=== PATIENT | female | born 1960 | race Caucasian/White ===

== ENCOUNTER 2016-10-06 14:22 | Inpatient (IN) ==
[2016-10-06 15:27] LABS: INR 1.41; PROTIME 14.3 Seconds (9.2-11.7); PTT 28.5 Seconds (22.0-36.0)
[2016-10-06 15:29] LABS: BASO% 0.2 % (0.0-0.8); HEMATOCRIT 34.5 % (37.0-47.0); HEMOGLOBIN 11.1 g/dL (12.0-16.0); IMM GRAN# 0.19 X1000 (0.0-0.04); IMM GRAN% 0.8 % (0.0-0.5); LYMPH% 4.1 % (20.5-51.1); MANUAL DIFF NEEDED? YES; MCH 29.6 PG (27-31); MCHC 32.2 g/dL (33-37); MONO# 1.51 X1000 (0.11-0.59); MONO% 6.1 % (1.7-9.3); MPV 10.6 FL (7.4-10.4); NEUT% 88.8 % (42.2-75.2); PLT 443 X1000 (130-400); RBC 3.75 XMIL (4.2-5.4)
[2016-10-06 15:30] LABS: AGAP 19; ALKALINE PHOSPHATASE 115 U/L (32-104); BUN 20 mg/dL (8-22); CALCIUM 8.6 mg/dL (8.8-10.2); CHLORIDE 90 mmol/L (98-107); CK PROFILE 123 U/L (24-173); COSMO 279; GOT 18 U/L (10-30); GPT 17 U/L (10-36); POTASSIUM 3.5 mmol/L (3.5-5.1); SODIUM 132 mmol/L (136-145); TCO2 23 mmol/L (25-35); TOTAL BILIRUBIN 0.43 mg/dL (0.20-1.00); TOTAL PROTEIN 8.5 g/dL (6.3-8.3)
--- NOTE | 2016-10-06 15:39 | Diag Imaging Result Document ---
PROCEDURE NAME: CHEST-2 VIEWS - 10/06/2016 FRONTAL AND LATERAL CHEST, TWO VIEWS: FINDINGS: Sternal wires are present. The lungs are well expanded. The heart is not enlarged. The vessels are not distended. No infiltrates. No pleural effusions. IMPRESSION: No pneumonia.
[2016-10-06] MEDS ORDERED: VANCOMYCIN 1 GM/NS 250 ML IV ONE (15:58)
[2016-10-06] MEDS ORDERED: ZOSYN 3.375 GM/NS 50 ML IV ONE (15:58)
--- NOTE | 2016-10-06 16:03 | PROVIDER DOCUMENTATION ---
HPI-Musculoskeletal Pain/Inj - GENERAL Source: patient, family - HX OF PRESENT ILLNESS-MUSKULOSKELTAL Quality of Pain: reports: aching Severity in ED: moderate Onset/Duration: other (4 weeks) Timing: still present Any recent injury?: No Locality of Occurance: Home Similar Symptoms Previously?: Yes Recently seen or treated by another doctor?: No <Rocío Vera - Last Filed: 10/06/16 16:05> <Alejo Cerna - Last Filed: 10/06/16 16:16> - GENERAL Chief Complaint: Possible Sepsis-D Stated Complaint: POSS INFECTION IN FOOT Time Seen by Provider: 10/06/16 15:32 - HX OF PRESENT ILLNESS-MUSKULOSKELTAL Nature of Presenting Problem: Pt is a 56 yof that is a diabetic that presents to er with cc of right foot infection x 4 weeks reports continuing to get worse and hasn't followed up with pcp about it. Pt reports she was treated for cellulitis in April when it flared up. Reports hasn't been compliant with diabetes medication. Denies n,v,f, sob,urinary symptoms. Nonsmoker. reports noticed a foul odor from foot two days ago. Pt is febrile on arrival. (Rocío Vera) Review of Systems - Adult - REVIEW OF SYSTEMS - ADULT Constitutional: denies: chills, fever, fatique Eyes: reports: no symptoms reported Ears, Nose, Mouth & Throat: denies: ear pain, sinus problem, throat pain Cardiovascular: reports: no symptoms reported Respiratory: denies: cough, shortness of breath, wheezing Gastrointestinal: reports: no symptoms reported Genitourinary: reports: no symptoms reported Musculoskeletal: reports: see HPI. denies: joint pain, joint swelling, neck pain Integumentary: reports: no symptoms reported Neurological: reports: no symptoms reported Psychiatric: reports: no symptoms reported Endocrine: reports: see HPI. denies: change in skin pigment, excessive sweating , increased thirst, polyuria Hematologic/Lymphatic: denies: blood clots, low blood count, lymphedema, prolonged bleeding Allergic/Immunologic: reports: no symptoms reported All Other Systems: Reviewed and Negative <Rocío Vera - Last Filed: 10/06/16 16:05> Past History - Adult - PAST MEDICAL HISTORY-ADULT Review of Records: reports: Nursing Assessment Review, Medications Reviewed Cardiovascular: reports: cardiac disease, CAD, HTN. denies: CHF Respiratory: reports: denies history Gastrointestinal: reports: denies history Genitourinary: reports: denies history Neurological: reports: denies history Psychiatric: reports: denies history Endocrine/Immune: reports: Diabetes - PRIOR SURGERIES/PROCEDURES Surgical/Procedure History: reports: CABG, hysterectomy, tonsillectomy - IMMUNIZATION STATUS Childhood Immunizations: See Nurse Assessment Flu Vaccine: See Nurse Assessment - FAMILY HISTORY Family History: reviewed, not pertinent - SOCIAL HISTORY Smoking: denies Substance Use: none/never <VeraRocío - Last Filed: 10/06/16 16:05> Physical Exam-Injury Related - Physical Exam-Injury Related Initial Vital Signs Reviewed: Yes General Appearance: alert, mild distress, obese. negative: appears well Eyes: PERRL/EOMI Head, Ears, Nose, Mouth & Throat: TMs normal, pharynx normal Neck: non-tender, full range of motion, supple, normal inspection Respiratory: chest non-tender, lungs clear, normal breath sounds, no pleuratic chest pain, no respiratory distress, no accessory muscle use Cardiovascular: tachycardia Extremity: erythema (right lower leg distal 2-3 mild to moderate swelling), swelling (diabetic ulcer to right foot over 1st metatarsal and great toe with purulent discharge and discoloration to distaal great toe foul odor) Integumentary: normal color, warm/dry Psych/Mental Status: normal mood/affect, normal thought content, normal thought process, oriented x 3 - Glascow Coma Score Best Eye Response (Nazanin): (4) open spontaneously Best Verbal Response (Nazanin): (5) oriented Best Motor Response (Sagle): (6) obeys commands Sagle Total: 15 <VeraRocío - Last Filed: 10/06/16 16:05> Progress - CONSULTS/PCP/HOSPITALIST Notification #1 *Consult/PCP/Hospitalist*: Time Discussed: 16:04 Consult Disposition: Admit <Rocío Vera - Last Filed: 10/06/16 16:05> <Alejo Cerna - Last Filed: 10/06/16 16:16> - PLAN OF CARE/RESULTS Progress/Plan/Lab Results: Orders Category Date Time Status Cardiac Monitoring DIRECTED Care 10/06/16 14:35 Active IV Insertion ORDERED Care 10/06/16 14:35 Active Notify MD of + Sepsis Screen NOW Care 10/06/16 14:35 Active CHEST-2 VIEWS [RAD] Stat Exams 10/06/16 14:35 Draft BLOOD CULTURE [BLDCUL] Stat Lab 10/06/16 14:48 Ordered CBC WITH DIFF [HEME] Stat Lab 10/06/16 14:48 Results CK PROFILE [SP CHEM] Stat Lab 10/06/16 14:48 Completed COMPREHENSIVE METABOLIC PANEL [CHEM] Stat Lab 10/06/16 14:48 Completed LACTATE, PLASMA [CHEM] Stat Lab 10/06/16 14:48 Completed PROTIME WITH INR [COAG] Stat Lab 10/06/16 14:48 Completed PTT [COAG] Stat Lab 10/06/16 14:48 Completed ROUTINE CULTURE [RM] Stat Lab 10/06/16 14:35 Uncollected SED RATE [HEME] Stat Lab 10/06/16 15:58 Uncollected TROPONIN T Stat Lab 10/06/16 14:48 Completed URINALYSIS W/POSS RFLX CULT [URINALYSIS] Stat Lab 10/06/16 14:35 Uncollected Piperacil/Tazobact 3.375 gm/Ns [Zosyn 3.375 gm/Ns] 50 Med 10/06/16 15:58 Active ml IV NOW Vancomycin 1 gm/Ns 250 ml Med 10/06/16 15:58 Active IV NOW Oxygen Device Stat Oth 10/06/16 14:35 Active Vital Signs - 24 hr 10/06/16 14:31 Temperature 102.5 F H Pulse Rate 143 H Respiratory 18 Rate Blood Pressure 123/75 O2 Sat by Pulse 97 Oximetry Laboratory Tests 10/06/16 10/06/16 10/06/16 14:48 14:48 14:48 WBC 24.56 H RBC 3.75 L Hgb 11.1 L Hct 34.5 L MCV 92.0 MCH 29.6 MCHC 32.2 L RDW Std Deviation 14.3 Plt Count 443 H MPV 10.6 H Immature Gran % (Auto) 0.8 H Neut % (Auto) 88.8 H Lymph % (Auto) 4.1 L [place] % (Auto) 6.1 Eos % (Auto) 0.0 Baso % (Auto) 0.2 Immature Gran # (Auto) 0.19 H Neut # (Auto) 21.82 H Lymph # (Auto) 1.00 L [place] # (Auto) 1.51 H Eos # (Auto) 0.00 Baso # (Auto) 0.04 PT INR PTT (Actin FS) Sodium 132 L Potassium 3.5 Chloride 90 L Carbon Dioxide 23 L Anion Gap 19 BUN 20 Creatinine 0.9 Estimated GFR/1.73 m2 > 60 BUN/Creatinine Ratio 22 Glucose 316 H Calculated Osmolality 279 Calcium 8.6 L Total Bilirubin 0.43 AST 18 ALT 17 Alkaline Phosphatase 115 H Creatine Kinase 123 Troponin T Total Protein 8.5 H Albumin 3.0 L Globulin 5.5 Albumin/Globulin Ratio 0.5 Plasma Lactate 2.1 10/06/16 10/06/16 14:48 14:48 WBC RBC Hgb Hct MCV MCH MCHC RDW Std Deviation Plt Count MPV Immature Gran % (Auto) Neut % (Auto) Lymph % (Auto) [place] % (Auto) Eos % (Auto) Baso % (Auto) Immature Gran # (Auto) Neut # (Auto) Lymph # (Auto) [place] # (Auto) Eos # (Auto) Baso # (Auto) PT 14.3 H INR 1.41 PTT (Actin FS) 28.5 Sodium Potassium Chloride Carbon Dioxide Anion Gap BUN Creatinine Estimated GFR/1.73 m2 BUN/Creatinine Ratio Glucose Calculated Osmolality Calcium Total Bilirubin AST ALT Alkaline Phosphatase Creatine Kinase Troponin T < 0.010 Total Protein Albumin Globulin Albumin/Globulin Ratio Plasma Lactate (Rocío Vera) Departure - Departure Time of Disposition Order: 16:06 Certified Medical Emergency: Emergent <Rocío Vera - Last Filed: 10/06/16 16:05> - Departure Time of Disposition Order: 16:16 Certified Medical Emergency: Emergent <Alejo Cerna - Last Filed: 10/06/16 16:16> - Departure DIAGNOSIS: Diabetic foot ulcer Qualifiers: Diabetes mellitus type: other specified (including CANDICE) Laterality: right Qualified Code(s): E13.621 - Other specified diabetes mellitus with foot ulcer Fever Qualifiers: Fever type: unspecified Qualified Code(s): R50.9 - Fever, unspecified Disposition: ADMITTED INPATIENT 09 Condition: Stable Referrals: Belen Dominique [Primary Care Provider] - Attestation - Scribe Verification/Attestation Scribe:: Rocío Vera Acting as Scribe for:: Alejo Cerna Scribe documention review:: This chart was documented by a scribe and accurately reflects the service the provider performed and the decisions made by the provider. <Rocío Vera - Last Filed: 10/06/16 16:05> Physician Attestation - Physician Attestation I, the provider, attest to the following statement:: Alejo Cerna Physician documentation Attestation:: This documentation recorded by the scribe accurately reflects the service I personally performed and the decisions made by me. <Alejo Cerna - Last Filed: 10/06/16 16:16>
[2016-10-06] MEDS ORDERED: ZOFRAN IV ONE (16:15)
[2016-10-06] MEDS ORDERED: MORPHINE IV ONE (16:15)
[2016-10-06 17:13] LABS: URINE SOURCE CATH
[2016-10-06 17:18] LABS: BILIRUBIN URINE SMALL (NEGATIVE); BLOOD URINE MODERATE (NEGATIVE); COLOR YELLOW; GLUCOSE URINE 200 mg/dL (NEGATIVE); LEUKOCYTES URINE SMALL (NEGATIVE); NITRITE URINE POSITIVE (NEGATIVE); PROTEIN URINE 300 mg/dL (NEGATIVE); SP GRAVITY URINE 1.029; TURBIDITY URINE HAZY (CLEAR); UROBILINOGEN URINE 3 mg/dL (NORMAL)
[2016-10-06 17:22] LABS: UR EPITHELIAL CELLS >10 /HPF (<10); URINE BACTERIA 1+ /HPF; URINE CULTURE NEEDED? YES; URINE MICRO REVIEW NEEDED? YES; URINE RBC <10 /HPF (<10); URINE WBC TNTC /HPF (<10)
[2016-10-06 17:30] LABS: URINE CASTS NONE SEEN; URINE CRYSTALS NONE SEEN; URINE SMALL ROUND CELLS NONE SEEN
[2016-10-06 17:35] LABS: BANDS 6 % (0-1); LYMPHS 6 % (21-51); MONO 4 % (1-9)
[2016-10-06 17:39] LABS: HYPOCHROM OCCASIONAL
[2016-10-06 17:40] LABS: LARGE PLATELETS OCCASIONAL
--- NOTE | 2016-10-06 18:35 | HISTORY AND PHYSICAL ---
PRIMARY CARE PHYSICIAN: Dr. Belen Dominique. CHIEF COMPLAINT: Right foot pain. HISTORY OF PRESENT ILLNESS: Mrs. Olivier is an unfortunate 56-year-old female. She carries a history of CAD status post CABG, chronic cellulitis of right lower extremity, diabetes mellitus, hypertension, and poor medical compliance. She presents with 3 weeks of right foot pain and left foot ulcer. Symptoms began with a small apparent laceration to her right foot and this progressed to severe right diabetic foot ulcer. Currently, she has the majority of her right great toe eroded and exposed with bone protruding. She has multiple stages of wound degradation noted. The wound is obviously purulent and gangrenous. She states she has been treating herself with hydrogen peroxide and bandages. She has not seen anybody about this. She has not been on antibiotics. She denies any fevers or chills. No chest pain. No nausea, vomiting or diarrhea. She has a history of diabetes mellitus, and states that she rarely checks her blood sugar for reasons that are not exactly understood. At any rate, she came to the ER today for evaluation. In the ER, she was noted to have significant leukocytosis and vital signs consistent with sepsis. She is tachycardic with a fever of 102.5, heart rate right now is in the 130s; however, her blood pressure is maintaining adequately. She is now going to be admitted for severe sepsis and diabetic foot ulcer. PAST MEDICAL HISTORY: 1. CAD. 2. Poorly controlled diabetes. 3. Hypertension. 4. Hyperlipidemia. 5. Gout. 6. History of stroke with residual left-sided weakness. 7. Chronic right lower extremity cellulitis. 8. Poor medical compliance. 9. RLS. 10. Diabetic neuropathy. SURGICAL HISTORY: Tonsillectomy, , hysterectomy and CABG. SOCIAL HISTORY: Patient quit smoking multiple years ago. She denies tobacco, alcohol or drug use. FAMILY HISTORY: Significant for lung cancer, uterine cancer, CAD and diabetes. REVIEW OF SYSTEMS: Fourteen-point review of systems were obtained and found to be negative with the exception of the HPI. ALLERGIES: Tizanidine. HOME MEDICATIONS: Are currently being compiled. PHYSICAL EXAMINATION: VITAL SIGNS: Blood pressure is 152/59, heart rate 126, respiratory rate 18, O2 saturation 97% on room air. Temperature is 100.4 degrees. GENERAL: This is a morbidly obese, female, lying in the hospital bed. No acute distress. NEUROLOGIC: She is awake, alert, and oriented. She follows commands. She has no focal deficits. HEENT: Head atraumatic and normocephalic. Her pupils are equal, round, reactive to light. Oral mucosa is dry. Trachea is midline. No JVD. CHEST: Clear to auscultation bilaterally. CV: Tachy but regular. S1, S2 is noted. No murmurs, gallops, clicks, or rubs. GI: Soft, nondistended, nontender. Bowel sounds are positive. EXTREMITIES: Right lower extremity with significant edema, redness, area about the right great toe has significant eschar and multiple stages of degradation of some the areas with bone exposure. Pulse is diminished but palpable. DIAGNOSTIC DATA: Chest x-ray shows no acute process. WBC 24.56, hemoglobin 11.1, hematocrit 34.5, platelet count 443,000. ESR 128. INR 1.41. Sodium 132, potassium 3.5, chloride 90, CO2 23, anion gap 19. BUN 20, creatinine 0.9. Glucose is 316. Calcium 8.6, alkaline phosphatase 115, albumin 3, lactate 2.1. Urinalysis shows significant urinary tract infection and moderate blood, positive nitrites, small bilirubin. ASSESSMENT/PLAN: 1. Severe sepsis: Source is most definitely her right foot. We are going to draw blood cultures, wound cultures. Obtain radiograph of the foot. Start broad-spectrum antibiotics. Continue fluid resuscitation. Consult ID and Surgery. Her blood pressure is stable for now. We will monitor this closely. 2. Severe right diabetic foot ulcer: Amputation is likely for this patient. General Surgery has been consulted as has ID. Cultures have been obtained and antibiotics have been initiated. We are also ordering plain film radiographs and inflammatory studies. 3. Poorly controlled diabetes mellitus: We had a long discussion with the patient about compliance and diabetic management. We are going to check a hemoglobin A1c and see where we are with that. Then we will also add a basal insulin and continue daily diabetic education. 4. Hypertension: Add p.r.n. medications for now. We will need to update her home medications and then we will continue them as necessary. 5. Hyponatremia: Mild, likely hypovolemic given her overall volume status and clinical picture. We have added IV fluid hydration. We will continue to monitor. 6. Coronary artery disease: Patient denies any chest pain or shortness of breath. Chest x-ray does not show anything acute. We will also order EKG for completion. 7. Urinary tract infection: Cultures are pending. We will continue antibiotics. 8. Anemia: Likely chronic disease, we will check iron studies and treat accordingly. 9. Poor medical compliance. We have advised the patient that continued medical noncompliance with her diabetes will ultimately lead to severe morbidity and mortality. We will continue daily education and possibly discuss with social work. 10. Gastrointestinal and deep vein thrombosis prophylaxis provided with proton pump inhibitor and Lovenox. Further recommendations to follow. Dictated by RADHA Arenas for Manuel Gerard MD
[2016-10-06] MEDS ORDERED: VANCOMYCIN IV PER PHARMACY MISC SCH (19:35)
[2016-10-06 20:22] LABS: HEMOGLOBIN A1C 10.1 % (4.8-6.0)
[2016-10-06 20:25] LABS: HDL 17 mg/dL (45-65); LDL 109 mg/dL; MAGNESIUM 1.9 mg/dL (1.5-2.7); TRIGLYCERIDES 159 mg/dL (35-135); VLDL 32 mg/dL
[2016-10-06] MEDS ORDERED: VANCOMYCIN 1,300 MG in NS 250 ML IV ONE (20:30)
[2016-10-06 20:32] LABS: FREE T4 1.05 ng/dL (0.93-1.70)
[2016-10-06] MEDS: SODIUM CHLORIDE 0.9% INJ SCH (21:03)
[2016-10-06] MEDS: PROTONIX IV SCH (21:03)
[2016-10-06] MEDS: HUMALOG SUBQ SCH (21:03)
[2016-10-06] MEDS: NS 1,000 ML IV SCH (21:03)
[2016-10-06] MEDS: MORPHINE IV PRN (21:13)
[2016-10-07] MEDS: ZOSYN 3.375 GM/NS 50 ML IV SCH ×4 (02:01→14:11)
[2016-10-07] MEDS: MORPHINE IV PRN ×4 (02:05→20:13)
[2016-10-07] MEDS: HUMALOG SUBQ SCH ×4 (06:29→21:02)
[2016-10-07 06:56] LABS: HEMATOCRIT 29.7 % (37.0-47.0); HEMOGLOBIN 9.2 g/dL (12.0-16.0); MCH 29.4 PG (27-31); MCV 94.9 FL (81-99); RBC 3.13 XMIL (4.2-5.4)
[2016-10-07 07:03] LABS: CALCIUM 8.7 mg/dL (8.8-10.2); POTASSIUM 3.9 mmol/L (3.5-5.1)
[2016-10-07] MEDS ORDERED: REGLAN IV ONE (08:56)
[2016-10-07] MEDS ORDERED: PEPCID IV ONE (08:56)
[2016-10-07] MEDS ORDERED: SODIUM CHLORIDE 0.9% INJ ONE (08:56)
--- NOTE | 2016-10-07 09:21 | Diag Imaging Result Document ---
PROCEDURE NAME: FOOT COMPLETE RIGHT - 10/06/2016 PORTABLE RIGHT FOOT, 3 VIEWS: FINDINGS: There is extensive soft tissue swelling. There is a large amount of subcutaneous gas at the medial forefoot/great toe. This may relate to infection by gas- producing organism or gangrene. There is apparent fracture deformity of the distal phalanx of the great toe, but it is not clear if this represents pathological fracture associated with osteomyelitis. There is no other bony destruction identified. There is no other fracture or dislocation identified. There is calcaneal spurring which is most prominent at the plantar fascia insertion. There are some degenerative changes at the talonavicular articulation. IMPRESSION: 1. Large amount subcutaneous gas at medial forefoot and great toe, compatible with infection by gas-producing organism or gangrene. 2. Apparent fracture deformity of distal phalanx of great toe. It is not clear if this represents pathological fracture associated with osteomyelitis. Correlation with clinical evaluation is recommended. [facility]
[2016-10-07] MEDS ORDERED: VANCOMYCIN 1,700 MG in NS 250 ML IV SCH ×2 (15:00→16:00)
--- NOTE | 2016-10-07 15:05 | PROGRESS NOTE ---
DATE: 10/07/2016 Today Ms. Olivier refers to be fine. She has already been seen by General Surgery. She continues to have pain in the right lower extremity from the infections. OBJECTIVE: Vital signs: Blood pressure is 125/60, pulse of 115, respirations 20, temperature 99.9 degrees. General: Ms. Olivier is a 56-year-old female. She is in bed. She did not seem to be in any distress. HEENT: Mucosa is pink and moist. Anicteric. Acyanotic. Neck: Supple. Chest: Clear. Cardiovascular: Regular rate and rhythm. Abdomen: Soft, distended, but nontender. Bowel sounds are present. Extremities: The left lower extremity is okay. The right lower extremity has gross erythematous changes from the big toe to the metatarsal area. The leg itself also has some erythematous changes consistent with stasis dermatitis with possible superimposed cellulitis. There is some ulceration under the right big toe and it looks really nasty and ugly. LABORATORY DATA: 1. WBC is 19.12, hemoglobin is 9.2, platelet count of 317,000. Chemistry is reviewed, relatively fine. Creatinine is 1.1. Glucose is 257. A1c is 10.1. 2. All inflammatory markers are remarkably elevated. 3. X-ray of the foot. She does a large amount of subcutaneous gas at the medial forefoot and great toe compatible with infection by a gas producing organism or gangrene. 4. Apparent fracture deformity of the distal phalanx of the great toe. It is not clear if this represents pathological fracture associated with osteomyelitis. CURRENT MEDICATIONS: 1. Humalog sliding scale. 2. Vancomycin. 3. Protonix. 4. Zosyn. ASSESSMENT: 1. Sepsis secondary to skin and soft tissue infection and possibly bone infection as well. 2. Severe right diabetic foot ulcer with aggressive cellulitis [gangrene foot]. 3. Suspected osteomyelitis of big toe. 4. Poorly controlled diabetes mellitus with A1c above 10. 5. History of coronary artery disease. 6. Morbid obesity with BMI of about 70. PLAN: 1. We will continue with the current antibiotics and medication for pain control. The patient has been evaluated already by surgery and there is a plan for surgical intervention today. However, patient ate so will be pending further recommendation from the Surgical team. 2. There is also a pending consult for ID. 3. I think after the amputation, patient eventually will need long-term antibiotics. We would therefore go ahead and consult the PICC line team for PICC line placement in anticipation of long-term antibiotic therapy for the severe foot infection with osteomyelitis. 4. In terms of the diabetes control, we are going to continue with the sliding scale for now until after the surgery, then we will be able to put the patient on long-acting and short- acting insulin to get a better glucose control.
[2016-10-07] MEDS ORDERED: MORPHINE ONE ×2 (15:15→15:23)
[2016-10-07] MEDS ORDERED: DIPRIVAN 1% ONE (15:18)
[2016-10-07] MEDS ORDERED: FENTANYL ONE (15:19)
[2016-10-07] MEDS: MORPHINE ONE ×2 (15:34→15:41)
--- NOTE | 2016-10-07 16:13 | CONSULTATION ---
DATE OF CONSULTATION: 10/07/2016 HISTORY OF PRESENT ILLNESS: This is a 56-year-old female with poorly controlled diabetes, coronary artery disease who presents at the encouragement of her family with an approximately 1- month history of necrotic wound to the right foot. She has had fevers at home and generally feeling poor. She was admitted through the ER to the floor and started on antibiotics. PAST SURGICAL HISTORY: Coronary artery disease with a quadruple bypass graft with bilateral saphenous vein harvest 5 years ago, I believe. No other peripheral vascular surgeries. No other amputation procedure. PAST MEDICAL HISTORY: She has diabetes and coronary disease. REVIEW OF SYSTEMS: Ten-point negative unless mentioned in the HPI. SOCIAL HISTORY: History of smoking, none currently. No alcohol. She has a lot of family support. FAMILY HISTORY: Negative for cancer. LABORATORIES: Reviewed. White count was 24 when she got here. It is now 19 and hematocrit is 29. Sedimentation rate is 128. Creatinine is 1.1. Glucose was elevated at 300 when she got here. It is now down to the low 200s. Hemoglobin A1c is 10. Alkaline phosphatase mildly elevated, but the rest of her LFTs are okay. Troponins are normal. Urinalysis is positive for nitrites and leukocytes. IMAGING: X-ray of her right foot shows gas-containing collection in the medial forefoot and also what appears to be a fracture or osteomyelitis-type changes of the distal metatarsal and phalanx joints of her 1st digit. PHYSICAL EXAMINATION: Vital Signs: She was febrile at 102.5 when she got here. Heart rate is in the 110s. Blood pressure is 128/59. Oxygen saturation is 93% on room air. General: She is alert, in no acute distress. HEENT: There is no scleral icterus. Cardiovascular: Normal rate, regular rhythm. Pulmonary: No increased work of breathing. Abdomen: Soft, nontender, nondistended. Extremities: Her left leg it is slightly edematous. There is a saphenous vein harvest scar, but it is otherwise perfused, with no wounds. On her right foot, the 1st digit extending into the metatarsal region is frankly necrotic with a large, wet, necrotic wound here, foul smelling. There is cellulitis to the level of the midcalf. There are also early necrotic changes to the 2nd toe, and significant swelling and erythema of the 3rd toe. Otherwise, the foot seems perfused, with the exception of the 1st digit, which is necrotic. ASSESSMENT/PLAN: This is a 56-four old female with a severe diabetic associated infection of her right foot with cellulitis extending to the midcalf. She has had over the last several months several admissions, both here and at outside hospitals, for cellulitis. She is not compliant with her diabetes. A1c is 10. She has multiple systemic inflammatory response syndrome criteria, with a significant leukocytosis and urgent debridement including transmetatarsal, likely at least the 1st and 2nd if not 1 through 3 toes indicated. I did talk to patient about losing all of her toes and her forefoot, and the possibility of progressing to a below-knee amputation in the future if this does not improve. She consents to this, understands the gravity of the situation, and will proceed urgently to the operating room. Unfortunately, she did eat breakfast, so will have to wait 6 hours, but she in the meantime is on broad-spectrum antibiotics and we will continue this. She also has a urinary tract infection and blood cultures are pending. We will defer other medical management to the hospitalist, but we will plan for debridement today and evaluation over the next several days for need for further debridement and ultimate plan for wound closure/coverage.
[2016-10-07] MEDS: NORCO-7.5 PO PRN (17:31)
[2016-10-07] MEDS: VANCOMYCIN 1,700 MG in NS 250 ML IV SCH (17:32)
[2016-10-07] MEDS: NS 1,000 ML IV SCH (17:33)
--- NOTE | 2016-10-07 18:26 | OPERATIVE NOTE ---
PROCEDURE DATE: 10/07/2016 PREOPERATIVE DIAGNOSIS: Infected necrosis of diabetic foot right. POSTOP: Infected necrosis of diabetic foot right. PROCEDURE PERFORMED: Right 1st and 2nd transmetatarsal amputation. COMPLICATIONS: None. ESTIMATED BLOOD LOSS: 130 mL. SPECIMENS: 1. Right 1st and 2nd transmetatarsal amputation. 2. Bone for culture of the metatarsal the 1st, 2nd metatarsal bones. ANESTHESIA: General. INDICATIONS: A 56-year-old female with approximately 1 month history of infected wound of the right foot who ultimately presented to emergency department with complaints of above. Debridement and amputation for source control is indicated. OPERATIVE FINDINGS: There was gross pus with necrotic 1st toe and a wound extending to the midfoot. The pus extended into involving the joints and bones of the 2nd digit. The 3rd digit was perfused without any gross purulence or necrotic tissue here. OPERATIVE NOTE: Risks, benefits, alternatives discussed with the patient, she consented to the procedure. She was seen in preoperative area and surgery be performed confirmed. Surgical site was marked. She was receiving scheduled antibiotics and these were confirmed. She has taken to operating room, placed supine position. General anesthesia induced without complication. Her right foot was prepped Betadine solution and draped in usual fashion. Time-out performed between nurse, surgical, anesthesia staff and encompassing incision was made around all the frankly necrotic and purulent materials. This encompassed the 1st and 2nd toes to the level of the midfoot. Sharp dissection was carried down. There was bleeding tissue noted and gross purulence was expressed. Carried this down level of mid metatarsal bones of the 1st and 2nd digit. We amputated these with bone cutters and removed the specimen its entirety. We then obtained hemostasis with electrocautery. We debrided back metatarsal heads back to firm bone. The distal phalanx did have pus and appeared to be somewhat moth-eaten and we debrided these back to healthy bleeding bone. There is no residual necrotic tissue and all tissue was seen well perfused. After confirming hemostasis we packed the wound with Vashe soaked gauze, Kerlix and a loose Brayan wrap were applied. She tolerated procedure well. All sponge, needle , instrument counts correct x2. I spoke with the family. She was woken, transferred to PACU in good condition. [facility]
[2016-10-07] MEDS: SODIUM CHLORIDE 0.9% INJ SCH (21:02)
[2016-10-07] MEDS: PROTONIX IV SCH (21:02)
[2016-10-07] MEDS: ZOSYN 3.375 GM in NS 100 ML IV SCH (21:02)
[2016-10-07] MEDS: PERIDEX MT SCH (21:02)
[2016-10-08] MEDS: MORPHINE IV PRN ×5 (01:04→21:44)
[2016-10-08] MEDS: NORCO-7.5 PO PRN ×3 (03:38→11:58)
[2016-10-08] MEDS: ZOSYN 3.375 GM in NS 100 ML IV SCH ×2 (03:38→07:59)
[2016-10-08] MEDS: HUMALOG SUBQ SCH ×4 (06:37→20:06)
[2016-10-08 06:41] LABS: HEMOGLOBIN 8.7 g/dL (12.0-16.0); MCH 29.6 PG (27-31); MCHC 31.1 g/dL (33-37); MCV 95.2 FL (81-99); MPV 10.8 FL (7.4-10.4); RBC 2.94 XMIL (4.2-5.4)
[2016-10-08 06:57] LABS: CALCIUM 7.7 mg/dL (8.8-10.2); POTASSIUM 3.4 mmol/L (3.5-5.1)
[2016-10-08] MEDS: PERIDEX MT SCH ×2 (07:59→20:05)
--- NOTE | 2016-10-08 11:04 | PROGRESS NOTE ---
DATE: 10/08/2016 SUBJECTIVE: She had some pain in her foot. No other complaints. OBJECTIVE: Vital Signs: Afebrile. Heart rate is in the 110s. Blood pressure is 109/57. Oxygen saturation 98% on 2 L nasal cannula. General: She is alert, in no acute distress. Extremities: Her dressing on the right foot is clean. The remaining 3 toes are viable and well perfused. Cellulitis persists at the level of the midcalf. Laboratory Data: I have reviewed her labs. White count is downtrending to 15. Her urine, wound, and blood cultures are all positive for Staphylococcus aureus. ASSESSMENT AND PLAN: This is a 56-year-old lady status post transmetatarsal amputation of the first and second toes for infected necrosis in the setting of poorly controlled diabetes. She had good perfusion at the time of surgery. She is bacteremic with Staphylococcus aureus growing out of her blood, urine, and wound. She is on appropriate antibiotics. We will plan to take her dressing off tomorrow and evaluate need for further debridement. Otherwise, it is going to be local wound care and antibiotics. I suspect she will need a prolonged course for her bacteremia and osteomyelitis.
[2016-10-08] MEDS: VANCOMYCIN 1,700 MG in NS 250 ML IV SCH (11:52)
[2016-10-08] MEDS: NS 1,000 ML IV SCH (11:52)
--- NOTE | 2016-10-08 16:59 | PROGRESS NOTE ---
DATE: 10/08/2016 SUBJECTIVE: Today, Ms. Olivier referred to be doing fine. She complains of some pain in the legs. OBJECTIVE: Vital Signs: Stable, blood pressure is 111/58, pulse of 77, respirations 18, temperature is 98.1 degrees. General: Ms. Olivier is a 56-year-old female. She is in bed, not seemingly distressed. HEENT: Mucosa is pink and moist. Anicteric and acyanotic. Chest: Clear. Cardiovascular: Regular rate and rhythm. Abdomen: Soft, distended, but nontender. Extremities: The left lower extremity is okay. The right lower extremity has a sterile dressing over it from the recent surgery. Three of the lateral toes are there, but I understand the 1st two have been amputated. LABORATORY DATA: WBC is 15.54, hemoglobin is 8.7, platelet count of 303,000. Chemistry reviewed. Sodium is 135, potassium is 3.4, chloride 98, bicarb is 21, creatinine is up to 1.3. Microbiology data: Blood culture is positive for gram-positive cocci which I think is the same MRSA. Right foot culture of the wound has grown MRSA. The urine culture has also grown MRSA. The foot culture from the surgical specimen has also grown gram-positive cocci which I think is going to be the same MRSA. ASSESSMENT: 1. Sepsis secondary to skin and soft tissue infection. 2. Severe right diabetic foot ulcer with aggressive cellulitis and osteomyelitis of the 1st and 2nd toes on the right. 3. Poorly controlled diabetes mellitus. A1c is above 10. 4. History of coronary artery disease. 5. Morbid obesity. 6. Methicillin-resistant Staphylococcus aureus urinary tract infection. 7. Methicillin-resistant Staphylococcus aureus wound infection. 8. Methicillin-resistant Staphylococcus aureus bacteremia. PLAN: 1. I have discontinued the Zosyn since we know the germ is methicillin-resistant Staphylococcus aureus causing all her problems. I am going to re-culture the blood to make sure we have a blood negative specimen before we put in a PICC line. I think patient would eventually need long-term antibiotics for about 6 weeks. I have discussed the case with Dr. Heath, and he is also with the opinion now that the patient creatinine is creeping up. It is advisable to stop the vancomycin as well and use daptomycin. 2. We will be using insulin to control the patient glucose. 3. I will order echocardiogram to make sure there is not any underlying endocarditis.
[2016-10-08] MEDS: CUBICIN IV SCH (17:27)
[2016-10-08] MEDS: NS IV SCH (17:27)
[2016-10-08] MEDS: NORCO-10 PO PRN (17:27)
[2016-10-08] MEDS: SODIUM CHLORIDE 0.9% INJ SCH (20:06)
[2016-10-08] MEDS: PROTONIX IV SCH (20:06)
--- NOTE | 2016-10-08 21:47 | CONSULTATION ---
DATE OF CONSULTATION: 10/08/2016 CONCLUSION: Patient has a methicillin-resistant Staph aureus osteomyelitis of the right foot which necessitated amputation of toes 1 and 2 on the right foot by Dr. Almaraz. She also has a methicillin-resistant Staphylococcus aureus bacteremia and urinary tract infection. Patient's creatinine in the past few days has been rising. RECOMMENDATIONS: Because the patient's creatinine is already rising, I have switched the patient from vancomycin to daptomycin in order to hopefully prevent further kidney damage. I agree with Dr. Gerard ordering an echocardiogram to look for the possibility of endocarditis. Our plan is to repeat the patient's blood cultures and after they are sterile, we will go ahead and put in a long lasting IV such as a PICC. I think the patient should be treated for at least 6 weeks even though she has had amputation of the toes because she has metal in her arm and the metal may have become infected while the patient was bacteremic. DISCUSSION: The patient tells me that approximately 3-4 weeks ago she started having progressive erythema and swelling in the right foot. She eventually was admitted to the hospital. Dr. Almaraz has amputated the 1st two toes of the right foot. PERTINENT DATA: Show a CBC with a white count of 15,540, hemoglobin 8.7, and platelet count 303,000. As mentioned above, the patient's creatinine is rising. Today it was 1.3 with a GFR of 43. The patient's CBC shows a white count of 15,540, hemoglobin 8.7, and platelet count is 303,000. Chest x-ray shows no pneumonia. X-ray of the right foot showed gas in the tissue and possible osteomyelitis. The patient has a positive wound culture in the right foot, and in the urine for methicillin-resistant Staph aureus the blood cultures are growing gram positive cocci, which I think will most likely be due to the same methicillin-resistant Staph aureus organism as is with the other infections. PAST MEDICAL HISTORY/REVIEW OF SYSTEMS: Eyes and ears: Patient said her hearing is good. She does wear glasses. Neck: No stiffness. Cardiac: No chest pain or palpitations. Respiratory: No cough or shortness of breath. GI: No nausea, vomiting, or diarrhea. : The patient was not complaining of dysuria even though her urine culture did grow methicillin- resistant Staph aureus. She is not having flank pain. Neurologic: The patient does not have seizures. She does not have neuropathy. Her kidney function had been normal, but has started to decline after she was placed on vancomycin. Integument: No rash noted. There is erythema involving the right leg due to cellulitis. The remainder of the patient's review of systems was completed and was negative. [employer] SAL[employer] history: Patient is a 1 para 1 AB 0. She delivered her child by C- section and she has had a hysterectomy. She has also had coronary artery bypass grafting. She had a metal nunu inserted into her left arm after it was fractured. Endocrine : The patient does have neuropathy and her kidney function has deteriorated a little bit since she has been put on vancomycin. FAMILY HISTORY: Positive for lung cancer, uterine cancer, coronary artery disease, diabetes, hypertension, stroke and myocardial infarction. MEDICAL DISEASES: Poorly controlled diabetes mellitus, coronary artery disease , hypertension, hyperlipidemia, gout, stroke and diabetic neuropathy. SOCIAL HISTORY: [place] She stopped smoking cigarettes years ago. She does not drink alcoholic beverages or abuse drugs. She is single. She lives with her son. ALLERGY: Zanaflex. MEDICATIONS AT HOME: Metoprolol, Robaxin, Bupap, aspirin, hydroxyzine, Amaryl, Neurontin, Zyloprim, hydrocodone, and clindamycin. PHYSICAL EXAMINATION: Vital Signs: Temperature is 98.1 degrees, pulse 77, respirations 18, blood pressure 111/58. Weight: 249 pounds. Generally: This is an obese, middle -aged female. She is in no acute distress. Head, eyes, ears, nose, and throat: She can hear my spoken words and see near objects. No mucosal lesions were noted in the mouth. Neck: No meningismus. Thorax: No increased AP diameter of the chest. Lungs: Clear to auscultation. Cardiovascular: Heart rate was regular. Peripheral pulses are palpable. Abdomen: Soft and nontender. Neurologic: Patient is alert. She can move her extremities. There is no tremor. She does have some weakness in the left leg. Her sensation was intact to touch. Her memory, as regarding her medical history was intact. Integument: No rash is noted. Extremities: The left foot has a large dressing on it and the left leg from the mid part of the leg between the foot and knee was erythematous and it spread distally to the dressing. Thank you for the consult. [facility]
[2016-10-09] MEDS: NORCO-10 PO PRN ×6 (00:11→22:29)
[2016-10-09] MEDS: NS 1,000 ML IV SCH ×4 (02:13→15:38)
[2016-10-09] MEDS: MORPHINE IV PRN ×4 (02:13→20:05)
[2016-10-09] MEDS: HUMALOG SUBQ SCH ×4 (06:17→20:06)
[2016-10-09] MEDS ORDERED: XYLOCAINE-MPF 2% ONE (07:26)
[2016-10-09] MEDS ORDERED: QUELICIN (DOSE) ONE (07:26)
[2016-10-09] MEDS ORDERED: LR 1,000 ML ONE (07:26)
[2016-10-09] MEDS ORDERED: ANESTHESIA PB SET 88 IN 5742 ONE (07:26)
[2016-10-09] MEDS ORDERED: EXTENSION SET 32 IN 4522 ONE (07:26)
[2016-10-09 07:27] LABS: HEMATOCRIT 26.3 % (37.0-47.0); HEMOGLOBIN 8.1 g/dL (12.0-16.0); MCH 29.6 PG (27-31); MCHC 30.8 g/dL (33-37); MPV 10.6 FL (7.4-10.4); RBC 2.74 XMIL (4.2-5.4)
[2016-10-09 07:57] LABS: CALCIUM 7.7 mg/dL (8.8-10.2); POTASSIUM 3.3 mmol/L (3.5-5.1)
[2016-10-09] MEDS ORDERED: KLOR-CON PO ONE (08:40)
[2016-10-09] MEDS: PERIDEX MT SCH ×2 (09:13→20:06)
--- NOTE | 2016-10-09 11:47 | PROGRESS NOTE ---
DATE: 10/09/2016 SUBJECTIVE: Feels well. Still some pain in her foot but no other issues. OBJECTIVE: Vital signs: Temperature is 98.3, pulse 107, blood pressure 135/70. General: She is alert, in no acute distress. Extremities: Her right foot wound is clean. There is no necrotic tissue. There is no pus. The edema and cellulitis of the leg are improving. It still is to distal leg. This is improved from preop. LABS: I reviewed her labs. White count is 11, hematocrit is 26. Reviewing her blood culture, she has Staph aureus growing out of her foot wound, urine, and blood. ASSESSMENT: This is a 56-year-old female with infected necrosis of a diabetic foot wound. Was floridly bacteremic with impending sepsis from this. She is now status post debridement. The wound is clean with good perfusion. Remaining toes are viable. At this point I do not plan further surgical debridement. I have asked Lorie, our wound nurse, to apply wound VAC which she will need going forward. I think Dr. Heath has plans for IV antibiotics. I think she will need this regarding her foot, not to mention her bacteremia. Would continue inpatient for now monitoring, ensuring her cellulitis improves, but no plans for further surgical debridement at this time.
[2016-10-09] MEDS: NS IV SCH (16:16)
[2016-10-09] MEDS: CUBICIN IV SCH (16:16)
--- NOTE | 2016-10-09 17:15 | PROGRESS NOTE ---
DATE: 10/09/2016 PRESENT ILLNESS: The patient has methicillin-resistant Staph aureus bacteremia, urinary tract infection and right foot osteomyelitis. MEDICATIONS: Because the patient's creatinine was rising yesterday the patient was switched from vancomycin to daptomycin. This is day 1 of treatment with the antibiotic. PHYSICAL EXAMINATION: Vital Signs: Temperature 98.3 degrees, pulse 93, respirations 18, blood pressure 127/51. General: This is an obese, middle-aged female, who is in no acute distress. Lungs: Clear to auscultation. Cardiovascular: Regular heart rate. Abdomen: Soft and nontender. Extremities: I removed the dressing from the right foot. There is a large wound where the toes have been amputated. There is some dark tissue there. There is no odor, there is no pus, and most of the tissue is a dark red color. LAB AND X-RAY: There is no new x-ray today. The lab shows a creatinine of 1.1 with a GFR of 52, a CBC with a white count of 11,390, hemoglobin 8.1 and platelet count 254,000. The patient's cultures from her foot, blood and urine are all growing methicillin-resistant Staph aureus. ASSESSMENT AND PLAN: The patient has severe methicillin-resistant Staph aureus infection to include bacteremia, urinary tract infection and foot osteomyelitis. My plan is to treat with 8 weeks of daptomycin. COMORBIDITIES: Include diabetes mellitus which unfortunately has not been controlled well.
--- NOTE | 2016-10-09 19:26 | PROGRESS NOTE ---
DATE: 10/09/2016 SUBJECTIVE: Today Ms. Olivier refers to be doing okay. She does not actually have any major complaint, except for pains in her legs. OBJECTIVE: Vital Signs: Stable. Blood pressure 127/54, pulse of 93, respirations 18, temperature is 98.3 degrees. General Appearance: Ms. Olivier is a 56-year-old female. She was in bed. She did not seem to be in any distress. HEENT: Mucosa is pink and moist. Anicteric. Acyanotic. Neck: Supple. Chest: Good air entry bilaterally with a few bibasilar crepitations. Cardiovascular: Regular rate and rhythm. Abdomen: Soft, distended, but nontender. Bowel sounds are present. Extremities: No pedal edema. The left lower extremity is okay. The right lower extremity has a sterile dressing over it, but you can see that lateral toes. The right also has some stasis dermatitis with possible superimposed infection on the distal leg. LABORATORY DATA: WBC is down to 11.39, hemoglobin is 8.1, platelet count 254, 000. Chemistry reviewed. Creatinine is 1.1 today. ASSESSMENT: 1. Sepsis secondary to skin and soft tissue infection. 2. Severe right diabetic foot ulcer with aggressive cellulitis and osteomyelitis of the 1st and 2nd toes on the right. 3. Poorly-controlled diabetes mellitus with A1c of 10.1 on presentation. Glucose is fairly controlled. We will continue with the sliding scale. I will start the patient on 10 units of long-acting insulin and continue to control the diabetes. 4. History of coronary artery disease noted. 5. Morbid obesity. 6. Methicillin resistant staph aureus urinary tract infection. 7. Methicillin resistant staph aureus bacteremia, which we think is coming from the foot infection. 8. Mild renal insufficiency. 9. Mild hypokalemia. We will replace this. In general, Ms. Olivier seems to be doing a little better. She is currently on daptomycin, sliding scale insulin, morphine, and [place] for pain control. Patient is going to be seen by wound care and understand she will apply wound VAC on the right leg. Per the surgery note , he does not plan to do any more debridement at least for now. We will continue with the current antibiotics. We will be waiting for the subsequent blood culture done yesterday to be negative before we order a PICC line for long-term antibiotic therapy. [facility]
[2016-10-09] MEDS: PROTONIX IV SCH (20:05)
[2016-10-09] MEDS: SODIUM CHLORIDE 0.9% INJ SCH (20:05)
--- NOTE | 2016-10-09 20:38 | ECHO REPORT ---
ORDER DATE: 10/08/2016 MEASUREMENTS: Left ventricular end-diastolic diameter in diastole 4.2, left ventricular end- systolic diameter 2.9, posterior wall thickness 1.1, septal thickness 1.0, left atrium 3.8, aortic root 2.8. SUMMARY: 1. Adequate quality acoustic windows. 2. Trileaflet aortic valve was sclerotic but opens adequately on 2-D images. Mitral and tricuspid valves are without evidence of obstruction. Trace mitral regurgitation and mild tricuspid regurgitation. Estimated systolic PA pressure by Doppler is 45 mmHg suggesting mild pulmonary hypertension. Pulmonic valve without evidence of obstruction. Aortic root normal size. 3. Normal left ventricular dimensions suggested. Estimated left ejection fraction approximately 65%. No regional wall motion abnormalities are evident. Doppler of mitral inflow demonstrates normal left ventricular diastolic function. Left atrium, right atrium and right ventricle of normal size with grossly preserved right ventricular systolic force. 4. No pericardial effusion. 5. suggests normal central venous pressure. CONCLUSIONS: 1. Aortic valve sclerosis without stenosis. 2. Mild tricuspid regurgitation with mild pulmonary hypertension by Doppler. 3. Normal left ventricular function without wall motion abnormality evident.
[2016-10-09] MEDS: LANTUS SUBQ SCH (22:30)
[2016-10-10] MEDS: NORCO-10 PO PRN ×4 (03:34→17:44)
[2016-10-10] MEDS: NS 1,000 ML IV SCH ×2 (05:40→17:44)
[2016-10-10] MEDS: HUMALOG SUBQ SCH ×4 (05:42→20:34)
[2016-10-10] MEDS: MORPHINE IV PRN ×3 (05:42→17:45)
[2016-10-10 06:35] LABS: MANUAL DIFF NEEDED? NO
[2016-10-10 06:50] LABS: BASO% 0.2 % (0.0-0.8); EOS# 0.19 X1000 (0.0-0.7); EOS% 1.8 % (0.0-10.0); HEMATOCRIT 27.4 % (37.0-47.0); HEMOGLOBIN 8.4 g/dL (12.0-16.0); IMM GRAN# 0.07 X1000 (0.0-0.04); IMM GRAN% 0.7 % (0.0-0.5); LYMPH# 1.91 X1000 (1.2-3.4); MCH 29.2 PG (27-31); MCHC 30.7 g/dL (33-37); MCV 95.1 FL (81-99); MONO# 0.79 X1000 (0.11-0.59); MONO% 7.4 % (1.7-9.3); MPV 10.9 FL (7.4-10.4); NEUT% 71.9 % (42.2-75.2); PLT 279 X1000 (130-400); RBC 2.88 XMIL (4.2-5.4)
[2016-10-10 07:45] LABS: POTASSIUM 3.9 mmol/L (3.5-5.1)
[2016-10-10] MEDS: PERIDEX MT SCH ×2 (08:18→20:32)
--- NOTE | 2016-10-10 08:29 | PROGRESS NOTE ---
DATE: 10/10/2016 PRESENT ILLNESS: The patient has a methicillin-resistant Staph aureus, right foot osteomyelitis, bacteremia and urinary tract infection. MEDICATIONS: Patient is on daptomycin because her creatinine increased while she was taking vancomycin. This is day 2 of treatment with daptomycin. PHYSICAL EXAMINATION: Vital Signs: Temperature is 98.1 degrees, pulse 114, respirations 16, blood pressure 153/73. General: This is an obese, middle-aged female, who is in no acute distress, but she does seem to be ill-appearing. Lungs: Clear to auscultation. Cardiovascular: Regular heart rate. Abdomen: Soft and nontender. Extremities: The right foot has the VAC in place. There is surrounding erythema. LAB AND X-RAY: CBC today shows a white count of 10,620, hemoglobin 8.4, and platelet count 279,000. Repeat blood cultures are sterile at 48 hours. The patient's creatinine yesterday was 1.1 with a GFR of 52. ASSESSMENT AND PLAN: I plan to treat the patient with daptomycin for a total of eight weeks. She is going to be going to rehabilitation, and I am going to put a consult in for [facility] to supply the patient with antibiotics once she leaves the rehabilitation facility. Patient's comorbidities include the following: She is a diabetic, and in the past had not controlled her diabetes well. My assessment and plan will be to treat with daptomycin intravenous for 8 weeks because the patient has methicillin-resistant Staphylococcus aureus osteomyelitis, as well as bacteremia and urinary tract infection.
[2016-10-10 09:24] LABS: INR 1.14; PROTIME 11.6 Seconds (9.2-11.7)
[2016-10-10] MEDS ORDERED: NS 500 ML ONE (10:08)
--- NOTE | 2016-10-10 10:41 | PROGRESS NOTE ---
DATE: 10/10/2016 SUBJECTIVE: Today, Ms. Olivier refers to be fine. Continues to have some discomfort in the leg in the amputated toes. OBJECTIVE: Vital signs: Blood pressure is 119/46, pulse of 95, respirations 18 , temperature is 98.4 degrees. General: Ms. Olivier is a 56-year-old female. She is in bed. She is morbidly obese. Not in any distress. HEENT: Mucosa is pink and moist. Anicteric. Acyanotic. Neck: Supple. Chest: Good air entry bilaterally. No crepitations. No rhonchi. Cardiovascular: Regular rate and rhythm. Abdomen: Soft, nontender. Bowel sounds are present. Extremities: No pedal edema. The right lower extremity has a sterile dressing. I did not look at the wound. There is some stasis dermatitis with possible superimposed infection on the right distal leg. LABORATORY DATA: WBC is down to 10.62. Hemoglobin is slightly up to 8.4. Platelet count is 279,000. Chemistry is reviewed. Creatinine is down to 1.0. Glucose is 174. ASSESSMENT: 1. Sepsis secondary to skin, soft tissue, and bone infection. 2. Severe right diabetic foot ulcer with aggressive cellulitis and osteomyelitis of 1st and 2nd toes on the right, status post amputation. Today is day 3 postoperative. The patient has a wound VAC and is being followed by Wound Care nurse, Surgery and Infectious Disease. 3. Poorly controlled diabetes mellitus with A1c of 10.1 on presentation. Glucose is pretty much controlled here. We will continue with the insulin regimen. 4. History of coronary artery disease noted. 5. Morbid obesity. 6. Methicillin-resistant Staphylococcus aureus bacteremia, likely from the bone infection. 7. Methicillin-resistant Staphylococcus aureus urinary tract infection. 8. Mild renal insufficiency, improved. 9. Hypokalemia resolved. PLAN: Patient has an order for PICC line. She is going to get a PICC line today. Will continue with daptomycin. From Dr. Heath' note, he plans to treat the patient for a total of 8 weeks. We will consult high school social studies tutor for arrangements to a rehabilitation. [facility]
--- NOTE | 2016-10-10 10:55 | PROGRESS NOTE ---
DATE: 10/10/2016 SUBJECTIVE: She continues to have pain in her foot. This is improving. OBJECTIVE: Vital Signs: She is afebrile now. Persistent low-grade tachycardia, although the severity of this is improving as well, 95 this morning. Blood pressure 119/46. General: She is alert. Extremities: A wound VAC is in place on her right foot. There is some persistent cellulitis at the level of the midcalf, although this appears to be receding. Laboratory Data: I reviewed her labs. White count is now normal. ASSESSMENT/PLAN: A 56-year-old female status post first and second transmetatarsal amputation for severely infected diabetic foot. Dr. Heath is following. She was bacteremic with Staphylococcus aureus from this. She is on daptomycin. Dr. Heath plans to place a peripherally inserted central catheter line with intravenous antibiotics. Wound VAC is in place. We are making arrangements for home health VAC changes as an outpatient. I would like to see the cellulitis continue to improve. Her wound was cleaned yesterday and no plans for further debridement. Her remaining toes are viable. We will continue to follow along.
[2016-10-10] MEDS ORDERED: INSULIN PEN NEEDLES ONE (15:51)
[2016-10-10] MEDS: NS IV SCH (17:44)
[2016-10-10] MEDS: CUBICIN IV SCH (17:44)
[2016-10-10] MEDS: PROTONIX IV SCH (20:32)
[2016-10-10] MEDS: SODIUM CHLORIDE 0.9% INJ SCH (20:32)
[2016-10-10] MEDS: LANTUS SUBQ SCH (20:32)
[2016-10-11] MEDS: MORPHINE IV PRN ×3 (01:17→15:39)
[2016-10-11] MEDS: NORCO-10 PO PRN ×4 (01:17→14:57)
[2016-10-11] MEDS: NS 1,000 ML IV SCH ×2 (05:49→07:42)
[2016-10-11] MEDS: HUMALOG SUBQ SCH ×3 (06:26→11:45)
[2016-10-11] MEDS: PERIDEX MT SCH (09:14)
--- NOTE | 2016-10-11 10:08 | PROGRESS NOTE ---
DATE: 10/11/2016 SUBJECTIVE: Feels better. Pain is improving in her foot. No fevers. OBJECTIVE: Extremities: Cellulitis to the level of the midcalf is improving. The remaining 3 toes are viable. Wound VAC is in place with good suction. LABS: I reviewed her labs. Nothing new today, either than her glucose 198. Blood cultures have been negative on repeat. Had a PICC line placed. ASSESSMENT/PLAN: A 56-year-old female with severe infected diabetic right foot with necrosis to the level of the metatarsal head and significant associated cellulitis. She is improving. Her wound is clean. She is scheduled for wound VAC change today. We will make arrangements for her to go to rehab with long-term IV antibiotics and wound VAC management. I can follow her as an outpatient. Her cellulitis is not resolved, but it is much improved, as is her systemic inflammatory response. I think it would be fine for her to go when cleared by Dr. Heath and the medicine staff from her other issues, but surgically do not plan any other interventions. I can see her back in 2 weeks in my office.
[2016-10-11] MEDS ORDERED: PRINIVIL PO SCH (10:15)
--- NOTE | 2016-10-11 10:48 | PROGRESS NOTE ---
DATE: 10/11/2016 SUBJECTIVE: This morning Ms. Olivier referred to be doing fine. Denies any complaints. OBJECTIVE: Vital signs: Blood pressure is 129/66, pulse of 92, respirations 16, temperature is 97.7 degrees. General exam: Ms. Olivier is a 56-year-old female, who was in bed. Morbidly obese. She is not in any distress. HEENT: Mucosa is pink and moist. Anicteric. Acyanotic. Neck: Supple. Chest: Clear. Cardiovascular: Regular rate and rhythm. Abdomen: Soft, distended, but nontender. Bowel sounds are present. Extremities: No pedal edema. The right lower extremity has a wound VAC attached to the surgical site, and there is some distal cellulitis. LABORATORY: There is not any lab work for today. MEDICATIONS: The patient is currently on: 1. Brielle. 2. Daptomycin. 3. Insulin. ASSESSMENT: 1. Sepsis secondary to skin, soft tissue and bone infection. 2. Severe right diabetic foot ulcer with osteomyelitis of first and second toe status post first and second toe amputation. Today is day 4 postoperatively. Patient is currently with a wound VAC. 3. Poorly controlled diabetes mellitus with A1c of 10.1. Patient will be needing insulin at least for the short term. She was on glimepiride before. 4. History of coronary artery disease noted. 5. Morbid obesity. 6. Methicillin-resistant Staphylococcus aureus bacteremia and urinary tract infection. 7. Mild renal insufficiency, improved. 8. Proteinuria likely secondary to diabetic nephropathy. PLAN: We will start the patient on low-dose lisinopril at 5 mg daily for the nephropathy. Patient will be discharged today on daptomycin for eight weeks as per Dr. Heath' recommendations. She will also follow up with surgery and wound care and her PCP. Patient will be discharged to [facility] in a very stable condition. The patient has been advised to repeat BMP in about a week to follow up on her renal function because we just started MARKIE inhibitor.
[2016-10-11 11:36] VITALS: BP 134/67
--- NOTE | 2016-10-11 12:07 | DISCHARGE SUMMARY ---
ADMISSION DATE: 10/06/2016 DISCHARGE DATE: 10/11/2016 CONSULTATIONS: Dr. Paul Almaraz with general surgery and Dr. Viraj Heath with infectious disease. PERTINENT PROCEDURES: 1. Right 1st and 2nd transmetatarsal amputation performed by Dr. Paul Almaraz. 2. Echocardiogram showed aortic valve sclerosis without stenosis. Mild tricuspid regurgitation and mild pulmonary hypertension. Normal LV function. Normal wall motion. DISCHARGE DIAGNOSES: 1. Sepsis secondary to skin and bone infection, resolving. Patient to go rehabilitation with daptomycin and a wound VAC. 2. Severe right diabetic foot ulcer with osteomyelitis, amputation of the 1st and 2nd toes, status post first amputation. Continue with wound VAC. 3. Poorly controlled diabetes mellitus with a hemoglobin A1c of 10.1. Patient on oral as well as subcutaneous insulin. 4. Coronary artery disease history, stable. 5. Morbid obesity. Patient educated about diet and exercise. 6. Methicillin-resistant Staphylococcus aureus of the right foot, methicillin-resistant Staphylococcus aureus bacteremia and urinary tract infection. Continue with daptomycin as per infectious disease, Dr. Viraj Heath. 7. Mild renal insufficiency, improved. 8. Proteinuria secondary to diabetic neuropathy. HOSPITAL COURSE: Briefly, Ms. Olivier is an unfortunate, 56-year-old, female who carries a history of coronary artery disease, status post CABG, chronic cellulitis of the right lower extremity, diabetes mellitus, uncontrolled hypertension, poor medical compliance. Patient presented to the ED with 3 weeks of right foot pain and left foot ulcer. Symptoms began when a small laceration to her right foot progressed to severe right diabetic foot ulcer. On admission, the majority of her right great toe was eroded and exposed with bone protruding. She had multiple stages of wound degradation noted. Wound was obviously purulent and gangrenous. She had been treating herself with hydrogen peroxide and Band-Aids. She had not been followed by anyone for this. She was not on any antibiotics. The patient did state that she rarely checks her blood sugars for unknown reasons that were not exactly understood. In the ED, the patient was found to have significant leukocytosis. Vital signs were consistent with sepsis. She was tachycardic, fever of 102.5, heart rate in the 130s. The patient was admitted for severe sepsis as well as severe right diabetic foot ulcer. She was started on the sepsis protocol along with broad- spectrum antibiotics, fluid resuscitation with a consult for ID and general surgery. Cultures were obtained from her right foot. The patient also had a urinary tract infection. Dr. Paul Almaraz did an amputation of the 1st and 2nd transmetatarsal. Dr. Viraj Heath with ID also saw the patient in reference to MRSA osteomyelitis of the right foot as well as bacteremia and a UTI. Because of her rising creatinine, the patient was switched from vancomycin to daptomycin. The patient did have an echocardiogram to rule out the possibility of endocarditis. It was negative. The patient's blood cultures and urine did grow out Staphylococcus aureus. She was again continued on IV antibiotics. Repeat of her cultures were not showing any growth. The patient did receive a PICC line and she will go with daptomycin for a total of 8 weeks as well as a wound VAC. Vital signs on day of her discharge, temperature is 97.7 degrees, heart rate 92, respirations 16, blood pressure is 129/66, O2 is 99% on room air. DISCHARGE DIET: Diabetic with LiquaCel protein packet. DISCHARGE MEDICATIONS: 1. Aspirin 325 mg p.o. q.a.m. 2. Neurontin 800 mg p.o. b.i.d. 3. Lopressor 50 mg p.o. q.a.m. 4. Robaxin 750 mg p.o. b.i.d. 5. Zyloprim 300 mg p.o. q.a.m. 6. [place] 10/325 one each p.o. 4 times a day. 7. Lantus 15 units subcutaneously at bedtime. 8. Prinivil 5 mg p.o. daily. FOLLOWUP: The patient is being discharged to [facility]. She will need to follow up with Dr. Viraj Heath in 4 weeks as well as Dr. Belen Dominique after rehab. The patient is being discharged with a wound VAC and daptomycin for a total of 8 weeks continued and we will supply the daptomycin once she leaves the rehabilitation facility. Patient will also follow up with Dr. Belen Dominique after rehabilitation. The patient is to follow a diabetic diet and check her sugars regularly. Discharge time is greater than 30 minutes. Dictated by RADHA Dockery for Manuel Gerard MD
--- NOTE | 2016-10-11 14:30 | PROGRESS NOTE ---
DATE: 10/11/2016 PRESENT ILLNESS: The patient has a methicillin-resistant Staph aureus, right foot osteomyelitis, bacteremia and urinary tract infection. MEDICATIONS: This is day 3 of treatment with daptomycin. Earlier the patient was on vancomycin but on that her creatinine increased and therefore the patient was changed to daptomycin. PHYSICAL EXAMINATION: Vital Signs: Temperature is 98.1 degrees, pulse 97, respirations 16, blood pressure 134/67. Generally: This is an obese, middle-aged female. She is in no acute distress. Lungs: Clear to auscultation. Cardiovascular: Regular heart rate. Abdomen: Soft and nontender. Extremities: The patient's left arm has a PICC in it. The PICC site is not erythematous or swollen. The patient's right foot is the one that was operated on. There is a large dressing around the foot. The dressing is intact. LAB AND X-RAY: There is no new radiographic study. One of 2 blood cultures drawn 3 days ago is growing a gram-positive coccus. That was drawn before the patient was started on daptomycin. The patient's echocardiogram showed no vegetations on the valves. ASSESSMENT AND PLAN: My plan is to treat the patient for a total of 8 weeks with daptomycin. She will be going to a rehab facility. I have ordered the following: Daptomycin 700 mg IV daily, a CBC, creatinine and CPK should be drawn every Sunday with the results to be sent to me as well as to the penitentiary physician. I plan to see the patient back in the office in 4 weeks. As of today she will have 53 more days of treatment necessary. Patient's comorbidity is diabetes and the patient has told me that she plans to control her diabetes much better than she has in the past. The patient's assessment is that she has the methicillin-resistant Staph aureus, right foot osteomyelitis, bacteremia and urinary tract infection, and our treatment is going to be with daptomycin as mentioned above. I have had 2 blood cultures drawn today also. I have asked the microbiology laboratory to send me the final results of the blood cultures drawn today and the one drawn earlier that is growing gram-positive cocci. I have requested appointment for the patient with me in 4 weeks.
== END 2016-10-11 17:26 | DRG 854 ==
LOC: ED 14:22 → 4N 17:19
PROVIDERS: ATTEND Internal Medicine
PROC: 0Y6M0ZB Detachment at Right Foot, Partial 2nd Ray, Open Approach (ICD-10-PCS; 2016-10-07)
PROC: 0Y6M0Z9 Detachment at Right Foot, Partial 1st Ray, Open Approach (ICD-10-PCS; principal; 2016-10-07 14:11)
DX: A41.9 Sepsis, unspecified organism (principal); E11.52 Type 2 diabetes mellitus with diabetic peripheral angiopathy with gangrene; E11.21 Type 2 diabetes mellitus with diabetic nephropathy; L03.115 Cellulitis of right lower limb; E87.1 Hypo-osmolality and hyponatremia; I69.954 Hemiplegia and hemiparesis following unspecified cerebrovascular disease affecting left non-dominant side; N39.0 Urinary tract infection, site not specified; M86.8X7 Other osteomyelitis, ankle and foot; Z68.45 Body mass index [BMI] 70 or greater, adult; E11.65 Type 2 diabetes mellitus with hyperglycemia; I10 Essential (primary) hypertension; E11.9 Type 2 diabetes mellitus without complications; D63.8 Anemia in other chronic diseases classified elsewhere; E11.40 Type 2 diabetes mellitus with diabetic neuropathy, unspecified; E11.621 Type 2 diabetes mellitus with foot ulcer; I25.10 Atherosclerotic heart disease of native coronary artery without angina pectoris; L97.519 Non-pressure chronic ulcer of other part of right foot with unspecified severity; E78.5 Hyperlipidemia, unspecified; Z95.1 Presence of aortocoronary bypass graft; Z91.19 Patient's noncompliance with other medical treatment and regimen; G25.81 Restless legs syndrome; Z87.891 Personal history of nicotine dependence; Z80.1 Family history of malignant neoplasm of trachea, bronchus and lung; Z80.49 Family history of malignant neoplasm of other genital organs; Z82.49 Family history of ischemic heart disease and other diseases of the circulatory system; Z83.3 Family history of diabetes mellitus; E66.01 Morbid (severe) obesity due to excess calories; E11.69 Type 2 diabetes mellitus with other specified complication; B95.62 Methicillin resistant Staphylococcus aureus infection as the cause of diseases classified elsewhere; E87.6 Hypokalemia
CPT/HCPCS: 36415; 36569; 71020; 80048; 80053; 80061; 81001; 82550; 82607; 82728; 82746; 82948; 83036; 83605; 83735; 84439; 84443; 84484; 85025; 85027; 85610; 85651; 85730; 86140; 87040; 87070; 87075; 87077; 87088; 87186; 87205; 88307; 93306; 94761; 94799; 96365; 96366; 96367; 96375; C9113; J0330; J0878; J1815; J2270; J2405; J2543; J2765; J3010; J3370; J7030; J7040; J7050; J7120; P9612; S0028; S0164

== ENCOUNTER 2017-01-25 11:48 | Inpatient (IN) ==
[2017-01-25 13:09] LABS: URINE CULTURE NEEDED? NO; URINE MICRO REVIEW NEEDED? NO; URINE SOURCE CLEAN CATCH
[2017-01-25 13:12] LABS: BILIRUBIN URINE NEGATIVE (NEGATIVE); BLOOD URINE NEGATIVE (NEGATIVE); COLOR YELLOW; GLUCOSE URINE NEGATIVE (NEGATIVE); LEUKOCYTES URINE NEGATIVE (NEGATIVE); NITRITE URINE NEGATIVE (NEGATIVE); PH URINE 5.5; PROTEIN URINE TRACE mg/dL (NEGATIVE); SP GRAVITY URINE 1.021; TURBIDITY URINE CLEAR (CLEAR); UROBILINOGEN URINE NORMAL (NORMAL)
[2017-01-25 13:13] LABS: UR EPITHELIAL CELLS <10 /HPF (<10); URINE BACTERIA NEGATIVE /HPF; URINE RBC <10 /HPF (<10); URINE WBC <10 /HPF (<10)
[2017-01-25 13:51] LABS: MANUAL DIFF NEEDED? NO
[2017-01-25 13:56] LABS: BASO% 0.2 % (0.0-0.8); EOS# 0.22 X1000 (0.0-0.7); EOS% 1.7 % (0.0-10.0); IMM GRAN# 0.04 X1000 (0.0-0.04); IMM GRAN% 0.3 % (0.0-0.5); LYMPH# 2.79 X1000 (1.2-3.4); MCH 28.2 PG (27-31); MCHC 32.4 g/dL (33-37); MCV 86.9 FL (81-99); MONO# 0.97 X1000 (0.11-0.59); MONO% 7.6 % (1.7-9.3); MPV 10.7 FL (7.4-10.4); NEUT% 68.2 % (42.2-75.2); PLT 230 X1000 (130-400); RBC 4.26 XMIL (4.2-5.4)
[2017-01-25 14:12] LABS: AGAP 10; ALKALINE PHOSPHATASE 117 U/L (32-104); BUN 13 mg/dL (8-22); CALCIUM 9.4 mg/dL (8.8-10.2); CHLORIDE 98 mmol/L (98-107); COSMO 273; GOT 11 U/L (10-30); GPT 10 U/L (10-36); SODIUM 136 mmol/L (136-145); TCO2 28 mmol/L (25-35)
--- NOTE | 2017-01-25 15:05 | PROVIDER DOCUMENTATION ---
This chart was entered by Rosie Temple Scribe, acting as scribe for Torres Sales MD. HPI-General Adult - General Chief Complaint: Extremity Pain Stated Complaint: LEFT LEG PAIN Time Seen by Provider: 01/25/17 12:17 Source: patient Allergies/Adverse Reactions: Patient Allergies Allergy/AdvReac Type Severity Reaction Status Date / Time tizanidine HCl * Allergy ANAPHYLAXIS Verified 10/06/16 17:01 [From Zanaflex] Home Medications: Home Medication List Medication Instructions Recorded Confirmed Last Taken Type Allopurinol [Zyloprim] 300 mg PO QAM 09/19/15 10/06/16 10/04/16 08:00 History Aspirin 325 mg PO QAM 09/19/15 10/06/16 10/04/16 08:00 History Gabapentin [Neurontin] 800 mg PO BID 09/19/15 10/06/16 10/04/16 08:00 History Methocarbamol [Robaxin-750] 750 mg PO BID 09/19/15 10/06/16 10/04/16 08:00 History Metoprolol [Lopressor] 50 mg PO QAM 09/19/15 10/06/16 10/04/16 08:00 History Hydrocodone/APAP 10 mg/325 mg 1 each PO 4XDAY PRN PRN #0 tablet 12/26/1510/06/16 08:30 Rx [[place]-10] Insulin Glargine [Lantus] 15 unit SUBQ QHS #0 insuln.pen 10/11/16 Unknown Rx LISINOpril [Prinivil] 5 mg PO DAILY #0 tablet 10/11/16 Unknown Rx - History of Present Illness -Gen Adult Nature of Presenting Problems: pt is a 56 year old female who came to the ED with a cc of cellulitis on her left lower leg and is currently healing from a right foot amputation. Location of Pain/Injury: reports: lower extremity (left lower leg) Pain Radiation: reports: no radiation Quality of Pain: reports: sharp Severity: reports: mild Onset/Duration: reports: unsure Timing: reports: still present Context/Activities at Onset: reports: none Modifying Factors: improves with: nothing Associated Symptoms: reports: denies symptoms Similar Symptoms Previously?: Yes Recently seen or treated by another doctor?: Yes Review of Systems - Adult - REVIEW OF SYSTEMS - ADULT Constitutional: denies: chills, fever Eyes: reports: no symptoms reported Ears, Nose, Mouth & Throat: denies: ear pain, nose pain Cardiovascular: reports: no symptoms reported Respiratory: denies: cough, shortness of breath Gastrointestinal: reports: no symptoms reported Genitourinary: reports: no symptoms reported Musculoskeletal: reports: no symptoms reported Integumentary: reports: other (cellulitis). denies: mole changes, nail changes Neurological: reports: no symptoms reported Psychiatric: reports: no symptoms reported Endocrine: reports: no symptoms reported Hematologic/Lymphatic: reports: no symptoms reported Allergic/Immunologic: reports: no symptoms reported All Other Systems: Reviewed and Negative Past History - Adult - PAST MEDICAL HISTORY-ADULT Review of Records: reports: Nursing Assessment Review Major Childhood Illnesses: reports: denies history Cardiovascular: reports: cardiac disease, CAD, HTN. denies: CHF Respiratory: reports: denies history Gastrointestinal: reports: denies history Obstetrical/Gynecological: reports: denies history Genitourinary: reports: denies history Musculoskeletal: reports: denies history Neurological: reports: CVA Psychiatric: reports: denies history Endocrine/Immune: reports: Diabetes Other Conditions: reports: denies history - PRIOR SURGERIES/PROCEDURES Surgical/Procedure History: reports: CABG, hysterectomy, tonsillectomy - IMMUNIZATION STATUS Childhood Immunizations: See Nurse Assessment Flu Vaccine: See Nurse Assessment - FAMILY HISTORY Family History: reviewed, not pertinent Physical Exam-General - PHYSICAL EXAM-ADULT Initial Vital Signs Reviewed: Yes - CONSTITUTIONAL General Appearance: appears well, alert, mild distress - EYES Eyes: PERRL/EOMI, pink conjunctivae - HEAD, EARS, NOSE, MOUTH & THROAT HENMT: normocephalic/atraumatic, moist mucous membranes - NECK Neck: non-tender, full range of motion - RESPIRATORY Respiratory: chest non-tender, lungs clear - CARDIOVASCULAR Cardiovascular: normal peripheral pulses, regular rate, rhythm - GASTROINTESTINAL (ABDOMEN) Abdominal Exam: normal bowel sounds, non tender, soft - MUSCULOSKELETAL Back Exam: normal inspection, no CVA tenderness Extremity: other (right foot amputation; left lower leg cellulitis) - SKIN Integumentary: normal color, normal turgor - NEUROLOGIC Neurologic: grossly normal - PSYCHIATRIC Psych/Mental Status: normal mood/affect, normal thought content, normal thought process, oriented x 3 Progress - PLAN OF CARE/RESULTS Progress/Plan/Lab Results: Vital Signs - 8 hr 01/25/17 11:57 Temperature 98.7 F Pulse Rate 96 H Respiratory Rate 18 Blood Pressure 170/75 O2 Sat by Pulse Oximetry 98 Orders Category Date Time Status BLOOD CULTURE [BLDCUL] Stat Lab 01/25/17 12:23 Ordered CBC WITH ELECTRONIC DIFF [HEME] Stat Lab 01/25/17 12:23 Uncollected CMP [COMPREHENSIVE METABOLIC PANEL] [CHEM] Stat Lab 01/25/17 12:23 Uncollected UA NIMS W/REFLEX CULT [URINALYSIS] Stat Lab 01/25/17 12:23 Uncollected WOUND CULTURE INC GRAM STAIN [RM] Stat Lab 01/25/17 12:24 Uncollected Result Diagrams: 01/25/17 13:36 01/25/17 13:36 - REASSESSMENT Reassessment #1 Status: unchanged (informed of admission) - CONSULTS/PCP/HOSPITALIST Notification #1 *Consult/PCP/Hospitalist*: Dr hernandez Time Discussed: 15:06 Reason/Comments: expanding cellulitis Departure - Departure Date of Disposition Decision: 01/25/17 Time of Disposition Decision: 15:06 DIAGNOSIS: Cellulitis and abscess of leg Diabetes mellitus with hyperglycemia Qualifiers: Diabetes mellitus type: type 2 Diabetes mellitus termite treater helper insulin use: unspecified termite treater helper insulin use status Qualified Code(s): E11.65 - Type 2 diabetes mellitus with hyperglycemia Disposition: ADMITTED INPATIENT 09 Certified Medical Emergency: Emergent Condition: Stable Referrals and Follow-Ups: Belen Dominique [Primary Care Provider] - - Critical Care Note This patient required my direct & personal management of CC.: No This chart was documented by the indicated scribe, (Rosie Temple Scribe) and accurately reflects the services I performed and decisions made by me, Torres Sales MD, as attested by the provider's signature.
[2017-01-25] MEDS ORDERED: VANCOMYCIN IV PER PHARMACY MISC SCH (15:15)
--- NOTE | 2017-01-25 15:38 | Diag Imaging Result Doc PS360 ---
EXAM: FOOT COMPLETE LEFT HISTORY: diabetic foot ulcer TECHNIQUE: Three views COMMENT: There is plantar spurring of the calcaneus. There is soft tissue swelling over the forefoot. There are surgical clips on the medial aspect of the distal tibia. No evidence of focal lysis or periosteal reaction is present. IMPRESSION: No evidence of osteomyelitis. Soft tissue swelling. Plantar fasciitis. Electronically signed by Rohit Yu 01/25/2017 3:35 PM
[2017-01-25] MEDS: ZOSYN 3.375 GM/NS 3.375 GM/50 ML IVPB IV SCH ×2 (16:13→21:01)
[2017-01-25] MEDS: HUMALOG SUBQ SCH ×2 (17:48→21:01)
[2017-01-25] MEDS: NS 1,000 ML IV SCH (17:49)
[2017-01-25] MEDS ORDERED: MORPHINE IV PRN (17:54)
--- NOTE | 2017-01-25 18:33 | HISTORY AND PHYSICAL ---
PRIMARY CARE PROVIDER: Dr. Belen Dominique. CHIEF COMPLAINT: Left foot pain. HISTORY OF PRESENT ILLNESS: Ms. Olivier is a 56-year-old female with a past medical history of type 2 diabetes mellitus, gout, hypertension, dyslipidemia, and restless leg syndrome, who presents to the emergency room today with complaints of left foot pain that has progressively worsened over the past 7-10 days. In September of 2016 the patient reports having right great toe and second toe amputated from a gangrenous infection. The patient states that there is oozing coming from her left great toe at the current moment. The patient also reports that the emergency room physician performed an incision and drainage at the bedside today prior to admission. The patient complains of left foot pain radiating into her left groin that is a 10/10 on the numeric pain scale. She also reports to be a noncompliant diabetic. PAST MEDICAL HISTORY: 1. Type 2 diabetes mellitus. 2. Gout. 3. Hypertension. 4. Dyslipidemia. 5. Restless leg syndrome. 6. Neuropathy. PAST SURGICAL HISTORY: 1. CABG x4. 2. Hysterectomy. 3. Tonsillectomy and adenoidectomy. 4. Right foot amputation of first and second digits. FAMILY HISTORY: Mother , OR, coronary artery disease, and lung cancer. Father , OR and coronary artery disease. SOCIAL HISTORY: Denies the use of alcohol, tobacco or illicit drugs. ALLERGIES: Tizanidine. HOME MEDICATIONS: Home medications currently being compiled at this time. REVIEW OF SYSTEMS: See HPI. LABORATORY AND DIAGNOSTICS: White blood cell count 12.69, red blood cells 4.26 , hemoglobin 12.0, hematocrit 37.0, MCV 86.9, MCH 28.2. Sodium 136, potassium 4.0, chloride 98, bicarb 28, anion gap 10, BUN 13, creatinine 0.7, GFR greater than 60, glucose 110, alkaline phosphatase 117, AST 11, ALT 10, albumin 4.0. C reactive protein 65.20. Urine: Trace protein, otherwise unremarkable. X- ray of the left foot reveals impression: No evidence of osteomyelitis, soft tissue swelling, plantar fasciitis. PHYSICAL EXAMINATION: VITAL SIGNS: Temperature 98.7, pulse rate 96, respirations 18, blood pressure 170/75, MAP 97, SpO2 98 on room air. GENERAL: Ms. Olivier is an obese 56-year-old female who appears to be very well nourished and well developed. HEENT: Atraumatic, normocephalic. PERRL. Mucous membranes moist. NECK: Supple. No lymphadenopathy. Trachea midline. No JVD. No thyromegaly. No bruits. CARDIOVASCULAR: Regular rate and rhythm. No murmurs. No gallops. No rubs. S1, S2 heard. RESPIRATORY: Clear and equal bilateral breath sounds. Equal chest excursion. Nonlabored. No accessory muscle use. ABDOMEN: Soft, nontender, nondistended. Bowel sounds x4 quadrants, normoactive. Negative abdominal bruits. GENITOURINARY: Deferred. NEUROLOGIC: No focal deficits noted. MUSCULOSKELETAL: Equal strength bilaterally in hands. Unsteady gait due to amputation on right foot and diabetic ulcer on left great toe. EXTREMITIES: No clubbing. No cyanosis. There is edema present with erythema on the left leg. Also scarring from vein harvest on left leg noted. Distal pulses intact and present. SKIN: Warm, dry. There is a healing wound from amputation on right foot where the first and second digits used to be. There is swelling, erythema, and purulent drainage present on the left great toe. ASSESSMENT AND PLAN: 1. Diabetic foot ulcer. We will do blood cultures, wound cultures, a plasma lactate, and x-ray of the left foot to rule out osteomyelitis. Surgery will be consulted regarding possible amputation. 2. Type 2 diabetes mellitus. This will be monitored closely. The patient will be placed on a low dose sliding scale as needed. 3. Gout. We will order a uric acid level and treat accordingly. Continue on home medications. 4. Hypertension. This will be monitored and the patient will be continued on home medications. 5. Dyslipidemia. We will do lipid panel and continue the patient on home medications. 6. Neuropathy. The patient will continue home medication of gabapentin 800 mg b.i.d. 7. Noncompliance. Social workers will be consulted regarding affordable medications in order for patient to be compliant with her diabetes. The patient will also be educated on proper diet for type 2 diabetes mellitus. 8. DVT PPx: Lovenox Dictated by RADHA Arenas for Dennis Donato MD cc: RADHA Arenas MD Faye Wilson, MD [facility]
[2017-01-25] MEDS: VANCOMYCIN 1.5 GM in NS 250 ML IV SCH (18:53)
[2017-01-25] MEDS ORDERED: NORCO-10 PO PRN (21:48)
[2017-01-25] MEDS ORDERED: BUPAP PO PRN (21:48)
[2017-01-25] MEDS ORDERED: KLOR-CON PO PRN (21:48)
[2017-01-25] MEDS ORDERED: NEURONTIN PO ONE (23:00)
[2017-01-25] MEDS ORDERED: ROBAXIN PO ONE (23:00)
[2017-01-25] MEDS: REQUIP PO PRN (23:19)
[2017-01-26] MEDS: ZOSYN 3.375 GM/NS 3.375 GM/50 ML IVPB IV SCH ×4 (03:07→22:52)
[2017-01-26] MEDS: MORPHINE IV PRN ×3 (03:08→17:29)
--- NOTE | 2017-01-26 05:43 | CONSULTATION ---
DATE OF CONSULTATION: 01/25/2017 REQUESTING PHYSICIAN: Dennis Donato MD with the Hospitalist Department. CONSULT CONCERNING: Left diabetic foot ulcer. HISTORY OF PRESENT ILLNESS: A 56-year-old female, known to my group with a past medical history of poorly controlled type 2 diabetes, gout, hypertension, dyslipidemia, restless leg syndrome, who presented to the emergency department the day of admission for left foot pain that progressed over the past 7-10 days. In September,, my partner, Dr. Almaraz, did an amputation of her right great toe and second toe from gangrenous infection. She can emergency department with this pain, fearing that potentially might occur in this way. She reports the pain as being a 10 at 10 to the hospitalist, somewhat better control now. Again, she is a poorly controlled diabetic. PAST MEDICAL HISTORY: 1. Diabetes mellitus type 2. 2. Hypertension. 3. Dyslipidemia. 4. Restless leg syndrome. 5. Neuropathy. PAST SURGICAL HISTORY: 1. Includes coronary artery bypass graft x4. 2. Hysterectomy. 3. Tonsillectomy. 4. Adenoidectomy. 5. Right foot amputation. FAMILY HISTORY: Positive for coronary artery disease and lung cancer. SOCIAL HISTORY: Denies alcohol, tobacco, or illicit drugs. ALLERGIES: Tizanidine. HOME MEDICATIONS: MAR reviewed. Of note, the patient is on vancomycin and Zosyn. REVIEW OF SYSTEMS: A full 10 point review of systems obtained and negative except as specified in HPI. PHYSICAL EXAMINATION: Vital Signs: Patient is currently afebrile. Her vital signs stable. General: No acute distress. A 56-year-old female who looks stated age. HEENT: Normocephalic, atraumatic. Pupils equal, round, react to light. Mucous membranes moist. Oropharynx benign. Neck: Supple. Trachea midline. Cardiovascular: Regular rate and rhythm. Lungs: Grossly clear. Abdomen: Soft, nontender, nondistended. Extremities: Previous amputation of the right foot with dressing in place. There is swelling and erythema noted to the left foot and the great toe. Some mild purulence is expressed from the wound. The erythema extends to the dorsal and plantar aspect of the foot. I feel no crepitus. There are no signs of ischemia. The foot is perfused. Vascular: All extremities perfused. Neurologic: Grossly intact. Skin: Please see noted above. LABORATORY: White blood cell count is 12, hematocrit is 37, platelet count 230,000. B-type natriuretic peptide reviewed. X-ray of the foot reviewed. ASSESSMENT AND PLAN: A 56-year-old, poorly compliant diabetic with foot ulcer of the left foot. 1. Multiple medical comorbidities at this time, being managed by the hospitalist service. 2. Diabetic foot ulcer on the left foot. At this time, the patient is being treated with antibiotics. I will discuss her case with Dr. Almaraz. I suspect she will likely need an amputation, but given the fact there is no osteomyelitis, I suspect we can try nonoperative management and antibiotics for right now and see how she does over the next couple of days. I appreciate the consult. cc: Jan Valentin MD
[2017-01-26] MEDS: HUMALOG SUBQ SCH ×4 (06:17→22:57)
--- NOTE | 2017-01-26 06:24 | PROGRESS NOTE ---
DATE: 01/26/2017 SUBJECTIVE: No major issues. The patient is doing okay. OBJECTIVE: Vital Signs: Patient is currently afebrile. Her vital signs are stable. General Examination: No acute distress. HEENT: Normocephalic, atraumatic. Pupils equal, round, react to light. Mucous membranes moist. Oropharynx benign. Neck: Supple. Trachea midline. Cardiovascular: Mildly tachycardic. Lungs: Grossly clear. Abdomen: Soft, nontender, nondistended. Extremities: Cellulitis of the left lower extremity, first toe. Seems to be improved. Overall, the wound appears slightly improved since yesterday, but still has some faint amount of drainage noted. LABORATORY: Currently pending. ASSESSMENT AND PLAN: A 56-year-old female with left foot diabetic foot ulcer. 1. Left foot diabetic foot ulcer. At this time, we will continue IV antibiotics. We will have Dr. Almaraz evaluate the patient on Sunday. We will have Dr. Mejía evaluate over the weekend. She has made some improvement. She does not have any signs of osteomyelitis on x-ray, so we may be able to get her through this without an amputation, with just IV antibiotics alone, but we will need to reassess over the next several days to see how she continues to respond. 2. Multiple medical comorbidities, currently being managed by the hospitalist service. cc: Jan Valentin MD
[2017-01-26 07:23] LABS: HEMATOCRIT 33.3 % (37.0-47.0); HEMOGLOBIN 10.6 g/dL (12.0-16.0); MCH 28.4 PG (27-31); MCHC 31.8 g/dL (33-37); MCV 89.3 FL (81-99); MPV 10.7 FL (7.4-10.4); RBC 3.73 XMIL (4.2-5.4)
[2017-01-26 07:50] LABS: AGAP 12; BUN 13 mg/dL (8-22); CALCIUM 8.3 mg/dL (8.8-10.2); CHLORIDE 103 mmol/L (98-107); COSMO 282; POTASSIUM 3.7 mmol/L (3.5-5.1); SODIUM 140 mmol/L (136-145); TCO2 25 mmol/L (25-35)
[2017-01-26] MEDS: ROBAXIN PO SCH ×3 (09:37→17:11)
[2017-01-26] MEDS: NEURONTIN PO SCH ×3 (09:37→17:11)
[2017-01-26] MEDS: LOPRESSOR PO SCH (09:38)
[2017-01-26] MEDS: LOVENOX SUBQ SCH (09:38)
[2017-01-26] MEDS: NS 1,000 ML IV SCH (09:38)
[2017-01-26] MEDS: ZYLOPRIM PO SCH (09:38)
--- NOTE | 2017-01-26 12:30 | Diag Imaging Result Doc PS360 ---
EXAM: FOOT COMPLETE RIGHT HISTORY: osteomyelitis TECHNIQUE: Right foot three views portable COMMENT: There is considerable soft tissue swelling in the forefoot. There is thick periosteal reaction over the distal third metatarsal which has increased since the previous study of 11/24/2016. This is nonspecific but may indicate ongoing osteomyelitis. There is actually somewhat less periosteal reaction at the bases of the first and second metatarsals where there has been amputation. There is a minimal degree of erosion of the lateral aspect of the head of the third metatarsal. IMPRESSION: Probable chronic osteomyelitis in the distal third metatarsal. Electronically signed by Rohit Yu 01/26/2017 12:27 PM
--- NOTE | 2017-01-26 13:45 | CONSULTATION ---
DATE OF CONSULTATION: 01/26/2017 CONCLUSION: The patient is admitted to the hospital with a severe infection in her left great toe and distal part of the foot. She previously had an infection of the right foot and amputation of the right great toe. However, her right foot looks very infected also. Both feet definitely have cellulitis and there may be osteomyelitis present as well. RECOMMENDATIONS: I agree with the decision to treat the patient with vancomycin and Zosyn pending culture results. Culture has been taken from the left great toe. I went ahead today and cultured the patient's right foot. Also, I have ordered a triple phase bone scan of both feet to look for osteomyelitis and a plain x-ray of the right foot. I consulted the wound care nurse for dressings. DISCUSSION: The patient tells me that approximately 7-10 days ago her left great toe formed a blister, then started draining and became erythematous and swollen. It also had an odor to it. She states that her foot has done well. However, when I examine the right foot it too is very red and swollen. The wound where the patient had her right great toe amputated is widely open and has purulent drainage. The patient has been having fever also. Her lab work thus far shows a CBC with a white count of 10,480, hemoglobin 10.6, and platelet count 219,000. Creatinine was 0.7. GFR is greater than 60. Urinalysis showed no bacteria or white cells. Blood cultures are pending. A culture was taken from the left great toe. On Gram stain, no bacteria were seen. X- ray of the left foot also showed no presence of osteomyelitis. I have just taken a culture from the patient's right foot. The patient tells me that she has been caring for her right foot and has not been seen at the wound clinic or by a physician. PAST MEDICAL HISTORY: [employer] history: She is a 1, para 1, AB 0. She delivered her child by . PREVIOUS HOSPITALIZATIONS AND OPERATION: She has had a , coronary artery bypass grafting, hysterectomy, tonsillectomy and adenoidectomy, and amputation of the right great toe and toe #2. REVIEW OF SYSTEMS: Eyes and ears: She denies difficulty hearing or seeing. Neck: No stiffness. Cardiac: No chest pain or palpitations. Respiratory: No cough or shortness of breath. GI: No nausea, vomiting, or diarrhea. Genitourinary: No dysuria or flank pain. Bones, joints, muscles: The patient has infection in both feet, which certainly is cellulitis. There also is an infection of the wound where the right great toe was amputated. MEDICAL DISEASES: Positive for diabetes, gout, hypertension, hyperlipidemia, restless leg syndrome and neuropathy. FAMILY HISTORY: Positive for myocardial infarction, lung cancer and coronary artery disease. SOCIAL HISTORY: [place] She stopped smoking cigarettes years ago. She does not drink alcoholic beverages or abuse drugs. She is single. She lives with her son. She does not have any pets at home. She is disabled. ALLERGIES: Tizanidine. HOME MEDICATIONS: 1. Gemfibrozil. 2. Ropinirole. 3. Potassium. 4. Lasix. 5. Butalbital/acetaminophen. 6. Amaryl. 7. Zyloprim. 8. Aspirin. 9. Neurontin. 10. Hydrocodone. 11. Robaxin. 12. Lopressor. 13. Butalbital. PHYSICAL EXAMINATION: Vital Signs: The patient's temperature is 97.8 degrees, pulse is 107, respirations 14, blood pressure 123/47. General: This is an obese, middle- aged female who is in no acute distress. Head, eyes, ears, nose, and throat: She can hear my spoken words and see near objects. No drainage noted through the nose or ears. Examination of the mouth : Patient had poor oral hygiene. She has cavities. Neck: No meningismus. Lungs: Clear to auscultation. Cardiovascular: Peripheral pulses are palpable. Heart rate is regular. Abdomen: Soft and nontender. Neurologic: Patient is alert. She can move her extremities. There is decreased sensation to touch in both legs distally. There is no tremor. No seizures, no paralysis. The patient does have decreased sensation in both feet. Extremities: Both feet were erythematous and swollen and they each had an odor to them. The right foot previously had removal of the great toe and the second toe of the right foot. There was a large open wound, which had some beefy red tissue. Also, there was some purulent drainage as well. The left foot was red and swollen, and the left great toe was especially swollen. It had a purulent drainage coming from it and it had an odor as well. Neurologic: Patient is awake. She can move her extremities. There is no tremor. On sensory exam, there was decreased sensation in both feet. She can move her extremities. There was no tremor. Her memory as regarding her medical history was slightly diminished. Integument: No rash noted. Thank you for the consult. cc: Viraj Heath MD MTDD
--- NOTE | 2017-01-26 14:39 | PROGRESS NOTE ---
DATE: 01/26/2017 SUBJECTIVE: This patient states that she is feeling better, but she is still complaining of left foot pain. She states that she takes [place] at home scheduled. I will put this patient back on her medications. OBJECTIVE: Vital Signs: Temperature 98.2 degrees, pulse 106 respiratory rate 18, blood pressure 132/57, oxygen saturation 96 on room air. HEENT: Head normocephalic. No trauma. PERRLA. Neck: Supple. No JVD. No masses. Central trachea. Chest: Clear to auscultation. No wheezing. No rales. Abdomen: Soft, nontender, nondistended. Positive bowel sounds. Obese. Neurological examination: The patient is alert and oriented x3. No focal neurological deficits. Extremities: No clubbing, no cyanosis. There is edema present with erythema on the left leg. Also, scarring from the vein harvest on the left leg noted. Distal pulses are intact. There is a healing wound from amputation on the right foot where the first and second digits used to be. Also there is swelling and erythema and purulent drainage present on the left great toe mostly. LABORATORY: WBC 10, hemoglobin 10.6, hematocrit 33.3, platelet 219. Sodium 140, potassium 3.7, chloride 103, bicarbonate 25, BUN 13, creatinine 0.7, glucose 142, calcium 8.3. ASSESSMENT AND PLAN: 1. Diabetic foot ulcer, surgery on the left foot. Surgery Department evaluated this patient. For now, we are going to treat this patient with wound care and antibiotics. Infectious Disease Department is on board. Continue to monitor. 2. Type 2 diabetes. The blood glucose looks stable. I will ask for hemoglobin A1c. I will continue with pattern blood sugar and sliding scale insulin. 3. Gout. Will monitor. 4. Hypertension. Continue with home medication. 5. Dyslipidemia. I will continue also with her pain medication. 6. Neuropathy. She is on gabapentin 800 mg twice daily. 7. Noncompliance. I had a large conversation about treatment with this patient. She states that she has not been taking medications as prescribed. I will continue with daily education. 8. Deep vein thrombosis prophylaxis with Lovenox. 9. Constipation. I will put this patient on MiraLAX. cc: Dennis Donato MD
--- NOTE | 2017-01-26 15:16 | Diag Imaging Result Doc PS360 ---
EXAM: 3 PHASE BONE SCAN HISTORY: osteomyelitis TECHNIQUE: Three phase bone scan following injection of 25.4 mCi of technetium 99m MDP over the feet. COMMENT: There is slight increase in flow activity over the right foot compared to the left distally. There is more blood pool activity in the right forefoot and midfoot than on the left side. There is increased activity present in the right mid third metatarsal on the static bone images. Markedly increased activity is present over the tarsal region as well. IMPRESSION: Correlating the findings on the plain radiograph of 01/26/2017 with the appearance of the bone scan, there is a highly likelihood of osteomyelitis in the right third metatarsal. Findings elsewhere in the right foot are probably due to neuropathic joint disease, but are nonspecific. Electronically signed by Rohit Yu 01/26/2017 3:14 PM
[2017-01-26] MEDS: SANTYL OINT TOP SCH (15:44)
[2017-01-26] MEDS: NORCO-10 PO SCH ×2 (17:10→22:52)
[2017-01-26] MEDS: VANCOMYCIN 1.5 GM in NS 250 ML IV SCH (17:25)
[2017-01-26] MEDS: REQUIP PO PRN (23:02)
[2017-01-27] MEDS: MORPHINE IV PRN ×4 (01:24→23:20)
[2017-01-27] MEDS: NS 1,000 ML IV SCH ×2 (01:25→18:28)
[2017-01-27] MEDS: ZOSYN 3.375 GM/NS 3.375 GM/50 ML IVPB IV SCH ×4 (02:25→22:25)
[2017-01-27] MEDS: NORCO-10 PO SCH ×3 (06:18→22:25)
[2017-01-27] MEDS: HUMALOG SUBQ SCH ×4 (06:21→22:26)
[2017-01-27 06:27] LABS: HEMATOCRIT 33.5 % (37.0-47.0); HEMOGLOBIN 10.7 g/dL (12.0-16.0); MCH 28.4 PG (27-31); MCHC 31.9 g/dL (33-37); MCV 88.9 FL (81-99); MPV 10.8 FL (7.4-10.4); RBC 3.77 XMIL (4.2-5.4)
[2017-01-27 07:06] LABS: AGAP 10; BUN 12 mg/dL (8-22); CALCIUM 8.8 mg/dL (8.8-10.2); CHLORIDE 104 mmol/L (98-107); COSMO 286; SODIUM 141 mmol/L (136-145); TCO2 27 mmol/L (25-35)
[2017-01-27 07:08] LABS: HEMOGLOBIN A1C 7.6 % (4.8-6.0)
[2017-01-27] MEDS: ROBAXIN PO SCH ×3 (09:12→16:58)
[2017-01-27] MEDS: LOPRESSOR PO SCH (09:13)
[2017-01-27] MEDS: LOVENOX SUBQ SCH (09:13)
[2017-01-27] MEDS: NEURONTIN PO SCH ×3 (09:13→16:58)
[2017-01-27] MEDS: SANTYL OINT TOP SCH (09:14)
[2017-01-27] MEDS: MIRALAX PO SCH (09:14)
[2017-01-27] MEDS: ZYLOPRIM PO SCH (09:14)
--- NOTE | 2017-01-27 14:51 | PROGRESS NOTE ---
DATE: 01/27/2017 SUBJECTIVE: This patient is not complaining about pain today, she feels better. She is tolerating p.o., Surgery Department and Infectious Disease Department are following this patient. OBJECTIVE: Vital Signs: Temperature 97.8 degrees, pulse 87, respiratory rate 18, blood pressure 163/68, oxygen saturation 100% on room air. HEENT: Head normocephalic. No trauma. PERRLA. Neck: Supple. No JVD. No masses. Central trachea. Chest: Clear to auscultation. No wheezing. No rales. Abdomen: Soft, nontender, nondistended. Positive bowel sounds. Obese. Neurological: The patient is alert and oriented x3. No focal deficits. Extremities: No clubbing, no cyanosis. There is edema with erythema on the left leg. Her feet are covered with new dressing. Distal pulses are intact. LABORATORY: WBC 8.6, hemoglobin 10.7, hematocrit 33.5, platelets 220,000. Sodium 141, potassium 4, chloride 104, bicarbonate 27, BUN 12, creatinine 0.7, glucose 188, calcium 8.8, magnesium 2.1. ASSESSMENT AND PLAN: 1. Diabetic foot ulcer, Surgery Department evaluated this patient. For now we are going to treat this patient with wound care and antibiotics. Infectious Disease Department is on board. Continue to monitor. 2. Type 2 diabetes stable. Continue to monitor. Hemoglobin A1c 7.6. 3. Gout. Will monitor. 4. Hypertension. Continue with home medications. Stable. 5. Dyslipidemia. Continue with home medication. 6. Neuropathy. She is on gabapentin 800 mg twice a day. 7. Noncompliance. I had a large conversation about noncompliance with this patient and she seems to understand. I will continue with daily education. 8. Deep vein thrombosis prophylaxis with Lovenox. 9. Constipation. Continue with MiraLAX. 10. History of migraines. This patient states that she needs to be Bupap to prevent migraines. I will put her back on that medication. cc: Dennis Donato MD
[2017-01-27] MEDS: VANCOMYCIN 1.5 GM in NS 250 ML IV SCH (17:41)
[2017-01-27] MEDS: REQUIP PO PRN (20:57)
[2017-01-27] MEDS: NON-FORMULARY MED PO PRN (21:31)
[2017-01-28] MEDS: ZOSYN 3.375 GM/NS 3.375 GM/50 ML IVPB IV SCH ×4 (02:40→21:47)
[2017-01-28] MEDS: MORPHINE IV PRN ×3 (05:02→19:35)
[2017-01-28] MEDS: NORCO-10 PO SCH ×3 (06:22→21:46)
[2017-01-28] MEDS: HUMALOG SUBQ SCH ×4 (06:23→21:48)
[2017-01-28 06:32] LABS: HEMATOCRIT 32.9 % (37.0-47.0); HEMOGLOBIN 10.4 g/dL (12.0-16.0); MCH 28.7 PG (27-31); MCHC 31.6 g/dL (33-37); MCV 90.6 FL (81-99); MPV 10.9 FL (7.4-10.4); RBC 3.63 XMIL (4.2-5.4)
[2017-01-28 06:58] LABS: AGAP 8; BUN 13 mg/dL (8-22); CHLORIDE 105 mmol/L (98-107); COSMO 282; POTASSIUM 4.1 mmol/L (3.5-5.1); SODIUM 139 mmol/L (136-145); TCO2 26 mmol/L (25-35)
[2017-01-28] MEDS: LOPRESSOR PO SCH (08:31)
[2017-01-28] MEDS: ROBAXIN PO SCH ×3 (08:31→17:43)
[2017-01-28] MEDS: LOVENOX SUBQ SCH (08:31)
[2017-01-28] MEDS: NEURONTIN PO SCH ×3 (08:31→17:44)
[2017-01-28] MEDS: ZYLOPRIM PO SCH (08:32)
[2017-01-28] MEDS: MIRALAX PO SCH (08:32)
[2017-01-28] MEDS: SANTYL OINT TOP SCH (09:00)
[2017-01-28] MEDS ORDERED: LASIX IV ONE (11:52)
[2017-01-28] MEDS ORDERED: LASIX ONE (12:08)
[2017-01-28] MEDS: NON-FORMULARY MED PO PRN ×2 (13:46→22:57)
--- NOTE | 2017-01-28 14:26 | PROGRESS NOTE ---
DATE: 01/28/2017 SUBJECTIVE: This patient is complaining of mild left foot pain today but she feels better. She is tolerating p.o. Surgery Department and Infectious Disease Department are following this patient. We have a positive culture result for the Staphylococcus aureus, MRSA and also we have a positive result for gram-negative rods. MRSA from her left foot and the gram-negative nunu from her right foot. OBJECTIVE: Vital Signs: Temperature 98.1 degrees, pulse 97, respiratory rate 18, blood pressure 164/86, O2 saturation 100% on room air. HEENT: Head normocephalic. No trauma. PERRLA. Neck: Supple. No JVD. No masses. Central trachea. Chest: Clear to auscultation. No wheezing. No rales. Abdomen: Soft, nontender, nondistended. Positive bowel sounds. Obese. Neurological: The patient is alert and oriented x3. Extremities: No clubbing, no cyanosis. There is bilateral lower extremity edema 1 to 2+. Her feet are covered with new dressing. Distal pulses are intact. LABORATORY: WBC 7.6, hemoglobin 10.4, hematocrit 32.9, platelet 215,000. Sodium 139, potassium 4.1, chloride 105, bicarbonate 26, BUN 13, creatinine 0.8, glucose 175, calcium 9, magnesium 1.9. ASSESSMENT AND PLAN: 1. Diabetic foot ulcer, Surgery Department is following this patient as well as Infectious Disease Department. We will continue with antibiotics. She has a positive culture that showed methicillin-resistant Staphylococcus aureus on the left foot and gram negative rods on the right foot. 2. Type 2 diabetes stable. Continue to monitor. Hemoglobin A1c 7.6. 3. Gout. Will monitor. 4. Hypertension. Continue with home medications. Stable. 5. Dyslipidemia. Continue with home medication. 6. Neuropathy. She is on gabapentin twice a day. 7. Noncompliance. I will continue with daily education. 8. Deep vein thrombosis prophylaxis with Lovenox. 9. Constipation. Continue with MiraLAX. 10. Fluid overload. I will stop the normal saline today and I will provide 1 time dose of Lasix IV 40 mg. 11. History of migraines. Continue with home medication. cc: Dennis Donato MD
[2017-01-28] MEDS: VANCOMYCIN 1.5 GM in NS 250 ML IV SCH ×2 (18:34→21:47)
[2017-01-28] MEDS: REQUIP PO PRN (19:45)
[2017-01-29] MEDS: ZOSYN 3.375 GM/NS 3.375 GM/50 ML IVPB IV SCH ×2 (03:48→09:40)
[2017-01-29] MEDS: MORPHINE IV PRN ×4 (03:48→22:52)
[2017-01-29] MEDS: NORCO-10 PO SCH ×3 (06:22→21:44)
[2017-01-29] MEDS: HUMALOG SUBQ SCH ×4 (06:23→21:45)
[2017-01-29 06:52] LABS: MANUAL DIFF NEEDED? NO
[2017-01-29 06:57] LABS: BASO% 0.3 % (0.0-0.8); EOS# 0.52 X1000 (0.0-0.7); EOS% 6.8 % (0.0-10.0); HEMATOCRIT 33.7 % (37.0-47.0); HEMOGLOBIN 10.7 g/dL (12.0-16.0); IMM GRAN# 0.03 X1000 (0.0-0.04); IMM GRAN% 0.4 % (0.0-0.5); LYMPH# 2.44 X1000 (1.2-3.4); MCH 27.8 PG (27-31); MCHC 31.8 g/dL (33-37); MCV 87.5 FL (81-99); MONO# 0.69 X1000 (0.11-0.59); NEUT% 51.5 % (42.2-75.2); PLT 232 X1000 (130-400); RBC 3.85 XMIL (4.2-5.4)
[2017-01-29 07:19] LABS: AGAP 11; BUN 16 mg/dL (8-22); CHLORIDE 102 mmol/L (98-107); COSMO 288; POTASSIUM 4.1 mmol/L (3.5-5.1); SODIUM 142 mmol/L (136-145); TCO2 29 mmol/L (25-35)
[2017-01-29] MEDS: MIRALAX PO SCH (09:39)
[2017-01-29] MEDS: ZYLOPRIM PO SCH (09:40)
[2017-01-29] MEDS: NEURONTIN PO SCH ×3 (09:40→16:57)
[2017-01-29] MEDS: ROBAXIN PO SCH ×3 (09:41→16:57)
[2017-01-29] MEDS: LOPRESSOR PO SCH (09:47)
[2017-01-29] MEDS: LOVENOX SUBQ SCH (09:53)
[2017-01-29] MEDS: SANTYL OINT TOP SCH (09:53)
[2017-01-29] MEDS: VANCOMYCIN 1.5 GM in NS 250 ML IV SCH ×2 (10:09→21:43)
[2017-01-29] MEDS ORDERED: NS 250 ML ONE (10:29)
--- NOTE | 2017-01-29 11:14 | PROGRESS NOTE ---
DATE: 01/29/2017 PRESENT ILLNESS: The patient has cellulitis of both feet and on bone scan, she appears to have osteomyelitis involving the 3rd toe of the right foot. MEDICATIONS: The patient is on a combination of vancomycin and Zosyn. PHYSICAL EXAMINATION: Vital Signs: Temperature is 98.1 degrees, pulse is 88, respirations 17, blood pressure 149/73. Generally: This is an obese, middle-aged female who is in no acute distress. Lungs: Clear to auscultation. Cardiovascular: Regular heart rate. Abdomen: Soft and nontender. Extremities: The patient's left great toe is less swollen and it is not erythematous. I do not see any drainage coming from it. The patient's right foot remains swollen and erythematous. The open wound where the great toe was amputated does have some purulent drainage. The 3rd toe is swollen and erythematous. LAB AND X-RAY: The CBC for today shows a white count of 7630, hemoglobin 10.7, and platelet count 232,000. Creatinine 0.8. GFR is greater than 60. The patient had from the right foot growth of methicillin-resistant Staphylococcus aureus and Proteus. The left toe grew methicillin-resistant Staphylococcus aureus. Bone scan shows the presence of osteomyelitis in the 3rd toe of the right foot. CBC shows a white count of 7.63, hemoglobin 10.7, and platelet count 232, 000. Creatinine 0.8. GFR is greater than 60. ASSESSMENT AND PLAN: Patient has cellulitis and osteomyelitis. My plan is to continue with vancomycin and discontinue Zosyn, and place the patient on Rocephin 2 g IV daily. I ordered placement of a PICC in the patient. COMORBIDITIES: She is obese. She has diabetes. cc: Viraj Heath MD [facility]
[2017-01-29 11:21] LABS: INR 1.02; PROTIME 10.7 Seconds (9.2-11.7)
[2017-01-29] MEDS: NON-FORMULARY MED PO PRN ×2 (12:50→22:40)
[2017-01-29] MEDS: ROCEPHIN 2 GM/NS 2 GM/50 ML IVPB IV SCH (14:10)
--- NOTE | 2017-01-29 16:03 | PROGRESS NOTE ---
DATE: 01/29/2017 SUBJECTIVE: No changes compared to yesterday. No acute events overnight. This patient has MRSA on the left big toe, Proteus mirabilis and Staphylococcus aureus on her right foot. Zosyn has been stopped and ceftriaxone has been added. We will continue with vancomycin. OBJECTIVE: Vital Signs: Temperature 98.1 degrees, pulse 88, respiratory rate 17, blood pressure 149/73, oxygen saturation 100% on room. HEENT: Normocephalic. No trauma. PERRLA. Neck: Supple. No JVD. No masses. Central trachea. Chest: Clear to auscultation. No wheezing. No rales. Abdomen: Soft, nontender, nondistended. Obese. Positive bowel sounds. Neurological Examination: The patient is alert and oriented x3. Extremities: No clubbing, no cyanosis. There is bilateral lower extremity edema 1 to 2+. Her feet are covered with dressing. Distal pulses are intact. LABORATORY: WBC 7.6, hemoglobin 10.7, hematocrit 30.7, platelets 232,000, sodium 142, potassium 4.1, chloride 102, bicarbonate 29, BUN 16, creatinine 0.6, glucose 169, calcium 9. ASSESSMENT AND PLAN: 1. Diabetic foot ulcer. Surgery Department is following this patient as well as Infectious Disease Department. We will continue with vancomycin, Zosyn has been stopped and ceftriaxone has been added. We have a positive culture that shows MRSA and also Proteus mirabilis. 2. Methicillin-resistant Staphylococcus aureus on the left foot and Proteus on the right one. 3. Type 2 diabetes stable. Continue to monitor. Hemoglobin A1c 7.6. 4. Gout. We will monitor. 5. Hypertension. Continue with home medication. Stable. 6. Dyslipidemia. Continue with home medication. 7. Neuropathy. She is on gabapentin twice a day. 8. Noncompliance. I will continue with daily education. 9. Deep vein thrombosis prophylaxis with Lovenox. 10. Constipation. Continue with MiraLAX. 11. Fluid overload. This is much better. Continue with the same management. 12. History of migraines. Continue with home medication. 13. Surgery Department is on board and they are deciding when to take this patient to the OR for I and D or amputation. In the meantime we will continue with the antibiotics. cc: Dennis Donato MD
[2017-01-29] MEDS: REQUIP PO PRN (22:40)
[2017-01-30] MEDS: HUMALOG SUBQ SCH ×4 (06:51→21:37)
[2017-01-30] MEDS: NORCO-10 PO SCH ×3 (06:51→22:30)
[2017-01-30] MEDS: NON-FORMULARY MED PO PRN (06:52)
[2017-01-30 07:09] LABS: MANUAL DIFF NEEDED? NO
[2017-01-30 07:16] LABS: BASO% 0.6 % (0.0-0.8); EOS# 0.44 X1000 (0.0-0.7); EOS% 6.1 % (0.0-10.0); HEMATOCRIT 35.2 % (37.0-47.0); HEMOGLOBIN 11.2 g/dL (12.0-16.0); IMM GRAN# 0.04 X1000 (0.0-0.04); IMM GRAN% 0.6 % (0.0-0.5); LYMPH# 2.52 X1000 (1.2-3.4); LYMPH% 35.1 % (20.5-51.1); MCHC 31.8 g/dL (33-37); MONO# 0.69 X1000 (0.11-0.59); MONO% 9.6 % (1.7-9.3); MPV 11.3 FL (7.4-10.4); PLT 212 X1000 (130-400)
[2017-01-30 07:42] LABS: AGAP 13; BUN 16 mg/dL (8-22); CALCIUM 8.8 mg/dL (8.8-10.2); CHLORIDE 101 mmol/L (98-107); COSMO 282; POTASSIUM 4.5 mmol/L (3.5-5.1); SODIUM 139 mmol/L (136-145); TCO2 25 mmol/L (25-35)
[2017-01-30] MEDS: VANCOMYCIN 1.5 GM in NS 250 ML IV SCH ×2 (07:56→20:03)
[2017-01-30] MEDS: MIRALAX PO SCH ×2 (07:59→08:00)
[2017-01-30] MEDS: LOVENOX SUBQ SCH (08:00)
[2017-01-30] MEDS: LOPRESSOR PO SCH (08:00)
[2017-01-30] MEDS: NEURONTIN PO SCH ×3 (08:00→16:19)
[2017-01-30] MEDS: ROBAXIN PO SCH ×3 (08:00→16:19)
[2017-01-30] MEDS: ZYLOPRIM PO SCH (08:01)
[2017-01-30] MEDS: SANTYL OINT TOP SCH (08:01)
[2017-01-30] MEDS: MORPHINE IV PRN ×2 (09:05→16:20)
[2017-01-30] MEDS: ROCEPHIN 2 GM/NS 2 GM/50 ML IVPB IV SCH (11:10)
--- NOTE | 2017-01-30 13:37 | PROGRESS NOTE ---
DATE: 01/30/2017 SUBJECTIVE: Ms. Olivier was admitted on 01/25/2017. 56-year-old with left foot pain, past medical history diabetes mellitus type 2, gout, hypertension, hyperlipidemia, restless legs syndrome. Presented to the emergency room with complaint of left foot pain that progressively worsened over the last 7-10 days. In September 2016, patient reports having right great toe and 2nd toe amputated for gangrenous infection. The patient stated there was oozing coming from her left great toe up to the present time. Patient reports the emergency room physician performed incision and drainage at the bedside the day prior to admission. The complains left foot pain radiating to the left groin that is a 10/10 in severity. PAST MEDICAL HISTORY: 1. Diabetes mellitus type 2. 2. Gout. 3. Hypertension. 4. Dyslipidemia. 5. Restless legs syndrome. 6. Neuropathy. SURGICAL HISTORY: CABG x4, hysterectomy, tonsillectomy and adenoidectomy, right foot amputation, 1st and 2nd digits. ASSESSMENT AND PLAN: 1. So admitted with diabetic foot ulcer. Blood cultures pending. Plasma lactate and x-ray of the foot were obtained and looking for possible osteomyelitis. Continue present antibiotics. 2. Diabetes mellitus type 2. Follow sugars, sliding scale. 3. Gout. 4. Hypertension. 5. Dyslipidemia. 6. Neuropathy. 7. History of noncompliance. Need some help with her control of diabetes. Orders reviewed. I do not see any change. On vancomycin and ceftriaxone. Takes Requip 1 mg b.i.d. She is on Robaxin 750 mg t.i.d., Lopressor 50 mg q.a.m., MiraLAX. As far as the diabetic foot ulcer, Dr. Almaraz to evaluate to see whether further amputation debridement is necessary. She did present with some fluid overload and this is much better. History of migraines, aware. cc: Julio C Camilo MD
[2017-01-30] MEDS: REQUIP PO PRN ×2 (13:49→22:30)
--- NOTE | 2017-01-30 15:59 | PROGRESS NOTE ---
DATE: 01/30/2017 PRESENT ILLNESS: The patient has cellulitis of both feet and as seen on bone scan osteomyelitis of the 3rd toe of the right foot. The patient's infection in both feet is caused by methicillin- resistant Staph aureus and Proteus. MEDICATIONS: The patient is on vancomycin and Rocephin. This is day 5 of treatment with antibiotics for the patient's cellulitis and osteomyelitis. PHYSICAL EXAMINATION: Vital Signs: Temperature is 98.6 degrees, pulse 81, respirations 18, blood pressure is 161/75. General: This is an obese, middle-aged female who is in no acute distress. Lungs: Clear to auscultation. Cardiovascular: Regular heart rate. The patient has a PICC in her arm. The PICC site is not erythematous or swollen. Both feet have dressings on them. The dressings are intact. LABORATORY AND X-RAY: CBC today shows a white count of 7170, hemoglobin 11.2, and platelet count 212,000. Creatinine is 0.7. GFR is greater than 60. ASSESSMENT AND PLAN: 1. The patient has cellulitis and osteomyelitis. The organisms involved are Proteus and methicillin-resistant Staph aureus. I plan to treat the patient for a total of 8 weeks with the current antibiotics. Dr. Almaraz is going to decide whether he needs to do further surgery on the patient's feet. 2. Comorbidities include obesity and diabetes mellitus. cc: Viraj Heath MD
[2017-01-31] MEDS: MORPHINE IV PRN ×3 (00:03→19:28)
[2017-01-31] MEDS: NORCO-10 PO SCH ×3 (06:03→22:38)
[2017-01-31] MEDS: HUMALOG SUBQ SCH ×4 (06:04→22:27)
[2017-01-31] MEDS: VANCOMYCIN 1.5 GM in NS 250 ML IV SCH (08:43)
[2017-01-31] MEDS: LOPRESSOR PO SCH (08:43)
[2017-01-31] MEDS: ZYLOPRIM PO SCH (08:43)
[2017-01-31] MEDS: LOVENOX SUBQ SCH (08:44)
[2017-01-31] MEDS: ROBAXIN PO SCH ×3 (08:44→18:04)
[2017-01-31] MEDS: NEURONTIN PO SCH ×3 (08:44→18:03)
[2017-01-31] MEDS: MIRALAX PO SCH (08:45)
[2017-01-31] MEDS: NON-FORMULARY MED PO PRN (09:00)
[2017-01-31] MEDS: REQUIP PO PRN ×2 (09:00→22:38)
--- NOTE | 2017-01-31 09:48 | PROGRESS NOTE ---
DATE: 01/31/2017 SUBJECTIVE: Ms. Olivier states she is feeling better. Both of her feet still hurt her. I think Dr. Almaraz is planning to evaluate today, see if we need further debridement. OBJECTIVE: Vital Signs: She is afebrile with temp 97.4 degrees, pulse 102, respirations 18, blood pressure 157/62. Lungs: Clear in all lung coppola. Cardiovascular exam: Regular rhythm and rate without murmur or S3. Abdomen: Soft. Skin: Warm and dry. Lower extremities: Decreased erythema and decreased swelling. Blood sugar 125, 162. ASSESSMENT AND PLAN: 1. Patient with cellulitis of both feet and has had a bone scan, osteomyelitis of the third toe of the right foot. Patient has infection in both feet caused by methicillin-resistant Staphylococcus aureus and Proteus. The patient is on vancomycin and Rocephin; this is the sixth day of treatment. Continue present regimen. Dr. Almaraz to evaluate whether it needs further debridement and amputation of third toe. Planned treatment total of 8 weeks with antibiotics, and I guess that could be adjusted depending on what surgery is going to come down the road. 2. Diabetes mellitus type 2. Sugars under good control. Continue present regimen. 3. Nutrition is good. 4. Morbid obesity. Review of orders: I do not see any change. cc: Julio C Camilo MD
[2017-01-31] MEDS ORDERED: DIPRIVAN 1% ONE (10:06)
[2017-01-31] MEDS ORDERED: XYLOCAINE-MPF 2% ONE (10:06)
[2017-01-31] MEDS: SANTYL OINT TOP SCH (11:56)
[2017-01-31] MEDS: ROCEPHIN 2 GM/NS 2 GM/50 ML IVPB IV SCH (11:56)
[2017-01-31] MEDS ORDERED: REGLAN ONE (12:49)
[2017-01-31] MEDS ORDERED: PEPCID ONE (12:49)
[2017-01-31] MEDS ORDERED: QUELICIN (DOSE) ONE (12:52)
--- NOTE | 2017-01-31 13:27 | PROGRESS NOTE ---
DATE: 01/31/2017 SUBJECTIVE: Still having pain in her left toe. Otherwise, no events. No fevers overnight. OBJECTIVE: Vital Signs: Pulse has been in the 80s to low 100s. Blood pressure 157/62. Oxygen saturation 95% on room air. General: She is alert, in no acute distress. Cardiovascular: Normal rate, regular rhythm. Extremities: Right foot dressing is clean, dry, and intact. Left 1st toe has chronic wound with some purulent drainage. It is swollen and painful, although the erythema has improved. LABORATORY: I reviewed her labs. Yesterday, the white count was 7, creatinine 0.7, and glucose has been, for most part, in the 100s, up to the 190s. ASSESSMENT AND PLAN: This 56-year-old female with history of right 1st and 2nd toe amputations has developed a diabetic-associated infection of her left 1st toe. Despite several days of IV antibiotics, the toe remains very swollen with purulent drainage from her wound and is very painful. In a long discussion with the patient and her family, I have recommended amputation of the left 1st toe. She consents to this. We did also talk about the possibility of this on Sunday, so she has had a couple of days to think about this, as well. We will plan to go to the operating room today for left 1st toe amputation and debridement of her foot. Discussed the prolonged wound healing that we anticipate. She does have adequate flow to her foot and has healed the wound on her right almost completely, but it has taken several months. She is on IV antibiotics scheduled and Dr. Heath plans for long-term antibiotics at home. cc: Marti Almaraz MD
[2017-01-31] MEDS ORDERED: ZOFRAN ONE (14:08)
[2017-01-31] MEDS: MORPHINE ONE ×2 (14:37→14:44)
--- NOTE | 2017-01-31 15:29 | OPERATIVE NOTE ---
PROCEDURE DATE: 01/31/2017 PREOPERATIVE DIAGNOSIS: Left 1st toe diabetic infection. POSTOPERATIVE DIAGNOSIS: Left 1st toe diabetic infection. PROCEDURE: Amputation of left 1st toe. COMPLICATION: None. ESTIMATED BLOOD LOSS: 10 mL. SPECIMENS: Left 1st toe. INDICATION: A 56-year-old female with history of diabetic foot infection requiring toe amputation on the right who presents with a several-week history of a draining wound, pain, and erythema over her left 1st toe. She has been treated with antibiotics for several days with persistent drainage of her wound and pain, and amputation is indicated. OPERATIVE FINDINGS: There was a purulent wound on the medial aspect of her left 1st toe that probed deeply in the toe. Otherwise, the distal metatarsal was healthy. There was adequate perfusion with pulsatile bleeding noted at the amputation site. OPERATIVE NOTE: Risks, benefits, and alternatives were discussed with the patient and she consented to the procedure. She was seen preoperatively and the surgical site was confirmed. She has taken to the operating room and placed in supine position. General anesthesia was induced. Her left foot was prepped with Betadine solution and draped in the usual fashion. Her scheduled antibiotics were confirmed. After time out, we planned an elliptical incision around the toe. We made this sharply and carried this down to the distal metatarsal joint. We amputated the toe through the joint and obtained hemostasis. There was good pulsatile bleeding noted from the digital artery. I then used the rongeur and forceps. We debrided the bone back of the metatarsal to healthy bleeding bone. There was no gross purulence here at the bed of the wound. We irrigated. Given that she had been on antibiotics for several days and most of the tissue infection seemed distal, we felt that loosely closing the wound was indicated to facilitate further healing. After confirming hemostasis, 2-0 nylon sutures were used in vertical mattress fashion to loosely approximate the skin edges to facilitate ongoing drainage, but hopefully to expedite her healing. She tolerated this well, with no identified complication. Counts were correct x2. Dressed the wound with Kerlix and gauze dressing. She was awoken and transferred to the PACU in good condition. I attempted to speak with the family. cc: Marti Almaraz MD
--- NOTE | 2017-01-31 17:24 | PROGRESS NOTE ---
DATE: 01/31/2017 PRESENT ILLNESS: The patient has just returned from having amputation of the left great toe. She is being treated for cellulitis of both feet and osteomyelitis involving the right foot 3rd toe. MEDICATIONS: The patient is on a combination of vancomycin and Rocephin. This is day 6 of treatment with both agents. PHYSICAL EXAMINATION: Vital Signs: Temperature is 97.4 degrees, pulse 93, respirations 18, blood pressure 182/84. General: This is an obese, middle-aged female. She is in no acute distress. She just returned from surgery. Cardiovascular: Heart rate is regular. Lungs: Clear to auscultation Abdomen: Soft and nontender. Extremities: Both feet have dressings on. The dressings are intact. The left foot has sanguinous drainage on it. The patient has a PICC in her left arm. The site is not erythematous or tender. LAB AND X-RAY: There is no new lab or x-ray today. ASSESSMENT AND PLAN: I plan to continue the patient's current antibiotics for the combination of cellulitis and osteomyelitis as mentioned above. I plan a total of 8 weeks of treatment. COMORBIDITIES: Obesity and diabetes mellitus. cc: Viraj Heath MD
[2017-01-31] MEDS: VANCOMYCIN 1.2 GM in NS 250 ML IV SCH (21:27)
[2017-02-01] MEDS: MORPHINE IV PRN ×3 (03:02→15:37)
[2017-02-01] MEDS: NON-FORMULARY MED PO PRN (06:08)
[2017-02-01] MEDS: NORCO-10 PO SCH ×3 (06:08→22:04)
[2017-02-01] MEDS: HUMALOG SUBQ SCH ×4 (06:32→21:12)
[2017-02-01] MEDS: LOPRESSOR PO SCH (09:12)
[2017-02-01] MEDS: NEURONTIN PO SCH ×3 (09:12→17:37)
[2017-02-01] MEDS: ROBAXIN PO SCH ×3 (09:13→17:37)
[2017-02-01] MEDS: LOVENOX SUBQ SCH (09:13)
[2017-02-01] MEDS: MIRALAX PO SCH (09:13)
[2017-02-01] MEDS: ZYLOPRIM PO SCH (09:15)
[2017-02-01] MEDS: SANTYL OINT TOP SCH (09:15)
[2017-02-01] MEDS: VANCOMYCIN 1.2 GM in NS 250 ML IV SCH (09:23)
--- NOTE | 2017-02-01 09:32 | PROGRESS NOTE ---
DATE: 02/01/2017 SUBJECTIVE: She got up last night to get out of bed and tripped on her foot, had some oozing after this. Nurses reinforced dressing and it seemed to stop. Having some pain in her foot but otherwise no event. OBJECTIVE: Vital signs: Temperature 98. Pulse 107. Blood pressure 180/90. Oxygen saturation 95% on room air. General: She is alert in no acute distress. Extremities Right foot dressing is clean, dry and intact. On the left there is some serosanguineous drainage on her dressing. I removed this. There is some clot in the incision. She pulled a stitch out but the wound is overall stable from yesterday. LABORATORY DATA: Creatinine 0.6. No other labs. ASSESSMENT AND PLAN: A 56-year-old female status post left first toe amputation. She is a noncompliant patient with poorly controlled diabetes. The toe is clean at the base and the proximal metatarsal is healthy. We were able to partially close her wound. There is some drainage. I suspect this is oozing from the bone more than anything else and she probably caused some trauma to it trying to walk on it yesterday. I have asked the nurse to order her an offloading boot. Will continue dressings. I have talked to Lorie Perkins about this, and will change these as needed. Otherwise, will continue to monitor. Physical therapy. I suspect she is going to need rehab given her difficult social situation, noncompliance, and just general inability to take care of herself. She is apprehensive about this. We will see. Continue antibiotics per Dr. Heath, although I feel like we got pretty good source control at this time. They are applying Santyl and gauze to her right foot. Will continue this. cc: Marti Almaraz MD
[2017-02-01] MEDS: ROCEPHIN 2 GM/NS 2 GM/50 ML IVPB IV SCH (12:12)
--- NOTE | 2017-02-01 16:51 | PROGRESS NOTE ---
DATE: 02/01/2017 PRESENT ILLNESS: The patient is status post surgery on her left foot. She had osteomyelitis. She has had amputation of the toe. Bone scan shows osteomyelitis in R foot toe 3. MEDICATIONS: The patient is receiving Rocephin and vancomycin. PHYSICAL EXAMINATION: Vital Signs: Temperature is 98 degrees, pulse 107, respirations 18 and blood pressure 180/90. General: This is a somewhat ill-appearing, middle-aged female. She is in no acute distress. Lungs: Clear to auscultation. Cardiovascular: Regular heart rate. There was large dressing on both feet that made it difficult for me to feel for peripheral pulses. Abdomen: Soft and nontender. Extremities: Patient has edema in both legs with some distal erythema. The dressings on both the feet are intact. LAB AND X-RAY: The only new lab today is creatinine of 0.6. There is no new radiographic study. ASSESSMENT AND PLAN: The patient has osteomyelitis of the left foot. She also has an infection on the right foot. The patient is receiving intravenous antibiotics. As mentioned above, I will check with Dr. Almaraz to see if we are only treating the cellulitis or there possibly could still be some osteomyelitis present. I am going to continue the patient's current antibiotics and check with Dr. Almaraz about whether the coverage should be for osteomyelitis with intravenous antibiotics or foot cellulitis which would merit antibiotics either through the vein or by mouth. COMORBIDITIES: The patient's comorbidities is that she has diabetes mellitus and is obese. ADDENDUM: Discussed with Dr. Almaraz. All L foot osteomyelitis removed at surgery. Bone scan showed osteomyelitis in R foot toe 3. Will treat with vancomycin for 8 weeks and Rocephin for 6 weeks. cc: Viraj Heath MD [facility]
--- NOTE | 2017-02-01 17:56 | PROGRESS NOTE ---
DATE: 02/01/2017 SUBJECTIVE: Ms. Olivier states she underwent surgery and she is hurting in her legs. Apparently the pain is throbbing and more intense. OBJECTIVE: Vital signs: She is afebrile, temp 98.0 degrees, pulse 80, respirations 18, blood pressure 163/78. Lungs: Clear in all lung coppola. Cardiovascular: Regular rhythm and rate without murmur or S3. Abdomen: Soft. Skin: Warm and dry. Intake and output: Urine output 500 mL. LAB: Reviewed from . Hematocrit 35. Blood sugars 134, 148, 148. ASSESSMENT AND PLAN: 1. Status post surgery on the left foot. She does have osteomyelitis. She had an amputation of the toe. Bone scan shows osteomyelitis of the right foot, toe #3. Continue Rocephin and vancomycin. 2. Will try and titrate up the pain medicine. 3. Watch her blood sugars, diabetes mellitus type 2. Continue present medication. 4. She is taking Requip for her restless legs. cc: Julio C Camilo MD
[2017-02-01] MEDS: REQUIP PO PRN (22:08)
[2017-02-02] MEDS: MORPHINE IV PRN ×3 (02:24→13:44)
[2017-02-02] MEDS: VANCOMYCIN 2 GM in NS 500 ML IV SCH (06:14)
[2017-02-02] MEDS: NORCO-10 PO SCH ×3 (06:14→22:44)
[2017-02-02] MEDS: HUMALOG SUBQ SCH ×4 (06:16→22:45)
[2017-02-02] MEDS: ZYLOPRIM PO SCH (08:27)
[2017-02-02] MEDS: ROBAXIN PO SCH ×3 (08:27→17:28)
[2017-02-02] MEDS: LOPRESSOR PO SCH (08:27)
[2017-02-02] MEDS: NEURONTIN PO SCH ×3 (08:27→17:27)
[2017-02-02] MEDS: LOVENOX SUBQ SCH (08:28)
[2017-02-02] MEDS: MIRALAX PO SCH (08:28)
[2017-02-02] MEDS: ROCEPHIN 2 GM/NS 2 GM/50 ML IVPB IV SCH (11:00)
[2017-02-02] MEDS: SANTYL OINT TOP SCH (13:43)
--- NOTE | 2017-02-02 14:17 | PROGRESS NOTE ---
DATE: 02/02/2017 SUBJECTIVE: Ms. Olivier is doing a little better. She still hurts in her lower extremities. A little less swelling, a little less erythema. She is eating well by report. Her bowels were loose and we started her on some Questran I believe. OBJECTIVE: Vital signs: Temperature is 97.7 degrees, remains afebrile, pulse 99, respirations 20, blood pressure 160/80. Lungs: Clear anterolateral. Cardiovascular: Regular rhythm, rate without murmur or S3. Abdomen: Soft. Skin: Is warm and dry. Lower extremities: Both feet wrapped, decreased erythema, trace angioedema which is symmetrical in both lower extremities. DATA: Blood sugars 148, 149, 153, do not see any new recent lab. ASSESSMENT AND PLAN: 1. Diabetic foot ulcer, she does osteomyelitis, she has had amputation of the 3rd toe, continue Rocephin and vancomycin. 2. Diabetes mellitus type 2. Sugars look to be under good control. Continue diabetic diet. 3. Nutrition looks good. 4. She is on Requip for restless legs. 5. She is asking for more for pain medicine but I want to be careful not to compromise respiratory status and will continue present regimen. She is on vancomycin 2 g q.24 hours, Requip 1 mg b.i.d., ceftriaxone 2 g daily, MiraLAX 17 g daily, Neurontin 800 mg t.i.d., allopurinol 300 mg p.o. q.a.m., she is getting hydrocodone 10 mg q.8 hours, morphine she has 2 mg IV q.4 p.r.n. Will leave the pain medication alone. cc: Julio C Camilo MD
[2017-02-02] MEDS ORDERED: MORPHINE IV PRN (14:32)
--- NOTE | 2017-02-02 15:14 | PROGRESS NOTE ---
DATE: 02/02/2017 PRESENT ILLNESS: The patient underwent surgery on her left foot. The patient had osteomyelitis of the foot which was amputated. A bone scan showed that she does have osteomyelitis of toe 3 of the right foot. MEDICATIONS: Patient is on a combination of vancomycin and Rocephin. PHYSICAL EXAMINATION: Vital Signs: Temperature is 97.7 degrees, pulse 99, respirations 20, blood pressure 160/80. Generally: This is an obese, somewhat ill-appearing, middle- aged female. She is in no acute distress. Lungs: Clear to auscultation. Cardiovascular: Regular heart rate. Abdomen: Soft and nontender. Extremities: Both feet have dressings on them. The dressings are intact. Patient has a PICC in her right arm, the site is not swollen or erythematous. LAB AND X-RAY: Creatinine 0.6. No radiology or other lab. COMORBIDITIES: This patient are diabetes mellitus and obesity. PLAN: The plan is to send the patient home with a total of 8 weeks of treatment with vancomycin and 6 weeks of treatment with Rocephin. cc: Viraj Heath MD MTDD
[2017-02-02] MEDS: NON-FORMULARY MED PO PRN (17:42)
[2017-02-02] MEDS: REQUIP PO PRN (22:44)
[2017-02-03] MEDS: MORPHINE IV PRN ×4 (03:58→18:35)
[2017-02-03] MEDS: VANCOMYCIN 2 GM in NS 500 ML IV SCH (05:13)
[2017-02-03] MEDS: NORCO-10 PO SCH ×3 (06:25→22:20)
[2017-02-03] MEDS: NON-FORMULARY MED PO PRN ×3 (06:25→22:21)
[2017-02-03] MEDS: HUMALOG SUBQ SCH ×4 (06:30→22:25)
[2017-02-03] MEDS: NEURONTIN PO SCH ×3 (08:40→17:37)
[2017-02-03] MEDS: MIRALAX PO SCH (08:43)
[2017-02-03] MEDS: ROBAXIN PO SCH ×3 (08:44→17:37)
[2017-02-03] MEDS: LOVENOX SUBQ SCH (08:45)
[2017-02-03] MEDS: LOPRESSOR PO SCH (08:46)
[2017-02-03] MEDS: ZYLOPRIM PO SCH (08:46)
[2017-02-03] MEDS: ROCEPHIN 2 GM/NS 2 GM/50 ML IVPB IV SCH (11:23)
[2017-02-03] MEDS: REQUIP PO PRN (11:37)
[2017-02-03] MEDS: SANTYL OINT TOP SCH (11:47)
--- NOTE | 2017-02-03 15:51 | PROGRESS NOTE ---
DATE: 02/03/2017 SUBJECTIVE: Ms. Olivier is feeling better. Her leg still hurts, but marked decrease in erythema. Blood sugar has been 155, 146, and 237. OBJECTIVE: Vital Signs: Today, temperature 97.7 degrees, pulse 87, respirations 17, blood pressure 161/80. Neck: CVP less than 6 cm. Lungs: Clear in all lung coppola. Cardiovascular: Regular rhythm and rate, without murmur or S3. URINE OUTPUT: Over 1000 mL. LABORATORY: Reviewed chemistries from 01/30/2017. I will recheck them again in the morning. ASSESSMENT AND PLAN: 1. The patient underwent surgery on the left foot. Had osteomyelitis of the foot, which was amputated. Bone scan showed that she had osteomyelitis of the 3rd toe, right foot. Receiving antibiotics. This is a 56-year-old, status post left 1st toe amputation. She is a noncompliant patient with poorly-controlled diabetes. The toe is clean at the base. Proximal metatarsal was healthy. Suspect the oozing was from the bone on presentation. Surgery done on 01/31/[address] Almaraz, left 1st toe diabetic infection with amputations of the left 1st toe. Antibiotics at present time. Followed by Dr. Heath. 2. Diabetes mellitus, type 2. Sugar is under good control. 3. Obesity. 4. We will need to pursue physical therapy. cc: Julio C Camilo MD
[2017-02-04] MEDS: REQUIP PO PRN (00:30)
[2017-02-04] MEDS: MORPHINE IV PRN ×4 (00:30→19:50)
[2017-02-04] MEDS: VANCOMYCIN 2 GM in NS 500 ML IV SCH (05:32)
[2017-02-04] MEDS: NORCO-10 PO SCH ×3 (06:54→22:22)
[2017-02-04] MEDS: NON-FORMULARY MED PO PRN ×3 (06:54→22:23)
[2017-02-04] MEDS: HUMALOG SUBQ SCH ×4 (07:49→22:28)
[2017-02-04] MEDS: LOPRESSOR PO SCH (09:51)
[2017-02-04] MEDS: LOVENOX SUBQ SCH (09:52)
[2017-02-04] MEDS: ROBAXIN PO SCH ×3 (09:52→22:22)
[2017-02-04] MEDS: ZYLOPRIM PO SCH (09:52)
[2017-02-04] MEDS: NEURONTIN PO SCH ×3 (09:52→22:22)
[2017-02-04] MEDS: SANTYL OINT TOP SCH (09:53)
[2017-02-04] MEDS: MIRALAX PO SCH (09:53)
[2017-02-04] MEDS: ROCEPHIN 2 GM/NS 2 GM/50 ML IVPB IV SCH (11:10)
--- NOTE | 2017-02-04 12:36 | PROGRESS NOTE ---
DATE: 02/04/2017 SUBJECTIVE: She is feeling better. Legs feel a little better, although they still hurt. No shortness of breath. OBJECTIVE: Vital signs: Remains afebrile. Temp 98.1 degrees, pulse 94, respirations 18, blood pressure 174/78. HEENT: Pupils are equal, round. Lungs: Clear in all lung coppola. Cardiovascular: Regular rhythm and rate without murmur or S3. Abdomen: Soft. Skin: Warm and dry. LABORATORY: Blood sugars 163, 175, 169. ASSESSMENT AND PLAN: 1. The patient underwent surgery on left foot. Had osteomyelitis of the foot and 3rd toe right foot, 1st toe amputation. Patient will get a total of 8 weeks of vancomycin and 6 weeks of treatment with Rocephin. 2. Diabetes mellitus type 2. Blood sugars remain well controlled. She grew out Proteus mirabilis and Staphylococcus aureus. cc: Julio C Camilo MD
[2017-02-05] MEDS: MORPHINE IV PRN ×4 (00:44→18:54)
[2017-02-05] MEDS: REQUIP PO PRN ×2 (00:44→22:56)
[2017-02-05 05:56] LABS: MANUAL DIFF NEEDED? NO
[2017-02-05 06:02] LABS: BASO% 0.5 % (0.0-0.8); EOS# 0.44 X1000 (0.0-0.7); EOS% 5.1 % (0.0-10.0); HEMATOCRIT 31.8 % (37.0-47.0); HEMOGLOBIN 10.1 g/dL (12.0-16.0); IMM GRAN# 0.06 X1000 (0.0-0.04); IMM GRAN% 0.7 % (0.0-0.5); LYMPH# 2.94 X1000 (1.2-3.4); LYMPH% 34.3 % (20.5-51.1); MCH 28.4 PG (27-31); MCHC 31.8 g/dL (33-37); MCV 89.3 FL (81-99); MONO# 0.88 X1000 (0.11-0.59); MONO% 10.3 % (1.7-9.3); NEUT% 49.1 % (42.2-75.2); PLT 206 X1000 (130-400); RBC 3.56 XMIL (4.2-5.4)
[2017-02-05] MEDS: NORCO-10 PO SCH ×3 (06:22→22:56)
[2017-02-05] MEDS: NON-FORMULARY MED PO PRN ×2 (06:22→14:19)
[2017-02-05] MEDS: HUMALOG SUBQ SCH ×4 (06:23→22:47)
[2017-02-05 06:25] LABS: AGAP 11; BUN 20 mg/dL (8-22); CALCIUM 9.1 mg/dL (8.8-10.2); CHLORIDE 104 mmol/L (98-107); COSMO 289; SODIUM 141 mmol/L (136-145); TCO2 26 mmol/L (25-35)
[2017-02-05] MEDS: VANCOMYCIN 2.5 GM in NS 500 ML IV SCH (11:01)
[2017-02-05] MEDS: LOVENOX SUBQ SCH (11:02)
[2017-02-05] MEDS: NEURONTIN PO SCH ×3 (11:03→18:54)
[2017-02-05] MEDS: LOPRESSOR PO SCH (11:03)
[2017-02-05] MEDS: MIRALAX PO SCH (11:03)
[2017-02-05] MEDS: SANTYL OINT TOP SCH (11:04)
[2017-02-05] MEDS: ROBAXIN PO SCH ×3 (11:04→18:54)
[2017-02-05] MEDS: ZYLOPRIM PO SCH (11:04)
[2017-02-05] MEDS: ROCEPHIN 2 GM/NS 2 GM/50 ML IVPB IV SCH (12:43)
--- NOTE | 2017-02-05 13:17 | PROGRESS NOTE ---
DATE: 02/05/2017 SUBJECTIVE: The patient states she is feeling better and ready to go to rehab. She does complain of bilateral feet pain. OBJECTIVE: Vital signs: Temperature is 98.2, heart rate 91, respirations 18, blood pressure 182/78, O2 saturation is 99% on room air. General: The patient is a pleasant 56-year-old female sitting up in bed, in no acute distress. HEENT: Normocephalic and atraumatic. PERRLA. Neck: Supple. Trachea is midline. Cardiovascular: No murmurs, gallops or rubs noted. Respiratory: Lungs sound clear. Equal chest excursion. No labored breathing. Abdomen: Soft, nontender and nondistended. Positive bowel sounds in 4 quadrants. Skin: Warm, dry and intact. Bilateral lower feet are wrapped in gauze. DIAGNOSTIC DATA: White count is 8, hemoglobin 10, hematocrit 31, platelet count is 206. Chemistry shows sodium 141, potassium 4.0, BUN is 20, creatinine 0.6, blood glucose is 199. ASSESSMENT AND PLAN: 1. Osteomyelitis of the left foot. She had her first left toe amputated by Dr. Paul Almaraz, followed by wound nurse and Dr. Viraj Heath of Infectious Disease. The patient will continue with 6 weeks of IV antibiotics with vancomycin and Rocephin. 2. Diabetes mellitus type 2, uncontrolled. Continue with fingerstick blood sugars as well as sliding scale insulin. Diabetic diet. DISPOSITION: Rehab when bed is available. Dictated by RADHA Dockery for Julio C Camilo MD cc: Julio C Camilo MD
--- NOTE | 2017-02-05 18:07 | PROGRESS NOTE ---
DATE: 02/05/2017 SUBJECTIVE: Pain is better and his mobility is improving. No other events. Dressing changes going well. OBJECTIVE: Vital signs: Temperature is 98.2 degrees, pulse 91, blood pressure 182/78, O2 saturation 99% on room air. Extremities: Left 1st toe amputation site is clean. It is healing well with healthy tissue in the bed. There is no cellulitis. There is some stable edema over bilateral lower extremities. The right foot dressing is clean, dry, intact. LABORATORY: White count of 8, hematocrit 31. Creatinine 0.6, glucose 207. ASSESSMENT/PLAN: This is a 56-year-old female status with history of toe amputation on the right, now status post left 1st toe amputation. Wound seems to be healing well with no residual signs of infection. Dressing changes are going well. I think we are making plans for her to go to rehab with IV antibiotics for treatment of osteomyelitis and I agree with this. I can follow her in the next 2 weeks at [facility] to remove her sutures and continue her wound care as an outpatient. I have discussed with the patient. She understands, but from a surgical standpoint, I think she is okay to discharge to rehab. She does need rocker bottom shoes to help offload the front of her feet. 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 cc: Marti Almaraz MD
--- NOTE | 2017-02-05 18:48 | PROGRESS NOTE ---
DATE: 02/05/2017 PRESENT ILLNESS: The patient has undergone surgery. She has had amputation of the great toe of the left foot. A bone scan shows that she does have osteomyelitis of the 3rd toe of the right foot. MEDICATIONS: Currently, the patient is on vancomycin and Rocephin. She has had a total of 10 days of IV antibiotics. PHYSICAL EXAMINATION: Vital Signs: Temperature is 98.2 degrees, pulse 91, respirations 18, blood pressure 182/78. General: This is a obese middle-aged female, who is in no acute distress. Lungs: Clear to auscultation. Cardiovascular: Regular heart rate. Abdomen: Soft and nontender. Extremities: Patient has a PICC in her arm. The site is not so erythematous or swollen. The dressing was removed from the patient's left foot. The site where the amputation took place is bleeding. There is no purulence or surrounding erythema. The patient's right foot has a large dressing around it and the dressing is intact. LAB AND X-RAY STUDIES: CBC today shows a white count of 8580, hemoglobin 10.1, and platelet count 206,000. Creatinine is 0.6. GFR is greater than 60. COMORBIDITIES: The patient has diabetes and is obese. PLAN: I plan to treat the patient with a total of 8 weeks of treatment with vancomycin and 6 weeks with Rocephin because of the patient's osteomyelitis in the 3rd toe. cc: Viraj Heath MD
[2017-02-06] MEDS: MORPHINE IV PRN ×3 (01:28→14:23)
[2017-02-06] MEDS: NON-FORMULARY MED PO PRN ×2 (01:29→14:43)
[2017-02-06] MEDS: NORCO-10 PO SCH ×2 (06:16→14:23)
[2017-02-06] MEDS: HUMALOG SUBQ SCH ×2 (06:21→11:44)
[2017-02-06] MEDS: NEURONTIN PO SCH ×2 (09:48→15:01)
[2017-02-06] MEDS: VANCOMYCIN 2.5 GM in NS 500 ML IV SCH (09:48)
[2017-02-06] MEDS: ZYLOPRIM PO SCH (09:49)
[2017-02-06] MEDS: LOVENOX SUBQ SCH (09:49)
[2017-02-06] MEDS: LOPRESSOR PO SCH (09:49)
[2017-02-06] MEDS: ROBAXIN PO SCH ×2 (09:49→15:01)
[2017-02-06] MEDS: MIRALAX PO SCH ×2 (09:49→09:55)
[2017-02-06] MEDS: SANTYL OINT TOP SCH (09:56)
[2017-02-06 14:17] VITALS: BP 157/73
[2017-02-06] MEDS: ROCEPHIN 2 GM/NS 2 GM/50 ML IVPB IV SCH (14:23)
--- NOTE | 2017-02-06 14:31 | DISCHARGE SUMMARY ---
ADMISSION DATE: 01/25/2017 DISCHARGE DATE: 02/06/2017 CONSULTATIONS: Dr. Paul Almaraz with general surgery. PERTINENT PROCEDURES: 1. Nuclear bone scan correlating with findings on the plain radiograph of 01/26/2017 with the appearance of the bone scan there is a high likelihood of osteomyelitis in the right 3rd metatarsal. Findings elsewhere in the right foot are probably due to neuropathic joint disease but nonspecific. 2. Amputation of left 1st toe secondary to diabetic foot infection, performed by Dr. Paul Almaraz. DISCHARGE DIAGNOSES: 1. Amputation of the left 1st toe secondary to osteomyelitis as well as osteomyelitis of the 3rd toe on the right foot. The patient is being discharged to rehab. Followed by Dr. Paul Almaraz as well as infectious disease, Dr. Viraj Heath. The patient will receive a total of 8 weeks with IV vancomycin and 6 weeks with Rocephin. Stable. 2. Uncontrolled diabetes mellitus. We will continue with home regimen as well as fingerstick blood sugars. Diabetes improved. 3. Gout. Continue allopurinol. 4. Hypertension. Stable. 5. Dyslipidemia. Continue on home medications. 6. Restless legs syndrome. 7. Neuropathy. Continue Neurontin. HOSPITAL COURSE: Ms. Olivier is a 56-year-old female who carries a past medical history of type 2 diabetes mellitus, gout, hypertension, dyslipidemia, restless legs syndrome, presented to the ED with left foot pain that progressively worsened. In September of 2016 she had right great toe and 2nd toe amputation from gangrenous infection she also reported oozing coming from her left great toe on admission. ED physician performed an I D at the bedside prior to her admission. She also reported to be a noncompliant diabetic. The patient was admitted and blood cultures, wound cultures were sent. Foot x-ray as well as a follow up bone scan was performed. That confirmed osteomyelitis, along with the plain radiographs. The patient underwent amputation of the left 1st toe secondary to her diabetic foot infection with Dr. Paul Almaraz. Dr. Viraj Heath was involved to continue the patient's IV antibiotics. Fitting Room Supervisor were consulted. The patient has worked with physical therapy. She is appropriate for discharge to rehab today per Dr. Almaraz, who will follow her in [address] [facility] to remove her sutures and continue her wound care as an outpatient. She will need rocker bottom shoes to help offload the front of her feet while she is working with physical therapy. The right foot dressing is clean, dry, and intact. VITAL SIGNS: At the time of her discharge, temperature is. 97.8, heart rate 102, respirations 18, blood pressure 157/70, O2 is 98% on room air. DISCHARGE DIET: Diabetic. DISCHARGE MEDICATIONS: 1. Allopurinol 300 mg p.o. q.a.m. 2. Aspirin 325 mg p.o. q.a.m. 3. 50 mg/300 mg 1 tablet p.o. q.8 hours p.r.n. 4. Santyl ointment 3 g topical daily as instructed. 5. Lasix 80 mg tablet p.o. daily p.r.n. for edema. 6. Neurontin 800 mg p.o. t.i.d. 7. Gemfibrozil 600 mg tablet p.o. daily. 8. Amaryl 4 mg tab p.o. b.i.d. 9. Ben Bolt 10/325 one each p.o. q.8 hours p.r.n. moderate to severe pain. 10. Robaxin 750 mg p.o. t.i.d. 11. Lopressor 50 mg p.o. q.a.m. 12. MiraLAX 17 g p.o. daily, hold for diarrhea. 13. Potassium chloride 20 mEq p.o. daily p.r.n. to be given with Lasix. 14. Requip 1 mg tablet p.o. b.i.d. p.r.n. FOLLOW-UP: Patient is being discharged to a rehab facility where she will continue on IV vancomycin for a total of 8 weeks as well as IV Rocephin for 6 weeks. She will follow up with Dr. Paul Almaraz at [facility] in 2 weeks, where he will remove her sutures and continue her wound care as an outpatient, as well as patient will need rocker bottom shoes to help offload the front of her feet while walking with physical therapy. Patient can return to the ED for any worsening of symptoms. She has also been educated on diabetic diet as well as compliance. DISCHARGE TIME: Greater than 30 minutes. Dictated by RADHA Dockery for Julio C Camilo MD cc: MD Belen Levy MD
== END 2017-02-06 15:29 ==
LOC: ED 11:48 → 3N 15:28 → SUATTDRO 15:28
PROVIDERS: ATTEND Emergency Medicine

== ENCOUNTER 2018-12-26 14:19 | Inpatient (IN) ==
[2018-12-26 15:13] LABS: BASO# 0.05 X1000 (0.0-0.2); BASO% 0.5 % (0.0-0.8); EOS# 0.31 X1000 (0.0-0.7); EOS% 2.9 % (0.0-10.0); HEMATOCRIT 37.9 % (37.0-47.0); HEMOGLOBIN 12.2 g/dL (12.0-16.0); IMM GRAN# 0.06 X1000 (0.0-0.04); IMM GRAN% 0.6 % (0.0-0.5); LYMPH# 2.31 X1000 (1.2-3.4); LYMPH% 21.3 % (20.5-51.1); MCH 30.8 PG (27-31); MCHC 32.2 g/dL (33-37); MCV 95.7 FL (81-99); MONO# 0.81 X1000 (0.11-0.59); MONO% 7.5 % (1.7-9.3); MPV 10.7 FL (7.4-10.4); NEUT# 7.28 X1000 (1.4-6.5); NEUT% 67.2 % (42.2-75.2); PLT 198 X1000 (130-400); RBC 3.96 XMIL (4.2-5.4); RDW 13.8 % (11.5-14.5); WBC 10.82 X1000 (4.8-10.8)
[2018-12-26 15:19] LABS: INR 0.97; PROTIME 13.7 Seconds (11.0-16.0)
[2018-12-26 15:20] LABS: PTT 33.4 Seconds (22.3-41.8)
[2018-12-26 15:31] LABS: AGAP 9; ALB/GLOB RATIO 1.2; ALBUMIN 3.9 g/dL (3.5-5.0); ALKALINE PHOSPHATASE 128 U/L (32-104); BUN 14 mg/dL (8-22); CALCIUM 9.4 mg/dL (8.8-10.2); CHLORIDE 100 mmol/L (98-107); CK PROFILE 124 U/L (24-173); COSMO 283; CREATININE 0.6 mg/dL (0.5-0.9); ESTIMATED GFR > 60; GLUCOSE 187 mg/dL (70-104); GOT 14 U/L (10-30); GPT 19 U/L (10-36); SODIUM 139 mmol/L (136-145); TCO2 30 mmol/L (25-35); TOTAL BILIRUBIN 0.41 mg/dL (0.20-1.00); TOTAL PROTEIN 7.1 g/dL (6.3-8.3)
--- NOTE | 2018-12-26 15:39 | PROVIDER DOCUMENTATION ---
HPI-Fever - General Chief Complaint: SEPSIS ALERT - D Stated Complaint: NAUSEA,CHILLS,POSS STAPH Time Seen by Provider: 12/26/18 15:14 Source: patient Allergies/Adverse Reactions: Patient Allergies Allergy/AdvReac Type Severity Reaction Status Date / Time tizanidine HCl * Allergy ANAPHYLAXIS Verified 10/06/16 17:01 [From [facility]o] Home Medications: Home Medication List Medication Instructions Recorded Confirmed Last Taken Type Allopurinol [Zyloprim] 300 mg PO QAM 09/19/15 01/25/17 01/24/17 09:00 History Aspirin 325 mg PO QAM 09/19/15 01/25/17 01/25/17 09:00 History Gabapentin [Neurontin] 800 mg PO TID 09/19/15 01/25/17 01/24/17 21:00 History Methocarbamol [Robaxin-750] 750 mg PO TID 09/19/15 01/25/17 01/24/17 21:00 History Metoprolol [Lopressor] 50 mg PO QAM 09/19/15 01/25/17 01/25/17 09:00 History Butalbital/Acetaminophen [Bupap 50 1 tab PO Q8H PRN PRN 01/25/17 01/25/17 01/24/17 21:00 History mg-300 mg Tablet] Furosemide [Lasix] 1 tab PO DAILY PRN 01/25/17 01/25/17 01/18/17 09:00 History Gemfibrozil 600 mg PO DAILY 01/25/17 01/25/17 12/28/16 09:00 History Glimepiride [Amaryl] 1 tab PO BID 01/25/17 01/25/17 01/25/17 09:00 History Hydrocodone/APAP 10 mg/325 mg 1 each PO Q8H PRN PRN 01/25/17 01/25/17 01/24/17 21:00 History [[place]-10] Potassium Chloride 20 meq PO DAILY PRN 01/25/17 01/25/17 Unknown History Ropinirole HCl 1 tab PO BID PRN 01/25/17 01/25/17 01/24/17 21:00 History Collagenase Clostridium Oint 30 gm TOP DAILY #0 oint 02/06/17 Unknown Rx [Santyl Oint] Polyethylene Glycol 3350 [Miralax] 17 gm PO DAILY powder, packet 02/06/17 Unknown Rx - History of Present Illness-Fever Nature of Presenting Problem: Patient is a 58yo F who presents w/ c/o fever/chills, nausea, vomiting, and diarrhea x2 days. Patient reports [facility] for diabetic wounds dressing change. Patient reports she was telling the staff her symptoms and they encouraged her to come to the ER. Patient reports hx of MRSA in the past as well as Osteomyelitis/Cellulitis. Reports concern for Staph infection. Patient has open diabetic ulcer to her R heel and a superficial wound with sloughing to her L lopez. Patient reports the wound center changed her dressings today. Patient's temperature upon examination is 98.6. 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 denies: chest pain, diaphoresis, dizziness, sinus congestion/drainage, shortness of breath, vomiting Similar Symptoms Previously?: Yes (hx MRSA) Recently seen or treated by another doctor?: Yes (seen at [facility]ound care center [facility]) - [place] Coma Score Best Eye Response ([place]): (4) open spontaneously Best Verbal Response ([place]): (5) oriented Best Motor Response ([place]): (6) obeys commands [place] Total: 15 Review of Systems - Adult - REVIEW OF SYSTEMS - ADULT Constitutional: reports: see HPI, chills, fever Eyes: reports: no symptoms reported Ears, Nose, Mouth & Throat: reports: no symptoms reported Cardiovascular: denies: chest pain, palpitations Respiratory: denies: cough, shortness of breath Gastrointestinal: reports: see HPI, diarrhea, nausea, poor appetite, vomiting. denies: abdominal pain Genitourinary: reports: no symptoms reported Musculoskeletal: reports: no symptoms reported Integumentary: reports: see HPI, skin sores/ulcer Neurological: reports: no symptoms reported Psychiatric: reports: no symptoms reported Endocrine: reports: no symptoms reported All Other Systems: Reviewed and Negative Past History - Adult - PAST MEDICAL HISTORY-ADULT Review of Records: reports: Old Records Reviewed, Nursing Assessment Review, Medications Reviewed Major Childhood Illnesses: reports: denies history Cardiovascular: reports: cardiac disease, CAD, HTN. denies: CHF Respiratory: reports: denies history Gastrointestinal: reports: denies history Obstetrical/Gynecological: reports: denies history Genitourinary: reports: denies history Musculoskeletal: reports: denies history Neurological: reports: CVA Psychiatric: reports: denies history Endocrine/Immune: reports: Diabetes Other Conditions: reports: denies history - PRIOR SURGERIES/PROCEDURES Surgical/Procedure History: reports: CABG, hysterectomy, tonsillectomy - IMMUNIZATION STATUS Childhood Immunizations: See Nurse Assessment Flu Vaccine: See Nurse Assessment - FAMILY HISTORY Family History: reviewed, not pertinent - SOCIAL HISTORY Smoking: other (former) Physical Exam-General - PHYSICAL EXAM-ADULT Initial Vital Signs Reviewed: Yes - CONSTITUTIONAL General Appearance: alert, mild distress, obese - EYES Eyes: PERRL/EOMI, pink conjunctivae - HEAD, EARS, NOSE, MOUTH & THROAT HENMT: normocephalic/atraumatic, moist mucous membranes - NECK Neck: full range of motion, supple, normal inspection - RESPIRATORY Respiratory: chest non-tender, lungs clear, normal breath sounds, no pleuratic chest pain, no respiratory distress, no accessory muscle use - CARDIOVASCULAR Cardiovascular: tachycardia (134) - GASTROINTESTINAL (ABDOMEN) Abdominal Exam: normal bowel sounds, non tender, soft, no organomegaly, no pulsatile mass - MUSCULOSKELETAL Back Exam: normal inspection Extremity: erythema (bilateral shins/foot), tenderness (bilateral calves/feet), other (multiple amputated toes bilateral feet). negative: deformity Peripheral Pulses: dorsalis-pedis (R): 1+, dorsalis-pedis (L): 1+ - SKIN Integumentary: normal color, warm/dry, erythema (bilateral shins), warm (bilateral shins), other (3cm open diabetic foot ulcer above R heel on plantar surface; superficial wound w/ sloughing tissue to L lopez) - NEUROLOGIC Neurologic: grossly normal - PSYCHIATRIC Psych/Mental Status: normal mood/affect, normal thought content, normal thought process, oriented x 3 Progress - PLAN OF CARE/RESULTS Progress/Plan/Lab Results: Vital Signs - 8 hr 12/26/18 14:20 12/26/18 15:58 12/26/18 16:22 Pulse Rate 134 H Respiratory Rate 22 Blood Pressure 177/97 150/63 O2 Sat by Pulse Oximetry 91 L 95 12/26/18 16:30 12/26/18 16:40 12/26/18 17:02 Pulse Rate Respiratory Rate Blood Pressure O2 Sat by Pulse Oximetry 96 94 L 95 12/26/18 17:10 12/26/18 17:20 12/26/18 17:43 Pulse Rate Respiratory Rate Blood Pressure O2 Sat by Pulse Oximetry 93 L 94 L 96 12/26/18 17:50 12/26/18 18:00 12/26/18 18:11 Pulse Rate Respiratory Rate Blood Pressure O2 Sat by Pulse Oximetry 87 L 90 L 93 L Laboratory Results - last 24 hr 12/26/18 12/26/18 12/26/18 14:45 14:45 14:45 WBC 10.82 H RBC 3.96 L Hgb 12.2 Hct 37.9 MCV 95.7 MCH 30.8 MCHC 32.2 L RDW Std Deviation 13.8 Plt Count 198 MPV 10.7 H Immature Gran % (Auto) 0.6 H Neut % (Auto) 67.2 Lymph % (Auto) 21.3 [place] % (Auto) 7.5 Eos % (Auto) 2.9 Baso % (Auto) 0.5 Immature Gran # (Auto) 0.06 H Neut # (Auto) 7.28 H Lymph # (Auto) 2.31 [place] # (Auto) 0.81 H Eos # (Auto) 0.31 Baso # (Auto) 0.05 ESR PT 13.7 INR 0.97 PTT (Actin FS) 33.4 Sodium 139 Potassium 4.0 Chloride 100 Carbon Dioxide 30 Anion Gap 9 BUN 14 Creatinine 0.6 Estimated GFR/1.73 m2 > 60 BUN/Creatinine Ratio 23 Glucose 187 H Calculated Osmolality 283 Calcium 9.4 Total Bilirubin 0.41 AST 14 ALT 19 Alkaline Phosphatase 128 H Creatine Kinase 124 Troponin T Total Protein 7.1 Albumin 3.9 Globulin 3.2 Albumin/Globulin Ratio 1.2 Plasma Lactate Urine Source Urine Color Urine Turbidity Urine pH Ur Specific [place] Urine Protein Ur Glucose (Stick) Ur Ketones (Stick) Urine Blood Urine Nitrite Urine Bilirubin Urobilinogen Dipstick Urine Leukocytes Urine WBC (Auto) Urine RBC (Auto) U Epithel Cells (Auto) Urine Bacteria (Auto) 12/26/18 12/26/18 12/26/18 14:45 14:45 14:45 WBC RBC Hgb Hct MCV MCH MCHC RDW Std Deviation Plt Count MPV Immature Gran % (Auto) Neut % (Auto) Lymph % (Auto) [place] % (Auto) Eos % (Auto) Baso % (Auto) Immature Gran # (Auto) Neut # (Auto) Lymph # (Auto) [place] # (Auto) Eos # (Auto) Baso # (Auto) ESR 75 H PT INR PTT (Actin FS) Sodium Potassium Chloride Carbon Dioxide Anion Gap BUN Creatinine Estimated GFR/1.73 m2 BUN/Creatinine Ratio Glucose Calculated Osmolality Calcium Total Bilirubin AST ALT Alkaline Phosphatase Creatine Kinase Troponin T < 0.010 Total Protein Albumin Globulin Albumin/Globulin Ratio Plasma Lactate 1.4 Urine Source Urine Color Urine Turbidity Urine pH Ur Specific [place] Urine Protein Ur Glucose (Stick) Ur Ketones (Stick) Urine Blood Urine Nitrite Urine Bilirubin Urobilinogen Dipstick Urine Leukocytes Urine WBC (Auto) Urine RBC (Auto) U Epithel Cells (Auto) Urine Bacteria (Auto) 12/26/18 17:02 WBC RBC Hgb Hct MCV MCH MCHC RDW Std Deviation Plt Count MPV Immature Gran % (Auto) Neut % (Auto) Lymph % (Auto) [place] % (Auto) Eos % (Auto) Baso % (Auto) Immature Gran # (Auto) Neut # (Auto) Lymph # (Auto) [place] # (Auto) Eos # (Auto) Baso # (Auto) ESR PT INR PTT (Actin FS) Sodium Potassium Chloride Carbon Dioxide Anion Gap BUN Creatinine Estimated GFR/1.73 m2 BUN/Creatinine Ratio Glucose Calculated Osmolality Calcium Total Bilirubin AST ALT Alkaline Phosphatase Creatine Kinase Troponin T Total Protein Albumin Globulin Albumin/Globulin Ratio Plasma Lactate Urine Source CLEAN CATCH Urine Color YELLOW Urine Turbidity CLEAR Urine pH 6.0 Ur Specific [place] 1.007 Urine Protein TRACE A Ur Glucose (Stick) NEGATIVE Ur Ketones (Stick) NEGATIVE Urine Blood TRACE A Urine Nitrite NEGATIVE Urine Bilirubin NEGATIVE Urobilinogen Dipstick NORMAL Urine Leukocytes NEGATIVE Urine WBC (Auto) <10 Urine RBC (Auto) <10 U Epithel Cells (Auto) <10 Urine Bacteria (Auto) NEGATIVE Orders Category Date Time Status Cardiac Monitoring DIRECTED Care 12/26/18 14:28 Active IV Insertion ORDERED Care 12/26/18 14:28 Completed Notify MD of + Sepsis Screen NOW Care 12/26/18 14:28 Active Notify Physician As Ordered Care 12/26/18 14:28 Active Nursing [[facility]. NRSG Communication Order] DIRECTED Care 12/26/18 19:25 Ordered Nursing- Obtain EKG once Care 12/26/18 14:59 Active Repeat Vital Signs .Oxygen Saturation Care 12/26/18 15:35 Active Take Temperature DIRECTED Care 12/26/18 15:35 Active CHEST-1 VIEW [RAD] Stat Exams 12/26/18 14:28 Completed FOOT COMPLETE RIGHT [RAD] Stat Exams 12/26/18 16:33 Completed LOWER LEG-LEFT [RAD] Stat Exams 12/26/18 16:34 Completed LOWER LEG-RIGHT [RAD] Stat Exams 12/26/18 16:34 Completed BLOOD CULTURE [BLDCUL] Stat Lab 12/26/18 14:45 Results CBC WITH DIFF [HEME] Stat Lab 12/26/18 14:45 Completed CK PROFILE [SP CHEM] Stat Lab 12/26/18 14:45 Completed COMPREHENSIVE METABOLIC PANEL [CHEM] Stat Lab 12/26/18 14:45 Completed LACTATE, PLASMA [CHEM] Q3H Lab 12/26/18 14:45 Completed PROTIME WITH INR [COAG] Stat Lab 12/26/18 14:45 Completed PTT [COAG] Stat Lab 12/26/18 14:45 Completed ROUTINE CULTURE [RM] Routine Lab 12/26/18 16:03 Received SED RATE [HEME] Stat Lab 12/26/18 14:45 Completed TROPONIN T Stat Lab 12/26/18 14:45 Completed URINALYSIS W/POSS RFLX CULT [URINALYSIS] Stat Lab 12/26/18 17:02 Completed Clindamycin 600 mg/D5w Med 12/26/18 17:00 Discontinued 600 mg in 50 ml IV NOW Ondansetron [Zofran] Med 12/26/18 15:43 Discontinued 4 mg IV NOW ONE Oxygen Device Stat Oth 12/26/18 14:28 Completed EKG [EKG] Stat Ther 12/26/18 14:59 Draft Plan of care discussed with patient who verbalizes understanding. Result Diagrams: 12/26/18 14:45 12/26/18 14:45 - EKG 1 Time of EKG reading by physician:: 16:28 EKG Read and Signed by:: Stanley Flower EKG Interpretation (*Must complete 3 of following elements*): Abnormal Rate: 117 Rhythm: ST w/ artifact present [place]: normal QRS: normal DE Interval: normal ST Wave: non-specific ST changes - XRAY 1 XRAY: Bilateral XRAY Study: Chest Impression: See EMR Report ([facility] [address], [address], [place] [address] Department of Imaging Patient: BIANCA GOODMANADM Date: 12/26/18MR#: [id number] : 1960DM Status: REG ERAcct#: [id number] Age/Sex: 58/FRoom/Bed: Loc: ED Ordering Physician: Stanley Flower MD Family Physician: Belen Dominique Reason for Procedure: POSSIBLE SEPSIS Signed EXAM: CHEST-1 VIEW 12/26/2018 HISTORY: POSSIBLE SEPSIS TECHNIQUE: AP portable upright at 1617 COMMENT: There is cardiomegaly and increased pulmonary vascularity. Compared to the previous examination of 11/24/2016, considering differences in inspiration and technique there has been no appreciable change. IMPRESSION: Cardiomegaly and pulmonary vascular engorgement. No definite evidence of acute pulmonary disease. Electronically signed by Rohit Yu 12/26/2018 4:24 PM 12/26/184 Interpreting Physician: Rohit Yu MD Dictated Date/Time: 12/26/18 1624 cc: Stanley Flower MD; Belen Dominique) 2 XRAY: Right XRAY Study: Foot Impression: See EMR Report ([facility] [address], [address], [place] [address] Department of Imaging Patient: DAKOTA GOODMAN Date: 12/26/18MR#: [id number] : 1960DM Status: REG ERAcct#: [id number] Age/Sex: 58/FRoom/Bed: Loc: ED Ordering Physician: Mary Cardozo Family Physician: Belen Dominique Reason for Procedure: Open wound R heel; diabetic Signed EXAM: FOOT COMPLETE RIGHT HISTORY: Open wound R heel; diabetic TECHNIQUE: Right foot, three views COMPARISON: 01/26/2017 FINDINGS: Prior removal of the first and second metatarsals and toes. Worsening arthritis at the third metatarsophalangeal joint. Mild worsening tarsal arthritis. Calcaneal bone spur. No periosteal reaction about the calcaneus. No definite bone erosion. IMPRESSION: No definite plain film evidence of osteomyelitis about the calcaneus. An MRI of the foot is recommended if clinical suspicion persists. Electronically signed by Spencer Kirk 12/26/2018 5:51 PM 12/26/18 175 Int erpreting Physician: Spencer Kirk MD Dictated Date/Time: 12/26/18 2853 cc: Mary Cardozo; Belen Dominique) 3 XRAY: Right XRAY Study: Tibia/Fibula Impression: See EMR Report ([facility] [address] [place] [address], [address], [place] [address] Department of Imaging Patient: DAKOTA GOODMAN Date: 0 12/26/18#: [id number] : 1960DM Status: REG ERAcct#: [id number] Age/Sex: 58/FRoom/Bed: Loc: ED Ordering Physician: Mary Cardozo Family Physician: Belen Dominique Reason for Procedure: open wound; diabetic Signed EXAM: LOWER LEG-RIGHT HISTORY: open wound; diabetic TECHNIQUE: Right tibia and fibula, two views COMPARISON: None. FINDINGS: No fracture. No dislocation. No bone erosions. No periosteal reaction. IMPRESSION: No plain film evidence of osteomyelitis. Electronically signed by Spencer Kirk 12/26/2018 5:45 PM 12/26/18 1745 Interpreting Physician: Spencer Kirk MD Dictated Date/Time: 12/26/181743 cc: Mary Cardozo; Belen Dominique) 4 XRAY: Left XRAY Study: Tibia/Fibula Impression: See EMR Report ([facility] [address] [facility], [address], [place] [address] Department of Imaging Patient: DAKOTA GOODMAN Date: 12/26/18MR#: [id number] : 1960DM Status: [facility]#: [id number] Age/Sex: 58/FRoom/Bed: Loc: ED Ordering Physician: Mary Cardozo Family Physician: Belen Dominique Reason for Procedure: open wound; diabetic Signed EXAM: LOWER LEG-LEFT HISTORY: open wound; diabetic TECHNIQUE: Left tibia and fibula, three views COMPARISON: None. FINDINGS: No fracture. No dislocation. No bone erosions. No periosteal reaction. IMPRE SSION: No plain film evidence of osteomyelitis. Electronically signed by Spencer Kirk 12/26/2018 5:43 PM 12/26/18 174 Interpreting Physician: Spencer Kirk MD Dictated Date/Time: 12/26/181741 cc: Mary Cardozo; Belen Dominique) - CONSULTS/PCP/HOSPITALIST Notification #1 *Consult/PCP/Hospitalist*: Irma Time Discussed: 19:18 Reason/Comments: Cellulitis; leukocytosis; diabetic foot wound; elevated ESR; tachycardia; Consult Disposition: Admit Departure - Departure Date of Disposition Decision: 12/26/18 Time of Disposition Decision: 19:18 DIAGNOSIS: Cellulitis of left lower extremity, Cellulitis of right lower extremity, Tachycardia, Elevated sedimentation rate Diabetic foot ulcer Qualifiers: Diabetic foot ulcer location: heel Diabetes mellitus type: type 2 Laterality: right Non-pressure ulcer stage: limited to breakdown of skin Qualified Code(s): E11.621 - Type 2 diabetes mellitus with foot ulcer Leukocytosis Qualifiers: Leukocytosis type: unspecified Qualified Code(s): D72.829 - Elevated white b lood cell count, unspecified Disposition: ADMITTED INPATIENT 09 Certified Medical Emergency: Emergent Condition: Stable Referrals and Follow-Ups: Belen Dominique [Primary Care Provider] - - Critical Care Note This patient required my direct & personal management of CC.: No Attestation - Physician/ ERIN Attestation Patient care was provided by Advanced Practice Provider:: Yes Advanced Practice Provider:: Mary Cardozo Advanced Practice Provider documentation review:: The Mid-level provider documentation, treatment plan and medical decision making was reviewed by the physician who agrees with all treatment and medical decision making by the [facility]. The physician spent face to face time with patient:: Yes Advanced Practice Provider documentation review:: Supervising physician onsite a nd consulted in the evaluation and care of this patient. The physician did have a face to face encounter with the patient.
[2018-12-26] MEDS ORDERED: ZOFRAN IV ONE (15:43)
--- NOTE | 2018-12-26 16:14 | EKG Report ---
Test Performed on : 12/26/2018 4:08:19 PM Test Reason : tachycardia Blood Pressure : / mmHG Vent. Rate : 117 BPM Atrial Rate : 117 BPM P-R Int : 122 ms QRS Dur : 068 ms QT Int : 318 ms P-R-T Axes : 070 081 068 degrees QTc Int : 443 ms Sinus tachycardia. with premature atrial complexes. Nonspecific ST abnormality Abnormal ECG No previous ECGs available Unconfirmed Result
--- NOTE | 2018-12-26 16:27 | Diag Imaging Result Doc PS360 ---
EXAM: CHEST-1 VIEW 12/26/2018 HISTORY: POSSIBLE SEPSIS TECHNIQUE: AP portable upright at 1617 COMMENT: There is cardiomegaly and increased pulmonary vascularity. Compared to the previous examination of 11/24/2016, considering differences in inspiration and technique there has been no appreciable change. IMPRESSION: Cardiomegaly and pulmonary vascular engorgement. No definite evidence of acute pulmonary disease. Electronically signed by Rohit Yu 12/26/2018 4:24 PM
[2018-12-26] MEDS ORDERED: CLINDAMYCIN 600 MG/NS 600 MG/50 ML IVPB IV ONE (16:35)
[2018-12-26] MEDS ORDERED: CLINDAMYCIN 600 MG/D5W 600 MG/50 ML IVPB IV ONE (17:00)
[2018-12-26 17:17] LABS: URINE SOURCE CLEAN CATCH
[2018-12-26 17:23] LABS: BILIRUBIN URINE NEGATIVE (NEGATIVE); BLOOD URINE TRACE (NEGATIVE); COLOR YELLOW; GLUCOSE URINE NEGATIVE (NEGATIVE); KETONE URINE NEGATIVE (NEGATIVE); LEUKOCYTES URINE NEGATIVE (NEGATIVE); NITRITE URINE NEGATIVE (NEGATIVE); PROTEIN URINE TRACE mg/dL (NEGATIVE); SP GRAVITY URINE 1.007; TURBIDITY URINE CLEAR (CLEAR); UR EPITHELIAL CELLS <10 /HPF (<10); URINE BACTERIA NEGATIVE /HPF; URINE RBC <10 /HPF (<10); URINE WBC <10 /HPF (<10); UROBILINOGEN URINE NORMAL (NORMAL)
--- NOTE | 2018-12-26 17:45 | Diag Imaging Result Doc PS360 ---
EXAM: LOWER LEG-LEFT HISTORY: open wound; diabetic TECHNIQUE: Left tibia and fibula, three views COMPARISON: None. FINDINGS: No fracture. No dislocation. No bone erosions. No periosteal reaction. IMPRESSION: No plain film evidence of osteomyelitis. Electronically signed by Spencer Kirk 12/26/2018 5:43 PM
--- NOTE | 2018-12-26 17:47 | Diag Imaging Result Doc PS360 ---
EXAM: LOWER LEG-RIGHT HISTORY: open wound; diabetic TECHNIQUE: Right tibia and fibula, two views COMPARISON: None. FINDINGS: No fracture. No dislocation. No bone erosions. No periosteal reaction. IMPRESSION: No plain film evidence of osteomyelitis. Electronically signed by Spencer Kirk 12/26/2018 5:45 PM
--- NOTE | 2018-12-26 17:54 | Diag Imaging Result Doc PS360 ---
EXAM: FOOT COMPLETE RIGHT HISTORY: Open wound R heel; diabetic TECHNIQUE: Right foot, three views COMPARISON: 01/26/2017 FINDINGS: Prior removal of the first and second metatarsals and toes. Worsening arthritis at the third metatarsophalangeal joint. Mild worsening tarsal arthritis. Calcaneal bone spur. No periosteal reaction about the calcaneus. No definite bone erosion. IMPRESSION: No definite plain film evidence of osteomyelitis about the calcaneus. An MRI of the foot is recommended if clinical suspicion persists. Electronically signed by Spencer Kirk 12/26/2018 5:51 PM
[2018-12-26] MEDS ORDERED: ZOFRAN IV PRN (22:06)
[2018-12-26] MEDS ORDERED: NORCO-10 PO ONE (22:06)
[2018-12-27] MEDS ORDERED: REQUIP PO PRN (02:42)
[2018-12-27] MEDS ORDERED: VANCOMYCIN IV PER PHARMACY MISC SCH (02:45)
[2018-12-27] MEDS ORDERED: VANCOMYCIN 2,000 MG in NS 500 ML IV SCH (04:00)
[2018-12-27] MEDS: MORPHINE IV PRN ×4 (04:49→22:21)
[2018-12-27] MEDS: ROCEPHIN 1 GM in NS 50 ML IV SCH (05:33)
[2018-12-27] MEDS: LOVENOX SUBQ SCH (06:07)
[2018-12-27] MEDS: HUMULIN R SUBQ SCH ×4 (06:08→22:21)
[2018-12-27 07:32] LABS: BASO# 0.03 X1000 (0.0-0.2); BASO% 0.3 % (0.0-0.8); EOS# 0.35 X1000 (0.0-0.7); EOS% 3.7 % (0.0-10.0); HEMATOCRIT 36.4 % (37.0-47.0); HEMOGLOBIN 11.7 g/dL (12.0-16.0); IMM GRAN# 0.05 X1000 (0.0-0.04); IMM GRAN% 0.5 % (0.0-0.5); LYMPH# 2.54 X1000 (1.2-3.4); MCHC 32.1 g/dL (33-37); MCV 96.3 FL (81-99); MONO# 0.69 X1000 (0.11-0.59); MONO% 7.3 % (1.7-9.3); MPV 11.2 FL (7.4-10.4); NEUT# 5.76 X1000 (1.4-6.5); NEUT% 61.2 % (42.2-75.2); PLT 198 X1000 (130-400); RBC 3.78 XMIL (4.2-5.4); RDW 14.1 % (11.5-14.5); WBC 9.42 X1000 (4.8-10.8)
[2018-12-27 07:43] LABS: HEMOGLOBIN A1C 9.9 % (4.8-6.0)
[2018-12-27 07:47] LABS: AGAP 12; CHLORIDE 102 mmol/L (98-107); GLUCOSE 241 mg/dL (70-104); POTASSIUM 4.1 mmol/L (3.5-5.1); SODIUM 141 mmol/L (136-145); TCO2 27 mmol/L (25-35)
[2018-12-27 07:48] LABS: BUN 12 mg/dL (8-22); CALCIUM 8.8 mg/dL (8.8-10.2); COSMO 289; CREATININE 0.7 mg/dL (0.5-0.9); ESTIMATED GFR > 60
[2018-12-27] MEDS: NEURONTIN PO SCH ×3 (08:56→22:20)
[2018-12-27] MEDS: ASPIRIN PO SCH (08:56)
[2018-12-27] MEDS: LOPRESSOR PO SCH (08:56)
[2018-12-27] MEDS: REQUIP PO SCH ×2 (13:08→22:20)
--- NOTE | 2018-12-27 16:49 | PROGRESS NOTE ---
DATE: 12/27/2018 SUBJECTIVE: This patient is lying comfortably in bed, she is complaining of bilateral lower extremity pain, admitted due to fever, chills, diarrhea, the diarrhea is getting better. We will continue with antibiotics. We have a positive culture that showed gram-positive cocci from her left leg. OBJECTIVE: Vital Signs: Temperature 98.9 degrees, pulse 89, respiratory rate 20, blood pressure 109/41, oxygen saturation 100% on room air. HEENT: Head normocephalic. No trauma. PERRLA. Neck: Supple. No JVD. No masses. Central trachea. Chest: Clear to auscultation. No wheezing, no rales. Abdomen: Soft, nontender, nondistended. No hepatosplenomegaly. 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 No signs of infection in that area, there is redness on her leg in anterior part and right heel. Neurologic: The patient is alert and oriented x3. No focal neurological deficits. LABORATORY: WBC 9.4, hemoglobin 11.7, hematocrit 36.4, platelets 198,000. Sodium 141, potassium 4.1, chloride 102, bicarbonate 27, BUN 12, creatinine 0.7, glucose 241, calcium 8.8. ASSESSMENT AND PLAN: 1. Bilateral lower extremity cellulitis with ulcers with a positive culture from the left leg that showed gram-positive cocci, this patient has been placed on antibiotics. We will continue with the same management. 2. Type 2 diabetes. Continue with the same management for now, we will adjust her medications, hemoglobin A1c 9.9. 3. History of gout aware. 4. Hypertension, stable. 5. Dyslipidemia aware. 6. Peripheral neuropathy aware. Continue with same management. cc: Dennis Donato MD
--- NOTE | 2018-12-27 23:09 | HISTORY AND PHYSICAL ---
PRIMARY CARE PROVIDER: Belen Dominique MD CHIEF COMPLAINT: Bilateral lower extremity swelling, redness and wounds. HISTORY OF PRESENT ILLNESS: Ms. Olivier is a 58-year-old female with a past medical history most notable for diabetes mellitus type 2; coronary artery disease, status post four- vessel coronary artery bypass graft; gout; hypertension; dyslipidemia; restless legs syndrome; peripheral neuropathy. She has in the past had problems with chronic bilateral lower extremity swelling, cellulitis and diabetic foot wound as well as osteomyelitis, which did require amputation of her 1st and 2nd right toes as well as her 1st left toe. She has also reportedly had MRSA in the past as well. She states that she has been followed recently by Dr. Almaraz and did see him , 12/26/2018 in his office, though from what I understand the patient may not be the most compliant with going to her wound care clinic appointments as well as doing her home wound care. She states that Dr. Almaraz has recommended her to have Unna boots, though the patient states that she was unable to get home health, for what reason this is uncertain, and she has not been able to place these on at home by herself. She reported that today at [facility] she was reporting some other associated symptoms of having fever and chills as well as some nausea, vomiting and diarrhea. She reports the nausea and vomiting have been occasional for 2 days, though she has had diarrhea from what I can gather for a few months now. She states that Dr. Almaraz has been treating the swelling in her legs as well as the wounds that she has on bilateral lower extremities from her knees down, and a diabetic foot wound on her right heel as well. The patient states over the past couple days that the swelling, erythema and pain in her legs have increased, as well as she has had worsening of the wound on her right heel and worsening of a wound on her left lower leg, just superior to her ankle area anteriorly. These both do have a serous drainage. Given her other symptoms she had been reporting, he did recommend her come to the ER for further evaluation. She also reports that recently her primary care physician had given her an antibiotic of Keflex as well. She denies any headache, dizziness, chest pain, shortness of breath or cough. Though she had reported some nausea and vomiting, she states this has subsided at this time. She denies any hematochezia or melena. She denies any abdominal pain, dysuria or urinary frequency. Upon evaluation in the ER, the patient did have bilateral lower extremity symptoms as described above. She also did have a slightly elevated white blood cell count of 10,820. They did perform x-rays of her right and left lower extremity as well as her right foot, which did not show any evidence of osteomyelitis. Blood cultures and wound cultures have been obtained. We have placed her with antibiotic coverage of vancomycin and Rocephin. She will be placed inpatient for admission. REVIEW OF SYSTEMS: A 14-point review of systems was conducted with the patient, and all were negative except for pertinent positives mentioned in the above HPI. PAST MEDICAL HISTORY: 1. Diabetes mellitus type 2. 2. Gout. 3. Hypertension. 4. Dyslipidemia. 5. Restless legs syndrome. 6. Peripheral neuropathy. 7. Peripheral vascular disease. 8. History of osteomyelitis which required amputation of 3 of her toes. 9. Coronary artery disease, status post coronary artery bypass graft. PAST SURGICAL HISTORY: 1. Coronary artery bypass graft x4 in 2005. 2. Hysterectomy. 3. section. 4. Tonsillectomy and adenoidectomy. 5. Amputation of 1st and 2nd digits of her right foot as well as amputation of her left 1st digit of her left foot. SOCIAL HISTORY: The patient is a former smoker but quit smoking reportedly 12 years ago. She denies any alcohol or illicit drug use. FAMILY HISTORY: Positive for her mother having a history of myocardial infarction and lung cancer. She is . Her father had a history of myocardial infarction. He is as well. ALLERGIES: The patient is allergic to tizanidine. HOME MEDICATIONS: 1. Allopurinol 300 mg p.o. q.a.m. 2. Aspirin 325 mg p.o. q.a.m. 3. Butalbital/acetaminophen 50/300 mg tablet 1 p.o. q.4 hours p.r.n. 4. Lomotil 1 p.o. 4 times a day p.r.n. for diarrhea. 5. Bydureon pen 10 mg subcutaneously weekly as directed. 6. Lasix 80 mg 1 tablet p.o. daily p.r.n. for swelling. 7. Neurontin 800 mg p.o. t.i.d. 8. Amaryl 4 mg p.o. b.i.d. 9. [place] 10 mg 1 p.o. q.8 hours p.r.n. for pain. 10. Robaxin 750 mg p.o. t.i.d. 11. Lopressor 50 mg p.o. q.a.m. 12. Potassium chloride 20 mEq p.o. daily p.r.n. as directed when she takes her Lasix. 13. Ropinirole 4 mg p.o. daily. LABORATORY DATA: White blood cell count 10,820, hemoglobin 12.2, hematocrit 37.9, platelet count is 198,000. PT 13.7, INR 0.97, PTT is 33.4. Sodium 139, potassium 4, chloride 100, serum bicarbonate is 30, BUN 14, creatinine 0.6, GFR greater than 60, glucose 187, calcium 9.4. Liver function tests are within normal limits, though alkaline phosphatase is slightly elevated at 128. CK 124. Troponin less than 0.01. Plasma lactate was 1.4. Urinalysis was obtained via clean catch. It was positive for trace protein and trace blood, but was otherwise negative for glucose, ketones, nitrites, leukocytes, white blood cells or bacteria. DIAGNOSTIC DATA: 1. EKG showed sinus tachycardia with premature atrial complexes at a rate of 117, with a QTc of 443. 2. X-ray of the right lower extremity, left lower extremity and right foot did not show any definite findings for osteomyelitis, though radiologist did note that there was further clinical suspicion that a MRI would be helpful. PHYSICAL EXAMINATION: VITAL SIGNS: Temperature 97.7 degrees, heart rate 99, respirations 20, blood pressure 134/63, oxygen saturation is 98% on room air. GENERAL: Ms. Olivier is a very pleasant, obese 58-year-old female who is resting in the ER stretcher. She is alert and oriented x4. She is able to answer questions appropriately. HEENT: Head is atraumatic, normocephalic. Pupils are equal, round and reactive to light, were 3 mm bilaterally and brisk. Oral mucosa is moist. Oropharynx is clear. NECK: Supple. Trachea midline. CARDIOVASCULAR: The patient has S1, S2 present. No murmurs, gallops or rubs appreciated. Regular rate and rhythm. PULMONARY: The patient has symmetrical chest expansion bilaterally. Lung sounds are clear to auscultation in bilateral full coppola. ABDOMEN: Soft, does not appear to be distended. The patient does have a protuberant abdomen noted. She is nontender upon palpation. Bowel sounds are present in all 4 quadrants. EXTREMITIES: No cyanosis noted, though the patient does have edema and erythema noted to bilateral lower extremities, from just inferior to her knee all the way down to her ankles. She does have several wounds noted on bilateral lower extremities. The one of most concern on her right lower extremity is the one noted on her right heel. This is approximately the size of a baseball and does have a central wound noted that does have a serous drainage noted. The one most concerning on her left lower extremity is one that is just superior to her left ankle anteriorly. It does have a centralized wound noted with serous drainage as well. She does have pulse, motor and sensory intact in all extremities. Radial pulses and pedal pulses are 2+ bilaterally. INTEGUMENTARY: The patient's skin is pink, warm and dry, except for the above abnormalities mentioned in the extremity exam. NEUROLOGICAL: The patient is alert and oriented x4. She is able to move all extremities. There do not appear to be focal neurological deficits noted. ASSESSMENT AND PLAN: 1. Cellulitis of bilateral lower extremities. 2. Right diabetic foot wound located on the right heel. For numbers 1 and 2 we have placed the patient on antibiotic coverage of vancomycin and Rocephin. Blood cultures as well as wound cultures of the wound on her left lower extremity and right heel have been obtained. The patient does have a history of having osteomyelitis in the past, though at this time there are no radiological findings suggestive of this. We will continue to monitor this closely. We have placed consults with the wound care nurse as well as Dr. Almaraz, who has been following her at [facility]. 3. Diabetes mellitus type 2. We have placed the patient on sliding scale insulin. We have ordered a hemoglobin A1c. We have held her oral diabetic medications just at the moment, number 1 for better control of her serum glucose, as well as the patient has been reporting diarrhea for approximately 3 months now. This may be related to one of her diabetic medications that does contain metformin, though we are obtaining stool studies and are awaiting those results at this time. 4. Hypertension. We will continue her regularly prescribed medication for this. 5. History of coronary artery disease, status post coronary artery bypass graft. We will continue her regularly prescribed medicines as well as her aspirin. 6. Diarrhea. As previously mentioned, the patient has been reporting diarrhea now for a few months. She has been taking Lomotil, though states when she stops this her diarrhea does continue. She does take a diabetic medication that contains metformin. This could be related to this. We have held this at this time, though she has reported recently being on 2 different doses of antibiotics. We are ordering a Clostridium difficile and other stool studies to rule out any infectious process. We will await those results and continue to follow. 7. Deep vein thrombosis prophylaxis is provided. We added Lovenox 40 mg subcutaneously q.24 hours. Further orders and recommendations pending hospital course, diagnostic studies and physician evaluation. Dictated by RADHA Aanya for Jamal Hernandes MD cc: Jamal Hernandes MD
[2018-12-27] MEDS: VANCOMYCIN 2,000 MG in NS 500 ML IV SCH (23:34)
[2018-12-28] MEDS: MORPHINE IV PRN ×5 (05:21→23:18)
[2018-12-28] MEDS: ROCEPHIN 1 GM in NS 50 ML IV SCH (05:22)
[2018-12-28] MEDS: LOVENOX SUBQ SCH (05:22)
[2018-12-28] MEDS: TYLENOL PO PRN ×2 (05:38→11:50)
[2018-12-28] MEDS: HUMULIN R SUBQ SCH ×4 (06:21→22:15)
[2018-12-28 07:38] LABS: BASO# 0.03 X1000 (0.0-0.2); BASO% 0.4 % (0.0-0.8); EOS% 4.8 % (0.0-10.0); HEMOGLOBIN 11.6 g/dL (12.0-16.0); IMM GRAN# 0.07 X1000 (0.0-0.04); IMM GRAN% 0.8 % (0.0-0.5); LYMPH# 2.09 X1000 (1.2-3.4); LYMPH% 24.9 % (20.5-51.1); MCH 30.4 PG (27-31); MCHC 31.4 g/dL (33-37); MCV 97.1 FL (81-99); MONO# 0.78 X1000 (0.11-0.59); MONO% 9.3 % (1.7-9.3); MPV 10.9 FL (7.4-10.4); NEUT# 5.01 X1000 (1.4-6.5); NEUT% 59.8 % (42.2-75.2); PLT 199 X1000 (130-400); RBC 3.81 XMIL (4.2-5.4); RDW 14.2 % (11.5-14.5); WBC 8.38 X1000 (4.8-10.8)
[2018-12-28 07:59] LABS: AGAP 13; BUN 13 mg/dL (8-22); CALCIUM 8.8 mg/dL (8.8-10.2); CHLORIDE 103 mmol/L (98-107); COSMO 289; CREATININE 0.6 mg/dL (0.5-0.9); ESTIMATED GFR > 60; GLUCOSE 239 mg/dL (70-104); SODIUM 141 mmol/L (136-145); TCO2 25 mmol/L (25-35)
[2018-12-28] MEDS: LOPRESSOR PO SCH (09:35)
[2018-12-28] MEDS: REQUIP PO SCH ×3 (09:36→16:14)
[2018-12-28] MEDS: ASPIRIN PO SCH (09:36)
[2018-12-28] MEDS: NEURONTIN PO SCH ×3 (09:36→22:15)
[2018-12-28] MEDS: LOMOTIL PO PRN (11:44)
[2018-12-28] MEDS ORDERED: LANTUS INSULIN SUBQ ONE (12:41)
[2018-12-28] MEDS: MYCOSTATIN POWDER TOP SCH ×2 (13:41→22:14)
[2018-12-28] MEDS: FIORICET PO PRN ×2 (13:50→22:15)
--- NOTE | 2018-12-28 16:20 | PROGRESS NOTE ---
DATE: 12/28/2018 SUBJECTIVE: Patient is lying comfortably in bed. She is still complaining of bilateral lower extremity pain. Admitted due to fever, chills, diarrhea. Diarrhea is getting better. We will continue with antibiotics. We have a positive culture that showed MRSA on her leg. OBJECTIVE: Vital Signs: Temperature 97.8, pulse 76, respiratory rate 18, blood pressure 115/63, oxygen saturation 93 on room air. HEENT: Head normocephalic. No trauma, PERRLA. Neck: Supple. No JVD. No masses. Central trachea. Chest: Clear to auscultation. No wheezing. No rales. Abdomen: Soft, nontender, nondistended. No hepatosplenomegaly. Extremities: Her extremities are covered with a dressing. She has some superficial ulcers at the level of the anterior aspect of the left and right leg, also she has an ulcer at the level of the right heel. Her first left toe has been amputated before, as well as her right first and second toe, no signs of infection in that area. There is a redness on her leg in the anterior part of the right heel. Neurological: This patient is alert and oriented x3. No focal deficits. LABORATORY: WBC 8.3, hemoglobin 11.6, hematocrit 37, platelets 199. Sodium 141, potassium 4, chloride 103, bicarbonate 25, BUN 13, creatinine 0.6, glucose 239, calcium 8.8. ASSESSMENT AND PLAN: 1. Bilateral lower extremity cellulitis with ulcers with a positive culture that showed MRSA from her left leg, continue with antibiotics. She is on vancomycin. Continue with same management and wound care. 2. Type 2 diabetes, hemoglobin A1c is 9.9. I have placed this patient on Lantus 10 to see how she does and I will adjust the dose as needed. We will continue to monitor. 3. History of gout, aware. 4. Hypertension, stable. 5. Dyslipidemia, continue with same management. 6. Peripheral neuropathy, aware. Continue with same treatment. cc: Dennis Donato MD
[2018-12-28] MEDS: VANCOMYCIN 2,000 MG in NS 500 ML IV SCH (18:41)
[2018-12-29] MEDS: MORPHINE IV PRN ×3 (03:56→16:17)
[2018-12-29] MEDS: ROCEPHIN 1 GM in NS 50 ML IV SCH (04:02)
[2018-12-29] MEDS: LOMOTIL PO PRN (04:05)
[2018-12-29] MEDS: HUMULIN R SUBQ SCH ×4 (06:29→20:27)
[2018-12-29] MEDS: LOVENOX SUBQ SCH (06:29)
[2018-12-29] MEDS: FIORICET PO PRN ×2 (06:37→14:48)
[2018-12-29 08:07] LABS: AGAP 11; BUN 12 mg/dL (8-22); CALCIUM 8.8 mg/dL (8.8-10.2); CHLORIDE 102 mmol/L (98-107); COSMO 288; CREATININE 0.6 mg/dL (0.5-0.9); ESTIMATED GFR > 60; GLUCOSE 221 mg/dL (70-104); POTASSIUM 3.9 mmol/L (3.5-5.1); SODIUM 141 mmol/L (136-145); TCO2 28 mmol/L (25-35)
[2018-12-29] MEDS: LANTUS INSULIN SUBQ SCH (09:00)
[2018-12-29] MEDS ORDERED: LANTUS INSULIN SUBQ SCH (09:00)
[2018-12-29] MEDS: REQUIP PO SCH ×3 (09:01→16:16)
[2018-12-29] MEDS: NEURONTIN PO SCH ×3 (09:01→20:25)
[2018-12-29] MEDS: ASPIRIN PO SCH (09:02)
[2018-12-29] MEDS: LOPRESSOR PO SCH (09:02)
[2018-12-29] MEDS: MYCOSTATIN POWDER TOP SCH ×2 (09:03→23:03)
[2018-12-29] MEDS ORDERED: LASIX IV ONE (09:31)
--- NOTE | 2018-12-29 10:23 | PROGRESS NOTE ---
DATE: 12/29/2018 SUBJECTIVE: This patient is lying comfortably in bed. She is complaining of bilateral lower extremity pain. She was initially admitted due to fever, chills and diarrhea. Diarrhea is getting better. She is tolerating p.o. We will continue with antibiotics. We have a positive culture that showed MRSA on her left leg. OBJECTIVE: Vital Signs: Temperature 97.6 degrees, pulse 80, respiratory rate 19, blood pressure 119/65, oxygen saturation 92 on room air. HEENT: Head normocephalic, no trauma. PERRLA. Neck: Supple. No JVD. No masses. Central trachea. Chest: Clear to auscultation. No wheezing. No rales. Abdomen: Soft, nontender, nondistended. No hepatosplenomegaly. Protuberant. Extremities: Her extremities are covered with a dressing, I removed dose and she does have bilateral lower extremity redness and pain to palpation. They are a little bit warm also. On her left leg, she has some superficial ulcers and some blisters mostly at the level of the anterior area. She has an amputation of the great toe as well but no signs of infection. On the right side she has multiple small blisters and small areas with ulcers which are superficial as well. She has a blister at the level of the plantar aspect of the metatarsal head in the middle of the foot and also she has an ulcer that does not look infected around 1 to 1.5 cm diameter with no drainage on her right heel. Also she has her first and second toe amputated with no signs of infection. She does have bilateral lower extremity edema as well. Neurological: The patient is alert and oriented x3. No focal deficits. LABORATORY DATA: Sodium 141, potassium 3.9, chloride 102, bicarbonate 28, BUN 12, creatinine 0.6, glucose 221, calcium 8.8. ASSESSMENT AND PLAN: 1. Bilateral lower extremity cellulitis with superficial ulcers with a positive culture that showed Methicillin resistant Staphylococcus aureus from her left leg, continue with antibiotics. She is on vancomycin. I will discontinue the ceftriaxone. Continue with same management, wound care. Surgery department has been consulted since they are following this patient as an outpatient. 2. Type 2 diabetes, hemoglobin A1c is 9.9. I have placed this patient on Lantus 10 yesterday. I will increase it today to 20 since the blood sugar is still above 200. We will continue to monitor. 3. History of gout, aware. 4. Hypertension, stable. 5. Lower extremity edema, as per #1, I will give her a dose of Lasix. 6. Dyslipidemia. Continue with same management. 7. Peripheral neuropathy, aware. Continue with the same treatment. cc: Dennis Donato MD
[2018-12-29] MEDS: VANCOMYCIN 2,000 MG in NS 500 ML IV SCH (13:12)
[2018-12-30] MEDS: TYLENOL PO PRN (01:38)
[2018-12-30] MEDS: HUMULIN R SUBQ SCH ×4 (06:02→22:16)
[2018-12-30] MEDS: LOVENOX SUBQ SCH (06:07)
[2018-12-30] MEDS: VANCOMYCIN 2,000 MG in NS 500 ML IV SCH ×2 (06:07→23:34)
[2018-12-30 07:05] LABS: BASO# 0.09 X1000 (0.0-0.2); EOS# 0.39 X1000 (0.0-0.7); EOS% 4.2 % (0.0-10.0); HEMATOCRIT 36.5 % (37.0-47.0); HEMOGLOBIN 11.6 g/dL (12.0-16.0); IMM GRAN# 0.07 X1000 (0.0-0.04); IMM GRAN% 0.8 % (0.0-0.5); LYMPH# 2.33 X1000 (1.2-3.4); LYMPH% 25.3 % (20.5-51.1); MCH 31.4 PG (27-31); MCHC 31.8 g/dL (33-37); MCV 98.9 FL (81-99); MONO# 1.09 X1000 (0.11-0.59); MONO% 11.8 % (1.7-9.3); NEUT# 5.23 X1000 (1.4-6.5); NEUT% 56.9 % (42.2-75.2); PLT 185 X1000 (130-400); RBC 3.69 XMIL (4.2-5.4); RDW 14.1 % (11.5-14.5)
[2018-12-30 07:29] LABS: AGAP 9; BUN 11 mg/dL (8-22); CALCIUM 8.8 mg/dL (8.8-10.2); CHLORIDE 107 mmol/L (98-107); COSMO 283; CREATININE 0.7 mg/dL (0.5-0.9); ESTIMATED GFR > 60; GLUCOSE 183 mg/dL (70-104); POTASSIUM 4.2 mmol/L (3.5-5.1); SODIUM 140 mmol/L (136-145); TCO2 24 mmol/L (25-35)
[2018-12-30] MEDS: NEURONTIN PO SCH ×3 (09:49→22:16)
[2018-12-30] MEDS: ASPIRIN PO SCH (09:50)
[2018-12-30] MEDS: REQUIP PO SCH ×3 (09:50→22:16)
[2018-12-30] MEDS: LOPRESSOR PO SCH (09:50)
[2018-12-30] MEDS: LANTUS INSULIN SUBQ SCH (09:51)
[2018-12-30] MEDS: LOMOTIL PO PRN (10:08)
[2018-12-30] MEDS: MORPHINE IV PRN ×3 (10:08→23:34)
[2018-12-30] MEDS: MYCOSTATIN POWDER TOP SCH ×2 (10:27→22:18)
[2018-12-30] MEDS ORDERED: NORCO-7.5 PO PRN (13:12)
[2018-12-30] MEDS ORDERED: LASIX IV ONE (13:20)
--- NOTE | 2018-12-30 13:44 | PROGRESS NOTE ---
DATE: 12/30/2018 SUBJECTIVE: The patient is complaining of lower extremity pain. She has requested to be back to her home medication, Acra. I talked today with the wound care nurse and she will evaluate this patient also. Surgery Department has been requested since they are following this patient as an outpatient. She has a positive culture that showed MRSA from her left leg. I will continue with vancomycin. OBJECTIVE: Vital Signs: Temperature 97.8 degrees, pulse 83, respiratory rate 22, blood pressure 150/77, oxygen saturation 95% on room air. HEENT: Head normocephalic. No trauma. PERRLA. Neck: Supple. No JVD. No masses. Central trachea. Chest: Clear to auscultation. No wheezing. No rales. Abdomen: Soft, nontender, nondistended. No hepatosplenomegaly. Protuberant. Extremities: Bilateral lower extremity redness and pain to palpation. They are swollen. On her left leg, she has superficial ulcers and some blister, mostly at the level of the anterior area. She has an amputation of the great toe as well but no signs of infection on the toe. On the right side, she has multiple small blisters and small areas with ulcers which are superficial as well. She has a blister at the level of the plantar aspect of the metatarsal head in the middle of the foot and also she has an ulcer that does not look infected, around 1 to 1.5 cm diameter with no drainage on her right heel. On that leg right, right side, she has her first and second toe amputated with no signs of infection. Neurological: The patient is alert and oriented x3. No focal deficits. LABORATORY DATA: WBC 9.2, hemoglobin 11.6, hematocrit 36.5, platelets 185,000. Sodium 140, potassium 4.2, chloride 107, bicarbonate 24, BUN 11, creatinine 0.7 glucose 183, calcium 8.8. ASSESSMENT AND PLAN: 1. Bilateral lower extremity cellulitis with superficial ulcers with a positive culture that showed methicillin resistant Staphylococcus aureus from her left leg. Continue with antibiotics. She is on vancomycin. I have discontinued her ceftriaxone. I already talked to the wound care nurse and she will evaluate this patient. Also, Surgery department has been consulted, Dr. Almaraz, since he is taking care of her as an outpatient at the wound clinic. 2. Type 2 diabetes, hemoglobin A1c 9.9. I have placed this patient on Lantus 20 and her blood sugar seems to be more stable today. I will continue with same management and I will continue with pattern of blood sugar and sliding scale insulin. 3. History of gout, aware. 4. Hypertension, stable. 5. Lower extremity edema, as per #1. I will give her today an extra dose of Lasix to see if that can help the swelling and the pain. 6. Dyslipidemia. Continue with same management. 7. Peripheral neuropathy, aware. Continue with same treatment. 8. History of gout. Aware. 9. Hypertension, stable. cc: Dennis Donato MD
--- NOTE | 2018-12-30 15:15 | GENERAL SURGERY PROGRESS NOTE ---
DATE: 12/30/2018 SUBJECTIVE: Doing okay. No fevers. No tachycardia. Unna wraps have been placed. OBJECTIVE: General: She is alert. Cardiovascular: Normal rate. Bilateral legs are swollen with Unna wraps in place. White count is normal, hematocrit is 26. Creatinine 0.7. Glucose has been as high as 239. ASSESSMENT/PLAN: A 58-year-old female with bilateral lower extremity cellulitis related to chronic venous insufficiency and edema with diabetic foot ulceration. We will continue Unna wraps, antibiotics. Cultures of her left leg did grow Staphylococcus aureus. Blood cultures have been negative. Continue local wound care and antibiotics for bilateral lower extremity cellulitis. cc: Marti Almaraz MD
[2018-12-30] MEDS: NORCO-10 PO PRN (17:46)
[2018-12-31] MEDS: HUMULIN R SUBQ SCH ×4 (06:17→21:14)
[2018-12-31] MEDS: LOVENOX SUBQ SCH (06:17)
[2018-12-31] MEDS: NORCO-10 PO PRN ×3 (06:18→18:08)
[2018-12-31] MEDS: LOMOTIL PO PRN (06:23)
[2018-12-31 07:15] LABS: AGAP 10; BUN 14 mg/dL (8-22); CALCIUM 8.7 mg/dL (8.8-10.2); CHLORIDE 103 mmol/L (98-107); COSMO 287; CREATININE 0.7 mg/dL (0.5-0.9); ESTIMATED GFR > 60; GLUCOSE 194 mg/dL (70-104); POTASSIUM 3.8 mmol/L (3.5-5.1); SODIUM 141 mmol/L (136-145); TCO2 28 mmol/L (25-35)
[2018-12-31] MEDS: ASPIRIN PO SCH (08:36)
[2018-12-31] MEDS: LOPRESSOR PO SCH (08:37)
[2018-12-31] MEDS: NEURONTIN PO SCH ×3 (08:37→21:15)
[2018-12-31] MEDS: REQUIP PO SCH ×3 (08:37→16:15)
[2018-12-31] MEDS: LANTUS INSULIN SUBQ SCH (08:37)
[2018-12-31] MEDS: FIORICET PO PRN (08:52)
[2018-12-31] MEDS: MYCOSTATIN POWDER TOP SCH ×2 (11:01→21:15)
--- NOTE | 2018-12-31 14:31 | PROGRESS NOTE ---
DATE: 12/31/2018 INTERVAL HISTORY: Patient doing well with her Unna boots and on antibiotic. Still some swelling, but it is improved from admission. Afebrile. No acute events overnight. No new complaints. REVIEW OF SYSTEMS: A 12-point review of systems is negative, except as per interval history. LABORATORY DATA: Sodium 141, potassium 3.8, BUN 14, creatinine 0.7, glucose 213. OBJECTIVE: Vital Signs: T-max 98.6 degrees, pulse 73, blood pressure 109/55, O2 saturation 95% on room air. General: No acute distress. HEENT: Normocephalic, atraumatic. Moist mucous membranes. No cervical adenopathy. Cardiovascular: Regular rate and rhythm. No murmurs, rubs, or gallops. Pulmonary: Clear to auscultation bilaterally. Abdomen: Soft, nontender, nondistended. Bowel sounds positive. Extremities: Peripheral pulses intact. Chronic venous stasis changes noted bilaterally. Lower legs heavily bandaged. Bandages clean, dry, intact. Neurologic: Cranial nerves grossly intact. No focal deficits identified. Psychiatric: Normal mood and affect. Awake, alert, oriented x3. Skin: Chronic venous stasis changes in the legs. No new rashes or lesions identified. ASSESSMENT AND PLAN: 1. Bilateral lower extremity cellulitis and diabetic ulcer. Culture growing methicillin- resistant staphylococcus aureus. In Unna boots as per Surgery. Afebrile. Leukocytosis resolved on last check. If Surgery is satisfied with her process, then may be able to discharge home tomorrow on oral antibiotics with Bactrim or clindamycin. 2. Diabetes mellitus. Glucose control was somewhat improved, but still not ideal yesterday on Lantus 20. Will increase slightly to 24, and monitor. Continue sliding scale. 3. Hypertension. Reasonable control on current regimen. Monitor. 4. Gout. No flare at this time. Monitor. 5. Chronic venous stasis changes and lower extremity edema. May be partially because of infection, but strongly suspect mostly that this is chronic. Minimal change with Lasix yesterday. Will monitor. 6. Peripheral neuropathy. Continue home medications. 7. Disposition. Possibly home tomorrow on oral antibiotics if Surgery is satisfied with how her legs look.
[2018-12-31] MEDS: VANCOMYCIN 2,000 MG in NS 500 ML IV SCH (18:08)
[2018-12-31] MEDS: MORPHINE IV PRN (21:14)
[2019-01-01] MEDS: NORCO-10 PO PRN (01:50)
[2019-01-01] MEDS: LOVENOX SUBQ SCH (06:48)
[2019-01-01] MEDS: HUMULIN R SUBQ SCH ×2 (06:48→12:50)
[2019-01-01] MEDS: ASPIRIN PO SCH (09:09)
[2019-01-01] MEDS: LOPRESSOR PO SCH (09:10)
[2019-01-01] MEDS: NEURONTIN PO SCH (09:10)
[2019-01-01] MEDS: MYCOSTATIN POWDER TOP SCH (09:11)
[2019-01-01] MEDS: REQUIP PO SCH ×2 (09:12→12:53)
[2019-01-01] MEDS: LANTUS INSULIN SUBQ SCH (09:33)
[2019-01-01] MEDS: LOMOTIL PO PRN (09:33)
[2019-01-01 11:21] VITALS: BP 123/48
[2019-01-01] MEDS: VANCOMYCIN 2,000 MG in NS 500 ML IV SCH (12:50)
[2019-01-01] MEDS: FIORICET PO PRN (13:01)
--- NOTE | 2019-01-01 18:28 | DISCHARGE SUMMARY ---
ADMISSION DATE: 12/26/2018 DISCHARGE DATE: 01/01/2019 ADMISSION DIAGNOSES: 1. Cellulitis in bilateral lower extremities. 2. Right diabetic foot wound located on the right heel. 3. Diabetes mellitus type 2. 4. Hypertension. 5. History of coronary artery disease status post coronary artery bypass grafting. 6. Diarrhea. DISCHARGE DIAGNOSES: 1. Bilateral lower extremities cellulitis and diabetic ulcers that are growing methicillin- resistant Staphylococcus aureus. She is in Unna boots per Surgery and will be on oral antibiotics, Bactrim and clindamycin. 2. Diabetes mellitus type 2, uncontrolled, with a hemoglobin A1c of 9.9, so Lantus was added. 3. Hypertension, controlled. 4. Gout, no flare. 5. Chronic venous stasis with changes in lower extremity edema. Minimal change with Lasix. 6. Peripheral neuropathy. CONSULTATIONS: 1. Dr. Paul Almaraz. 2. Wound Care. SURGERIES/PROCEDURES: None. HOSPITAL COURSE: On 12/26/2018, Ms. Laila Olivier, a 58-year-old female, presented with cellulitis and diabetic foot wound and osteomyelitis. 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 Almaraz, and may possibly be noncompliant with having wound care on the ulcers with which she presented. There was a recommendation for Unna boots that she was not wearing as well. There were some complaints of fever, chills, nausea, vomiting and diarrhea over the last 2 days prior to admission. Apparently she had been having more erythema and pain in her leg, with a worsening wound on the left lower leg superior to her ankle anteriorly, with serous drainage. He recommended that she come to the ER for further evaluation. She reported having Keflex prescribed to her by her primary care provider. She had a white blood cell count of 10,000. X-rays did not show any evidence of osteomyelitis. She was started on vancomycin and Rocephin. She had a little diarrhea. She had stool studies ordered that were negative for C difficile, negative for blood. Blood cultures were negative during her stay. She had the wounds on the leg. The right foot was cultured and only had a few gram-positive cocci. She is going to go home with Bactrim. Her vitals are stable. She will follow up with Dr. Almaraz and Wound Care. DISCHARGE VITAL SIGNS: Temperature 97.9, heart rate 65, respiratory rate 16, blood pressure 123/48, O2 saturation 97% on room air. DISCHARGE LABORATORY DATA: Last CBC was on 12/30/2018 with a white blood cell count of 9000, hemoglobin of 11, hematocrit of 36, platelet count of 185. Last BMP was on 12/31/2018. Sodium was 141, potassium 3.8, BUN 14, creatinine 0.7, glucose 194, calcium 8.7. PERTINENT IMAGING: All the imaging performed was on 12/26/2018. Chest x-ray: Cardiomegaly and pulmonary vascular engorgement but no acute pulmonary disease. Right foot x- ray: No evidence of osteomyelitis. Left lower extremity x-ray: No evidence of osteomyelitis. Right lower extremity x-ray: No evidence of osteomyelitis. EKG: Sinus tachycardia with PACs, rate 117, QTc 443. DISCHARGE MEDICATIONS: 1. New prescription for Bactrim DS 1 tab p.o. twice daily for a total of 7 more days. 2. Lantus is new. She will get that 20 units subcutaneously daily. 3. Aspirin 325 mg p.o. daily. 4. Bupap 50-300 one tab p.o. every 4 hours p.r.n. 5. Bydureon 10 mg subcutaneously as directed. 6. Lomotil 1 tab p.o. 4 times daily p.r.n. 7. Lopressor 50 mg p.o. daily. 8. Neurontin 800 mg p.o. t.i.d. 9. [place] 10, 1 tab p.o. every 8 hours p.r.n. 10.Robaxin 750 p.o. t.i.d. 11.Ropinirole 4 mg p.o. t.i.d. 12.Allopurinol 300 mg p.o. daily. 13.Jentadueto 2.5 mg/1000 mg 1 tab p.o. twice daily. DISCHARGE DIET: Diabetic. DISCHARGE ACTIVITY: As tolerated. DISCHARGE FOLLOWUP: Dr. Paul Almaraz and Dr. Belen Dominique. DISCHARGE INSTRUCTIONS: Unna boots to both legs. For any signs or symptoms of infection, which include fever or chills, please seek medical attention. Take your antibiotics as prescribed. WOUND CARE INSTRUCTIONS: Clean bilateral lower extremities with normal saline and apply 3 layers of Unna boot dressing. Follow up with Wound Care as an outpatient. DISCHARGE DISPOSITION: Home. Dictated by RADHA Pinedo for Papo Hernández MD cc: RADHA Pinedo agree with above. the following is my own face to face assessment. patient with diabetic ulcers, chronic venous stasis, presenting with BL LE infections. now improving. going home on PO antibiotics for another week to follow up with wound care. legs remain heavily bandaged, edema slightly improved but chronic venous stasis changes stable. MTDD
== END 2019-01-01 15:44 | disposition home or self-care (01) | DRG 638 ==
LOC: ED 14:19 → SUATTDRO 23:01 → 3N 23:01
PROVIDERS: ATTEND Internal Medicine
CPT/HCPCS: 71010; 71045; 73590; 73630; 80048; 80053; 80202; 81001; 82270; 82550; 82948; 83036; 83605; 84484; 85025; 85610; 85651; 85730; 87040; 87045; 87046; 87070; 87077; 87186; 87205; 87324; 89055; 93005; 94761; 96365; 96375; 99285; A9270; J0696; J1650; J1815; J1940; J2270; J2405; J3370; J7040; S0077; XXXXX

== ENCOUNTER 2019-01-09 15:02 | Inpatient (IN) ==
[2019-01-09] MEDS ORDERED: ROCEPHIN 1 GM in NS 50 ML IV ONE (15:46)
[2019-01-09 16:10] LABS: BASO# 0.03 X1000 (0.0-0.2); BASO% 0.3 % (0.0-0.8); EOS% 2.2 % (0.0-10.0); HEMATOCRIT 35.4 % (37.0-47.0); HEMOGLOBIN 11.2 g/dL (12.0-16.0); IMM GRAN# 0.04 X1000 (0.0-0.04); IMM GRAN% 0.4 % (0.0-0.5); LYMPH% 25.3 % (20.5-51.1); MCH 30.1 PG (27-31); MCHC 31.6 g/dL (33-37); MCV 95.2 FL (81-99); MONO# 0.66 X1000 (0.11-0.59); MONO% 7.3 % (1.7-9.3); MPV 11.1 FL (7.4-10.4); NEUT# 5.85 X1000 (1.4-6.5); NEUT% 64.5 % (42.2-75.2); PLT 200 X1000 (130-400); RBC 3.72 XMIL (4.2-5.4); RDW 14.1 % (11.5-14.5); WBC 9.08 X1000 (4.8-10.8)
--- NOTE | 2019-01-09 16:11 | Diag Imaging Result Doc PS360 ---
CHEST-1 VIEW - 01/09/2019 INDICATION: r/o sepsis COMPARISON: 12/26/2018 FINDINGS: Stable sternotomy wires. Stable cardiomegaly. Stable significant pulmonary vascular congestion. No new or focal infiltrates. No large pleural effusion. IMPRESSION: Cardiomegaly and pulmonary vascular congestion. Electronically signed by Reed Schroeder 01/09/2019 4:09 PM
--- NOTE | 2019-01-09 16:12 | Diag Imaging Result Doc PS360 ---
EXAM: FOOT COMPLETE RIGHT HISTORY: rt heelo wound, rule out osteomyelitis TECHNIQUE: Right foot, three views COMPARISON: 12/26/2018 FINDINGS: The first and second toes have been resected as have the majority of the first and second metatarsals. Bone erosion to the third metatarsophalangeal joints similar to the prior study. No new bone erosions. There are calcaneal bone spurs. No other calcaneal abnormality. IMPRESSION: Stable exam. Electronically signed by Spencer Kirk 01/09/2019 4:10 PM
[2019-01-09 16:29] LABS: INR 1.02; PROTIME 14.3 Seconds (11.0-16.0)
[2019-01-09 16:31] LABS: AGAP 11; ALB/GLOB RATIO 1.1; ALBUMIN 3.9 g/dL (3.5-5.0); ALKALINE PHOSPHATASE 127 U/L (32-104); BUN 11 mg/dL (8-22); CALCIUM 9.4 mg/dL (8.8-10.2); CHLORIDE 105 mmol/L (98-107); CK PROFILE 100 U/L (24-173); COSMO 283; CREATININE 0.7 mg/dL (0.5-0.9); ESTIMATED GFR > 60; GLUCOSE 116 mg/dL (70-104); GOT 11 U/L (10-30); GPT 16 U/L (10-36); SODIUM 142 mmol/L (136-145); TCO2 26 mmol/L (25-35); TOTAL BILIRUBIN 0.36 mg/dL (0.20-1.00); TOTAL PROTEIN 7.5 g/dL (6.3-8.3)
[2019-01-09 16:35] LABS: PTT 38.4 Seconds (22.3-41.8)
[2019-01-09 17:02] LABS: URINE SOURCE CLEAN CATCH
[2019-01-09 17:17] LABS: BILIRUBIN URINE NEGATIVE (NEGATIVE); BLOOD URINE NEGATIVE (NEGATIVE); COLOR YELLOW; GLUCOSE URINE NEGATIVE (NEGATIVE); KETONE URINE NEGATIVE (NEGATIVE); SP GRAVITY URINE 1.006; TURBIDITY URINE CLEAR (CLEAR)
[2019-01-09 17:18] LABS: LEUKOCYTES URINE NEGATIVE (NEGATIVE); NITRITE URINE NEGATIVE (NEGATIVE); PH URINE 5.5; PROTEIN URINE NEGATIVE (NEGATIVE); UROBILINOGEN URINE NORMAL (NORMAL)
[2019-01-09 17:20] LABS: UR EPITHELIAL CELLS <10 /HPF (<10); URINE BACTERIA NEGATIVE /HPF; URINE RBC <10 /HPF (<10); URINE WBC <10 /HPF (<10)
[2019-01-09] MEDS ORDERED: VANCOMYCIN IV PER PHARMACY MISC SCH (18:15)
[2019-01-09] MEDS: VANCOMYCIN 2 GM in NS 500 ML IV SCH (21:21)
[2019-01-10 00:30] LABS: AGAP 13; ALB/GLOB RATIO 0.8; ALBUMIN 3.6 g/dL (3.5-5.0); ALKALINE PHOSPHATASE 114 U/L (32-104); BUN 9 mg/dL (8-22); CALCIUM 9.1 mg/dL (8.8-10.2); CHLORIDE 104 mmol/L (98-107); COSMO 285; CREATININE 0.7 mg/dL (0.5-0.9); ESTIMATED GFR > 60; GLUCOSE 147 mg/dL (70-104); GOT 14 U/L (10-30); GPT 15 U/L (10-36); SODIUM 142 mmol/L (136-145); TCO2 25 mmol/L (25-35); TOTAL BILIRUBIN 0.34 mg/dL (0.20-1.00); TOTAL PROTEIN 7.9 g/dL (6.3-8.3)
[2019-01-10] MEDS: ZOFRAN IV PRN ×2 (01:16→06:20)
[2019-01-10 08:23] LABS: BASO# 0.04 X1000 (0.0-0.2); BASO% 0.5 % (0.0-0.8); EOS# 0.22 X1000 (0.0-0.7); EOS% 2.6 % (0.0-10.0); HEMATOCRIT 36.1 % (37.0-47.0); HEMOGLOBIN 11.3 g/dL (12.0-16.0); IMM GRAN# 0.03 X1000 (0.0-0.04); IMM GRAN% 0.4 % (0.0-0.5); LYMPH# 1.41 X1000 (1.2-3.4); LYMPH% 16.6 % (20.5-51.1); MCH 30.2 PG (27-31); MCHC 31.3 g/dL (33-37); MCV 96.5 FL (81-99); MONO# 0.58 X1000 (0.11-0.59); MONO% 6.8 % (1.7-9.3); MPV 10.7 FL (7.4-10.4); NEUT# 6.19 X1000 (1.4-6.5); NEUT% 73.1 % (42.2-75.2); PLT 179 X1000 (130-400); RBC 3.74 XMIL (4.2-5.4); RDW 14.4 % (11.5-14.5); WBC 8.47 X1000 (4.8-10.8)
[2019-01-10] MEDS: LOPRESSOR PO SCH (12:23)
[2019-01-10] MEDS: NORCO-10 PO PRN ×2 (12:23→20:19)
[2019-01-10] MEDS: NEURONTIN PO SCH ×2 (12:23→17:43)
[2019-01-10] MEDS: ZYLOPRIM PO SCH (12:23)
[2019-01-10] MEDS: ZOSYN 3.375 GM in NS 50 ML IV SCH ×2 (12:24→17:43)
[2019-01-10] MEDS: HUMULIN R SUBQ SCH ×3 (12:24→21:37)
[2019-01-10] MEDS: ASPIRIN PO SCH (12:24)
--- NOTE | 2019-01-10 12:35 | PROGRESS NOTE ---
DATE: 01/10/2019 SUBJECTIVE: This patient is feeling about the same. She is still complaining of some lower extremity pain. I put her back on her home medications including pain medication. We have a positive culture that showed gram-negative rods. I have placed this patient also on Zosyn. She has been also on vancomycin. I will wait for the final report. Surgery Department on board as well as Wound Care, I am not quite sure if she will have any kind of surgical intervention at this moment. OBJECTIVE: Vital Signs: Temperature 99.2 degrees, pulse 102 respiratory rate 18, blood pressure 158/70, and oxygen saturation 95% on 2 L of nasal cannula. HEENT: Head normocephalic. No trauma. PERRLA. Neck: Supple. No JVD. No masses. Central trachea. Chest: Clear to auscultation. No wheezing. No rales. Abdomen: Soft, protuberant, nontender, and nondistended. No hepatosplenomegaly. Extremities: Bilateral lower extremity redness and pain to palpation with superficial ulcers that are healing. No drainage. She has an amputation of the left great toe, and also an amputation of the right great toe and second toe. She has an ulcer in the mid area of the metatarsal area on the right side and also an ulcer on her heel of about 2 to 3 cm on the right side, which is draining some clear fluid at this moment. Neurological: The patient is alert and oriented x3. No focal deficits. LABORATORY: WBC 8.4, hemoglobin 11.3, hematocrit 36.1, platelets 179,000, and glucose 213. ASSESSMENT AND PLAN: 1. Bilateral lower extremity cellulitis with superficial ulcers and right heel ulcer which is infected with gram-negative rods. I have placed this patient on Zosyn. She has been already on vancomycin. Surgery Department on board as well as wound care. We will continue to monitor. Continue with antibiotics. 2. Type 2 diabetes. I have requested a new hemoglobin A1c previously. Her hemoglobin A1c was 9.9. I will continue with sliding scale insulin and pattern of blood sugar for now. 3. History of gout. Aware. Continue with same management. 4. Hypertension, stable. 5. Lower extremity edema as per #1. She has been getting Lasix on and off at home. 6. Dyslipidemia. Continue with same management. 7. Peripheral neuropathy. Aware. Continue with the same treatment. 8. History of gout. 9. Morbid obesity. Diet and exercise have been discussed. cc: Dennis Donato MD
[2019-01-10] MEDS: FIORICET PO PRN ×2 (13:08→21:50)
[2019-01-10] MEDS: VANCOMYCIN 2 GM in NS 500 ML IV SCH (14:21)
--- NOTE | 2019-01-10 14:31 | GENERAL SURGERY PROGRESS NOTE ---
DATE: 01/10/2019 SUBJECTIVE: She presented back with increased cellulitis and swelling of her leg. She has not been compliant with her Unna wraps. She denies any fevers. She had some blistering on her feet. She is admitted and started on antibiotics no fevers documented. She has low-grade tachycardia. Oxygen saturations have been in the low 80s to mid 90s. She is on nasal cannula. General: She is alert. She is eating lunch. She has got her feet dangling very swollen, partially wrapped with an Brayan on the left, but nothing on the right. White count is normal at 8, hematocrit 36, creatinine 0.7, glucose has been 140 to 180s. Troponins are negative. Urinalysis is negative. Foot x-ray shows chronic changes but no acute findings. ASSESSMENT AND PLAN: A 58-year-old female with chronic venous insufficiency, edema, cellulitis related to this bilateral lower extremities, but this is really more of a venous issue more so than an infectious issue. She needs reliable Unna wraps placed and changed 2 to 3 times weekly and given her social situation, this is difficult. We will ask Lorie to reapply Unna wraps. Dr. Valentin is following the patient for the weekend. We will continue to follow along. No plans for surgical intervention. cc: Marti Almaraz MD
[2019-01-10] MEDS: REQUIP PO SCH ×2 (15:08→20:19)
--- NOTE | 2019-01-11 00:14 | PROVIDER DOCUMENTATION ---
This chart was entered by Lubna Llanes Scribe, acting as scribe for Nadeem Singh MD. HPI-Rash/Wound/ReCheck - General Chief Complaint: Sores/Lesions Stated Complaint: RECHECK/ABSCESS Time Seen by Provider: 01/09/19 15:24 Source: patient Allergies/Adverse Reactions: Allergies Allergy/AdvReac Type Severity Reaction Status Date / Time tizanidine HCl * Allergy ANAPHYLAXIS Verified 01/09/19 15:23 [From Damaso] Home Medications: Home Medication List Medication Instructions Recorded Confirmed Last Taken Type Allopurinol [Zyloprim] 300 mg PO QAM 09/19/15 01/10/19 01/09/19 09:00 History Aspirin 325 mg PO QAM 09/19/15 01/10/19 01/09/19 09:00 History Gabapentin [Neurontin] 800 mg PO TID 09/19/15 01/10/19 01/09/19 09:00 History Methocarbamol [Robaxin-750] 750 mg PO TID 09/19/15 01/10/19 01/09/19 09:00 History Butalbital/Acetaminophen [Bupap 50 1 tab PO Q8H PRN PRN 01/25/17 01/10/19 01/09/19 09:00 History mg-300 mg Tablet] Hydrocodone/APAP 10 mg/325 mg 1 each PO Q8H PRN PRN 01/25/17 01/10/19 01/09/19 09:00 History [[place]-10] Ropinirole HCl 4 mg PO TID 01/25/17 01/10/19 01/09/19 09:00 History Diphenoxylate/Atropine [Lomotil] 1 ea PO 4XDAY PRN PRN 12/27/18 01/10/19 01/09/19 09:00 History Exenatide Microspheres [Bydureon 2 mg SQ DIRECTED 12/27/18 01/10/19 12/27/18 History Pen] Linagliptin/Metformin HCl 1 ea PO BID #60 tab 01/01/19 01/10/19 01/09/19 09:00 Rx [Jentadueto 2.5 mg-1000 mg Tab] Promethazine [Phenergan] 25 mg PO Q6H PRN PRN #30 tab 01/01/19 01/10/19 01/08/19 09:00 Rx Furosemide [Lasix] 40 mg PO PRN PRN 01/09/19 01/10/19 01/08/19 09:00 History Metoprolol [Lopressor] 50 mg PO DAILY 01/09/19 01/10/19 01/09/19 09:00 History - History of Present Illness-Dermatology Nature of Presenting Problem: Patient is a 58 year old female who presents with open skin wound to right heel. Patient states she was recently admitted for a right foot infection and received IV antibiotics. Report having a prescription for antibiotics after discharge but she did not get them filled due to not having the money. Does not report fever. Location: reports: feet (right heel) Quality: reports: painful Severity: reports: mild Onset/Duration: reports: gradual Timing: reports: still present Context/Associated Symptoms: reports: other (open skin wound) Locality of [place]: Home Similar Symptoms Previously?: Yes Recently seen or treated by another doctor?: Yes Review of Systems - Adult - REVIEW OF SYSTEMS - ADULT Constitutional: reports: no symptoms reported Ears, Nose, Mouth & Throat: reports: no symptoms reported Respiratory: reports: no symptoms reported Gastrointestinal: reports: no symptoms reported Genitourinary: reports: no symptoms reported Musculoskeletal: reports: no symptoms reported Integumentary: reports: no symptoms reported Neurological: reports: no symptoms reported Past History - Adult - PAST MEDICAL HISTORY-ADULT Review of Records: reports: Old Records Reviewed, Nursing Assessment Review, Medications Reviewed, Social history reviewed & non-contributory. Major Childhood Illnesses: reports: denies history Cardiovascular: reports: cardiac disease, CAD, HTN, hyperlipidemia. denies: CHF Respiratory: reports: denies history Gastrointestinal: reports: denies history Obstetrical/Gynecological: reports: denies history Genitourinary: reports: denies history Musculoskeletal: reports: denies history Neurological: reports: CVA, TIA Psychiatric: reports: denies history Endocrine/Immune: reports: Diabetes Other Conditions: reports: denies history - PRIOR SURGERIES/PROCEDURES Surgical/Procedure History: reports: CABG, hysterectomy, tonsillectomy - IMMUNIZATION STATUS Childhood Immunizations: See Nurse Assessment Flu Vaccine: See Nurse Assessment - FAMILY HISTORY Family History: reviewed, not pertinent - SOCIAL HISTORY Smoking: cigarettes (former) Substance Use: denies Physical Exam-General - PHYSICAL EXAM-ADULT Initial Vital Signs Reviewed: Yes - CONSTITUTIONAL General Appearance: alert, no apparent distress. negative: lethargic - NECK Neck: full range of motion, supple - RESPIRATORY Respiratory: chest non-tender, lungs clear, normal breath sounds. negative: crackles, rhonchi, stridor - CARDIOVASCULAR Cardiovascular: normal peripheral pulses, regular rate, rhythm. negative: tachycardia, systolic murmur - GASTROINTESTINAL (ABDOMEN) Abdominal Exam: normal bowel sounds, non tender, soft - MUSCULOSKELETAL Extremity: erythema (right lower leg from knee down.), swelling (right lower leg from knee down), other (circular open skin wound to right heel with surrounding erythema and yellow drainage present. compression dressing to left lower leg. amputation to right big toe and 2nd toe.). negative: deformity - SKIN Integumentary: other (circular open skin wound to right heel with surrounding e rythema and yellow drainage present.). negative: cyanosis, ecchymosis, jaundice, rash Progress - PLAN OF CARE/RESULTS Progress/Plan/Lab Results: Laboratory Results - last 24 hr 01/09/19 11:08 Plasma Lactate 1.3 Orders Category Date Time Status Admit - [facility] Routine AdmDCTranf 01/09/19 17:52 Active Activity - Up with Assistance ORDERED Care 01/09/19 17:52 Active Cardiac Monitoring DIRECTED Care 01/09/19 15:48 Completed FSBS/Accucheck Result AC + HS Care 01/09/19 18:04 Active IV Insertion ORDERED Care 01/09/19 15:48 Completed Intake and Output-Strict ORDERED Care 01/09/19 17:52 Active Notify MD of + Sepsis Screen NOW Care 01/09/19 15:48 Completed Notify Physician As Ordered Care 01/09/19 15:48 Completed Nursing [Misc. NRSG Communication Order] DIRECTED Care 01/09/19 18:09 Active Nursing- MD Consult Request ROUTINE Care 01/09/19 18:02 Active Update & Confirm Home Medicati ROUTINE Care 01/09/19 18:10 Active Vital Signs Order Q 8-HR ASSESS Care 01/09/19 17:52 Active Physician/Provider Consults Routine Cons 01/10/19 08:00 Ordered Wound Care/ET Consult Routine Cons 01/09/19 18:05 Active Diabetic Diet Diet 01/09/19 18:01 Active CHEST-1 VIEW [RAD] Stat Exams 01/09/19 15:48 Completed FOOT COMPLETE RIGHT [RAD] Stat Exams 01/09/19 15:47 Completed BLOOD CULTURE [BLDCUL] Stat Lab 01/09/19 15:30 Results CBC WITH DIFF [HEME] Routine Lab 01/10/19 08:05 Completed CBC WITH DIFF [HEME] Stat Lab 01/09/19 15:35 Completed CK PROFILE [SP CHEM] Stat Lab 01/09/19 15:30 Completed COMPREHENSIVE METABOLIC PANEL [CHEM] Routine Lab 01/09/19 23:08 Completed COMPREHENSIVE METABOLIC PANEL [CHEM] Stat Lab 01/09/19 15:30 Completed LACTATE, PLASMA [CHEM] Lab 01/09/19 11:08 Completed LACTATE, PLASMA [CHEM] Lab 01/09/19 15:30 Completed LACTATE, PLASMA [CHEM] Lab 01/09/19 18:25 Completed PROTIME WITH INR [COAG] Stat Lab 01/09/19 15:30 Completed PTT [COAG] Stat Lab 01/09/19 15:30 Completed TROPONIN T Stat Lab 01/09/19 15:30 Completed URINALYSIS W/POSS RFLX CULT [URINALYSIS] Stat Lab 01/09/19 16:50 Completed WOUND CULTURE INC GRAM STAIN [RM] Routine Lab 01/09/19 16:26 Results CefTRIAXONE [Rocephin] 1 gm Med 01/09/19 15:46 Discontinued 0.9% Sodium Chloride Inj [Ns] 50 ml IV NOW Ondansetron [Zofran] Med 01/09/19 18:10 Active 4 mg IV Q4H PRN PRN Pharmacy Order [Vancomycin IV Per Pharmacy] Med 01/09/19 18:15 Active 1 each MISC DIRECTED Vancomycin 2 gm Med 01/09/19 20:00 Active 0.9% Sodium Chloride Inj [Ns] 500 ml IV Q18H Oxygen Device Stat Oth 01/09/19 15:48 Active Transfer/Admit Order [TRANSFER] Routine Transfer 01/09/19 20:39 Completed diabetic foot infection need IV AB. will admit Result Diagrams: 01/10/19 08:05 01/09/19 23:08 - XRAY 1 XRAY Study: Chest Impression: See EMR Report ( CHEST-1 VIEW - 01/09/2019 INDICATION: r/o sepsis COMPARISON: 12/26/2018 FINDINGS: Stable sternotomy wires. Stable cardiomegaly. Stable significant pulmonary vascular congestion. No new or focal infiltrates. No large pleural effusion. IMPRESSION: Cardiomegaly and pulmonary vascular congestion. Electronically signed by Reed Schroeder 01/09/2019 4:09 PM 01/09/19 1609 Interpreting Physician: Reed Schroeder MD Dictated Date/Time: 01/09/19 1608 cc: Nadeem Samaniego MD; Belen Dominique) 2 XRAY: Right XRAY Study: Foot Impression: See EMR Report (EXAM: FOOT COMPLETE RIGHT HISTORY: rt heelo wound, rule out osteomyelitis TECHNIQUE: Right foot, three views COMPARISON: 12/26/2018 FINDINGS: The first and second toes have been resected as have the majority of the first and second metatarsals. Bone erosion to the third metatarsophalangeal joints similar to the prior study. No new bone erosions. There are calcaneal bone spurs. No other calcaneal abnormality. IMPRESSION: Stable exam. Electronically signed by Spencer Kirk 01/09/2019 4:10 PM 01/09 1610 Interpreting Physician: Spencer Kirk MD Dictated Date/Time: 01/09/19 1608 cc: Nadeem Samaniego MD; Belen Dominique) - CONSULTS/PCP/HOSPITALIST Notification #1 *Consult/PCP/Hospitalist*: ARTIE Valero for Hospitalist Time Discussed: 16:47 (Dr. Spring accepted admit. ) Consult Disposition: Admit Departure - Departure Date of Disposition Decision: 01/07/19 Time of Disposition Decision: 16:47 DIAGNOSIS: Wound infection Cellulitis Qualifiers: Site of cellulitis: extremity Site of cellulitis of extremity: lower extremity Laterality: right Qualified Code(s): L03.115 - Cellulitis of right lower limb Disposition: ADMITTED INPATIENT 09 Certified Medical Emergency: Emergent Condition: Stable - Critical Care Note This patient required my direct & personal management of CC.: No Attestation - Physician/ ERIN Attestation Patient care was provided by Advanced Practice Provider:: No The physician spent face to face time with patient:: Yes Advanced Practice Provider documentation review:: Supervising physician onsite and consulted in the evaluation and care of this patient. The physician did have a face to face encounter with the patient. This chart was documented by the indicated scribe, (Lubna Llanes, Iván) and accurately reflects the services I performed and decisions made by me, Boom platt,Nadeem Treadwell MD, as attested by the provider's signature.
[2019-01-11] MEDS: NORCO-10 PO PRN ×3 (04:46→21:59)
[2019-01-11] MEDS: ZOSYN 3.375 GM in NS 50 ML IV SCH ×4 (04:46→21:59)
[2019-01-11] MEDS: HUMULIN R SUBQ SCH ×4 (06:12→21:59)
--- NOTE | 2019-01-11 07:51 | GENERAL SURGERY PROGRESS NOTE ---
DATE: 01/11/2019 SUBJECTIVE: Patient seems to be doing okay. She has some issues with pain. She had an Unna boot placed yesterday by Lorie Perkins with Wound Care. OBJECTIVE: Vital Signs: Patient is currently afebrile. Her vital signs are stable. General exam: No acute distress. Cardiovascular: Regular rate and rhythm. Lungs: Grossly clear. Abdomen: Soft, nontender, nondistended. Extremities: With dressing intact with Unna boot. ASSESSMENT AND PLAN: A 58-year-old female with chronic venous wounds. 1. Chronic venous wounds. At this time, continue Unna boot. We will continue local wound care. cc: Jan Valentin MD
[2019-01-11] MEDS: NEURONTIN PO SCH ×3 (08:00→17:31)
[2019-01-11 08:07] LABS: AGAP 11; BUN 13 mg/dL (8-22); CALCIUM 8.7 mg/dL (8.8-10.2); CHLORIDE 102 mmol/L (98-107); COSMO 283; CREATININE 0.8 mg/dL (0.5-0.9); ESTIMATED GFR > 60; GLUCOSE 190 mg/dL (70-104); POTASSIUM 3.6 mmol/L (3.5-5.1); SODIUM 139 mmol/L (136-145); TCO2 26 mmol/L (25-35)
[2019-01-11] MEDS: VANCOMYCIN 2 GM in NS 500 ML IV SCH (08:08)
[2019-01-11] MEDS: ZYLOPRIM PO SCH (08:09)
[2019-01-11 08:10] LABS: HEMOGLOBIN A1C 9.1 % (4.8-6.0)
[2019-01-11] MEDS: ASPIRIN PO SCH (08:10)
[2019-01-11] MEDS: FIORICET PO PRN ×2 (08:20→17:52)
[2019-01-11] MEDS: REQUIP PO SCH ×3 (08:20→21:58)
[2019-01-11] MEDS: LOPRESSOR PO SCH (08:20)
--- NOTE | 2019-01-11 11:40 | PROGRESS NOTE ---
DATE: 01/11/2019 SUBJECTIVE: This patient is feeling a little bit better. We will continue with the same management. She has been placed on Zosyn and vancomycin. Vital signs and laboratory stable, a little bit elevated blood sugar. I will put this patient back on Jentadueto. Surgery department on board. I do not think they are planning to do any kind of intervention at this moment. She was placed on Unna wraps. Hemoglobin A1c is 9.1. OBJECTIVE: Vital Signs: Temperature 97.9 degrees, pulse 102, respiratory rate 20, blood pressure 126/60, oxygen saturation 92 on room air. HEENT: Head normocephalic. No trauma. PERRLA. Neck: Supple. No JVD. No masses. Central trachea. Chest: Clear to auscultation. No wheezing. No rales. Abdomen: Soft, nontender, nondistended. No hepatosplenomegaly. Protuberant. Extremities: Bilateral lower extremity swelling. She has Unna wraps bilaterally. She has an amputation at the level of the first and second toes on the right side and a great toe amputation on the left, which is chronic. She has an ulcer on the plantar area at the level of the metatarsal head in the middle and also at the level of the heel. Neurological Examination: The patient is alert and oriented x3. No focal deficits. LABORATORY: Sodium 139, potassium 3.6, chloride 102, bicarbonate 26, BUN 13, creatinine 0.8, glucose 190, calcium 8.7, hemoglobin A1c 9.1. ASSESSMENT AND PLAN: 1. Bilateral lower extremity cellulitis with superficial ulcers and right heel ulcer, which is infected with gram-negative and gram-positive. Continue with Zosyn and vancomycin. She has Enterobacter cloacae pending the rest of the culture. Surgery department has recommended to continue with the Unna wraps. I do believe this patient is not doing the right treatment at home. 2. Type 2 diabetes. I have requested a new hemoglobin A1c and it was 9.1, a little bit better compared with the previous one of 9.9. We will continue with sliding scale insulin, pattern of blood sugar and I have placed this patient back on her home medications. 3. History of gout. Aware. Continue with same management. 4. Hypertension, stable. 5. Lower extremity edema, as per #1. 6. Dyslipidemia. Continue with same management. 7. Peripheral neuropathy. Aware. Continue with same treatment. 8. Morbid obesity. Diet and exercise has been discussed. cc: Dennis Donato MD
[2019-01-11] MEDS: MYCOSTATIN POWDER TOP SCH ×3 (12:00→21:59)
[2019-01-11] MEDS: TRADJENTA PO SCH ×2 (12:10→17:32)
[2019-01-11] MEDS: GLUCOPHAGE PO SCH ×2 (12:11→17:30)
--- NOTE | 2019-01-11 15:26 | HISTORY AND PHYSICAL ---
CHIEF COMPLAINT: Foot pain. HISTORY OF PRESENT ILLNESS: This is a 58-year-old female with a history of bilateral lower extremity cellulitis, persistent diabetic foot ulcer of right heel, diabetes mellitus type 2, and noncompliance. She presented to the emergency room complaining of open wound to her right heel. The patient was discharged from the hospital with on 01/01/2019. She was given a prescription for antibiotics, and she opted not to fill these. She did state that "I had a few Keflex at home, and I took them." Looking back at her prior history and physical on 12/26/2018, she made the same statement then about taking some Keflex from home. She removed her Unna boot to her right lower extremity, had drainage from her heel; therefore, she presented to the emergency room. Of note, the patient had MRSA from wounds to her bilateral lower extremities as well as Proteus in this wound in her right foot. These cultures were obtained 12/26/2018. Wound culture was obtained from this right lower extremity. We started vancomycin and Zosyn for antibiotic coverage, and she is being admitted for further evaluation and treatment. PAST MEDICAL HISTORY: 1. Diabetes mellitus type 2. 2. Gout. 3. Hypertension. 4. Dyslipidemia. 5. Restless leg syndrome. 6. Peripheral neuropathy. 7. PVD. 8. History of osteomyelitis with amputation of 3 toes to her right foot. 9. Coronary artery disease, status post coronary artery bypass graft. PAST SURGICAL HISTORY: 1. Coronary artery bypass graft in 2005. 2. Hysterectomy. 3. section. 4. Tonsillectomy and adenoidectomy. 5. Amputation of toes of bilateral feet. SOCIAL HISTORY: She denies alcohol, tobacco, or illicit drug use. HOME MEDICATIONS: A list will be obtained by the nursing staff, and once verified, we will review and restart as appropriate. REVIEW OF SYSTEMS: Discussed with the patient with pertinent positives stated in the HPI. She denied any syncope, dizziness, chest pain, palpitations, shortness of breath, cough, fever or chills, any night sweats, any recent weight loss or weight gain, any nausea, vomiting, diarrhea, constipation, black or bloody vomitus or stools, hematuria, dysuria, frequency, urgency. PHYSICAL EXAMINATION: GENERAL: This is a 58-year-old female who is sitting in the ER in no distress. VITAL SIGNS: Blood pressure is 159/72 with a heart rate of 98, respirations are 18, temperature is 97.5 oral. HEENT: Head is normocephalic and atraumatic. Mucous membranes are moist. NECK: Supple. Trachea midline. CARDIOVASCULAR: Regular rate and rhythm. S1 and S2 are appreciated. She has bilateral edema. Unna boots are wrapped bilaterally. PULMONARY: Breath sounds are clear with no increased work of breathing noted. GASTROINTESTINAL: Abdomen is soft, large, nontender, nondistended, with bowel sounds in all 4 quadrants. : She has no CVA or suprapubic tenderness. NEUROLOGICAL: She is alert and oriented. EXTREMITIES: She has Unna boot noted to the left lower extremity. Right lower extremity has no Unna boot or dressing. She does have an area of an ulcer noted to the heel of her right foot with no drainage at present. DIAGNOSTIC DATA: WBC is 9.0 with hemoglobin of 11.2, hematocrit 35.4, platelets of 200. Sodium is 142, potassium 4, BUN is 11, creatinine 0.7, glucose 116. Wound culture of right foot and blood cultures are pending. ASSESSMENT AND PLAN: 1. Bilateral lower extremity cellulitis with superficial ulcers and right heel ulcer which is infected with Proteus and MRSA. We will continue vancomycin and Zosyn, and any further antibiotics will be culture driven. We will consult Wound Care as well as Dr. Almaraz for management. 2. We will place an order to have the foot of the bed elevated [*]at all times. She has been instructed to keep her feet elevated on the bed except when she is up to go to the bathroom and then back to bed with legs elevated. 3. Diabetes mellitus type 2. We will identify her home medications. We will start fingerstick blood sugars with sliding scale insulin at present. 4. Gout. We will continue home medications. 5. Hypertension. Stable. 6. Lower extremity edema. Aware. 7. Dyslipidemia. 8. Peripheral neuropathy. We will continue her home medications. 9. Morbid obesity. Further treatments pending hospital course. Dictated by RADHA Nogueira for Dennis Donato MD cc: RADHA Nogueira MD
[2019-01-12] MEDS: FIORICET PO PRN ×3 (02:44→22:02)
[2019-01-12] MEDS: VANCOMYCIN 2 GM in NS 500 ML IV SCH ×2 (02:45→21:17)
[2019-01-12] MEDS: NORCO-10 PO PRN ×3 (06:03→21:16)
[2019-01-12] MEDS: HUMULIN R SUBQ SCH ×4 (06:27→21:04)
[2019-01-12 07:27] LABS: AGAP 10; BUN 13 mg/dL (8-22); CALCIUM 8.5 mg/dL (8.8-10.2); CHLORIDE 106 mmol/L (98-107); COSMO 286; CREATININE 0.7 mg/dL (0.5-0.9); ESTIMATED GFR > 60; GLUCOSE 176 mg/dL (70-104); POTASSIUM 4.1 mmol/L (3.5-5.1); SODIUM 141 mmol/L (136-145); TCO2 25 mmol/L (25-35)
--- NOTE | 2019-01-12 08:40 | GENERAL SURGERY PROGRESS NOTE ---
DATE: 01/12/2019 The patient seems to be doing okay. Her Unna boots are in place. Charge nurse with Wound Care will change it tomorrow. Otherwise continue current treatment. cc: Jan Valentin MD
[2019-01-12] MEDS: NEURONTIN PO SCH ×3 (09:45→17:22)
[2019-01-12] MEDS: GLUCOPHAGE PO SCH ×2 (09:45→17:22)
[2019-01-12] MEDS: TRADJENTA PO SCH ×2 (09:45→17:22)
[2019-01-12] MEDS: ZOSYN 3.375 GM in NS 50 ML IV SCH ×3 (09:45→20:48)
[2019-01-12] MEDS: LOPRESSOR PO SCH (09:46)
[2019-01-12] MEDS: ASPIRIN PO SCH (09:46)
[2019-01-12] MEDS ORDERED: LASIX IV ONE (10:13)
--- NOTE | 2019-01-12 10:55 | INFECTIOUS DISEASE PROGRESS NO ---
DATE: 01/12/2019 The patient was treated in the hospital by Dr. Spring. I did not see the patient in the hospital. Dr. Spring asked me to see the patient in my office after discharge from the hospital, which I will be happy to do. The patient had leg cellulitis. Culture of the legs grew Enterobacter and Staphylococcus aureus. The culture result from the hospital showed that both organisms were susceptible to trimethoprim/sulfamethoxazole. Dr. Spring is sending the patient home on Septra DS 1 tablet every 12 hours for 10 days, and the patient will be given an appointment to my office in 10 days after discharge from the hospital. cc: Viraj Heath MD
--- NOTE | 2019-01-12 11:02 | PROGRESS NOTE ---
DATE: 01/12/2019 SUBJECTIVE: Patient is resting comfortably in bed. She is complaining of bilateral lower extremity swelling. I will give her a dose of Lasix today and I will re-evaluate again in the morning. Kidney function seems to be stable. She has been placed on vancomycin and Zosyn for her current right foot culture that showed Enterobacter cloacae and MRSA. She has been having some episodes of diarrhea. I will ask for C difficile toxin and antigen. OBJECTIVE: Vital Signs: Temperature 97.7 degrees, pulse 90, respiratory rate 21, blood pressure 140/60, oxygen saturation 98 on room air. HEENT: Head normocephalic. No trauma. PERRLA. Neck: Supple. No JVD. No masses. Central trachea. Chest: Clear to auscultation. No wheezing. No rales. Abdomen: Soft, nontender, nondistended. No hepatosplenomegaly. Protuberant. Extremities: Bilateral lower extremity swelling. She has Unna wraps bilaterally. She has an amputation at the level of the 1st and 2nd toes on the right foot and great toe amputation on the left, which is chronic. She has an ulcer on her plantar area and also at the level of the heel as well. Neurological: This patient is alert and oriented x3. No focal deficits. LABORATORY DATA: Sodium 141, potassium 1.6, chloride 25, bicarbonate 13, BUN 0.7, glucose 176, calcium 8.5. ASSESSMENT AND PLAN: 1. Bilateral lower extremity cellulitis with superficial ulcers and right heel ulcer, which is infected with Enterobacter cloacae and methicillin resistant Staphylococcus aureus. Continue with the same management for now. Surgery department has recommended to continue with Unna wraps. She will be re-evaluated tomorrow by the wound care nurse and change the wraps again. I discussed the case with Dr. Heath from Infectious Disease Department, who recommended to discharge this patient on Septra DS every 12 hours for 10 days and follow up with him as an outpatient. 2. Type 2 diabetes. Hemoglobin A1c 9.1, previously 9.9. Continue with same management for now. Stable. 3. History of gout. Continue with same management. 4. Hypertension, stable. 5. Lower extremity edema. As per #1, I will give her a dose of Lasix today. 6. Dyslipidemia. Continue with same management. 7. Peripheral neuropathy, aware. Continue with same treatment. 8. Morbid obesity. Diet and exercise have been discussed. cc: Dennis Donato MD
[2019-01-12] MEDS: ZYLOPRIM PO SCH (11:20)
[2019-01-12] MEDS: REQUIP PO SCH ×3 (11:22→21:17)
[2019-01-13] MEDS: NORCO-10 PO PRN ×3 (03:20→15:30)
[2019-01-13] MEDS: ZOSYN 3.375 GM in NS 50 ML IV SCH ×2 (04:55→08:50)
[2019-01-13] MEDS: FIORICET PO PRN ×2 (05:37→18:18)
[2019-01-13] MEDS: MYCOSTATIN POWDER TOP SCH ×3 (06:04→20:47)
[2019-01-13] MEDS: HUMULIN R SUBQ SCH ×4 (06:04→20:48)
[2019-01-13 08:00] LABS: BASO# 0.03 X1000 (0.0-0.2); BASO% 0.4 % (0.0-0.8); EOS# 0.46 X1000 (0.0-0.7); EOS% 6.8 % (0.0-10.0); HEMATOCRIT 33.2 % (37.0-47.0); HEMOGLOBIN 10.2 g/dL (12.0-16.0); IMM GRAN# 0.03 X1000 (0.0-0.04); IMM GRAN% 0.4 % (0.0-0.5); LYMPH# 1.91 X1000 (1.2-3.4); LYMPH% 28.2 % (20.5-51.1); MCH 29.8 PG (27-31); MCHC 30.7 g/dL (33-37); MCV 97.1 FL (81-99); MONO# 0.52 X1000 (0.11-0.59); MONO% 7.7 % (1.7-9.3); MPV 11.1 FL (7.4-10.4); NEUT# 3.83 X1000 (1.4-6.5); NEUT% 56.5 % (42.2-75.2); PLT 189 X1000 (130-400); RBC 3.42 XMIL (4.2-5.4); RDW 14.3 % (11.5-14.5); WBC 6.78 X1000 (4.8-10.8)
[2019-01-13 08:20] LABS: AGAP 12; BUN 12 mg/dL (8-22); CALCIUM 8.5 mg/dL (8.8-10.2); CHLORIDE 104 mmol/L (98-107); COSMO 286; CREATININE 0.7 mg/dL (0.5-0.9); ESTIMATED GFR > 60; GLUCOSE 161 mg/dL (70-104); POTASSIUM 3.4 mmol/L (3.5-5.1); SODIUM 142 mmol/L (136-145); TCO2 26 mmol/L (25-35)
[2019-01-13] MEDS: ZYLOPRIM PO SCH (08:48)
[2019-01-13] MEDS: LOPRESSOR PO SCH (08:49)
[2019-01-13] MEDS: GLUCOPHAGE PO SCH (08:49)
[2019-01-13] MEDS: TRADJENTA PO SCH ×2 (08:49→18:51)
[2019-01-13] MEDS: NEURONTIN PO SCH ×3 (08:49→18:18)
[2019-01-13] MEDS: ASPIRIN PO SCH (08:50)
[2019-01-13] MEDS: REQUIP PO SCH ×3 (08:55→20:47)
[2019-01-13] MEDS ORDERED: KLOR-CON PO ONE (09:11)
[2019-01-13] MEDS: IMODIUM PO PRN ×3 (09:46→18:17)
[2019-01-13] MEDS: SEPTRA DS PO SCH (20:47)
--- NOTE | 2019-01-13 21:38 | PROGRESS NOTE ---
DATE: 01/13/2019 SUBJECTIVE: This patient is sitting at the bedside. She is complaining of bilateral lower extremity swelling and pain. She received a dose of Lasix yesterday. She is complaining also of abdominal pain and diarrhea today. As per the patient, she has been having 4 or 5 episodes of diarrhea and she states the problem is related to the metformin that she has been placed on a couple of days ago, which is part of her home medications. Also, she has been on vancomycin and Zosyn due to MRSA and Enterobacter cloacae infection of her right foot. OBJECTIVE: Vital Signs: Temperature 97 degrees, pulse 87, respiratory rate 18, blood pressure 154/81, oxygen saturation 96% on room air. HEENT: Head normocephalic, atraumatic. PERRLA. Neck: Supple. No JVD. No masses. Central trachea. Chest: Clear to auscultation bilaterally. No wheezing or rales. Abdomen: Soft, some tenderness per patient in the lower abdomen, nondistended, protuberant. No hepatosplenomegaly. Extremities: Bilateral lower extremity swelling. She has redness / swelling bilaterally and amputation of the first and second toes on the right foot and great toe amputation on the left foot, which is chronic. She has an ulcer on the plantar area and also an ulcer of the heel as well. Neurologic: Alert and oriented x 3. No focal deficits. Laboratory data: WBC 6.7, hemoglobin 10.2, hematocrit 33.2, platelets 189. Sodium 142, potassium 3.4, chloride 104, bicarbonate 25, BUN 12, creatinine 0.7, glucose 161, calcium 8.5. ASSESSMENT AND PLAN: 1. Bilateral lower extremity cellulitis with superficial ulcers and right heel ulcer, which is infected with Enterobacter cloacae and methicillin-resistant Staphylococcus aureus. I have discussed the case with Dr. Heath from Infectious Disease department. I will put the patient on Septra DS every 12 hours for 10 days and follow up with him as an outpatient. I will stop the vancomycin and the Zosyn at this moment. 2. Type 2 diabetes mellitus. I placed this patient back on her home medications but as per the patient, probably the metformin is causing diarrhea. So I will stop the metformin. I will continue to monitor. 3. Diarrhea, probably related to medications. I have stopped the metformin for now. Also will stop the IV antibiotics. She will be placed on Septra. 4. Hypertension, stable. 5. Lower extremity edema. As per #1. She received a dose of Lasix. 6. Dyslipidemia. Continue with simvastatin. 7. Peripheral neuropathy. Continue with treatment. 8. Morbid obesity. Diet and exercise have been discussed. Case has also been discussed with the wound care nurse. She will take care of the Unna boots today or tomorrow. I had a long conversation about the Unigrafts that she needs to have. She needs to have either wound care and/or referral to the Wound Care. As per the patient, due to financial problems, she cannot go to the [facility] Clinic, but she wants her son to learn how to do it, so she can get some help at home. cc: Dennis Donato MD MTDD
[2019-01-14] MEDS: IMODIUM PO PRN ×4 (00:03→21:17)
[2019-01-14] MEDS: NORCO-10 PO PRN ×4 (00:04→18:33)
[2019-01-14] MEDS: FIORICET PO PRN ×3 (03:43→23:52)
[2019-01-14] MEDS: HUMULIN R SUBQ SCH ×4 (06:20→21:17)
[2019-01-14 07:25] LABS: AGAP 13; BUN 12 mg/dL (8-22); CALCIUM 9.1 mg/dL (8.8-10.2); CHLORIDE 104 mmol/L (98-107); COSMO 287; CREATININE 0.6 mg/dL (0.5-0.9); ESTIMATED GFR > 60; GLUCOSE 168 mg/dL (70-104); POTASSIUM 3.8 mmol/L (3.5-5.1); SODIUM 142 mmol/L (136-145); TCO2 25 mmol/L (25-35)
[2019-01-14] MEDS: ASPIRIN PO SCH (09:33)
[2019-01-14] MEDS: TRADJENTA PO SCH ×2 (09:33→18:34)
[2019-01-14] MEDS: NEURONTIN PO SCH ×3 (09:33→18:33)
[2019-01-14] MEDS: SEPTRA DS PO SCH ×2 (09:33→21:17)
[2019-01-14] MEDS: ZYLOPRIM PO SCH (09:34)
[2019-01-14] MEDS: LOPRESSOR PO SCH (09:34)
[2019-01-14] MEDS: REQUIP PO SCH ×3 (09:34→21:17)
[2019-01-14] MEDS: MYCOSTATIN POWDER TOP SCH ×2 (12:23→21:18)
[2019-01-15] MEDS: NORCO-10 PO PRN ×4 (03:52→21:16)
[2019-01-15] MEDS: IMODIUM PO PRN ×3 (03:52→21:15)
[2019-01-15] MEDS: HUMULIN R SUBQ SCH ×4 (06:49→21:14)
[2019-01-15] MEDS: LOPRESSOR PO SCH (08:18)
[2019-01-15] MEDS: ASPIRIN PO SCH (08:18)
[2019-01-15] MEDS: NEURONTIN PO SCH ×3 (08:19→18:12)
[2019-01-15] MEDS: SEPTRA DS PO SCH ×2 (08:20→21:15)
[2019-01-15] MEDS: ZYLOPRIM PO SCH (08:21)
[2019-01-15] MEDS: FIORICET PO PRN ×2 (08:22→21:15)
[2019-01-15] MEDS: REQUIP PO SCH ×3 (08:38→21:15)
[2019-01-15] MEDS: MYCOSTATIN POWDER TOP SCH ×2 (08:38→21:15)
[2019-01-15] MEDS: TRADJENTA PO SCH ×2 (08:41→18:12)
[2019-01-15] MEDS ORDERED: LASIX IV ONE (09:57)
--- NOTE | 2019-01-15 14:03 | Diag Imaging Result Doc PS360 ---
EXAM: CHEST-PORTABLE INDICATION: dyspnea, ? right base effusion/edema TECHNIQUE: One view COMPARISON: 01/09/2019 FINDINGS: There is evidence of pulmonary venous congestion that is approximately stable as compared to the previous study. The lungs are grossly clear, otherwise. There is no discrete pleural fluid collection or pneumothorax. Sternotomy wires are stable. There is stable cardiomegaly. IMPRESSION: Pulmonary venous congestion that is similar to the previous study. Electronically signed by Gasper Méndez 01/15/2019 2:00 PM
--- NOTE | 2019-01-15 19:32 | PROGRESS NOTE ---
DATE: 01/15/2019 INTERVAL HISTORY: The patient leg pain and swelling doing well. Ambulating well, but complaining this morning of increased nonproductive cough and dyspnea on exertion. Oxygenation stable. Denies chest pain, diaphoresis, fever, chills. No other new complaints. No major no acute events overnight. REVIEW OF SYSTEMS: A 12 point review of systems negative except as per Interval History. LABORATORIES: Glucose 175 to 245. IMAGING: Chest x-ray: Mild pulmonary venous congestion, essentially unchanged from previous. VITALS: Temperature maximum 98.6 degrees, pulse 69, respirations 19, blood pressure 125/67, O2 saturation 100%. OBJECTIVE: General: No acute distress. Vitals: As above. HEENT: Normocephalic, atraumatic. Moist mucous membranes. Neck: No cervical adenopathy. Cardiovascular: Regular rate and rhythm. No murmurs, rubs, or gallops noted. Pulmonary: Largely clear to auscultation, but does have slight right base crackles that do not entirely clear with cough. No increased work of breathing or accessory muscle use. Abdomen: Soft, nontender, nondistended. Bowel sounds positive. Extremities: Peripheral pulses decreased, but intact. Chronic venous stasis changes approximately stable. Remains in Unna boots bilaterally. Neurologic: Cranial nerves grossly intact. No focal deficits. Psychiatric: Normal mood and affect. Awake, alert, oriented x3. Skin: Chronic venous stasis changes and ulcers as previously noted, but no new rashes or lesions identified. ASSESSMENT AND PLAN: 1. Bilateral lower extremity cellulitis with superficial ulcers and right heel ulcer. Cultures with Enterobacter and methicillin-resistant Staphylococcus aureus. As per Dr. Heath, patient is on Bactrim DS b.i.d. for a total of 10 days. Follow up with him as an outpatient. Doing well from this perspective. 2. Dyspnea. Patient with no sharlene congestive heart failure, but does have mild to moderate pulmonary hypertension and occasional dyspnea on exertion, which responds to Lasix. We checked a chest x-ray which shows no new acute process. We will give her a dose to see if this improves her symptoms. Oxygenation remains good, so it does not appear to be a major issue. If this improves with Lasix, then anticipate discharge in the morning. 3. Diabetes. Occasional moderate elevations, but overall reasonable control. Continue to monitor. 4. Diarrhea, resolved with cessation of metformin. 5. Hypertension. Reasonable control on current regimen. 6. Hyperlipidemia. Continue simvastatin. 7. Peripheral neuropathy. Continue home medications. 8. Morbid obesity. Diet and exercise have been discussed on multiple occasions.
[2019-01-16] MEDS: IMODIUM PO PRN ×2 (04:21→08:36)
[2019-01-16] MEDS: NORCO-10 PO PRN ×2 (04:21→10:41)
[2019-01-16] MEDS: FIORICET PO PRN (05:36)
[2019-01-16] MEDS: HUMULIN R SUBQ SCH (06:34)
--- NOTE | 2019-01-16 07:20 | Diag Imaging Result Doc PS360 ---
EXAM: CHEST-PORTABLE HISTORY: dyspnea, ?right base effusion/edema TECHNIQUE: Portable chest single view COMPARISON: 01/15/2019 FINDINGS: The lungs are well expanded. The heart is not enlarged. Sternal wires are present. The vessels are distended. There are no infiltrates. No effusion identified. IMPRESSION: Persistent pulmonary edema Electronically signed by Spencer Kirk 01/16/2019 7:18 AM
[2019-01-16 07:24] VITALS: BP 135/93
[2019-01-16] MEDS: ZYLOPRIM PO SCH (08:20)
[2019-01-16] MEDS: ASPIRIN PO SCH (08:20)
[2019-01-16] MEDS: SEPTRA DS PO SCH (08:20)
[2019-01-16] MEDS: REQUIP PO SCH (08:20)
[2019-01-16] MEDS: NEURONTIN PO SCH (08:20)
[2019-01-16] MEDS: LOPRESSOR PO SCH (08:20)
[2019-01-16] MEDS: TRADJENTA PO SCH (08:36)
[2019-01-16] MEDS: MYCOSTATIN POWDER TOP SCH (11:31)
--- NOTE | 2019-01-16 19:18 | PROGRESS NOTE ---
DATE: 01/14/2019 INTERVAL HISTORY: The patient's bilateral lower extremity swelling is stable. Pain is slightly improved. Still some diarrhea, but much improved from previous. Abdominal pain also much improved. No other acute events overnight. No new complaints. REVIEW OF SYSTEMS: A 12 point review of systems negative except as per Interval History. LABORATORIES: Basic metabolic panel unremarkable aside from glucose 130 to 214. VITALS: Temperature maximum 98.6, pulse 98, respirations 22, blood pressure 158/86, O2 saturation 93% on room air. OBJECTIVE: General: No acute distress. Vitals: As above. HEENT: Normocephalic, atraumatic. Pupils equal, round, and reactive to light. Moist mucous membranes. Neck: No cervical adenopathy. Cardiovascular: Regular rate and rhythm. Pulmonary: No wheezing, rales, or rhonchi. Abdomen: Soft, essentially nontender, nondistended. Bowel sounds positive. Extremities: Bilateral lower extremity venous stasis changes, largely stable. Legs heavily dressed with Unna boots bilaterally. Stable amputation. Peripheral pulses decreased, but present. Neurologic: Cranial nerves grossly intact. No focal deficits identified. Psychiatric: Normal mood and affect. Awake, alert, oriented x3. Skin: No new rashes or lesions identified. Previously noted ulcers bandaged. ASSESSMENT AND PLAN: 1. Bilateral lower extremity cellulitis with superficial ulcers. Skin swab is growing Enterobacter and methicillin-resistant Staphylococcus aureus. Patient appears to be doing okay on Bactrim. Off of vancomycin and Zosyn. Some issues with nausea and diarrhea, but these appear to be improving. If diarrhea continues to improve and she is able to tolerate orals reliably, then may be able to discharge home tomorrow. 2. Diabetes mellitus. Reasonable control so far, despite having stopped metformin. Continue to monitor. 3. Diarrhea. Favored to be secondary to metformin. Patient is now off of metformin and diarrhea is slowly improving. Continue to hydrate and monitor. 4. Hypertension. Stable. 5. Lower extremity edema. Combination of chronic venous stasis and infection, slightly improved, status post Lasix. 6. Hyperlipidemia. Continue simvastatin. 7. Peripheral neuropathy, stable. Continue treatment. 8. Morbid obesity. Diet and exercise have been discussed.
--- NOTE | 2019-01-17 08:35 | DISCHARGE SUMMARY ---
ADMISSION DATE: 01/09/2019 DISCHARGE DATE: 01/16/2019 FAMILY PHYSICIAN: Belen Dominique MD DISCHARGING PHYSICIAN: Dr. Hernández. ADMITTING DIAGNOSES: 1. Bilateral lower leg cellulitis infected with Proteus and methicillin resistant Staphylococcus aureus. 2. Diabetes mellitus type 2. 3. Gout. 4. Hypertension. 5. Lower extremity edema. 6. Dyslipidemia. 7. Peripheral neuropathy. 8. Morbid obesity. DISCHARGE DIAGNOSES: 1. Bilateral lower extremity cellulitis infection with Enterobacter and methicillin resistant Staphylococcus aureus. 2. Congestive heart failure. 3. Diabetes. 4. Hypertension. 5. Hyperlipidemia. 6. Anemia. 7. Peripheral neuropathy. 8. Morbid obesity. HOSPITAL COURSE: This is a 58-year-old female who presented on the with bilateral lower extremity cellulitis, persistent with diabetic foot ulcers to the right heel, diabetes type 2 and noncompliance. She was discharged on 01/01/2019, and was given a prescription and did not fill the prescription for antibiotics. When looking back at her history, she was discharged prior for the same thing and given antibiotics and did not fill the antibiotics. She was started on vancomycin and Zosyn for antibiotic coverage. Her infections were noted to be Proteus and MRSA. Wound Care was consulted. Dr. Valentin was consulted. Dr. Spring spoke with Dr. Heath about seeing the patient outpatient in his office after she is discharged. Dr. Heath did agree to see the patient. Cultures came back and the cultures were noted to be Enterobacter cloacae with MRSA. During the hospital stay, the patient did seem to get a little bit better and was able to get up and move around. The patient is being discharged today on Bactrim DS that was started on 01/13/2019, and the Zosyn and vancomycin were stopped at that time. The patient is to see Dr. Heath in 10 days and follow up with Dr. Belen Dominique and Dr. Paul Almaraz. DISCHARGE INSTRUCTIONS: The patient is to follow a normal routine and to continue on her diabetic diet. The patient is to see Dr. Viraj Heath in 10 days and to call and make this appointment. The patient is to call and make a scheduled appointment with Dr. Paul Almaraz and Dr. Belen Dominique. The patient is to continue all wound care per Dr. Paul Almaraz. HOME MEDICATIONS: 1. Aspirin 325 mg p.o. in the morning. 2. VPAP 50 mg over 300 mg 1 tablet p.o. q.8h hours p.r.n. 3. Bydureon 2 mg subcu as directed every 7 days. 4. Lasix 40 mg p.o. p.r.n. 5. Lomotil 1 tablet p.o. 4 times a day p.r.n. 6. Metoprolol 50 mg p.o. daily. 7. Gabapentin 800 mg p.o. t.i.d. 8. Hydrocodone 10 mg 1 tablet p.o. q.8 hours p.r.n. 9. Robaxin 750 mg p.o. t.i.d. 10. [*]HCL 4 mg p.o. t.i.d. 11. Allopurinol 300 mg p.o. in the morning. 12. Prescription for Bactrim 1 tablet p.o. q.12 hours x16 tablets given. 13. Prescription for a Jentadueto 2.5 mg-1000 mg 1 tablet p.o. b.i.d. x60 tablets given. 14. Prescription for Phenergan 25 mg p.o. q.6 hours p.r.n. x30 tablets given. Dictated by RADHA Sanderson for Papo Hernández MD cc: MD Marti Bello MD Leroy F. Harris, MD
== END 2019-01-16 12:33 | disposition home or self-care (01) | DRG 603 ==
LOC: ED 15:02 → 3N 21:29 → SUATTDRO 21:29
PROVIDERS: ATTEND Internal Medicine
CPT/HCPCS: 71010; 71045; 73630; 80048; 80053; 80202; 81001; 82550; 82948; 83036; 83605; 84484; 85025; 85610; 85730; 87040; 87070; 87077; 87186; 87324; 87449; 96365; 96375; 99285; A9270; J0696; J1940; J2405; J2543; J3370; J7040; XXXXX

== ENCOUNTER 2019-05-09 08:49 | Inpatient (IN) ==
[2019-05-09] MEDS ORDERED: VANCOMYCIN IV PER PHARMACY MISC SCH ×2 (09:30→11:33)
[2019-05-09] MEDS ORDERED: VANCOMYCIN 1 GM/NS 1 GM/250 ML IVPB IV ONE ×2 (09:35→12:15)
[2019-05-09 09:49] LABS: INR 1.19; PROTIME 15.7 Seconds (11.0-16.0)
[2019-05-09 09:50] LABS: PTT 36.6 Seconds (22.3-41.8)
[2019-05-09 09:56] LABS: AGAP 18; ALBUMIN 3.9 g/dL (3.5-5.0); ALKALINE PHOSPHATASE 120 U/L (32-104); BUN 11 mg/dL (8-22); CALCIUM 9.2 mg/dL (8.8-10.2); CHLORIDE 96 mmol/L (98-107); CK PROFILE 172 U/L (24-173); COSMO 278; CREATININE 0.7 mg/dL (0.5-0.9); ESTIMATED GFR > 60; GLUCOSE 150 mg/dL (70-104); GOT 11 U/L (10-30); GPT 11 U/L (10-36); POTASSIUM 3.9 mmol/L (3.5-5.1); SODIUM 138 mmol/L (136-145); TCO2 24 mmol/L (25-35); TOTAL PROTEIN 7.5 g/dL (6.3-8.3)
[2019-05-09] MEDS: MORPHINE IV PRN ×2 (10:00→15:47)
--- NOTE | 2019-05-09 10:03 | Diag Imaging Result Doc PS360 ---
EXAM: CHEST-1 VIEW INDICATION: r/o sepsis TECHNIQUE: One view COMPARISON: 02/07/2019 FINDINGS: Inspiration is suboptimal. There is stable mild elevation of the right hemidiaphragm. The lungs are grossly clear. There is no discrete pleural fluid collection or pneumothorax. There are stable CABG changes. The cardiac silhouette appears somewhat prominent but stable. Central vasculature is unremarkable. IMPRESSION: Low lung volumes and prominent cardiac silhouette. No definite acute chest pathology by plain radiograph, otherwise. Electronically signed by Gasper Méndez 05/09/2019 10:01 AM
[2019-05-09 10:06] LABS: BILIRUBIN URINE NEGATIVE (NEGATIVE); BLOOD URINE 3+ (NEGATIVE); CLARITY CLEAR (CLEAR); COLOR YELLOW; GLUCOSE URINE NEGATIVE (NEGATIVE); KETONE URINE 3+(Large) mg/dL (NEGATIVE); LEUKOCYTES URINE NEGATIVE (NEGATIVE); NITRITE URINE NEGATIVE (NEGATIVE); PH URINE 6.5; UROBILINOGEN URINE 4 mg/dL
--- NOTE | 2019-05-09 10:14 | PROVIDER DOCUMENTATION ---
This chart was entered by Yani Méndez Scribe, acting as scribe for Flo Zaragoza MD. HPI-General Adult - General Chief Complaint: Fever Stated Complaint: FEVER/WOUND CARE Time Seen by Provider: 05/09/19 09:13 Source: patient Allergies/Adverse Reactions: Patient Allergies Allergy/AdvReac Type Severity Reaction Status Date / Time tizanidine HCl * Allergy ANAPHYLAXIS Verified 05/09/19 09:49 [[facility] Home Medications: Home Medication List Medication Instructions Recorded Confirmed Last Taken Type Allopurinol [Zyloprim] 300 mg PO QAM 09/19/15 04/10/19 01/09/19 09:00 History Aspirin 325 mg PO QAM 09/19/15 04/10/19 01/09/19 09:00 History Gabapentin [Neurontin] 800 mg PO TID 09/19/15 04/10/19 01/09/19 09:00 History Methocarbamol [Robaxin-750] 750 mg PO TID 09/19/15 04/10/19 01/09/19 09:00 History Butalbital/Acetaminophen [Bupap 50 1 tab PO Q8H PRN PRN 01/25/17 04/10/19 01/09/19 09:00 History mg-300 mg Tablet] Hydrocodone/APAP 10 mg/325 mg 1 each PO Q8H PRN PRN 01/25/17 04/10/19 01/09/19 09:00 History [[place]-10] Ropinirole HCl 4 mg PO TID 01/25/17 04/10/19 01/09/19 09:00 History Diphenoxylate/Atropine [Lomotil] 1 ea PO 4XDAY PRN PRN 12/27/18 04/10/19 01/09/19 09:00 History Exenatide Microspheres [Bydureon 2 mg SQ DIRECTED 12/27/18 04/10/19 12/27/18 History Pen] Linagliptin/Metformin HCl 1 ea PO BID #60 tab 01/01/19 04/10/19 01/09/19 09:00 Rx [Jentadueto 2.5 mg-1000 mg Tab] Promethazine [Phenergan] 25 mg PO Q6H PRN PRN #30 tab 01/01/19 04/10/19 01/08/19 09:00 Rx Furosemide [Lasix] 40 mg PO PRN PRN 01/09/19 04/10/19 01/08/19 09:00 History Metoprolol [Lopressor] 50 mg PO DAILY 01/09/19 04/10/19 01/09/19 09:00 History Hydrocodone/Acetaminophen [[place] 1 ea PO Q6H PRN PRN #20 tab 04/10/19 Unknown Rx 5-325 Tablet] Loperamide HCl [Imodium A-D] 2 mg PO Q4H PRN #24 tab 04/10/19 Unknown Rx - History of Present Illness -Gen Adult Nature of Presenting Problems: 59 yowf c/o fever 104 and 103 yest at wound center, incontinence and chills yest. pt has hx of dm, neuropathy, MRSA and gout. pt had bilat LE wounds dressed yest, LE are erythematic, swollen and inflamed. pt has large decubitis on bottom rt foot that is tunnelling. pt takes insulin (bydureon) 1 x a wk, and 2 PO 2x daily (janumet and amaryl). pt fsbs this am was 129. Location of Pain/Injury: reports: lower extremity (bilat) Pain Radiation: reports: no radiation Severity: reports: mild Timing: reports: still present Context/Activities at Onset: reports: none - Diabetes Related Context Context: reports: other (bilat LE infection) Review of Systems - Adult - REVIEW OF SYSTEMS - ADULT Constitutional: reports: see HPI, chills (yest), fever. denies: fatique, night sweats Eyes: reports: no symptoms reported Ears, Nose, Mouth & Throat: reports: no symptoms reported Cardiovascular: reports: no symptoms reported Respiratory: reports: no symptoms reported Gastrointestinal: reports: no symptoms reported Genitourinary: reports: see HPI, incontinence (yest) Musculoskeletal: reports: no symptoms reported, joint pain (bilat le erythema, inflammation), joint swelling (bilat le). denies: bone pain, back pain, neck pain Integumentary: reports: no symptoms reported Neurological: reports: no symptoms reported Psychiatric: reports: no symptoms reported Endocrine: reports: no symptoms reported Hematologic/Lymphatic: reports: no symptoms reported Allergic/Immunologic: reports: no symptoms reported All Other Systems: Reviewed and Negative Past History - Adult - PAST MEDICAL HISTORY-ADULT Review of Records: reports: Old Records Reviewed, Nursing Assessment Review, Medications Reviewed, Social history reviewed & non-contributory. Major Childhood Illnesses: reports: denies history Cardiovascular: reports: cardiac disease, CAD, HTN Respiratory: reports: denies history Gastrointestinal: reports: denies history Obstetrical/Gynecological: reports: denies history Genitourinary: reports: denies history Musculoskeletal: reports: other (gout) Neurological: reports: CVA, other (neuropathy) Psychiatric: reports: denies history Endocrine/Immune: reports: Diabetes Diabetes Type: Type 2 Diabetes controlled by:: PO Meds, Insulin Dependent Other Conditions: reports: MRSA - PRIOR SURGERIES/PROCEDURES Surgical/Procedure History: reports: CABG, hysterectomy, tonsillectomy - IMMUNIZATION STATUS Childhood Immunizations: See Nurse Assessment Flu Vaccine: See Nurse Assessment - FAMILY HISTORY Family History: reviewed, not pertinent - SOCIAL HISTORY Smoking: other (former smoker) Substance Use: none/never Physical Exam-General - PHYSICAL EXAM-ADULT Initial Vital Signs Reviewed: Yes - CONSTITUTIONAL General Appearance: alert, no apparent distress, obese. negative: slow to respond, obtunded, combative - EYES Eyes: PERRL/EOMI, pink conjunctivae - HEAD, EARS, NOSE, MOUTH & THROAT HENMT: normocephalic/atraumatic, moist mucous membranes, normal ENT inspection - NECK Neck: non-tender, full range of motion, supple, normal inspection - RESPIRATORY Respiratory: chest non-tender, lungs clear, normal breath sounds - CARDIOVASCULAR Cardiovascular: normal peripheral pulses, no edema, no gallop, no JVD, no murmur , tachycardia. negative: regular rate, rhythm, JVD, bradycardia - GASTROINTESTINAL (ABDOMEN) Abdominal Exam: normal bowel sounds, non tender, soft - LYMPHATIC Lymphatic: no adenopathy - MUSCULOSKELETAL Back Exam: normal inspection, no CVA tenderness, no vertebral tenderness Extremity: normal range of motion, erythema (bilat le, new redness to dorsal left foot), inflammation (bilat le), swelling (bilat LE peripheral). negative: non-tender, normal inspection Peripheral Pulses: radial (R): 2+, radial (L): 2+ - SKIN Integumentary: normal color, normal turgor, warm/dry, decubitus (rt plantar of foot, tunnelling.), erythema (bilat le), warm (to palp left dorsal foot extremely warm, bilat le are also warm to palp.), other (pt has bilat toe amputations, left dorsal inflammation is "oozing"). negative: abrasion(s), blanching, rash - NEUROLOGIC Neurologic: grossly normal, no motor/sensory deficits - PSYCHIATRIC Psych/Mental Status: normal mood/affect, normal thought content, normal thought process, oriented x 3 Progress - PLAN OF CARE/RESULTS Progress/Plan/Lab Results: Vital Signs - 8 hr 05/09/19 08:51 Temperature 101.0 F H Pulse Rate 143 H Respiratory Rate 20 Blood Pressure 147/63 O2 Sat by Pulse Oximetry 95 Result Diagrams: 05/09/19 09:11 05/09/19 09:11 - REASSESSMENT Reassessment #1 Time Reassessed: 09:34 Status: other (1g vancomycin) - CONSULTS/PCP/HOSPITALIST Notification #1 *Consult/PCP/Hospitalist*: Dr. Selby Time Discussed: 09:55 Consult Disposition: Admit Departure - Departure Date of Disposition Decision: 05/09/19 Time of Disposition Decision: 10:13 DIAGNOSIS: Fever, Diabetic foot ulcer, Cellulitis of left lower extremity, Cellulitis of right lower extremity Disposition: HOME 01 Certified Medical Emergency: Emergent Condition: Stable Referrals and Follow-Ups: Belen Dominique [Primary Care Provider] - - Critical Care Note This patient required my direct & personal management of CC.: No Attestation - Physician/ ERIN Attestation Patient care was provided by Advanced Practice Provider:: No The physician spent face to face time with patient:: Yes Advanced Practice Provider documentation review:: Supervising physician onsite and consulted in the evaluation and care of this patient. The physician did have a face to face encounter with the patient. This chart was documented by the indicated scribe, (Yani Méndez Scribe) and accurately reflects the services I performed and decisions made by me, Flo Zaragoza MD, as attested by the provider's signature.
[2019-05-09 10:15] LABS: URINE BACTERIA 1+ /HFP; URINE EPITHELIAL CELLS >10 /HPF (<10)
[2019-05-09 10:16] LABS: URINE SOURCE CLEAN CATCH
[2019-05-09 10:22] LABS: BASO# 0.03 X1000 (0.0-0.2); BASO% 0.1 % (0.0-0.8); HEMATOCRIT 33.6 % (37.0-47.0); HEMOGLOBIN 10.4 g/dL (12.0-16.0); IMM GRAN# 0.08 X1000 (0.0-0.04); IMM GRAN% 0.4 % (0.0-0.5); LYMPH# 1.08 X1000 (1.2-3.4); LYMPH% 5.3 % (20.5-51.1); MCH 27.7 PG (27-31); MCV 89.4 FL (81-99); MONO% 10.7 % (1.7-9.3); MPV 11.1 FL (7.4-10.4); NEUT# 17.16 X1000 (1.4-6.5); NEUT% 83.5 % (42.2-75.2); PLT 250 X1000 (130-400); RBC 3.76 XMIL (4.2-5.4); RDW 15.7 % (11.5-14.5); WBC 20.55 X1000 (4.8-10.8)
[2019-05-09 11:00] LABS: BANDS 1 % (0-1); LYMPHS 15 % (21-51); MONO 8 % (1-9); SEGS 76 % (42-75)
[2019-05-09] MEDS ORDERED: TYLENOL PO ONE (11:33)
--- NOTE | 2019-05-09 12:00 | HISTORY AND PHYSICAL ---
PRIMARY CARE PHYSICIAN: Dr. Belen Dominique. CHIEF COMPLAINT: Fever, chills and is seen at the [facility] for bilateral lower extremity wounds. HISTORY OF PRESENTING ILLNESS: This is a 59-year-old female who presents to [facility] ER with complaints of a fever, stating it was 104 and 103 yesterday. She has had chills and some incontinence. She is followed at the [facility] for bilateral lower extremity wounds that were dressed yesterday. Her lower extremities are noted to be erythemic, swollen, warm to touch. She is noted to have a large decubitus on the bottom of her right foot that is tunneling. She is noted to be diabetic. When she arrived to the emergency room today, she had a temperature of 101 degrees, pulse was 143. White blood cell count was noted to be 20.55. So she will be admitted for further evaluation and treatment. PAST MEDICAL HISTORY: Diabetes type 2, gout, hypertension, dyslipidemia, restless legs syndrome, peripheral neuropathy, PVD, history of osteomyelitis with amputation of 3 toes to her right foot, coronary artery disease status post coronary artery bypass, bilateral lower extremity cellulitis with a right heel ulcer which has in the past had Proteus and MRSA grown from her cultures and is followed [facility] by Dr. Almaraz. PAST SURGICAL HISTORY: CABG in 2005, hysterectomy, , tonsillectomy and adenoidectomy and amputation of toes of bilateral feet. FAMILY HISTORY: Reviewed and noncontributory. SOCIAL HISTORY: She currently lives alone. Denies any tobacco, alcohol or illicit drug use. ALLERGIES: To tizanidine. HOME MEDICATIONS: A current list will need to be obtained, reconciled, reviewed and restarted as appropriate. We will place an order for nursing to update and confirm home medications. LABORATORY DATA: Showed a white blood cell count of 20.55, hemoglobin 10.4, hematocrit 33.6, platelets 254,000. PT and INR of 15.7 and 1.19. Sodium 138, potassium 3.9, chloride 96, CO2 24, BUN of 11, creatinine 0.7, glucose 150. Cardiac enzyme was negative, plasma lactate of 1.4. Urinalysis with negative nitrites, negative white blood cells and 1+ bacteria. Chest x-ray showed low lung volumes and prominent cardiac silhouette. No definite acute chest pathology by plain radiograph otherwise. REVIEW OF SYSTEMS: She was positive for a subjective fever, chills. Denied any blurred vision, dizziness, chest pain, coughing, shortness of breath. Denied any abdominal pain, constipation, diarrhea, burning or hurting with urination. Does have some pain to her bilateral lower extremities. PHYSICAL EXAMINATION: On arrival, she had a temperature of 101 degrees, pulse 143, respirations 20, blood pressure 147/63, saturating 95% on room air. GENERAL: This is a 59-year-old morbidly obese female who is sitting up in the bedside chair in the emergency room and answers questions appropriately. HEENT: Normocephalic, atraumatic. Normal ENT inspection. Oropharynx and nares are clear. EYES: Pupils are equal, round, reactive to light and accommodation. Extraocular movements are intact. NECK: Normal inspection. Normal range of motion. LUNGS: Clear to auscultation bilaterally with equal lung expansion and chest wall movement. HEART: She did have some tachycardia but no murmurs, rubs, or gallops. ABDOMEN: Soft, nontender, nondistended. Bowel sounds are present x4 quadrants. MUSCULOSKELETAL: She is noted to have bilateral lower extremity erythema, edema, warmth to touch to bilateral lower extremities. Also on the right bottom of her foot she has a large decubitus that is tunneling. NEUROLOGICAL: The cranial nerves 2-12 appear grossly intact. ASSESSMENT: 1. Sepsis. 2. Bilateral lower extremity cellulitis with a right heel ulcer. 3. Leukocytosis. 4. Diabetes type 2. PLAN: She will be admitted to the medical unit at [facility], placed on a diabetic diet, pattern blood sugars with sliding scale insulin. Placed on Zosyn 3.375 g IV q.6, vancomycin 1 gram IV was given in the emergency room. Now, we will give per pharmacy protocol. Pattern blood sugars with sliding scale insulin. Wound culture is pending. We will consult General Surgery. Recheck a CBC BMP in the a.m. Further orders after seen by attending and by solutions delivery consultant. Dictated by RADHA Berman for Shine Selby MD cc: RADHA Berman MD Faye Wilson, MD
[2019-05-09] MEDS ORDERED: NORCO-10 PO PRN ×2 (12:04→13:40)
[2019-05-09] MEDS: ZOSYN 3.375 GM in NS 50 ML IV SCH ×2 (12:28→15:49)
[2019-05-09] MEDS ORDERED: IMODIUM PO PRN (13:40)
[2019-05-09] MEDS ORDERED: LASIX PO PRN (13:40)
[2019-05-09] MEDS ORDERED: LOMOTIL PO PRN (13:40)
[2019-05-09] MEDS ORDERED: BYDUREON SUBQ SCH (15:00)
--- NOTE | 2019-05-09 15:07 | HISTORY AND PHYSICAL ---
SUBJECTIVE: The patient has no major complaints. OBJECTIVE: Vital Signs: Blood pressure is 152/68, heart rate 126, respiratory rate 20, temperature 99.7 to 101 degrees. Cardiovascular: Regular rate and rhythm. Pulmonary: Bilateral breath sounds. Extremities: Her left foot was erythematous, swollen, puffy along the upper portion of it. She has had fever for the last 24 hours associated with it. She has a history of issues with that previously. In any case, patient will be admitted for cellulitis. She will be treated with vancomycin and Unasyn. We will follow clinically for improvement. We will get a surgical evaluation. Follow blood sugars closely and monitor. cc: Shine Selby MD
[2019-05-09] MEDS: REQUIP PO SCH ×2 (15:48→22:08)
[2019-05-09] MEDS: AMARYL PO SCH (15:48)
[2019-05-09] MEDS: ROBAXIN PO SCH ×2 (15:48→22:08)
[2019-05-09] MEDS: NEURONTIN PO SCH ×2 (15:48→22:08)
[2019-05-09] MEDS: HUMULIN R (PARKWAY) SUBQ SCH ×3 (15:51→22:12)
[2019-05-09] MEDS: LASIX IV SCH (15:51)
[2019-05-09] MEDS ORDERED: FLU VACCINE IM ONE (16:41)
[2019-05-09] MEDS: FIORICET PO PRN (18:25)
[2019-05-10] MEDS: ZOSYN 3.375 GM in NS 50 ML IV SCH ×4 (00:29→22:45)
[2019-05-10] MEDS: VANCOMYCIN 2,000 MG in NS 500 ML IV SCH ×2 (01:34→16:47)
[2019-05-10] MEDS: MORPHINE IV PRN ×4 (02:01→19:52)
[2019-05-10] MEDS: REQUIP PO SCH ×3 (05:53→22:45)
[2019-05-10] MEDS: ROBAXIN PO SCH ×3 (05:54→22:45)
[2019-05-10] MEDS: NEURONTIN PO SCH ×3 (05:54→22:44)
[2019-05-10] MEDS: HUMULIN R (PARKWAY) SUBQ SCH ×4 (06:22→22:47)
[2019-05-10 07:42] LABS: BASO# 0.03 X1000 (0.0-0.2); BASO% 0.2 % (0.0-0.8); EOS# 0.02 X1000 (0.0-0.7); EOS% 0.1 % (0.0-10.0); HEMATOCRIT 34.7 % (37.0-47.0); HEMOGLOBIN 10.6 g/dL (12.0-16.0); IMM GRAN# 0.08 X1000 (0.0-0.04); IMM GRAN% 0.5 % (0.0-0.5); LYMPH% 9.4 % (20.5-51.1); MCH 27.5 PG (27-31); MCHC 30.5 g/dL (33-37); MCV 89.9 FL (81-99); MONO# 1.34 X1000 (0.11-0.59); MONO% 7.9 % (1.7-9.3); MPV 10.4 FL (7.4-10.4); NEUT# 13.96 X1000 (1.4-6.5); NEUT% 81.9 % (42.2-75.2); PLT 211 X1000 (130-400); RBC 3.86 XMIL (4.2-5.4); RDW 15.8 % (11.5-14.5); WBC 17.03 X1000 (4.8-10.8)
[2019-05-10 08:04] LABS: AGAP 16; BUN 18 mg/dL (8-22); CALCIUM 8.8 mg/dL (8.8-10.2); CHLORIDE 101 mmol/L (98-107); COSMO 276; CREATININE 0.8 mg/dL (0.5-0.9); ESTIMATED GFR > 60; GLUCOSE 107 mg/dL (70-104); POTASSIUM 4.2 mmol/L (3.5-5.1); SODIUM 137 mmol/L (136-145); TCO2 21 mmol/L (25-35)
[2019-05-10 08:08] LABS: HEMOGLOBIN A1C 8.4 % (4.8-6.0)
[2019-05-10] MEDS: LASIX IV SCH (09:14)
[2019-05-10] MEDS: ZYLOPRIM PO SCH (09:14)
[2019-05-10] MEDS: ASPIRIN PO SCH (09:14)
[2019-05-10] MEDS: AMARYL PO SCH ×2 (09:14→16:47)
[2019-05-10] MEDS: FIORICET PO PRN (09:29)
--- NOTE | 2019-05-10 09:31 | PROGRESS NOTE ---
DATE: 05/10/2019 SUBJECTIVE: Patient denies having any new complaints, but does have some pain and redness in her lower extremities. OBJECTIVE: Vital Signs: Temperature 100.4 degrees, pulse 73 per minute, respiratory rate 20 per minute, blood pressure 145/61, pulse oximetry 94% on room air. General: Patient is alert and oriented x3. She does not appear to be in any acute distress. Cardiovascular System: First and second heart sounds are audible without any murmurs or gallops. Respiratory System: Bilateral lung air entry is slightly decreased, but there are no rales or rhonchi present on auscultation. Gastrointestinal System: Abdomen is soft and nontender. Normal bowel sounds are present. Musculoskeletal System: Bilateral lower extremities are edematous, along with erythema and increased warmth. DIAGNOSTIC DATA: CBC shows a WBC count of 17.03, hemoglobin 10.6, hematocrit 34.7, and platelet count of 211. In comparison, her white blood cell count was 20.55 yesterday. Her hemoglobin and hematocrit have been stable, however. Basic metabolic panel done this morning is nondiagnostic. IMPRESSION: 1. Bilateral lower extremity cellulitis. 2. Sepsis. 3. Type 2 diabetes mellitus. PLAN: We will continue her on broad-spectrum antibiotics, including vancomycin and Zosyn. She will also receive insulin as per sliding scale for her glucose control and would continue providing her supportive care. I advised her to keep her legs elevated so that the swelling can go down and her cellulitis can get better. Further recommendations will be given as per hospital course. cc: Emeterio Luu MD
--- NOTE | 2019-05-10 11:40 | EKG Report ---
Test Performed on : 05/10/2019 10:01:51 AM Test Reason : sob; tachycardia Blood Pressure : / mmHG Vent. Rate : 138 BPM Atrial Rate : 138 BPM P-R Int : 120 ms QRS Dur : 076 ms QT Int : 288 ms P-R-T Axes : 073 082 070 degrees QTc Int : 436 ms Sinus tachycardia. Possible Left atrial enlargement Borderline ECG When compared with ECG of 10-MAY-2019 09:59, (Unconfirmed) Previous ECG has undetermined rhythm, needs review Unconfirmed Result
[2019-05-10] MEDS ORDERED: TYLENOL PO ONE (17:52)
[2019-05-10] MEDS ORDERED: TYLENOL PO PRN (17:53)
[2019-05-10] MEDS ORDERED: LOPRESSOR PO ONE (17:54)
[2019-05-10] MEDS: LOPRESSOR PO SCH (22:45)
[2019-05-11] MEDS: MORPHINE IV PRN ×4 (01:01→23:22)
[2019-05-11] MEDS: VANCOMYCIN 2,000 MG in NS 500 ML IV SCH ×2 (01:02→18:27)
[2019-05-11 06:02] LABS: BASO# 0.02 X1000 (0.0-0.2); BASO% 0.2 % (0.0-0.8); EOS# 0.21 X1000 (0.0-0.7); EOS% 1.6 % (0.0-10.0); HEMATOCRIT 31.1 % (37.0-47.0); HEMOGLOBIN 9.1 g/dL (12.0-16.0); IMM GRAN# 0.08 X1000 (0.0-0.04); IMM GRAN% 0.6 % (0.0-0.5); LYMPH# 1.93 X1000 (1.2-3.4); LYMPH% 14.9 % (20.5-51.1); MCH 26.8 PG (27-31); MCHC 29.3 g/dL (33-37); MCV 91.5 FL (81-99); MONO% 11.6 % (1.7-9.3); NEUT# 9.23 X1000 (1.4-6.5); NEUT% 71.1 % (42.2-75.2); PLT 221 X1000 (130-400); WBC 12.97 X1000 (4.8-10.8)
[2019-05-11] MEDS: REQUIP PO SCH ×3 (06:28→22:03)
[2019-05-11] MEDS: ZOSYN 3.375 GM in NS 50 ML IV SCH ×3 (06:29→23:24)
[2019-05-11] MEDS: NEURONTIN PO SCH ×3 (06:29→22:03)
[2019-05-11] MEDS: AMARYL PO SCH ×2 (06:29→15:16)
[2019-05-11] MEDS: ROBAXIN PO SCH ×3 (06:40→22:04)
[2019-05-11] MEDS: HUMULIN R (PARKWAY) SUBQ SCH ×3 (06:41→17:46)
[2019-05-11 06:44] LABS: AGAP 13; ALBUMIN 2.8 g/dL (3.5-5.0); ALKALINE PHOSPHATASE 108 U/L (32-104); BUN 26 mg/dL (8-22); CALCIUM 8.6 mg/dL (8.8-10.2); CHLORIDE 101 mmol/L (98-107); COSMO 282; CREATININE 0.9 mg/dL (0.5-0.9); ESTIMATED GFR > 60; GLUCOSE 154 mg/dL (70-104); GOT 14 U/L (10-30); GPT 13 U/L (10-36); POTASSIUM 3.8 mmol/L (3.5-5.1); SODIUM 137 mmol/L (136-145); TCO2 23 mmol/L (25-35)
[2019-05-11] MEDS: ZYLOPRIM PO SCH (11:07)
[2019-05-11] MEDS: ASPIRIN PO SCH (11:07)
[2019-05-11] MEDS: LASIX IV SCH (11:08)
[2019-05-11] MEDS: LOPRESSOR PO SCH ×2 (11:08→22:04)
[2019-05-11] MEDS: FIORICET PO PRN (13:33)
--- NOTE | 2019-05-11 14:03 | PROGRESS NOTE ---
DATE: 05/11/2019 SUBJECTIVE: Patient denies having any acute complaints this morning. OBJECTIVE: Vital Signs: Temperature 97.3 degrees, pulse 90 per minute, respiratory rate 30 per minute, blood pressure 130/69, pulse oximetry 90% on room air. General: Patient is alert and oriented x3. She does not appear to be in any acute distress at this time. She does not appear to be tachypneic either although respiratory rate of 30 per minute was documented there. Cardiovascular System: First and second heart sounds are audible without any murmurs or gallops. Respiratory System: No respiratory distress noted. Bilateral lung air entry is moderately decreased, but there are no rales or rhonchi present on auscultation. Gastrointestinal System: Patient is morbidly obese. Abdomen is soft and nondistended. Normal bowel sounds are present. Musculoskeletal System: Bilateral leg edema with erythema is noted. It is essentially unchanged as compared to yesterday's exam. DIAGNOSTIC DATA: CBC shows WBC count of 12.97, hemoglobin 9.1, hematocrit 31.1, and platelet count 221,000. In comparison, her WBC count was 17.03 yesterday. Her hemoglobin and hematocrit were 10.6 and 34.7 yesterday. Comprehensive metabolic panel done this morning is basically nondiagnostic. IMPRESSION: 1. Bilateral lower extremity cellulitis. 2. Sepsis with anemia. 3. Type 2 diabetes mellitus. PLAN: We are going to continue with broad-spectrum antibiotics including Zosyn and vancomycin and continue providing her general supportive care. She will continue with the regular insulin subcutaneously as per sliding scale, along with her other medications including glimepiride 4 mg twice daily for her diabetes. Overall, her condition is getting better with improving WBCs, although she does have continued erythema and increased warmth in her legs. We will, therefore, continue with the current antibiotic regimen for now. cc: Emeterio Luu MD
[2019-05-12] MEDS: HUMULIN R (PARKWAY) SUBQ SCH ×5 (00:22→22:39)
[2019-05-12] MEDS: ZOSYN 3.375 GM in NS 50 ML IV SCH ×4 (01:30→15:57)
[2019-05-12] MEDS: NEURONTIN PO SCH ×4 (05:21→22:40)
[2019-05-12] MEDS: MORPHINE IV PRN ×3 (05:22→16:00)
[2019-05-12] MEDS: ROBAXIN PO SCH ×4 (05:22→22:40)
[2019-05-12] MEDS: REQUIP PO SCH ×4 (05:24→22:40)
[2019-05-12 06:28] LABS: BASO# 0.02 X1000 (0.0-0.2); BASO% 0.2 % (0.0-0.8); EOS# 0.12 X1000 (0.0-0.7); HEMATOCRIT 28.9 % (37.0-47.0); HEMOGLOBIN 8.5 g/dL (12.0-16.0); IMM GRAN# 0.11 X1000 (0.0-0.04); IMM GRAN% 0.9 % (0.0-0.5); LYMPH# 1.88 X1000 (1.2-3.4); LYMPH% 15.4 % (20.5-51.1); MCH 26.6 PG (27-31); MCHC 29.4 g/dL (33-37); MCV 90.6 FL (81-99); MONO# 1.21 X1000 (0.11-0.59); MONO% 9.9 % (1.7-9.3); MPV 11.1 FL (7.4-10.4); NEUT# 8.88 X1000 (1.4-6.5); NEUT% 72.6 % (42.2-75.2); PLT 250 X1000 (130-400); RBC 3.19 XMIL (4.2-5.4); RDW 15.7 % (11.5-14.5); WBC 12.22 X1000 (4.8-10.8)
[2019-05-12 06:37] LABS: AGAP 7; ALKALINE PHOSPHATASE 119 U/L (32-104); BUN 27 mg/dL (8-22); CALCIUM 8.6 mg/dL (8.8-10.2); CHLORIDE 103 mmol/L (98-107); COSMO 271; CREATININE 0.8 mg/dL (0.5-0.9); ESTIMATED GFR > 60; GLUCOSE 88 mg/dL (70-104); GOT 21 U/L (10-30); GPT 16 U/L (10-36); MAGNESIUM 2.2 mg/dL (1.5-2.7); POTASSIUM 3.7 mmol/L (3.5-5.1); SODIUM 133 mmol/L (136-145); TCO2 24 mmol/L (25-35); TOTAL PROTEIN 7.1 g/dL (6.3-8.3)
[2019-05-12] MEDS: ZYLOPRIM PO SCH (08:17)
[2019-05-12] MEDS: ASPIRIN PO SCH (08:17)
[2019-05-12] MEDS: AMARYL PO SCH ×2 (08:17→15:58)
[2019-05-12] MEDS: LOPRESSOR PO SCH ×3 (08:18→22:41)
[2019-05-12] MEDS: LASIX IV SCH ×2 (08:18→19:11)
--- NOTE | 2019-05-12 08:29 | Diag Imaging Result Doc PS360 ---
EXAM: FOOT 2 VIEWS RIGHT HISTORY: ?osteomyelitis TECHNIQUE: Two views COMPARISON: 01/09/2019, 12/26/2018 FINDINGS: There is been surgical amputation of the proximal first and second metatarsals stable from prior. Erosive and sclerotic change involving the third metatarsal and proximal phalanx of the third ray suspicious for chronic osteomyelitis has not significantly changed from the prior study. There is diffuse soft tissue swelling about the foot. Moderate calcaneal spur with faint osteopenia within the same plane as a large soft tissue ulcer. This could represent the early sign of osteomyelitis or be secondary to hyperemia. IMPRESSION: 1.Large heel ulcer. 2.Focal osteopenia involving the plantar calcaneus without discrete periostitis or definitive bone destruction. This may indicate hyperemia or very early osteomyelitis. MRI could be considered as desired clinically. 3.Suggested chronic osteomyelitis MTP joint of the third ray. Electronically signed by Robina Huber 05/12/2019 8:26 AM
[2019-05-12] MEDS: VANCOMYCIN 2,000 MG in NS 500 ML IV SCH (11:20)
[2019-05-12] MEDS: BYDUREON SUBQ SCH (11:20)
[2019-05-12] MEDS: FIORICET PO PRN ×2 (12:46→19:51)
--- NOTE | 2019-05-12 14:33 | CONSULTATION ---
DATE OF CONSULTATION: 05/12/2019 INDICATIONS: Ms. Laila Olivier is a 59-year-old white female with bilateral lower extremity cellulitis and chronic right heel ulcer and left foot swelling who was admitted through the emergency department by our hospitalists and we were asked to evaluate her lower extremity wounds and help with treatment. HISTORY OF PRESENT ILLNESS: Ms. Laila Olivier is a 59-year-old white female, morbidly obese, who is cared for at [facility] under the direction of Dr. Almaraz. Dr. Bleen Dominique is her primary care physician. She has chronic significant bilateral lower extremity swelling consistent with chronic venous insufficiency and lymphedema and has skin changes of her legs bilaterally. She has a chronic open ulcer involving her right heel. She has also had multiple toe amputations both feet and these wounds are well healed. She was seen Sunday05/09/2019 in the [facility] for wound treatment I think Unna boots. It was noted that she had a fever. She was sent to the emergency department and then admitted to our hospitalist with cellulitis involving the left lower extremity. She has had open heart surgery a great saphenous vein on the left harvested. PAST MEDICAL HISTORY: Diabetes type 2, gout, hypertension, dyslipidemia, restless legs syndrome, peripheral neuropathy, peripheral vascular disease, history of osteomyelitis right heel, she has had amputation of 3 toes on the right foot, she has also had amputation of a toe on the left foot, she has had a history of coronary artery bypass grafting in 2005. She has had a hysterectomy, C- section, tonsillectomy. MEDICATIONS: Fioricet, Zyloprim, aspirin, Lomotil, Bydureon, Lasix, Neurontin, Amaryl, Humulin, Imodium, Robaxin, Lopressor, Requip. ALLERGIES: Tizanidine. FAMILY HISTORY: Was reviewed and was noncontributory. SOCIAL HISTORY: She lives alone. She does not smoke. PHYSICAL EXAM: On exam, Ms. Laila Olivier is a morbidly obese white female who is awake, cooperative, no acute distress. HEENT: No jaundice. No oral lesions. No cervical or supraclavicular lymphadenopathy. Her heart has a regular rate. She has a well-healed median sternotomy scar. She has no shortness of breath. It appeared that she had equal breath sounds. She had no abdominal tenderness. She did have palpable femoral pulses. Bilaterally her legs are swollen left slightly more than right. She does have skin changes involving both legs. She does have acute cellulitis involving her left lower extremity. She has a chronic open wound involving her heel on the right. She has well-healed toe amputation wounds on the right foot. On the left foot on the plantar aspect, she did have some purulence with some surrounding callus and I locally debrided that at the bedside today. Cultures were taken. The abscess cavity just below the skin was thoroughly opened and irrigated with hydrogen peroxide. It was packed with iodoform gauze. IMPRESSION: It appears that she stepped on a foreign body left foot and has developed a soft tissue infection plantar aspect of the left foot which I incised and drained at the bedside this afternoon. Cultures were taken. The wound was packed open. She is on IV antibiotics over the weekend which included vancomycin and Zosyn. Her legs being elevated. She continues to have cellulitis of the left leg. We will continue wound care, IV antibiotics and elevation. cc: Pauly Murdock MD
--- NOTE | 2019-05-12 16:47 | Diag Imaging Result Doc PS360 ---
EXAM: MRI LOWER EXT W/WO CON-RIGHT HISTORY: r/o osteo TECHNIQUE: Routine multiplanar images pre and postcontrast with without fat saturation. COMPARISON: None. FINDINGS: There is extensive abnormal T1 hypointensity/T2 hyperintensity throughout the soft tissues of the foot compatible with edema. In addition there is focal contrast enhancement associated with the medial heel ulcer extending through the soft tissues to the lateral posterior calcaneal margin. At the MTP joint of the third ray, there is irregularity and erosion of the articular surfaces. However, there is minimal T2 hyperintensity and very mild contrast enhancement, and this may well be related to neuropathic change. There are foci of abnormal signal enhancement body of talus which are nonspecific. The Achilles tendon appears intact. Peroneal tendons appear intact. There is abnormal signal within the sinus Tarsi. IMPRESSION: 1.Abnormal signal intensity and enhancement posterior lateral calcaneus. This may represent osteomyelitis. 2.Deformity third MTP joint shows only mild signal abnormality and enhancement and could be secondary to neuropathic change versus chronic osteomyelitis. 3.Nonspecific foci signal abnormality and enhancement within the talus. 4.Severe cellulitis about the plantar surface of the foot with large ulcer. Severe edema throughout the entire foot. Electronically signed by Robina Huber 05/12/2019 4:44 PM
--- NOTE | 2019-05-12 18:35 | PROGRESS NOTE ---
DATE: 05/12/2019 SUBJECTIVE: The patient is still complaining of pain and swelling in her lower extremities. OBJECTIVE: Vital signs: Blood pressure 129/80, heart rate of 88, respiratory rate of 18, temperature 97.6 degrees, 97% on 2 L. Cardiovascular: Regular rate and rhythm. Pulmonary: Bilateral breath sounds. Clear to auscultation. Gastrointestinal: Soft, nontender, nondistended. Bowel sounds are positive. LABORATORY DATA: White count is 12, hemoglobin and hematocrit 8 and 28, platelets 250,000. PROBLEM LIST: 1. Bilateral lower extremity cellulitis positive for methicillin-resistant Staphylococcus aureus based on cultures. I think we can stop Zosyn and just put her on vancomycin alone. I think it may be beneficial to switch her to daptomycin because it has daily dosing when she gets home. She has osteomyelitis it looks like of her foot based on the imaging we did today, chronic of the third metatarsophalangeal joint and osteomyelitis of the lateral calcaneus, so we will continue to follow. 2. Large ulcer on her left foot, and it was incised and drained but does not feel like there is osteomyelitis in that foot. We will continue treatment and follow. I think she needs IV antibiotics so I am going to set up for peripherally inserted central catheter line and daptomycin for 6 weeks. We can discuss this with Dr. Heath if necessary. Continue diuretics and follow. 3. Diabetes. We will continue to monitor with other treatments. Anticipate discharge hopefully in the next 1 to 2 days. cc: Shine Selby MD
[2019-05-13] MEDS: MORPHINE IV PRN ×4 (01:59→21:57)
[2019-05-13] MEDS: REQUIP PO SCH ×3 (05:44→21:57)
[2019-05-13] MEDS: ROBAXIN PO SCH ×3 (05:44→21:56)
[2019-05-13] MEDS: NEURONTIN PO SCH ×3 (05:44→21:56)
[2019-05-13] MEDS: LASIX IV SCH ×2 (05:44→18:35)
[2019-05-13] MEDS: FIORICET PO PRN (05:53)
[2019-05-13] MEDS: HUMULIN R (PARKWAY) SUBQ SCH ×4 (06:16→21:58)
[2019-05-13 06:29] LABS: HEMATOCRIT 30.2 % (37.0-47.0); HEMOGLOBIN 8.9 g/dL (12.0-16.0); MCH 26.8 PG (27-31); MCHC 29.5 g/dL (33-37); MPV 10.9 FL (7.4-10.4); RBC 3.32 XMIL (4.2-5.4); RDW 15.7 % (11.5-14.5); WBC 15.15 X1000 (4.8-10.8)
[2019-05-13 06:46] LABS: AGAP 10; BUN 27 mg/dL (8-22); CALCIUM 8.8 mg/dL (8.8-10.2); CHLORIDE 102 mmol/L (98-107); COSMO 283; CREATININE 0.8 mg/dL (0.5-0.9); ESTIMATED GFR > 60; GLUCOSE 102 mg/dL (70-104); POTASSIUM 4.3 mmol/L (3.5-5.1); SODIUM 139 mmol/L (136-145); TCO2 27 mmol/L (25-35)
[2019-05-13] MEDS: ZYLOPRIM PO SCH (08:21)
[2019-05-13] MEDS: AMARYL PO SCH ×2 (08:21→16:53)
[2019-05-13] MEDS: LOPRESSOR PO SCH ×2 (08:21→21:57)
[2019-05-13] MEDS: VANCOMYCIN 2,000 MG in NS 500 ML IV SCH (08:22)
[2019-05-13] MEDS: ASPIRIN PO SCH (08:22)
[2019-05-13] MEDS ORDERED: NS 250 ML ONE (09:06)
[2019-05-13 09:30] LABS: INR 1.19; PROTIME 15.7 Seconds (11.0-16.0)
--- NOTE | 2019-05-13 19:34 | PROGRESS NOTE ---
DATE: 05/13/2019 SUBJECTIVE: Patient denies any current chest pains or palpitations. Notes that overall she is feeling better. PHYSICAL EXAMINATION: Vital signs reviewed. She is awake, alert. She is in no respiratory distress, sitting on side of the bed with her feet on the floor.HEENT: Normocephalic. Neck: Supple. Cardiovascular: Regular rate. No murmurs. Chest: Clear, nonlabored. Abdomen: Soft, obese, nondistended. Extremities: Moves all extremities. ASSESSMENT: 1. Bilateral lower extremity cellulitis with methicillin-resistant Staphylococcus aureus. 2. Probable osteomyelitis. 3. Obesity. 4. A large ulcer on her left foot that has been incised and drained by Dr. Murdock. 5. Diabetes. 6. Leukocytosis. PLAN: We will continue patient in the hospital. I certainly agree that she needs to be treated for osteomyelitis given her symptoms, diabetes, and longevity of her illness. cc: Clifford Webster MD
[2019-05-14] MEDS: VANCOMYCIN 2,000 MG in NS 500 ML IV SCH ×2 (01:34→20:59)
[2019-05-14] MEDS: MORPHINE IV PRN ×3 (06:11→21:43)
[2019-05-14] MEDS: LASIX IV SCH ×2 (06:11→17:16)
[2019-05-14] MEDS: ROBAXIN PO SCH ×3 (06:12→20:59)
[2019-05-14] MEDS: REQUIP PO SCH ×3 (06:12→20:59)
[2019-05-14] MEDS: NEURONTIN PO SCH ×3 (06:12→20:59)
[2019-05-14] MEDS: HUMULIN R (PARKWAY) SUBQ SCH ×4 (06:14→21:08)
[2019-05-14 06:30] LABS: BASO# 0.02 X1000 (0.0-0.2); BASO% 0.2 % (0.0-0.8); EOS% 2.3 % (0.0-10.0); HEMOGLOBIN 8.3 g/dL (12.0-16.0); IMM GRAN# 0.35 X1000 (0.0-0.04); IMM GRAN% 2.7 % (0.0-0.5); LYMPH% 17.7 % (20.5-51.1); MCHC 28.6 g/dL (33-37); MCV 90.9 FL (81-99); MONO# 1.27 X1000 (0.11-0.59); MONO% 9.8 % (1.7-9.3); MPV 10.9 FL (7.4-10.4); NEUT# 8.75 X1000 (1.4-6.5); NEUT% 67.3 % (42.2-75.2); PLT 272 X1000 (130-400); RBC 3.19 XMIL (4.2-5.4); RDW 15.8 % (11.5-14.5); WBC 12.99 X1000 (4.8-10.8)
[2019-05-14 06:32] LABS: EOS 3 % (1-10); LYMPHS 17 % (21-51); MONO 10 % (1-9); SEGS 70 % (42-75)
[2019-05-14 06:42] LABS: AGAP 11; BUN 25 mg/dL (8-22); CALCIUM 8.6 mg/dL (8.8-10.2); CHLORIDE 106 mmol/L (98-107); COSMO 293; CREATININE 0.8 mg/dL (0.5-0.9); ESTIMATED GFR > 60; GLUCOSE 156 mg/dL (70-104); POTASSIUM 3.7 mmol/L (3.5-5.1); SODIUM 143 mmol/L (136-145); TCO2 26 mmol/L (25-35)
[2019-05-14] MEDS: AMARYL PO SCH ×2 (07:59→17:16)
[2019-05-14] MEDS: LOPRESSOR PO SCH ×2 (07:59→20:59)
[2019-05-14] MEDS: ZYLOPRIM PO SCH (07:59)
[2019-05-14] MEDS: ASPIRIN PO SCH (08:00)
[2019-05-14] MEDS: FIORICET PO PRN (14:56)
--- NOTE | 2019-05-14 20:02 | PROGRESS NOTE ---
DATE: 05/14/2019 SUBJECTIVE: Ms. Laila Olivier is morbidly obese and she has significant lymphedema involving both lower extremities. She has a chronic ulcer, bottom of her right heel, that grows out MRSA and x- rays suggest osteomyelitis, but any amputation would be difficult to heal, and it has been treated conservatively by Dr. Almaraz in our [facility]. She was admitted with acute cellulitis and infection involving her left lower extremity and foot. At the bedside, I performed an I and D, and again cultures of her foot suggest gram-positive cocci. She is on IV vancomycin and I feel clinically that her cellulitis and swelling of her left foot have improved over the last 24 hours. PLAN: Continue elevation of her lower extremities, wound care, and intravenous vancomycin. I am going to ask the nurses or our Wound Center to help dress her wounds. cc: Pauly Murdock MD
--- NOTE | 2019-05-14 22:46 | PROGRESS NOTE ---
DATE: 05/14/2019 SUBJECTIVE: The patient has no new complaints. States that her foot still hurts some, but denies any fevers. OBJECTIVE: She is afebrile, pulse 70s, blood pressure is stable.General: Patient is awake, alert. She is sitting up on the bed with her feet over the side. She is in no respiratory distress. HEENT: Normocephalic. Neck: Supple. Cardiovascular: Regular rate. Chest: Clear. Abdomen: Soft, obese. Extremities: Moves all extremities. Bilateral lower extremity bandages are clean, dry, and intact. ASSESSMENT: 1. Bilateral lower extremity cellulitis with methicillin-resistant Staphylococcus aureus. 2. Ulcerated lesion on her left foot with osteomyelitis. 3. Osteomyelitis of her left foot. 4. Diabetes. 5. Obesity. 6. History of medical noncompliance. PLAN: We are going to continue the patient in the hospital. Continue antibiotics. I expect her to be in the hospital for 4 or 5 more days given the severity of her chronic illness. cc: Clifford Webster MD
[2019-05-15] MEDS: LASIX IV SCH (06:32)
[2019-05-15] MEDS: REQUIP PO SCH ×3 (06:33→22:20)
[2019-05-15] MEDS: NEURONTIN PO SCH ×3 (06:33→22:19)
[2019-05-15] MEDS: ROBAXIN PO SCH ×3 (06:33→23:01)
[2019-05-15 06:42] LABS: HEMATOCRIT 29.5 % (37.0-47.0); HEMOGLOBIN 8.8 g/dL (12.0-16.0); MCH 27.3 PG (27-31); MCHC 29.8 g/dL (33-37); MCV 91.6 FL (81-99); MPV 10.4 FL (7.4-10.4); RBC 3.22 XMIL (4.2-5.4); RDW 15.9 % (11.5-14.5); WBC 11.73 X1000 (4.8-10.8)
[2019-05-15 06:49] LABS: AGAP 9; BUN 19 mg/dL (8-22); CALCIUM 8.9 mg/dL (8.8-10.2); CHLORIDE 105 mmol/L (98-107); COSMO 288; CREATININE 0.7 mg/dL (0.5-0.9); ESTIMATED GFR > 60; GLUCOSE 140 mg/dL (70-104); POTASSIUM 3.7 mmol/L (3.5-5.1); SODIUM 142 mmol/L (136-145); TCO2 28 mmol/L (25-35)
[2019-05-15] MEDS: HUMULIN R (PARKWAY) SUBQ SCH ×4 (07:01→22:21)
[2019-05-15] MEDS: ASPIRIN PO SCH (09:10)
[2019-05-15] MEDS: AMARYL PO SCH ×2 (09:10→16:32)
[2019-05-15] MEDS: MORPHINE IV PRN ×3 (09:10→22:20)
[2019-05-15] MEDS: ZYLOPRIM PO SCH (09:11)
[2019-05-15] MEDS: FIORICET PO PRN (09:11)
[2019-05-15] MEDS: LOPRESSOR PO SCH ×2 (09:11→22:20)
[2019-05-15] MEDS: COLACE PO SCH (10:24)
[2019-05-15] MEDS: VANCOMYCIN 2,000 MG in NS 500 ML IV SCH (14:53)
--- NOTE | 2019-05-16 00:15 | PROGRESS NOTE ---
DATE: 05/15/2019 SUBJECTIVE: Patient overall notes that she is doing okay. Denies any chest pain or palpitations. PHYSICAL EXAMINATION: Temperature 98 degrees, pulse 85, respiratory rate 18, BP 148/75.General: Patient is awake. She is pleasant. She is in no distress. Morbidly obese female. HEENT: Normocephalic. Neck: Supple. Cardiovascular: Regular rate. Chest: Clear, nonlabored. Abdomen: Soft, obese. Extremities: Moves all extremities. Her bilateral lower extremity bandages are clean, dry, and intact. She does have chronic edematous, erythematous changes. ASSESSMENT: 1. Bilateral lower extremity edema and erythema. 2. Osteomyelitis left foot, currently on vancomycin due to her methicillin-resistant Staphylococcus aureus. 3. Leukocytosis, resolved. 4. Obesity. 5. Diabetes. PLAN: We will continue patient in the hospital. Continue vancomycin. Continue wound care and we will follow through the weekend. cc: Clifford Webster MD
[2019-05-16] MEDS: FIORICET PO PRN ×2 (04:51→17:35)
[2019-05-16] MEDS: ROBAXIN PO SCH ×3 (05:36→21:55)
[2019-05-16] MEDS: REQUIP PO SCH ×3 (05:36→21:55)
[2019-05-16] MEDS: NEURONTIN PO SCH ×3 (05:36→21:55)
[2019-05-16] MEDS: HUMULIN R (PARKWAY) SUBQ SCH ×4 (06:16→21:56)
[2019-05-16] MEDS: LOPRESSOR PO SCH ×2 (08:37→21:55)
[2019-05-16] MEDS: ASPIRIN PO SCH (08:37)
[2019-05-16] MEDS: AMARYL PO SCH ×2 (08:37→16:39)
[2019-05-16] MEDS: ZYLOPRIM PO SCH (08:37)
[2019-05-16] MEDS: COLACE PO SCH (08:37)
[2019-05-16] MEDS: MORPHINE IV PRN ×4 (08:37→22:07)
[2019-05-16] MEDS: VANCOMYCIN 2,000 MG in NS 500 ML IV SCH (10:48)
[2019-05-16] MEDS: LASIX IV SCH (10:48)
--- NOTE | 2019-05-16 17:02 | PROGRESS NOTE ---
DATE: 05/16/2019 SUBJECTIVE: Patient notes that her legs hurt a little bit more today than yesterday but otherwise has no new complaints. Denies any fevers or chills. PHYSICAL: Vital Signs: Reviewed. She is awake, alert. She is afebrile. Temperature 97.5 degrees, pulse 89, respiratory 20, BP 132/56. General: Patient is in no respiratory distress pleasant to talk with lying in the bed. HEENT: Normocephalic. Neck: Supple. Cardiovascular: Regular rate. Chest: Clear. Abdomen: Soft, obese, nondistended. Extremities: Moves all extremities. Neuro: No changes. Skin: She has bilateral edematous and mildly erythematous changes of her lower extremities that appear chronic. Does have ulcer on her left foot that is being bandaged daily. ASSESSMENT: 1. Bilateral lower extremity edema and chronic cellulitis. 2. Leukocytosis resolved. 3. Methicillin-resistant Staphylococcus aureus left foot with osteomyelitis. 4. Diabetes. PLAN: Will continue patient in the hospital. Unfortunately she is quite noncompliant with her chronic conditions. We are going to continue her on vancomycin IV for the next several days and then will adjust as needed. cc: Clifford Webster MD
--- NOTE | 2019-05-16 17:44 | PROGRESS NOTE ---
DATE: 05/16/2019 Ms. Laila Olivier has been hospitalized all week because of significant cellulitis involving her left lower extremity and also a soft tissue infection plantar surface left foot from stepping on a foreign body. She has significant lymphedema both lower extremities. She also has a chronic ulcer involving her right heel. All cultures have been MRSA and she is on IV vancomycin because of her cultures. She has no evidence of undrained purulence in either lower extremity. The cellulitis involving her left lower extremity has been slow to resolve. We will continue dressing changes and IV vancomycin and elevation of her lower extremities. cc: Pauly Murdock MD
[2019-05-17] MEDS: VANCOMYCIN 2,000 MG in NS 500 ML IV SCH ×2 (02:42→20:30)
[2019-05-17] MEDS: ROBAXIN PO SCH ×4 (06:27→21:08)
[2019-05-17] MEDS: NEURONTIN PO SCH ×4 (06:27→21:08)
[2019-05-17] MEDS: REQUIP PO SCH ×4 (06:28→21:08)
[2019-05-17] MEDS: MORPHINE IV PRN ×3 (09:05→21:16)
[2019-05-17] MEDS: ZYLOPRIM PO SCH (10:29)
[2019-05-17] MEDS: AMARYL PO SCH ×2 (10:29→16:32)
[2019-05-17] MEDS: ASPIRIN PO SCH (10:30)
[2019-05-17] MEDS: LASIX IV SCH (10:30)
[2019-05-17] MEDS: LOPRESSOR PO SCH ×2 (10:30→21:08)
[2019-05-17] MEDS: COLACE PO SCH (10:30)
[2019-05-17] MEDS: HUMULIN R (PARKWAY) SUBQ SCH ×4 (10:30→22:31)
--- NOTE | 2019-05-17 11:18 | PROGRESS NOTE ---
DATE: 05/17/2019 SUBJECTIVE: Patient denies having any acute complaints this morning. OBJECTIVE: Vital Signs: Temperature 98.3 degrees, pulse 106 per minute, respiratory rate 16 per minute, blood pressure 124/61, pulse oximetry 97% on room air. General: Patient is alert and oriented x3. She does not appear to be in any acute distress. Cardiovascular System: First and second heart sounds are audible without any murmurs or gallops. Respiratory System: Bilateral lung air entry is good without any rales or rhonchi. Gastrointestinal System: Abdomen is soft and nondistended. The patient is morbidly obese. Normal bowel sounds are present. Musculoskeletal System: No deformities are present. Integumentary: Both legs are erythematous, especially on the left leg. Both legs are edematous and having increased warmth, although that appears to be better as compared to the last few days. DIAGNOSTIC DATA: CBC shows WBC count of 11.73, hemoglobin 8.8, hematocrit 29.5, and platelet count of 281. In comparison, her hemoglobin and hematocrit were 8.3 and 29.0 on 05/14/2019. BMP done on 05/15/2019 was nondiagnostic. IMPRESSION: 1. Bilateral leg cellulitis secondary to methicillin-resistant Staphylococcus aureus. 2. Type 2 diabetes mellitus. 3. Anemia of chronic disease. 4. Hypertension. PLAN: The patient will continue to receive vancomycin for MRSA cellulitis. She will continue with the rest of her medications as well. I advised her to keep her legs elevated for faster improvement of her cellulitis, although the progress has been very slow. She will continue to receive regular insulin subcutaneously as per sliding scale for her diabetes control. Further recommendations will be given as per hospital course. cc: Emeterio Luu MD
[2019-05-17] MEDS: FIORICET PO PRN ×2 (12:51→23:39)
[2019-05-17 22:49] LABS: OCCULT BLOOD 1 NEGATIVE (NEGATIVE)
[2019-05-18] MEDS: MORPHINE IV PRN ×3 (04:10→22:12)
[2019-05-18] MEDS: NEURONTIN PO SCH ×3 (06:17→22:11)
[2019-05-18] MEDS: REQUIP PO SCH ×3 (06:17→22:11)
[2019-05-18] MEDS: AMARYL PO SCH ×3 (06:17→17:15)
[2019-05-18] MEDS: ROBAXIN PO SCH ×3 (06:18→22:11)
[2019-05-18] MEDS: HUMULIN R (PARKWAY) SUBQ SCH ×4 (06:19→22:10)
[2019-05-18 08:45] LABS: BASO# 0.03 X1000 (0.0-0.2); BASO% 0.2 % (0.0-0.8); EOS% 2.1 % (0.0-10.0); HEMATOCRIT 29.9 % (37.0-47.0); HEMOGLOBIN 8.8 g/dL (12.0-16.0); IMM GRAN# 0.25 X1000 (0.0-0.04); IMM GRAN% 1.7 % (0.0-0.5); LYMPH# 1.61 X1000 (1.2-3.4); MCH 27.3 PG (27-31); MCHC 29.4 g/dL (33-37); MCV 92.9 FL (81-99); MONO# 1.27 X1000 (0.11-0.59); MONO% 8.7 % (1.7-9.3); MPV 10.5 FL (7.4-10.4); NEUT# 11.13 X1000 (1.4-6.5); NEUT% 76.3 % (42.2-75.2); PLT 286 X1000 (130-400); RBC 3.22 XMIL (4.2-5.4); WBC 14.59 X1000 (4.8-10.8)
[2019-05-18] MEDS: LOPRESSOR PO SCH ×2 (09:21→22:11)
[2019-05-18] MEDS: LASIX IV SCH (09:21)
[2019-05-18] MEDS: ASPIRIN PO SCH (09:21)
[2019-05-18] MEDS: COLACE PO SCH (09:21)
[2019-05-18] MEDS: ZYLOPRIM PO SCH (09:21)
[2019-05-18 09:55] LABS: AGAP 12; BUN 22 mg/dL (8-22); CALCIUM 8.8 mg/dL (8.8-10.2); CHLORIDE 106 mmol/L (98-107); COSMO 298; CREATININE 0.7 mg/dL (0.5-0.9); ESTIMATED GFR > 60; GLUCOSE 141 mg/dL (70-104); POTASSIUM 3.7 mmol/L (3.5-5.1); SODIUM 147 mmol/L (136-145); TCO2 28 mmol/L (25-35)
--- NOTE | 2019-05-18 10:21 | PROGRESS NOTE ---
DATE: 05/18/2019 SUBJECTIVE: The patient denies having any new complaints. OBJECTIVE: Vital Signs: Temperature 99 degrees, pulse 114 per minute, respiratory rate 30 per minute, blood pressure 165/79, pulse oximetry 96% on 2 L of oxygen via nasal cannula. General: The patient is alert and oriented x3. She does not appear to be in any acute distress. Cardiovascular: First and second heart sounds are audible without any murmurs or gallops. Respiratory: Bilateral lung air entry is moderately decreased, but there are no rales or rhonchi present on auscultation. Gastrointestinal: Abdomen is soft and nondistended. Normal bowel sounds are present. DIAGNOSTIC DATA: CBC shows WBC count of 14.59, hemoglobin 8.8, hematocrit 29.9, and platelet count of 286,000. In comparison, her white blood cell count was 11.73 on 05/15/2019, and hemoglobin and hematocrit were 8.8 and 29.5 on 05/15/2019. Chemistry has not been done today. IMPRESSION: 1. Bilateral leg cellulitis secondary to methicillin-resistant staphylococcus aureus. 2. Type 2 diabetes mellitus. 3. Hypertension. 4. Anemia of chronic disease. PLAN: The patient will continue to receive vancomycin, although her progress is so far very slow. We have repeatedly asked her to keep her legs elevated, but she has failed to do so. Her diabetes and hypertension, along with anemia have been stable, and we are going to continue with overall current care. She does have constipation and has been using Lomotil and loperamide continuously, which will be discontinued. She will have her abdominal x-rays done to make sure she does not have any significant constipation. Further recommendations will be given as per hospital course. cc: Emeterio Luu MD
[2019-05-18] MEDS ORDERED: BLISTEX MEDICATED BERRY LIP BALM TOP PRN (10:25)
[2019-05-18] MEDS: FIORICET PO PRN (11:24)
[2019-05-18] MEDS: ZYRTEC PO SCH (13:08)
[2019-05-18] MEDS: VANCOMYCIN 2,000 MG in NS 500 ML IV SCH (13:34)
--- NOTE | 2019-05-18 16:32 | Diag Imaging Result Doc PS360 ---
EXAM: KUB ABDOMEN - 05/18/2019 HISTORY: constipation TECHNIQUE: Portable AP spine abdomen COMPARISON: None. FINDINGS: There is some limitation of detail due to artifacts from the patient's body habitus. There is a moderate amount retained fecal debris in the colon and rectum. The bowel gas pattern is otherwise unremarkable. IMPRESSION: Apparent constipation. Unremarkable bowel gas pattern otherwise. Electronically signed by Julio Fitzgerald 05/18/2019 4:30 PM
[2019-05-19] MEDS: MORPHINE IV PRN ×4 (04:15→21:38)
[2019-05-19] MEDS: AMARYL PO SCH ×3 (05:42→17:02)
[2019-05-19] MEDS: ROBAXIN PO SCH ×3 (05:42→21:44)
[2019-05-19] MEDS: NEURONTIN PO SCH ×3 (05:42→21:43)
[2019-05-19] MEDS: REQUIP PO SCH ×3 (05:43→21:42)
[2019-05-19] MEDS: HUMULIN R (PARKWAY) SUBQ SCH ×4 (06:22→21:47)
[2019-05-19 07:03] LABS: BASO# 0.03 X1000 (0.0-0.2); BASO% 0.3 % (0.0-0.8); EOS# 0.37 X1000 (0.0-0.7); EOS% 3.1 % (0.0-10.0); HEMATOCRIT 27.8 % (37.0-47.0); IMM GRAN# 0.16 X1000 (0.0-0.04); IMM GRAN% 1.4 % (0.0-0.5); LYMPH# 2.46 X1000 (1.2-3.4); LYMPH% 20.9 % (20.5-51.1); MCH 26.8 PG (27-31); MCHC 28.8 g/dL (33-37); MONO# 0.93 X1000 (0.11-0.59); MONO% 7.9 % (1.7-9.3); MPV 10.5 FL (7.4-10.4); NEUT% 66.4 % (42.2-75.2); PLT 225 X1000 (130-400); RBC 2.99 XMIL (4.2-5.4); WBC 11.75 X1000 (4.8-10.8)
[2019-05-19 07:28] LABS: AGAP 11; ALBUMIN 2.9 g/dL (3.5-5.0); ALKALINE PHOSPHATASE 100 U/L (32-104); BUN 20 mg/dL (8-22); CALCIUM 8.6 mg/dL (8.8-10.2); CHLORIDE 105 mmol/L (98-107); COSMO 291; CREATININE 0.8 mg/dL (0.5-0.9); ESTIMATED GFR > 60; GLUCOSE 162 mg/dL (70-104); GOT 8 U/L (10-30); GPT 9 U/L (10-36); POTASSIUM 3.5 mmol/L (3.5-5.1); SODIUM 143 mmol/L (136-145); TCO2 27 mmol/L (25-35); TOTAL PROTEIN 6.9 g/dL (6.3-8.3)
[2019-05-19] MEDS: ZYRTEC PO SCH (09:11)
[2019-05-19] MEDS: LASIX IV SCH (09:11)
[2019-05-19] MEDS: COLACE PO SCH (09:11)
[2019-05-19] MEDS: MIRALAX PO SCH (09:11)
[2019-05-19] MEDS: LOPRESSOR PO SCH ×2 (09:11→21:44)
[2019-05-19] MEDS: ZYLOPRIM PO SCH (09:11)
[2019-05-19] MEDS: ASPIRIN PO SCH (09:11)
[2019-05-19] MEDS: VANCOMYCIN 2,000 MG in NS 500 ML IV SCH (10:31)
[2019-05-19] MEDS: FIORICET PO PRN ×2 (10:32→22:11)
[2019-05-19] MEDS: DUONEB (A & A) INH PRN ×2 (10:43→19:38)
[2019-05-19] MEDS: BYDUREON SUBQ SCH (12:39)
--- NOTE | 2019-05-19 22:49 | PROGRESS NOTE ---
DATE: 05/19/2019 SUBJECTIVE: Patient has no complaints. Notes that she has been trying to sit with her feet propped up more than she had been. Denies any fevers or chills. OBJECTIVE: Vital signs: Temperature 98.2, pulse 98, respiratory rate 18, BP 148/67. General: Patient is a morbidly obese female who is currently in no respiratory distress, lying in the bed with no current distress. HEENT: Normocephalic. Neck: Supple. Cardiovascular: Regular rate. Chest: Clear, nonlabored. Abdomen: Soft, nondistended. Extremities: Moves all extremities. Skin: She has edematous and mildly erythematous chronic changes of bilateral lower extremities. It actually appears better today than it did a couple of days ago when I last saw her. Her bilateral feet have bandages that are clean, dry and intact. ASSESSMENT: 1. Right foot cellulitis with methicillin-resistant Staphylococcus aureus. 2. Bilateral chronic edematous and mildly cellulitic changes of shins. 3. Type 2 diabetes. 4. Morbid obesity. 5. Anemia of chronic disease. 6. Hypertension. PLAN: We will continue patient on vancomycin today. Hopefully, she can discharge home in the next 1 to 2 days. Unfortunately, she is chronically noncompliant, which is requiring her stay in the hospital a little bit longer to attempt to ensure that she improves. Certainly, concerning for her developing osteomyelitis of her foot due to her recent injury and surgical intervention. We will follow. cc: Clifford Webster MD
[2019-05-20] MEDS: VANCOMYCIN 2,000 MG in NS 500 ML IV SCH ×2 (02:37→21:14)
[2019-05-20] MEDS: MORPHINE IV PRN ×3 (02:44→21:39)
[2019-05-20] MEDS: REQUIP PO SCH ×3 (05:39→21:13)
[2019-05-20] MEDS: NEURONTIN PO SCH ×3 (05:40→21:14)
[2019-05-20] MEDS: ROBAXIN PO SCH ×3 (05:41→21:12)
[2019-05-20] MEDS: HUMULIN R (PARKWAY) SUBQ SCH ×4 (05:59→21:12)
[2019-05-20] MEDS: AMARYL PO SCH ×2 (06:39→16:43)
--- NOTE | 2019-05-20 06:51 | PROGRESS NOTE ---
DATE: 05/20/2019 Ms. Laila Olivier continues to get IV vancomycin for MRSA infection involving both lower extremities. 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 She stepped on a foreign body involving her left mid foot, and I performed incision and drainage of this area, and it had an MRSA infection. She also has cellulitis involving mostly her left lower extremity which has been slow to improve. She has significant lymphedema of both lower extremities. IV antibiotics and wound care continues. We have also had her elevate her legs as much as she can. Her wounds need to be dressed daily by our wound care center or nurses. cc: Pauly Murdock MD
[2019-05-20] MEDS: DUONEB (A & A) INH PRN ×2 (07:50→19:23)
[2019-05-20] MEDS: MIRALAX PO SCH (08:51)
[2019-05-20] MEDS: ZYLOPRIM PO SCH (08:52)
[2019-05-20] MEDS: ASPIRIN PO SCH (08:52)
[2019-05-20] MEDS: ZYRTEC PO SCH (08:52)
[2019-05-20] MEDS: LOPRESSOR PO SCH ×2 (08:52→21:12)
[2019-05-20] MEDS: COLACE PO SCH (08:52)
[2019-05-20] MEDS: LASIX IV SCH (08:52)
[2019-05-20] MEDS: FIORICET PO PRN ×2 (13:44→21:40)
--- NOTE | 2019-05-20 14:35 | DISCHARGE SUMMARY ---
ADMISSION DATE: 05/09/2019 DISCHARGE DATE: 05/20/2019 ADMISSION DIAGNOSES: 1. Sepsis. 2. Bilateral lower extremity cellulitis with a right heel ulcer. 3. Leukocytosis. 4. Diabetes mellitus type 2. DISCHARGE DIAGNOSES: 1. Right foot cellulitis with methicillin-resistant Staphylococcus aureus. 2. Bilateral chronic edematous and mildly cellulitic changes of shins. 3. Diabetes mellitus type 2. 4. Morbid obesity with a BMI of 56.1. 5. Anemia of chronic disease. 6. Hypertension. 7. Left foot osteomyelitis methicillin-resistant Staphylococcus aureus. CONSULTATIONS: Dr. Paul Almaraz for right lower extremity cellulitis and osteomyelitis. PICC line placement. [facility] [employer] for vancomycin scheduling. [facility] for IV infusion at home and home health care. Also, Wound care was consulted. SURGERIES OR PROCEDURES: Incision and drainage on 05/12/[address] Murdock. It was performed at the bedside, not in the operating room. It was of the left foot plantar aspect and apparently there was a foreign body that she had stepped on. Cultures were taken and the wound was packed and open. IV antibiotics were started for that and Wound care was consulted. HOSPITAL COURSE: Ms. Laila Olivier a 59-year-old female presented to emergency [facility] ER with complaints of fever around 104-103 that started the day before presentation. She had chills, incontinence, and was noted to have a large decubitus on the bottom of her right foot that was tunneling. Dr. Murdock was consulted for that and noted that he felt as if she had stepped on a foreign body where he did an incision and drainage and packed it and started her on antibiotics. She was started on antibiotics on admit due to signs and symptoms of sepsis. She is seen at the [facility] for bilateral lower extremity wounds. Apparently, they were dressed the day before presentation, her lower extremities were noted to be erythematous, swollen, warm to touch, cellulitic in nature. Temperature was 101 degrees when she actually did present to the emergency department. Her pulse was 143, [place] [id number], and her lactate was 1.4. It was checked multiple times during her 1st 24 hours. It was 1.4, then 1.0, then 1.4 once again. Vancomycin and Zosyn were the medication antibiotic coverage that was initiated. The cultures came back positive for MRSA, it was oxacillin resistant, penicillin resistant and erythromycin resistant with cultures being left leg MRSA, right foot MRSA. This was on the and then again on the MRSA on the left foot. The blood cultures were negative. She was started back on her diabetic medications with sliding scale insulin. She slowly had improvement in the lower extremity cellulitis. The left foot was ruled out for osteomyelitis. She had a PICC line placement and verbal consultation through on the phone with Dr. Heath. She had a lower extremity MRI performed on the and it did show that there could be osteomyelitis actually on the right foot. She was continued on vancomycin as all of her cultures came back gram- positive methicillin- resistant Staphylococcus aureus. She improved slowly. She continued on vancomycin. She is going to follow up with Dr. Murdock as an outpatient. She is going to continue her IV vancomycin with a PICC line in place with [facility] following her at home for IV antibiotic treatment. She did have some constipation while she was in here. Everything else was stable. She will also follow up with [facility] as an outpatient. DISCHARGE VITAL SIGNS: Temperature 98 degrees, heart rate 82, respiratory rate 18, blood pressure 130/55, O2 saturation 95% on room air. LAB DATA: White blood cells 11,000. Hemoglobin 8. Hematocrit 27, platelet count 225,000. Sodium 143, potassium 3.5, BUN 20, creatinine 0.8, glucose 162, calcium 8.6, bilirubin 0.30, AST 8 and ALT 9, albumin 2.9. Stool blood was negative. Microbiology report 05/09/2019: Blood cultures. 05/10/2019 left leg methicillin-resistant Staphylococcus aureus resistant to erythromycin, oxacillin, penicillin. 05/09/2019 right foot also MRSA resistant to erythromycin, oxacillin, penicillin. On 05/12/2019, left foot MRSA still resistant to erythromycin, oxacillin, penicillin IMAGIN05/09/2019, chest x-ray, low lung volumes, but no acute findings. 05/12/2019: Foot x- ray, large heel ulcer, focal osteopenia involving the plantar calcaneus without discrete periostitis or definitive bone destruction. May indicate hyperemia or very early osteomyelitis. MRI could be considered, suggested chronic osteomyelitis of the MTP joint of the 3rd toe 05/12/2019. Lower extremity MRI on the right with and without contrast, abnormal signal intensity enhancement posterior lateral calcaneus may represent osteomyelitis. Deformity of third MTP joint shows only mild signal abnormality and enhancement could be secondary to neuropathic change versus chronic osteomyelitis. Nonspecific fossae signal abnormality and enhancement within the talus. Severe cellulitis about the plantar surface of the foot with large ulcer, severe edema throughout the entire foot and then on 05/18/2019, abdominal x-ray showed constipation. EKG: There was 1 on the , sinus tachycardia, rate 138, QTc 43. DISCHARGE DIET: Diabetic with a Richard packet. DISCHARGE ACTIVITY: As tolerated. DISCHARGE MEDICATIONS: 1. Sitagliptin back/metformin 1 tablet p.o. nightly. 2. Amaryl 4 mg p.o. twice daily. 3. Aspirin 325 mg p.o. daily. 4. Butalbital/acetaminophen 1 tablet p.o. every 8 hours p.r.n. 5. Exenatide Microspheres 2 mg subcutaneous every 7 days. 6. Lasix 40 mg p.o. p.r.n. for shortness of breath. 7. Lomotil 1 tablet p.o. 4 times daily as needed for diarrhea. 8. Neurontin 800 mg p.o. t.i.d. 9. [place] 10s 1 tablet p.o. every 8 hours p.r.n. 10. Robaxin 750 p.o. t.i.d. 11. Ropinirole 4 mg p.o. t.i.d. 12. Allopurinol 300 mg p.o. daily. 13. Imodium. 14. Home medications: She will be on vancomycin 2 g IV Q 18 hours for 5 weeks. PHYSICIAN FOLLOWUP: Dr. Belen Dominique, [facility], Dr. Murdock and possibly Dr. Heath. DISCHARGE INSTRUCTIONS: If your condition changes, contact your physician and/or return to the emergency department. Changes may include, but not limited to shortness of breath, increased fatigue, excessive bleeding, unexplained weight loss or gain, unmanageable pain, signs or symptoms of infection. DISCHARGE DISPOSITION: Home. Dictated by RADHA Pinedo for Favio Gamble MD Addendum: Patient seen and examined by myself. Agree with RADHA note. It reflects my assessment and plan. Patient is being discharged in stable condition. Will be seen by Dr. Heath from [place] in a week. cc: RADHA Pinedo MD [facility]
[2019-05-21] MEDS: NEURONTIN PO SCH (05:32)
[2019-05-21] MEDS: REQUIP PO SCH (05:32)
[2019-05-21] MEDS: MORPHINE IV PRN (05:33)
--- NOTE | 2019-05-21 06:32 | PROGRESS NOTE ---
DATE: 05/13/2019 Ms. Laila Olivier has chronic lymph edema involving both lower extremities with significant swelling. She has a chronic ulcer involving her right heel and she has developed an infection involving the plantar surface of her left foot after stepping on a foreign body. She has significant cellulitis involving the left leg. At the bedside, I performed a limited incision and drainage of the left foot and cultures were taken. The wound remains open. I cleansed the wound today left foot and redressed it. She had a PICC line placed and IV antibiotics continue. She is receiving vancomycin. PLAN: Continue local wound care and IV antibiotics to treat soft tissue infection bottom of left foot and her cellulitis left leg. She is seen regularly at our [facility] per Dr. Paul Almaraz. cc: Pauly Murdock MD
[2019-05-21] MEDS: ROBAXIN PO SCH (06:52)
[2019-05-21] MEDS: HUMULIN R (PARKWAY) SUBQ SCH (06:53)
[2019-05-21] MEDS ORDERED: FLU VACCINE IM ONE (07:13)
[2019-05-21 07:37] VITALS: BP 158/84
[2019-05-21] MEDS: DUONEB (A & A) INH PRN (07:50)
[2019-05-21] MEDS: VANCOMYCIN 2,000 MG in NS 500 ML IV SCH (09:12)
[2019-05-21] MEDS: ASPIRIN PO SCH (09:17)
[2019-05-21] MEDS: AMARYL PO SCH (09:17)
[2019-05-21] MEDS: ZYLOPRIM PO SCH (09:17)
[2019-05-21] MEDS: ZYRTEC PO SCH (09:17)
[2019-05-21] MEDS: LOPRESSOR PO SCH (09:17)
== END 2019-05-21 12:13 | disposition home health service (06) | DRG 872 ==
LOC: P.ED 08:49 → P.MEDSURG 11:27 → SUATTDRO 11:27 → P.MEDSURG 12:09
PROVIDERS: ATTEND Internal Medicine

== ENCOUNTER 2019-05-30 11:10 | Inpatient (IN) ==
[2019-05-30] MEDS ORDERED: ROCEPHIN 2 GM in NS 50 ML IV ONE (12:59)
[2019-05-30] MEDS ORDERED: NS 0 ML ONE (13:37)
[2019-05-30 14:34] LABS: BASO# 0.02 X1000 (0.0-0.2); BASO% 0.2 % (0.0-0.8); EOS# 0.11 X1000 (0.0-0.7); EOS% 0.9 % (0.0-10.0); HEMATOCRIT 32.4 % (37.0-47.0); HEMOGLOBIN 9.5 g/dL (12.0-16.0); IMM GRAN# 0.03 X1000 (0.0-0.04); IMM GRAN% 0.3 % (0.0-0.5); LYMPH# 1.56 X1000 (1.2-3.4); LYMPH% 13.1 % (20.5-51.1); MCHC 29.3 g/dL (33-37); MONO# 0.87 X1000 (0.11-0.59); MONO% 7.3 % (1.7-9.3); MPV 10.5 FL (7.4-10.4); NEUT# 9.32 X1000 (1.4-6.5); NEUT% 78.2 % (42.2-75.2); PLT 275 X1000 (130-400); RBC 3.52 XMIL (4.2-5.4); RDW 18.5 % (11.5-14.5); WBC 11.91 X1000 (4.8-10.8)
[2019-05-30 15:12] LABS: AGAP 13; ALB/GLOB RATIO 0.8; ALBUMIN 3.4 g/dL (3.5-5.0); ALKALINE PHOSPHATASE 110 U/L (32-104); BUN 13 mg/dL (8-22); CALCIUM 8.9 mg/dL (8.8-10.2); CHLORIDE 101 mmol/L (98-107); COSMO 274; CREATININE 0.6 mg/dL (0.5-0.9); ESTIMATED GFR > 60; GLUCOSE 73 mg/dL (70-104); GOT 12 U/L (10-30); GPT 10 U/L (10-36); MAGNESIUM 2.5 mg/dL (1.5-2.7); POTASSIUM 3.5 mmol/L (3.5-5.1); SODIUM 138 mmol/L (136-145); TCO2 24 mmol/L (25-35); TOTAL BILIRUBIN 0.72 mg/dL (0.20-1.00); TOTAL PROTEIN 7.7 g/dL (6.3-8.3)
[2019-05-30] MEDS ORDERED: MORPHINE IV ONE (16:31)
--- NOTE | 2019-05-30 16:52 | Diag Imaging Result Doc PS360 ---
CHEST-PORTABLE - 05/30/2019 INDICATION: dyspnea COMPARISON: 05/09/2019 FINDINGS: Stable sternotomy changes. Stable cardiomegaly and pulmonary vascular congestion. No infiltrates or edema. There is a left PICC line in good position with the catheter tip at the upper SVC. IMPRESSION: Significant cardiomegaly and pulmonary vascular congestion. Electronically signed by Reed Schroeder 05/30/2019 4:50 PM
[2019-05-30] MEDS ORDERED: ZOFRAN IV PRN (16:59)
[2019-05-30] MEDS ORDERED: TYLENOL PO PRN (18:12)
[2019-05-30] MEDS: NEURONTIN PO SCH (18:39)
[2019-05-30] MEDS: ROBAXIN PO SCH (18:39)
[2019-05-30] MEDS: CUBICIN 600 MG in NS 100 ML IV SCH (18:40)
[2019-05-30] MEDS: REQUIP PO SCH (18:40)
[2019-05-30] MEDS: LASIX IV SCH (18:48)
--- NOTE | 2019-05-30 18:56 | HISTORY AND PHYSICAL ---
PRIMARY CARE PROVIDER: Dr. Belen Dominique. GENERAL SURGEON: Dr. Paul Almaraz. INFECTIOUS DISEASE: Dr. Viraj Heath. CHIEF COMPLAINT: The patient was sent over from the wound center for left lower extremity failed outpatient treatment. HISTORY OF PRESENT ILLNESS: Ms. Olivier is a pleasant 59-year-old female who presented to the ED after being sent over from Dr. Almaraz's wound [facility] for failed outpatient treatment of osteomyelitis of the left lower extremity. She was most recently discharged from our service on 05/20/2019 for MRSA of bilateral lower extremities and osteomyelitis of the left lower extremity. She does have a known right foot lower extremity wound as well that was tunneling. She denies tunneling on the left lower extremity. She was supposed to complete a 6 week IV antibiotic course with IV vancomycin at home. The patient's only complaint at this time is shortness of breath. She has to sit up to sleep and she is not able to walk to her bathroom. She uses a bedside commode secondary to swelling in her legs as well as pain and because she becomes so short of breath. She is somewhat tearful at this time. She did not want to be admitted and she is in fear of losing her left foot. She did report she went and saw her PCP who told her to take 160 mg of her Lasix at home. We will check a chest x-ray, do a proBNP. We will do 2 doses of IV Lasix to see if her breathing improves. We will start her on some supplemental O2. We will do strict I Os, daily weights, consult Dr. Almaraz, Dr. Viraj Heath, and Wound Care on Sunday and we will switch her IV antibiotics from vancomycin to daptomycin. Other than that, she stated she would have not come to the ER today to be evaluated. She was did not report any other issues. PAST MEDICAL HISTORY: 1. Diabetes mellitus type 2. 2. Gout. 3. Hypertension. 4. Dyslipidemia. 5. Restless leg syndrome. 6. Peripheral neuropathy. 7. Peripheral vascular disease. 8. Osteomyelitis with amputation of 3 toes on the right foot. 9. Coronary artery disease status post CABG. 10. Bilateral lower extremity cellulitis that has grown out MRSA. 11. Right heel ulcer that is currently being treated now a left heel ulcer that is currently being treated by the Wound Clinic with Dr. Almaraz. She does have bilateral Unna Boots. PAST SURGICAL HISTORY: 1. CABG in 2005. 2. Hysterectomy. 3. section. 4. Tonsillectomy. 5. Adenoidectomy. 6. Amputation of toes on bilateral feet. FAMILY HISTORY: Reviewed and noncontributory. SOCIAL HISTORY: She lives with a sister. No tobacco, alcohol or illicit drug use. ALLERGIES: To Zanaflex, anaphylactic. HOME MEDICATIONS: 1. Allopurinol 300 mg p.o. q.a.m. 2. Aspirin 325 mg p.o. q.a.m. 3. Lomotil 1 each p.o. 4 times a day p.r.n. diarrhea. 4. Bydureon 10, 2 mg subcutaneously as directed. 5. Lasix 80 mg p.o. as directed. 6. Neurontin 800 mg p.o. t.i.d. 7. Glimepiride 4 mg p.o. b.i.d. 8. Tipton 10 one each p.o. 2 q.8 hours p.r.n. 9. Robaxin 750 mg p.o. t.i.d. 10. Lopressor 50 mg p.o. b.i.d. 11. Requip 4 mg p.o. t.i.d. 12. Janumet XR 2 tablets p.o. at bedtime. REVIEW OF SYSTEMS: Twelve-point review of systems completely negative except for those mentioned in HPI. PHYSICAL EXAMINATION: VITAL SIGNS: Temperature is 97.6 degrees, heart rate 106, respirations 19, blood pressure 149/83, O2 is 93% on room air. GENERAL: Ms. Olivier is a pleasant, but tearful, nervous, 59-year-old female who is sitting on the stretcher in the ED in no acute distress. However, she does visibly have to take deep breaths after and unable to speak in full sentences. HEENT: Atraumatic, normocephalic. PERRL. NECK: Supple. Trachea midline. CARDIOVASCULAR: S1, S2 appreciated. No murmurs, gallops, rubs noted. RESPIRATORY: Lung sounds clear bilaterally, decreased in the bases. GI: Was soft, nontender, nondistended. Positive bowel sounds in all 4 quadrants. EXTREMITIES: Lower extremities are edematous. They are red, warm to the touch. She does have a right heel wound that is currently covered and dressed with her Unna boot on. She has a left lower extremity wound. They have taken the bandage off that. It is open, tunneling. Could not really appreciate a foul odor. They did take wound cultures. She has a PICC line in her left arm. NEUROLOGIC: No focal deficits noted. LABORATORY DATA: Wound cultures are pending. White count 11, hemoglobin and hematocrit 9 and 32, platelet count 275,000. Sodium 138, potassium 3.5, BUN 13, creatinine 0.6, blood glucose is 73, magnesium is 2.5. Chest x-ray currently pending. ProBNP pending. ASSESSMENT AND PLAN: 1. Failed outpatient treatment of bilateral lower extremity cellulitis with a right heel ulcer. She has grown out methicillin-resistant Staphylococcus aureus. She was on a 6-week course of IV vancomycin. We will switch her to daptomycin. We will consult Dr. Viraj Heath on Sunday, Dr. Almaraz and Wound Care on Sunday. We will continue with dressing changes and Unna boot. 2. Leukocytosis secondary to #1. 3. Diabetes mellitus type 2. We will continue home regimen and place her on sliding scale. 4. Peripheral neuropathy. Continue gabapentin. 5. Peripheral vascular disease. 6. Dyslipidemia. 7. Restless legs syndrome. Continue Requip. 8. Further recommendations to follow physician evaluation, laboratory and diagnostic data. Dictated by RADHA Dockery for Arlyn Oseguera MD cc: MD Marti Smith MD Faye Wilson, MD I performed a face to face encounter on the patient. I reviewed all labs and imaging on the patient. I agree with the H&P as dictated. [facility]
[2019-05-30 19:26] LABS: URINE SOURCE CATH
[2019-05-30 19:31] LABS: BILIRUBIN URINE NEGATIVE (NEGATIVE); BLOOD URINE TRACE (NEGATIVE); COLOR YELLOW; GLUCOSE URINE NEGATIVE (NEGATIVE); KETONE URINE NEGATIVE (NEGATIVE); LEUKOCYTES URINE NEGATIVE (NEGATIVE); NITRITE URINE NEGATIVE (NEGATIVE); PROTEIN URINE 50 mg/dL (NEGATIVE); SP GRAVITY URINE 1.018; TURBIDITY URINE CLEAR (CLEAR); UROBILINOGEN URINE 2 mg/dL (NORMAL)
[2019-05-30 19:33] LABS: UR EPITHELIAL CELLS <10 /HPF (<10); URINE BACTERIA NEGATIVE /HPF; URINE RBC <10 /HPF (<10); URINE WBC <10 /HPF (<10)
[2019-05-30] MEDS: LOPRESSOR PO SCH (20:20)
[2019-05-30] MEDS: HUMALOG SUBQ SCH (20:20)
[2019-05-30] MEDS: NORCO-10 PO PRN (20:27)
[2019-05-30] MEDS: AMARYL PO SCH (20:28)
[2019-05-30] MEDS: MORPHINE IV PRN (22:56)
[2019-05-31] MEDS: MORPHINE IV PRN ×3 (03:30→16:43)
[2019-05-31] MEDS: NORCO-10 PO PRN ×2 (04:25→13:41)
[2019-05-31] MEDS: HUMALOG SUBQ SCH ×3 (06:01→17:15)
[2019-05-31] MEDS: LASIX IV SCH ×4 (06:06→22:17)
[2019-05-31 09:25] LABS: BASO# 0.02 X1000 (0.0-0.2); BASO% 0.2 % (0.0-0.8); EOS# 0.17 X1000 (0.0-0.7); HEMATOCRIT 30.3 % (37.0-47.0); HEMOGLOBIN 8.7 g/dL (12.0-16.0); IMM GRAN# 0.03 X1000 (0.0-0.04); IMM GRAN% 0.4 % (0.0-0.5); LYMPH# 1.88 X1000 (1.2-3.4); LYMPH% 22.4 % (20.5-51.1); MCH 26.8 PG (27-31); MCHC 28.7 g/dL (33-37); MCV 93.2 FL (81-99); MONO# 0.52 X1000 (0.11-0.59); MONO% 6.2 % (1.7-9.3); MPV 10.4 FL (7.4-10.4); NEUT# 5.78 X1000 (1.4-6.5); NEUT% 68.8 % (42.2-75.2); PLT 240 X1000 (130-400); RBC 3.25 XMIL (4.2-5.4); RDW 18.7 % (11.5-14.5)
[2019-05-31 09:36] LABS: CALCIUM 8.2 mg/dL (8.8-10.2); POTASSIUM 3.6 mmol/L (3.5-5.1)
[2019-05-31 09:41] LABS: EOS 1 % (1-10); LYMPHS 24 % (21-51); MONO 7 % (1-9); SEGS 68 % (42-75)
[2019-05-31 09:42] LABS: ANISOCYTOSIS 1+; HYPOCHROM 2+; LARGE PLATELETS OCCASIONAL
--- NOTE | 2019-05-31 09:48 | GENERAL SURGERY CONSULTATION ---
DATE: 05/31/2019 REASON FOR CONSULTATION: Chronic wounds of left lower extremity. REQUESTING PHYSICIAN: Hospitalist service. HISTORY OF PRESENT ILLNESS: A 59-year-old female, known to my partner, Dr. Almaraz, who has been seen in our Wound Care Clinic. She apparently has had issues with these wounds for a while and has essentially failed outpatient management. She has been admitted for evaluation for worsening wound. The Hospitalists have admitted her. PAST MEDICAL HISTORY: 1. Diabetes mellitus type 2. 2. Gout. 3. Hypertension. 4. Dyslipidemia. 5. Restless legs syndrome. 6. Peripheral neuropathy. 7. Peripheral vascular disease. 8. History of osteomyelitis. 9. Coronary artery disease. 10. Bilateral lower extremity cellulitis. 11. Right heel ulcer. PAST SURGICAL HISTORY: Includes: 1. Coronary artery bypass. 2. Hysterectomy. 3. section. 4. Tonsillectomy. 5. Adenoidectomy. 6. Amputation. FAMILY HISTORY: Reviewed with patient, noncontributory. SOCIAL HISTORY: Lives with sister. ALLERGIES: Reviewed. HOME MEDICATIONS: Reviewed. REVIEW OF SYSTEMS: A full 14 systems reviewed and negative as specified in the HPI. PHYSICAL EXAMINATION: Vital Signs: Patient is currently afebrile, her vital signs stable. General: No acute distress. HEENT: Normocephalic, atraumatic. Pupils equal, round, reactive to light. Mucous membranes moist. Oropharynx benign. Neck: Supple. Trachea midline. Cardiovascular: Regular rate and rhythm. Lungs: Grossly clear. Abdomen: Soft, nontender, nondistended. Extremities: Dressings noted to both lower extremities at the ankles and heels. Some cellulitis extending up to the leg into the calf. Neurologic: Grossly intact. Skin: As noted above. Vascular: Extremities appear to be perfused. LABORATORY DATA: Reviewed. ASSESSMENT AND PLAN: A 59-year-old with chronic wounds to bilateral legs. Chronic wounds. At this time, we will have the patient see Dr. Almaraz on Sunday. We will continue current treatment and will follow. cc: Jan Valentin MD
[2019-05-31] MEDS: ZYLOPRIM PO SCH (10:16)
[2019-05-31] MEDS: AMARYL PO SCH (10:16)
[2019-05-31] MEDS: REQUIP PO SCH ×3 (10:16→16:42)
[2019-05-31] MEDS: ASPIRIN PO SCH (10:16)
[2019-05-31] MEDS: ROBAXIN PO SCH ×3 (10:16→16:43)
[2019-05-31] MEDS: NEURONTIN PO SCH ×3 (10:16→16:43)
[2019-05-31] MEDS: LOPRESSOR PO SCH ×2 (10:16→20:30)
[2019-05-31] MEDS: LOVENOX SUBQ SCH (10:36)
[2019-05-31] MEDS: CULTURELLE PO SCH ×2 (10:49→20:30)
[2019-05-31] MEDS: CUBICIN 600 MG in NS 100 ML IV SCH (17:14)
--- NOTE | 2019-05-31 18:12 | PROGRESS NOTE ---
DATE: 05/31/2019 SUBJECTIVE: The patient complains of swelling and pain in her legs. OBJECTIVE: Vital Signs: Temperature 98.6 degrees, blood pressure 108/52, heart rate 70, respirations 18, O2 saturation is 100% on room air. General: This is a morbidly obese female lying in bed in no acute distress. Heart: S1, S2 normal. Regular rate and rhythm. Lungs clear to auscultation bilaterally. Abdomen: Positive bowel sounds. Soft, obese, nontender, nondistended. Extremities: Edema 3+ with diffuse erythema involving both lower extremities, superimposed on stasis dermatitis. The patient has a large wound on the plantar aspect of the foot that is wrapped in a dressing. There is some discharge coming from the wound. Neurologic: The patient is alert and oriented x4. LABORATORY DATA: White blood cell count 8.4, hemoglobin 8.7, hematocrit 30, platelets 240,000. Sodium 139, potassium 3.6, chloride 100, CO2 is 26, BUN 15, creatinine 1, glucose 120. ASSESSMENT AND PLAN: 1. Left diabetic foot infection. So far the wound culture is growing gram- negative rods. Continue with broad-spectrum antibiotics and wound care. General Surgery and Infectious Disease have been consulted for further treatment recommendations. 2. Bilateral lower extremity cellulitis with stasis dermatitis. Continue with antibiotic therapy. We will await further recommendations from Infectious Disease. 3. Morbid obesity. Aware. 4. Diabetes mellitus type 2. The patient is on sliding scale insulin. 5. History of gout. Continue on allopurinol. 6. Peripheral edema. Continue on intravenous Lasix. 7. Restless legs syndrome. Continue on Requip. 8. Deep vein thrombosis prophylaxis. Continue on Lovenox. cc: Arlyn Oseguera MD [facility]
[2019-05-31] MEDS: HUMULIN R SUBQ SCH (20:31)
[2019-06-01] MEDS: MORPHINE IV PRN ×4 (02:09→22:33)
[2019-06-01] MEDS: NORCO-10 PO PRN ×2 (04:09→17:48)
[2019-06-01] MEDS: HUMULIN R SUBQ SCH ×4 (06:04→20:38)
--- NOTE | 2019-06-01 07:29 | GENERAL SURGERY PROGRESS NOTE ---
DATE: 06/01/2019 SUBJECTIVE: The patient seems to be doing okay. OBJECTIVE: Vital Signs: The patient is currently afebrile. Her vital signs are stable. General Examination: No acute distress. HEENT: Normocephalic, atraumatic. Pupils equal, round, reactive to light. Mucous membranes moist. Oropharynx benign. Neck: Supple. Trachea midline. Cardiovascular: Regular rate and rhythm. Lungs: Grossly clear. Abdomen: Soft, nontender, nondistended. Extremities: Wounds noted and essentially unchanged. Neurologic: Grossly intact. Skin: Erythema noted to the legs and essentially unchanged. ASSESSMENT AND PLAN: A 59-year-old female with chronic wounds to lower extremities. Chronic wounds to the lower extremities. At this time, we will continue local wound care and have patient be seen by Dr. Almaraz on Sunday. cc: Jan Valentin MD
[2019-06-01 07:43] LABS: BASO# 0.04 X1000 (0.0-0.2); BASO% 0.5 % (0.0-0.8); EOS# 0.19 X1000 (0.0-0.7); EOS% 2.5 % (0.0-10.0); HEMATOCRIT 30.9 % (37.0-47.0); HEMOGLOBIN 8.8 g/dL (12.0-16.0); IMM GRAN# 0.04 X1000 (0.0-0.04); IMM GRAN% 0.5 % (0.0-0.5); LYMPH# 2.43 X1000 (1.2-3.4); LYMPH% 31.6 % (20.5-51.1); MCH 26.7 PG (27-31); MCHC 28.5 g/dL (33-37); MCV 93.9 FL (81-99); MONO# 0.85 X1000 (0.11-0.59); MONO% 11.1 % (1.7-9.3); MPV 10.4 FL (7.4-10.4); NEUT# 4.13 X1000 (1.4-6.5); NEUT% 53.8 % (42.2-75.2); PLT 241 X1000 (130-400); RBC 3.29 XMIL (4.2-5.4); RDW 18.7 % (11.5-14.5); WBC 7.68 X1000 (4.8-10.8)
[2019-06-01] MEDS ORDERED: ZOSYN 3.375 GM in NS 50 ML IV SCH (08:00)
[2019-06-01 08:03] LABS: CALCIUM 8.4 mg/dL (8.8-10.2); CREATININE 1.3 mg/dL (0.5-0.9); POTASSIUM 3.7 mmol/L (3.5-5.1)
[2019-06-01] MEDS: ZYLOPRIM PO SCH (09:28)
[2019-06-01] MEDS: ROBAXIN PO SCH ×3 (09:28→21:37)
[2019-06-01] MEDS: LOPRESSOR PO SCH ×2 (09:29→21:37)
[2019-06-01] MEDS: ASPIRIN PO SCH (09:29)
[2019-06-01] MEDS: NEURONTIN PO SCH ×3 (09:29→21:37)
[2019-06-01] MEDS: REQUIP PO SCH ×3 (09:29→21:37)
[2019-06-01] MEDS: LOVENOX SUBQ SCH (09:29)
[2019-06-01] MEDS: CULTURELLE PO SCH ×2 (09:29→21:37)
[2019-06-01] MEDS: LASIX IV SCH ×2 (09:33→21:37)
--- NOTE | 2019-06-01 14:34 | INFECTIOUS DISEASE CONSULT REP ---
DATE: 06/01/2019 CONCLUSION: Patient is admitted the hospital with bilateral leg cellulitis and bilateral infected plantar foot ulcers. RECOMMENDATIONS: I have taken a culture from both of the patient's plantar ulcers. Culture taken from the left foot is growing Klebsiella so I stopped Zosyn and started Rocephin. I am going to add Zyvox p.o. because the patient has had methicillin-resistant Staph aureus isolated from her leg cellulitis. DISCUSSION: The patient for at least a month has been having erythema of her distal legs and plantar ulcers. A culture taken from the left leg is growing Klebsiella as mentioned above. The patient's CBC shows a white count of 7680, hemoglobin 8.8, platelet count 241,000. Creatinine is 1.3. GFR is 42. Alkaline phosphatase is 110. Urinalysis shows no white cells or bacteria. Chest x-ray shows cardiomegaly with pulmonary vascular congestion. 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 She has had a hysterectomy and tubal ligation. REVIEW OF SYSTEMS: Eyes and ears: Her hearing is good. She wears glasses. Neck: No stiffness. Respiratory: No cough or shortness of breath. Cardiac: No chest pain or palpitations. GI: No nausea, vomiting, or diarrhea. : No dysuria or flank pain. Bones, joints, muscles: See present illness. Neurologic: No seizures. No loss of motor or sensory function. The patient tells me she is able to walk with the help of a walker. PREVIOUS HOSPITALIZATIONS AND OPERATIONS: She has had the right great toe and right toe #2 amputated and the left great toe amputated. She has had coronary artery bypass grafting. MEDICAL DISEASES: Positive for obesity, diabetes mellitus, hypertension, coronary artery disease, stroke, hyperlipidemia, restless legs syndrome, peripheral neuropathy, peripheral vascular disease. INFECTIOUS DISEASE HISTORY: Positive for bilateral leg cellulitis from which methicillin- resistant Staph aureus was isolated. The patient also has leg cellulitis and infection of both plantar aspect of the feet. She has also had a urinary tract infection. FAMILY HISTORY: Positive for diabetes mellitus, hypertension, myocardial infarction and cancer. SOCIAL HISTORY: [place] She is single. She lives alone. She does not smoke cigarettes, drink alcoholic beverages or abuse drugs. She has no pets at home. HOME MEDICATIONS: Include allopurinol, Lomotil, Lasix, Neurontin, Amaryl, hydrocodone, Robaxin, Lopressor, ropinirole and sitagliptin/metformin which is Janumet. PHYSICAL EXAMINATION: Vital Signs: Temperature is 97.9 degrees, pulse 65, respirations 16, blood pressure 111/62. Patient is 5 feet tall, weighs 281 pounds. General: This is an obese, middle- aged female. She is in no acute distress. Head/eyes/ears/nose/throat: She can hear my spoken words and see near objects. There is no drainage coming from her nose or the ears. She does not have any white patches on her tongue. Neck: No meningismus. Lungs: Clear to auscultation. Cardiovascular: Heart rate is regular. Abdomen: Soft, nontender. Extremities: Both legs are erythematous from the knee distally. Both feet have plantar ulcers. The left foot plantar ulcer is in the midfoot and the right foot plantar ulcer is at the heel. Both ulcers have purulent drainage. Neurologic: The patient is alert. She says she can walk with the help of a walker. She has decreased sensation peripherally. Thank you for the consult. cc: Viraj Heath MD [facility]
[2019-06-01] MEDS: ROCEPHIN 2 GM in NS 50 ML IV SCH (14:37)
[2019-06-01] MEDS: ZYVOX PO SCH ×2 (17:37→21:37)
--- NOTE | 2019-06-01 17:44 | PROGRESS NOTE ---
DATE: 06/01/2019 SUBJECTIVE: The patient is resting comfortably. She still complains of swelling and pain in her legs. OBJECTIVE: Vital Signs: Temperature 98 degrees, blood pressure 102/85, heart rate 73, respirations 16, O2 saturation is 99% on room air. General: This is a morbidly obese female, lying in bed in no acute distress. Heart: S1, S2 normal, regular rate and rhythm. Lungs: Equal air entry bilaterally. No wheezing. No rales. No rhonchi. Abdomen: Positive bowel sounds. Soft, nontender, nondistended. Extremities: 3+ edema with erythema involving both lower extremities as well as stasis dermatitis. The patient also has infected ulcerations on both plantar aspects of the feet. DIAGNOSTIC STUDIES: White blood cell count 7.6, hemoglobin 8.8, hematocrit 30, platelets 241,000. Sodium 139, potassium 3.7, chloride 107, CO2 of 25, BUN 22, creatinine 1.3, glucose 130, albumin 3.3. ASSESSMENT AND PLAN: 1. Bilateral diabetic foot ulcerations. The patient's antibiotics have been adjusted by Dr. Heath. General Surgery is following. 2. Bilateral lower extremity cellulitis with stasis dermatitis. Continue with antibiotic therapy. 3. Peripheral edema. The patient is currently on diuretic therapy and diuresing well. 4. Acute kidney injury. The creatinine is increasing. However, this is likely secondary to the diuretic therapy. We will continue to monitor the patient closely. 5. Diabetes mellitus, type 2. Continue with sliding scale insulin. 6. Restless legs syndrome. Continue on Requip. 7. History of gout. Continue on allopurinol. 8. Deep vein thrombosis prophylaxis. Continue on Lovenox. cc: Arlyn Oseguera MD
--- NOTE | 2019-06-01 18:03 | Diag Imaging Result Doc PS360 ---
EXAM: FOOT 2 VIEWS RIGHT HISTORY: osteomyelitis TECHNIQUE: Two views COMPARISON: 05/12/2019 FINDINGS: Prior surgical removal of the majority of the first and second metatarsals and toes. No change in the erosion of the bones about the third metatarsal phalangeal joint. No periosteal reaction. Prominent soft tissue swelling. Calcaneal bone spur. Large soft tissue ulcer beneath the calcaneus. IMPRESSION: Stable exam. Electronically signed by Spencer Kirk 06/01/2019 6:00 PM
--- NOTE | 2019-06-01 18:06 | Diag Imaging Result Doc PS360 ---
EXAM: FOOT 2 VIEWS LEFT HISTORY: osteomyelitis TECHNIQUE: Left foot two views COMPARISON: 01/25/2017 FINDINGS: The great toe has been surgically removed since the prior exam. There are erosions to the distal second and third metatarsals on the current study. Large amount of soft tissue swelling in the foot. Calcaneal bone spur. IMPRESSION: Cellulitis and likely osteomyelitis. Electronically signed by Spencer Kirk 06/01/2019 6:03 PM
[2019-06-02] MEDS: MORPHINE IV PRN ×2 (03:09→10:17)
[2019-06-02] MEDS: NORCO-10 PO PRN (05:30)
[2019-06-02] MEDS: HUMULIN R SUBQ SCH ×4 (06:23→20:47)
[2019-06-02 07:45] LABS: CREATININE 1.2 mg/dL (0.5-0.9); POTASSIUM 3.6 mmol/L (3.5-5.1)
[2019-06-02 07:57] LABS: BASO# 0.04 X1000 (0.0-0.2); BASO% 0.5 % (0.0-0.8); EOS# 0.29 X1000 (0.0-0.7); EOS% 3.7 % (0.0-10.0); HEMATOCRIT 31.1 % (37.0-47.0); HEMOGLOBIN 8.9 g/dL (12.0-16.0); IMM GRAN# 0.06 X1000 (0.0-0.04); IMM GRAN% 0.8 % (0.0-0.5); LYMPH# 2.77 X1000 (1.2-3.4); LYMPH% 35.4 % (20.5-51.1); MCH 27.1 PG (27-31); MCHC 28.6 g/dL (33-37); MCV 94.5 FL (81-99); MONO# 0.83 X1000 (0.11-0.59); MONO% 10.6 % (1.7-9.3); MPV 10.7 FL (7.4-10.4); NEUT# 3.83 X1000 (1.4-6.5); PLT 244 X1000 (130-400); RBC 3.29 XMIL (4.2-5.4); RDW 18.6 % (11.5-14.5); WBC 7.82 X1000 (4.8-10.8)
[2019-06-02] MEDS: ROBAXIN PO SCH ×3 (10:07→22:13)
[2019-06-02] MEDS: CULTURELLE PO SCH ×2 (10:08→20:29)
[2019-06-02] MEDS: ZYVOX PO SCH ×2 (10:08→20:28)
[2019-06-02] MEDS: ZYLOPRIM PO SCH (10:08)
[2019-06-02] MEDS: ASPIRIN PO SCH (10:08)
[2019-06-02] MEDS: NEURONTIN PO SCH ×3 (10:08→20:28)
[2019-06-02] MEDS: LASIX IV SCH ×2 (10:08→22:35)
[2019-06-02] MEDS: LOVENOX SUBQ SCH (10:08)
[2019-06-02] MEDS: LOPRESSOR PO SCH ×2 (10:08→20:29)
[2019-06-02] MEDS: REQUIP PO SCH ×3 (10:25→20:28)
[2019-06-02] MEDS: COLACE PO SCH ×2 (10:25→20:29)
[2019-06-02] MEDS ORDERED: MISC. PHARMACY COMMUNICATION SCH (11:00)
--- NOTE | 2019-06-02 13:16 | GENERAL SURGERY PROGRESS NOTE ---
DATE: 06/02/2019 SUBJECTIVE: Doing okay. No fevers documented. No tachycardia. OBJECTIVE: On exam she is lying in bed, in no acute distress. Her bilateral calves are erythematous and swollen, not dissimilar from her baseline. Her right heel ulcer is clean. There is no exposed bone here. Her left forefoot plantar wound again has granulation tissue. There is no significant necrosis. It does tunnel to the lateral aspect of her foot. There is some thick serosanguineous drainage that can be expressed on palpation laterally. This seems to be adequately drained. LABORATORY DATA: White count is 7, hematocrit 31. Creatinine is 1.2. I reviewed her x-ray of the left foot, there are erosions in the distal 2nd and 3rd metatarsals with edema. On the right, there is a soft tissue ulcer, but no bony changes of the calcaneus and other chronic changes in the forefoot. ASSESSMENT AND PLAN: A 59-year-old female with bilateral foot wound. She has chronic venous stasis inflammation in her calves. She was on outpatient vancomycin for previous left foot infection but now is growing Klebsiella from this wound. Her antibiotics have adjusted appropriately. Socially, this is a major issue for the patient. She lives by herself. She cannot stay off her feet. I have recommended a fdc. She has refused. Just overall very poor prognosis for limb salvage. Her legs are adequately perfused. I do not see any undrained collections or gross necrosis. We will order Santyl for her wounds and Vashe. She needs strict offloading of her feet if there is any chance of healing this. Unfortunately, she is obese and walks too much on her feet. We will continue to follow along. cc: Marti Almaraz MD
[2019-06-02] MEDS: PERCOCET-10 PO PRN ×2 (15:32→20:28)
[2019-06-02] MEDS: SANTYL OINT TOP SCH (15:33)
[2019-06-02] MEDS: ROCEPHIN 2 GM in NS 50 ML IV SCH (15:33)
--- NOTE | 2019-06-02 18:42 | PROGRESS NOTE ---
DATE: 06/02/2019 SUBJECTIVE: The patient is sitting up in bed resting comfortably. She has no complaints. OBJECTIVE: Vital Signs: Temperature 97.7 degrees, blood pressure 134/60, heart rate 76, respirations 19, O2 saturation 95% on room air. General: This is a morbidly obese female lying in bed in no acute distress. Heart: S1, S2 normal. Regular rate and rhythm. Lungs: Clear to auscultation bilaterally. No wheezing. No rales. No rhonchi. Abdomen: Positive bowel sounds. Soft, obese, nontender, nondistended. Extremities: The patient has extensive erythema involving both lower extremities with stasis dermatitis as well as 3+ edema. The patient has a large infected ulcer on the mid portion of the right foot. Neurologic: The patient is alert and oriented x4. LABS: White blood cell count 7.8, hemoglobin 8.9, hematocrit 31, platelets 244,000. Sodium 141, potassium 3.6, chloride 102, CO2 25, BUN 21, creatinine 1.2, glucose 95. ASSESSMENT AND PLAN: 1. Bilateral diabetic foot infections. The wound culture on both feet is growing gram-negative rods. The prior culture grew out Klebsiella. Continue with wound care and IV antibiotic therapy as directed by Dr. Heath. General Surgery is following. 2. Severe bilateral lower extremity cellulitis with stasis dermatitis. Continue with antibiotic therapy and the patient has been advised to keep her legs elevated. 3. Morbid obesity. Aware. 4. Diabetes mellitus type 2. Continue with sliding scale insulin. 5. Acute kidney injury. Improved. The patient is currently on diuretic therapy. We will continue to monitor the patient closely. 6. Restless legs syndrome. Continue on Requip. 7. History of gout. Continue on allopurinol. 8. Hypertension. Controlled. 9. Deep vein thrombosis prophylaxis. Continue on Lovenox. cc: MD LAWRENCE Smith
--- NOTE | 2019-06-02 19:04 | INFECTIOUS DISEASE PROGRESS NO ---
DATE: 06/02/2019 PRESENT ILLNESS: The patient has an infection of both feet. From the left foot, Klebsiella was isolated, and from both the left and right feet are gram-negative rods, which may well be Klebsiella that is also present. The patient has bilateral leg cellulitis, from which methicillin- resistant Staphylococcus aureus has been isolated in the past. MEDICATIONS: Currently, the patient is receiving Rocephin and Zyvox added. This is day 1 of treatment with both of those agents. PHYSICAL EXAMINATION: Vital Signs: Temperature is 97.7 degrees, pulse 71, respirations 19, blood pressure 127/55. The patient is 5 feet tall, weighs 281 pounds. General: This is an obese, middle-aged female. She is in no acute distress. Head/Eyes/Ears/Nose/Throat: She can hear my spoken words and see near objects. She does not have any drainage coming from her nose or ears. Neck: No stiffness. Lungs: Clear to auscultation. Cardiovascular: Regular heart rate. Abdomen: Soft and nontender. Extremities: Both legs are erythematous, and both feet have dressings around them. The dressings are intact. Neurologic: The patient is alert. She talks in a coherent fashion. She can move her extremities. LABORATORY AND X-RAY: There is no new radiographic study. CBC today shows a white count of 7820, hemoglobin 8.9, and platelet count 244,000. Creatinine is 1.2 and GFR is 46. The gram-negative rods have been isolated from the patient's right and left plantar ulcers, and the patient's left foot previously has grown Klebsiella. As mentioned above, in the past, methicillin-resistant Staphylococcus aureus was isolated from the patient's cellulitis of legs. ASSESSMENT AND PLAN: For now I am going to continue with Rocephin and Zyvox. The patient has been urged to elevate her legs as much as possible and to lose weight. COMORBIDITIES: The patient is obese. She has diabetes mellitus and peripheral vascular disease, as well as a stroke and restless legs syndrome. In addition, the patient also has peripheral neuropathy. cc: Viraj Heath MD
[2019-06-02] MEDS: MIRALAX PO SCH (20:30)
[2019-06-03] MEDS: PERCOCET-10 PO PRN ×2 (00:59→15:27)
[2019-06-03] MEDS: MORPHINE IV PRN ×3 (03:10→22:09)
[2019-06-03] MEDS: HUMULIN R SUBQ SCH ×3 (06:38→20:56)
--- NOTE | 2019-06-03 07:01 | Diag Imaging Result Doc PS360 ---
CHEST-1 VIEW - 06/03/2019 INDICATION: pulmonary edema COMPARISON: 05/30/2019 FINDINGS: Stable left PICC line. Stable sternotomy wires. Stable cardiomegaly and pulmonary vascular congestion. There has been improvement in the faint pulmonary edema in the lung bases. No significant pleural effusion. IMPRESSION: Slight improvement in the pulmonary edema. Electronically signed by Reed Schroeder 06/03/2019 6:58 AM
[2019-06-03 07:05] LABS: BASO# 0.03 X1000 (0.0-0.2); BASO% 0.4 % (0.0-0.8); EOS# 0.39 X1000 (0.0-0.7); EOS% 4.9 % (0.0-10.0); HEMATOCRIT 31.8 % (37.0-47.0); HEMOGLOBIN 9.1 g/dL (12.0-16.0); IMM GRAN# 0.08 X1000 (0.0-0.04); LYMPH# 2.29 X1000 (1.2-3.4); LYMPH% 28.8 % (20.5-51.1); MCH 26.9 PG (27-31); MCHC 28.6 g/dL (33-37); MCV 94.1 FL (81-99); MONO# 0.99 X1000 (0.11-0.59); MONO% 12.5 % (1.7-9.3); MPV 10.3 FL (7.4-10.4); NEUT# 4.16 X1000 (1.4-6.5); NEUT% 52.4 % (42.2-75.2); PLT 248 X1000 (130-400); RBC 3.38 XMIL (4.2-5.4); RDW 18.3 % (11.5-14.5); WBC 7.94 X1000 (4.8-10.8)
[2019-06-03 07:16] LABS: CALCIUM 8.1 mg/dL (8.8-10.2); CREATININE 1.1 mg/dL (0.5-0.9); POTASSIUM 3.3 mmol/L (3.5-5.1)
[2019-06-03 07:47] LABS: BANDS 4 % (0-1); EOS 4 % (1-10); LYMPHS 34 % (21-51); MONO 14 % (1-9); SEGS 44 % (42-75)
[2019-06-03 07:48] LABS: ANISOCYTOSIS 1+; HYPOCHROM 1+
--- NOTE | 2019-06-03 08:57 | PROGRESS NOTE ---
DATE: 06/03/2019 SUBJECTIVE: Ms. Olivier is followed by Dr. Belen Dominique. A 59-year-old presented on 05/30/2019. Also followed by Dr. Viraj Heath. [facility] extremity failed outpatient treatment. Presented to the emergency room. Dr. Almaraz was at [facility], and failed treatment for osteomyelitis of the left lower extremity. Most recently discharged from our service on 05/20/2019 for MRSA, bilateral lower extremity, and osteomyelitis of the left lower extremity. She does have known right foot lower extremity wound as well that was tunneling. She denies tunneling on the left lower extremity. She is supposed to complete a 6- week course of IV antibiotics with IV vancomycin at home. PAST MEDICAL HISTORY: 1. Diabetes mellitus type 2. 2. Gout. 3. Hypertension. 4. Dyslipidemia. 5. Restless legs syndrome. 6. Peripheral neuropathy. 7. Peripheral vascular disease. 8. Osteomyelitis with amputation of 3 toes of the right foot. 9. Coronary artery disease, status post CABG. 10. Bilateral lower extremity cellulitis, which is growing MRSA. 11. Right heel ulcer that currently being treated. Left heel ulcer is currently being treated as well per Dr. Almaraz. PAST SURGICAL HISTORY: 1. CABG in 2005. 2. Hysterectomy. 3. section. 4. Tonsillectomy. 5. Adenoidectomy. 6. Amputation. ASSESSMENT AND PLAN: 1. Failed outpatient treatment, bilateral lower extremity cellulitis, right heel ulcer which has grown out methicillin-resistant Staphylococcus aureus. She was on a 6-week course of intravenous vancomycin. They switched her to daptomycin. Continue dressing changes and debridement as necessary. 2. Leukocytosis secondary to #1, which improved. 3. Diabetes mellitus type 2. Continue to follow pattern sugars. 4. Peripheral neuropathy, on gabapentin. 5. Peripheral vascular disease. 6. Dyslipidemia. 7. Restless legs syndrome. Continue Requip. 8. Morbid obesity. Aware. CURRENT MEDICATIONS: Linezolid 600 mg every 12 hours, Zyloprim 300 mg daily, aspirin 325 mg a day, docusate sodium 100 mg b.i.d., Lasix 40 mg IV every 12 hours, Neurontin 800 mg p.o. t.i.d., lactobacillus rhamnosus 1 twice a day, Robaxin 750 mg p.o. t.i.d., Lopressor 50 mg p.o. b.i.d., MiraLAX 17 grams p.o. b.i.d., and ceftriaxone 2 grams IV every 24 hours. cc: Julio C Camilo MD
[2019-06-03] MEDS: NEURONTIN PO SCH ×3 (11:00→20:55)
[2019-06-03] MEDS: ZYLOPRIM PO SCH (11:00)
[2019-06-03] MEDS: LOPRESSOR PO SCH ×2 (11:01→20:54)
[2019-06-03] MEDS: SANTYL OINT TOP SCH (11:01)
[2019-06-03] MEDS: REQUIP PO SCH ×3 (11:01→23:08)
[2019-06-03] MEDS: CULTURELLE PO SCH ×2 (11:01→20:54)
[2019-06-03] MEDS: ROBAXIN PO SCH ×3 (11:01→20:55)
[2019-06-03] MEDS: ASPIRIN PO SCH (11:01)
[2019-06-03] MEDS: ZYVOX PO SCH ×2 (11:01→20:54)
[2019-06-03] MEDS: LOVENOX SUBQ SCH (11:02)
[2019-06-03] MEDS: COLACE PO SCH ×2 (11:02→20:54)
[2019-06-03] MEDS: LASIX IV SCH ×2 (11:02→23:05)
[2019-06-03] MEDS: MIRALAX PO SCH ×2 (11:03→20:55)
[2019-06-03] MEDS: ROCEPHIN 2 GM in NS 50 ML IV SCH (15:32)
--- NOTE | 2019-06-03 19:01 | GENERAL SURGERY PROGRESS NOTE ---
DATE: 06/03/2019 SUBJECTIVE: No fevers overnight. General: She is alert. Her bilateral dressings are clean and in place. Pulse 80, blood pressure 147/60, oxygen saturation has been in the mid 90s on room air . Cardiovascular: Normal rate. Pulmonary: No increased work of breathing. Bilateral feet dressings are clean. She has stable edema and erythema of bilateral calves. LAB: White count 7, hematocrit 31, creatinine is 1.1. Microbiology data shows numerous organisms, Klebsiella Enterobacter and procidentia that is growing. Dr. Heath is following. ASSESSMENT AND PLAN: This is a female with chronic wounds bilateral feet with infection and seems to be adequately drained. She is now on appropriate antibiotics. We will continue strict offloading, dressing changes twice daily with Vashe and antibiotics. Overall grim prognosis for limb salvage but we will continue as current as I do not see any acutely threatening issues that need further surgical management. cc: Marti Almaraz MD
--- NOTE | 2019-06-03 19:26 | INFECTIOUS DISEASE PROGRESS NO ---
DATE: 06/03/2019 PRESENT ILLNESS: The patient has infected bilateral plantar decubitus ulcers. In the past Methicillin-resistant Staph aureus has been isolated from the patient's legs, both of which have cellulitis. MEDICATIONS: This is day 2 of treatment with a combination of Rocephin and Zyvox. PHYSICAL EXAMINATION: Vital Signs: Temperature is 98 degrees, pulse 80, respirations 20, blood pressure 147/58. General: This is an obese, middle-aged female. She is in no acute distress. Head/eyes/ears/nose/throat: She can hear my spoken words and see near objects. I have not noticed any white patches on her tongue. Neck: She does not have any pain moving her neck. Lungs: Clear to auscultation. Cardiovascular: Regular heart rate. Abdomen: Soft and nontender. Extremities: Both legs are edematous and erythematous. The plantar ulcers look about the same size, but there is no odor to him, and there is no purulence or necrotic tissue. Neurologic: The patient is alert. She can move her extremities. She has no tremor. LAB AND RADIOLOGY: Chest x-ray shows improvement in the patient's pulmonary edema. CBC shows a white count of 7940, hemoglobin 9.1, and platelet count 248,000. Creatinine is 1.1. GFR is 51. ASSESSMENT AND PLAN: The patient has infected plantar ulcers and also bilateral leg cellulitis. The plan is to continue with Rocephin and Zyvox. Also, the patient was given instructions again to elevate her legs as much as possible and for long as possible. COMORBIDITIES: The patient is obese. She has diabetes mellitus, peripheral vascular disease and restless legs syndrome. The patient also has peripheral neuropathy. cc: Viraj Heath MD
[2019-06-04] MEDS: PERCOCET-10 PO PRN ×4 (00:55→21:30)
[2019-06-04] MEDS: MORPHINE IV PRN ×3 (04:17→23:07)
[2019-06-04] MEDS: HUMULIN R SUBQ SCH ×4 (07:17→21:32)
[2019-06-04 07:56] LABS: BASO# 0.02 X1000 (0.0-0.2); BASO% 0.2 % (0.0-0.8); EOS# 0.44 X1000 (0.0-0.7); EOS% 5.3 % (0.0-10.0); HEMATOCRIT 32.7 % (37.0-47.0); HEMOGLOBIN 9.4 g/dL (12.0-16.0); IMM GRAN# 0.05 X1000 (0.0-0.04); IMM GRAN% 0.6 % (0.0-0.5); LYMPH# 1.94 X1000 (1.2-3.4); LYMPH% 23.2 % (20.5-51.1); MCH 26.9 PG (27-31); MCHC 28.7 g/dL (33-37); MCV 93.7 FL (81-99); MONO# 1.01 X1000 (0.11-0.59); MONO% 12.1 % (1.7-9.3); MPV 10.3 FL (7.4-10.4); NEUT# 4.92 X1000 (1.4-6.5); NEUT% 58.6 % (42.2-75.2); PLT 245 X1000 (130-400); RBC 3.49 XMIL (4.2-5.4); RDW 18.9 % (11.5-14.5); WBC 8.38 X1000 (4.8-10.8)
--- NOTE | 2019-06-04 09:21 | PROGRESS NOTE ---
DATE: 06/04/2019 SUBJECTIVE: Ms. Olivier feels a little better. Her legs, she says, are hurting her. It looks like the swelling is going down. She was sitting up, eating breakfast. OBJECTIVE: Vital Signs: She remains afebrile, temperature 97.8 degrees, pulse 82, respirations 20, blood pressure 144/61. HEENT: Pupils are equal and round. Lungs: Clear in all lung coppola. Cardiovascular: Regular rhythm and rate without murmur or S3. Abdomen: Soft. Skin: Warm and dry. Urine output is 6800 mL. ASSESSMENT AND PLAN: 1. The patient has bilateral plantar decubitus ulcers. In the past, she has had methicillin- resistant Staphylococcus aureus which has been isolated from both legs. She is on day 3 of the treatment combination Rocephin and Zyvox. Continue to encourage her to elevate her legs. 2. Chronic Plan is to continue current antibiotics. She is on linezolid 600 mg by mouth every 12 hours. 3. Peripheral neuropathy. Aware. 4. Blood pressure is well controlled. Continue topical care. Dr. Heath is following. Dr. Almaraz is following as well. Continue to follow sugars with pattern sugars, sliding scale. Will discuss with the team, the plan for discharge. cc: Julio C Camilo MD [facility]
[2019-06-04] MEDS: COLACE PO SCH ×2 (09:58→21:33)
[2019-06-04] MEDS: ASPIRIN PO SCH (09:58)
[2019-06-04] MEDS: NEURONTIN PO SCH ×3 (09:59→21:29)
[2019-06-04] MEDS: CULTURELLE PO SCH ×2 (09:59→21:30)
[2019-06-04] MEDS: LOPRESSOR PO SCH ×2 (09:59→21:30)
[2019-06-04] MEDS: LOVENOX SUBQ SCH (09:59)
[2019-06-04] MEDS: MIRALAX PO SCH ×2 (09:59→21:33)
[2019-06-04] MEDS: REQUIP PO SCH ×3 (10:00→21:30)
[2019-06-04] MEDS: ZYVOX PO SCH ×2 (10:00→21:30)
[2019-06-04] MEDS: ZYLOPRIM PO SCH (10:00)
[2019-06-04] MEDS: ROBAXIN PO SCH ×3 (10:00→21:30)
[2019-06-04] MEDS: LASIX IV SCH ×2 (10:01→23:08)
[2019-06-04] MEDS: SANTYL OINT TOP SCH (11:33)
[2019-06-04] MEDS: LEVAQUIN PO SCH (11:37)
--- NOTE | 2019-06-04 19:30 | INFECTIOUS DISEASE PROGRESS NO ---
DATE: 06/04/2019 PRESENT ILLNESS: The patient has infected bilateral plantar decubitus ulcers. From the infected ulcers, the following organisms have been isolated: Providencia, Enterobacter, and Klebsiella. On the patient's left foot, unfortunately, the probe did extend to bone. Therefore, the patient has osteomyelitis of the foot. The patient also had methicillin-resistant Staphylococcus aureus isolated from the patient's cellulitis involving the legs from the knee to the ankle. Both legs had methicillin-resistant Staphylococcus aureus isolated from them. MEDICATIONS: The patient is on a combination of Rocephin and Zyvox. PHYSICAL EXAMINATION: Vital Signs: Temperature is 97.8 degrees, pulse 82, respirations 20, blood pressure 144/61. General: This is an obese, middle-aged female is in no acute distress. Head, eyes, ears, nose, throat: She can hear my spoken words and see near objects. She does not have any white coating on her tongue. Neck: There is no pain when she moves her neck. Lungs: Clear to auscultation. Cardiovascular: Regular heart rate. Abdomen: Soft and nontender. Extremities: Both legs are erythematous and edematous from the knee to the ankle. A probe extended from the patient's left foot wound down to bone. Both legs seem less erythematous, and the right foot does not have any purulence or necrosis. The left foot laterally has some fluctuance and the area was opened with the probe partially, and it extended to the underlying bone. The patient has a PICC in her left arm. The site is not erythematous or purulent. LAB AND X-RAY: The patient's CBC shows a white count of 8380, hemoglobin 9.4, and platelet count 245,000. Creatinine is 1.1. GFR is 51. As mentioned above, from the left foot, Providencia, Enterobacter and Klebsiella have been isolated. There is no new radiographic study today. ASSESSMENT AND PLAN: The patient has infected plantar ulcers and osteomyelitis involving the left foot. My plan is to continue with Levaquin for an anticipated 6 week treatment course. Some of the side effects of Levaquin, including rash, diarrhea, seizures, and tendon rupture, have been explained to the patient who agrees with treatment. The patient has plantar ulcers on both legs and cellulitis on both legs, and on her left foot there is evidence of osteomyelitis. The plan now would be to treat the patient with antibiotics for at least 6 weeks. The antibiotic that I would treat for 6 weeks with is Rocephin, and Zyvox can be given orally, and that would be for treatment for the leg cellulitis. If that can be resolved, then the patient could stop the use of Zyvox. The patient has also been instructed to elevate her legs as much as possible. COMORBIDITIES: The patient is obese and she has diabetes mellitus, peripheral vascular disease, and restless leg syndrome. cc: Viraj Heath MD
--- NOTE | 2019-06-05 01:46 | GENERAL SURGERY PROGRESS NOTE ---
DATE: 06/04/2019 SUBJECTIVE: Doing okay. No fevers documented. No tachycardia. She is tearful from being in the hospital. OBJECTIVE: Vital signs: Blood pressure 152/70, oxygen 97%. General: She is alert. Extremities: Bilateral feet dressings are intact. She has stable edema with inflammation bilateral of calves. LABS: White count is 8, hematocrit 32. Glucose 165. ASSESSMENT/PLAN: A 59-year-old female with bilateral feet infections, chronic osteomyelitis and chronic lymphedema. We will continue antibiotics. I do suspect she has underlying osteomyelitis, as noted on her imaging. We will continue local wound care. In the meantime, plan for disposition early next week. I have encouraged her go to a nursing facility, but she has refused. I think there is a grim prognosis as she is unable to care for self. cc: Marti Almaraz MD
[2019-06-05] MEDS: PERCOCET-10 PO PRN ×4 (06:25→20:21)
[2019-06-05] MEDS: HUMULIN R SUBQ SCH ×5 (06:27→22:01)
[2019-06-05] MEDS: ZYLOPRIM PO SCH (09:48)
[2019-06-05] MEDS: LEVAQUIN PO SCH (09:48)
[2019-06-05] MEDS: LASIX IV SCH ×2 (09:48→22:05)
[2019-06-05] MEDS: ASPIRIN PO SCH (09:48)
[2019-06-05] MEDS: MIRALAX PO SCH ×2 (09:48→20:21)
[2019-06-05] MEDS: ZYVOX PO SCH ×2 (09:48→20:21)
[2019-06-05] MEDS: NEURONTIN PO SCH ×3 (09:48→20:20)
[2019-06-05] MEDS: LOVENOX SUBQ SCH (09:48)
[2019-06-05] MEDS: CULTURELLE PO SCH ×2 (09:48→20:22)
[2019-06-05] MEDS: REQUIP PO SCH ×3 (09:48→20:20)
[2019-06-05] MEDS: ROBAXIN PO SCH ×3 (09:48→20:19)
[2019-06-05] MEDS: LOPRESSOR PO SCH ×2 (09:49→20:21)
[2019-06-05] MEDS: COLACE PO SCH ×2 (09:49→20:20)
[2019-06-05] MEDS: SANTYL OINT TOP SCH (09:58)
--- NOTE | 2019-06-05 16:50 | PROGRESS NOTE ---
DATE: 06/05/2019 SUBJECTIVE: Ms. Olivier feels better and wants to try to go home in the morning. OBJECTIVE: Vital Signs: Temperature 98.0 degrees, pulse 80, respirations 16, blood pressure 139/62. Eyes: Pupils are equal and round. Lungs: Clear in all lung coppola. Cardiovascular exam: Regular rhythm and rate without murmur or S3. Abdomen: Soft. Skin: Warm and dry. : Urine output is 3000 mL. ASSESSMENT AND PLAN: 1. A 59-year-old female, bilateral feet infections, chronic osteomyelitis, chronic lymphedema. Continue present antibiotics. Has underlying osteomyelitis noted on imaging. Continue local wound care. Disposition for early next week. I encouraged her to go to a nursing facility, but she has refused. She would like to try and go home tomorrow. We will discuss with team and see what we need to arrange or if that is even possible. 2. Diabetes mellitus type 2. Sugars under good control at this point. 3. Morbid obesity. 4. Chronic venous stasis dermatosis with eczematous skin changes symmetrically in both lower extremities. 5. Constipation. Continue present regimen. She is getting Zyvox 600 mg p.o. q. 12 hours and Levaquin 500 mg a day. 6. So, she has infected bilateral plantar decubitus ulcers. The following organisms have been isolated; Providencia, Enterobacter, Klebsiella. The patient's left foot unfortunately the probe did extend to the bone. Therefore, patient has osteomyelitis of the foot. She has methicillin-resistant Staphylococcus aureus isolated from patient's cellulitis involving the legs, the knee and ankle, so continue the combination Rocephin and Zyvox. We are going to need to see about continuing intravenous antibiotics. So I will discuss this with Dr. Heath and see if that is possible. The plan is that she would need antibiotics for at least 6 weeks and use Rocephin and Zyvox. Zyvox can be given orally for treatment of the cellulitis. If that can resolve, she can stop the oral Zyvox. cc: Julio C Camilo MD
--- NOTE | 2019-06-05 19:49 | INFECTIOUS DISEASE PROGRESS NO ---
DATE: 06/05/2019 PRESENT ILLNESS: The patient has bilateral infected plantar decubitus ulcers. She also has osteomyelitis of the left foot. The patient also has methicillin-resistant Staph aureus cellulitis involving the patient's legs. MEDICATIONS: The patient is receiving a combination of Levaquin and Zyvox. This is day #1 of Levaquin and day #4 of Zyvox. OBJECTIVE: Vital signs: Temperature 97.5 degrees, pulse 79, respirations 18, blood pressure 134/55. General: This is an obese, middle-aged female. She is in no acute distress. Head/eyes/ears/nose/throat: She can hear my spoken words and see near objects. She does not have any white patches in her mouth. Neck: There is no pain with movement. Lungs: Clear to auscultation. Cardiovascular: Heart rate at times appeared irregular but at other times it was regular. Abdomen: Soft and nontender. Extremities: The patient has erythema extending from the knee to the ankle, and both feet have dressings on them. The dressings are intact. The patient has a PICC in her left arm. LAB AND X-RAY: There is no new radiographic study, and there is no new laboratory studies back yet today. ASSESSMENT AND PLAN: The patient has plantar ulcers and osteomyelitis of the left foot. The plantar ulcers are infected. My plan is to treat the patient for 6 weeks with Levaquin to help clear the osteomyelitis of the foot. The patient's Zyvox is being used to treat the cellulitis of both legs from which methicillin-resistant Staph aureus was isolated. COMORBIDITIES: The patient is obese, and she has diabetes mellitus, peripheral vascular disease, and restless legs syndrome. cc: Viraj Heath MD
[2019-06-06] MEDS: PERCOCET-10 PO PRN ×4 (00:35→22:51)
[2019-06-06] MEDS: HUMULIN R SUBQ SCH ×4 (06:01→22:09)
[2019-06-06] MEDS: NEURONTIN PO SCH ×3 (08:17→22:02)
[2019-06-06] MEDS: LOVENOX SUBQ SCH (08:17)
[2019-06-06] MEDS: ROBAXIN PO SCH ×3 (08:18→22:02)
[2019-06-06] MEDS: REQUIP PO SCH ×3 (08:18→22:02)
[2019-06-06] MEDS: ZYLOPRIM PO SCH (08:18)
[2019-06-06] MEDS: ASPIRIN PO SCH (08:18)
[2019-06-06] MEDS: CULTURELLE PO SCH ×2 (08:18→22:01)
[2019-06-06] MEDS: COLACE PO SCH ×3 (08:18→22:09)
[2019-06-06] MEDS: LOPRESSOR PO SCH ×2 (08:18→22:01)
[2019-06-06] MEDS: LEVAQUIN PO SCH (08:18)
[2019-06-06] MEDS: ZYVOX PO SCH ×2 (08:18→22:02)
[2019-06-06] MEDS: LASIX IV SCH ×4 (08:19→22:08)
[2019-06-06] MEDS: MIRALAX PO SCH ×2 (08:21→21:27)
--- NOTE | 2019-06-06 09:24 | PROGRESS NOTE ---
DATE: 06/06/2019 SUBJECTIVE: Ms. Olivier is feeling much better. She is hopeful to go home possibly today but, if not today, Sunday. See if we can get things set up for antibiotics. OBJECTIVE: Vital Signs: Temperature 97.7 degrees, pulse 77, respirations 16, blood pressure 158/65. Eyes: Pupils are equal and round. Lungs: Clear in all lung coppola. Cardiovascular exam: Regular rhythm and rate without murmur or S3. Abdomen: Soft. Extremities: Both legs with 3+ edema symmetrical; still erythema of both legs, but the swelling has gone down. ASSESSMENT AND PLAN: 1. Patient has bilateral infected plantar decubitus ulcers. She has osteomyelitis of the left foot and has methicillin-resistant Staphylococcus aureus cellulitis involving the legs. She is on a combination of Levaquin and Zyvox as this will be day 2 of Levaquin and day 5 of Zyvox. I want to see if we can get her ready to go home with intravenous antibiotics. The plantar ulcers are infected. The plan is to treat for total of 6 weeks with Levaquin to help clear the osteomyelitis of the foot, and the Zyvox to be used to treat cellulitis of both legs since methicillin-resistant Staphylococcus aureus was isolated. 2. Morbid obesity. 3. Chronic venous stasis dermatitis. 4. Constipation, which is improved. 5. We will get her Soria catheter out. Review of her orders: She is on Zyvox 600 mg p.o. q. 12 hours, allopurinol 300 mg q.a.m., aspirin 325 mg a day, Colace 100 mg b.i.d., Lasix 40 mg IV q. 12 hours, Neurontin 800 mg p.o. t.i.d., lactobacillus rhamnosus 1 tablet twice a day, Levaquin 500 mg a day, Robaxin 750 mg t.i.d., Lopressor 50 mg b.i.d. She gets OxyContin 10 mg p.o. q. 4 hours p.r.n., MiraLAX 17 g twice a day, and Requip 4 mg p.o. t.i.d. for restless legs. cc: Julio C Camilo MD
[2019-06-06] MEDS: SANTYL OINT TOP SCH (11:08)
--- NOTE | 2019-06-06 18:27 | INFECTIOUS DISEASE PROGRESS NO ---
DATE: 06/06/2019 PRESENT ILLNESS: Ms. Olivier is being treated for infected decubitus ulcers to her bilateral feet on the plantar surface. There is also osteomyelitis to the left foot. She has grown multiple organisms to the feet, which include Providencia, Enterobacter, Klebsiella, and methicillin- resistant Staph aureus. MEDICATIONS: She has been receiving Zyvox 600 mg by mouth every 12 hours and Levaquin 500 mg by mouth daily. PHYSICAL EXAMINATION: Vital Signs: Temperature is 97.7 degrees, pulse rate 77, respiratory rate 16, blood pressure 158/65, O2 saturation 95% on room air. General: This is a morbidly obese, chronically ill-appearing, middle-aged female. She is sitting up in the chair currently in no acute distress. HEENT: Atraumatic, normocephalic. Oral mucous membranes are pink and moist. Conjunctivae are pale. Neck: Supple. Trachea is midline. Cardiovascular: Heart rate and rhythm are regular. Normal sinus rhythm on the monitor. Respiratory: Lung sounds are bilaterally clear to auscultation. No work of breathing is noted. Abdomen: Soft, obese and nontender. Bowel sounds are active. Extremities: There is bilateral lower extremity erythema particularly to the calves. She has Kerlix wrap dressings in place to both feet, which are intact. There is a PICC line in place to her left upper arm. That site is without edema, erythema, or drainage. Neurologic: She is awake, alert and oriented and able to move around in the chair independently. LABORATORY AND X-RAY: None available today. ASSESSMENT AND PLAN: Ms. Olivier is being treated for plantar ulcers bilaterally with osteomyelitis to the left foot. The plan is to send her home today. Because of the hayes of Zyvox as well as the chance of pancytopenia, we will send her home on Levaquin for the gram- negative nunu bacteria that have grown to her feet and doxycycline for the methicillin-resistant Staph aureus. She will require 6 total weeks due to the osteomyelitis. She has had 5 days of the medication, so we will continue 37 more days of treatment using Levaquin and doxycycline. Side effects to report include seizure, tendon rupture, stomach upset, rash and diarrhea, and have been reviewed with the patient. I also explained to her the proper way to take doxycycline, away from dairy, iron and antacids, 2 hours before and after, and to sit up after taking the medication for at least 30 minutes to prevent heartburn. She states understanding and would like to continue with the plan. We will see her back in the office in 3 weeks, and then we will see her again at 6 weeks. The medications of Levaquin and doxycycline have been transmitted to her pharmacy per her request. These plans have been discussed with and recommended by Dr. Heath. COMORBIDITIES: for the patient include morbid obesity, diabetes mellitus, peripheral vascular disease and bilateral lower extremity chronic edema. Dictated by RADHA West for Viraj Heath MD cc: Viraj Heath MD MTDD
[2019-06-06] MEDS: MORPHINE IV PRN (22:02)
[2019-06-07] MEDS: MORPHINE IV PRN ×2 (02:33→06:39)
[2019-06-07] MEDS: PERCOCET-10 PO PRN ×3 (03:02→11:11)
[2019-06-07] MEDS: HUMULIN R SUBQ SCH ×2 (06:30→11:12)
[2019-06-07 07:55] VITALS: BP 156/62
--- NOTE | 2019-06-07 10:00 | PROGRESS NOTE ---
DATE: 06/07/2019 SUBJECTIVE: Ms. Olivier reports that she had a good night. Dr. Heath has changed her to p.o. antibiotics, so she would like to go home. Her legs feel better. Doing better. OBJECTIVE: Vital Signs: Remains afebrile with temperature of 97.8 degrees, pulse 74, respirations 16, blood pressure 156/62. HEENT: Pupils are equal and round. Lungs: Clear in all lung coppola. Cardiovascular: Regular rate without murmur or S3. Abdomen: Soft. Skin: Warm and dry. Urine output: 1300 mL. LABORATORY DATA: Blood sugars 156, 224, 134. ASSESSMENT AND PLAN: 1. Infected decubitus ulcers on bilateral feet, plantar surfaces. 2. Osteomyelitis of left foot, growing multiple organisms, Providencia, Enterobacter, Klebsiella, methicillin-resistant Staphylococcus. She has been receiving Zyvox 600 mg every 12 hours and Levaquin 500 mg a day. She has been treated for plantar ulcers bilaterally, osteomyelitis left foot. Because of the hayes of Zyvox and the chance of pancytopenia, we will send her home with Levaquin for gram-negative bacteremia which has grown from her feet and doxycycline for methicillin-resistant Staphylococcus aureus. She will require a total of 6 weeks because of the osteomyelitis. Continue to elevate her feet. Continue to encourage weight reduction. cc: Julio C Camilo MD
[2019-06-07] MEDS: REQUIP PO SCH (10:04)
[2019-06-07] MEDS: ZYVOX PO SCH (10:05)
[2019-06-07] MEDS: ROBAXIN PO SCH (10:05)
[2019-06-07] MEDS: LOPRESSOR PO SCH (10:05)
[2019-06-07] MEDS: ZYLOPRIM PO SCH (10:05)
[2019-06-07] MEDS: LEVAQUIN PO SCH (10:05)
[2019-06-07] MEDS: CULTURELLE PO SCH (10:05)
[2019-06-07] MEDS: NEURONTIN PO SCH (10:05)
[2019-06-07] MEDS: LOVENOX SUBQ SCH (10:06)
[2019-06-07] MEDS: ASPIRIN PO SCH (10:06)
[2019-06-07] MEDS: LASIX IV SCH ×2 (10:06→12:03)
[2019-06-07] MEDS: COLACE PO SCH (10:19)
[2019-06-07] MEDS: MIRALAX PO SCH (10:19)
[2019-06-07] MEDS: SANTYL OINT TOP SCH (10:19)
--- NOTE | 2019-06-07 11:14 | DISCHARGE SUMMARY ---
ADMISSION DATE: 05/30/2019 DISCHARGE DATE: 06/07/2019 HOSPITAL COURSE: This is a 59-year-old patient of Dr. Belen Dominique, followed also by Dr. Paul Almaraz and Dr. Viraj Heath. She presented to the emergency room was [facility] by [facility], failed outpatient treatment of osteomyelitis of the left lower extremity. Most recently discharged from our service on 05/20/2019 for MRSA, bilateral lower extremities and osteomyelitis of the left lower extremity. She does have known right foot lower extremity wound that was tunneling. She was supposed to complete a 6 week IV antibiotic course of IV vancomycin at home. The patient's main complaint was she was short of breath. She had to sit up to sleep, not able to walk to her bathroom, use a bedside commode. PAST MEDICAL HISTORY: 1. Diabetes mellitus type 2. 2. Gout. 3. Hypertension. 4. Dyslipidemia. 5. Restless leg syndrome. 6. Peripheral neuropathy. 7. Peripheral vascular disease. 8. Osteomyelitis and amputation of 3 toes on the right foot. 9. Coronary artery disease status post CABG. 10. Bilateral lower extremity cellulitis and methicillin-resistant Staphylococcus aureus. 11. Right heel ulcer, currently being treated [facility] per Dr. Almaraz. PAST SURGICAL HISTORY: 1. CABG in 2005. 2. Hysterectomy. 3. section. 4. Tonsillectomy. 5. Adenoidectomy. 6. Amputation of toes on both her feet. ADMISSION DIAGNOSIS: 1. Failed outpatient treatment. 2. Bilateral lower extremity cellulitis with right heel ulcer. She has grown out methicillin- resistant Staphylococcus aureus. Six-week course of intravenous vancomycin, switched her to daptomycin. Consulted Dr. Viraj Heath on Sunday, Dr. Almaraz [facility] on Sunday, so was admitted to the hospital, started on antibiotics, received topical wound care. Foot x- ray on 06/01, stable exam. Postsurgical removal majority of the 1st and 2nd metatarsals of the toes. No change from an erosion of the bones about the 3rd metatarsal pharyngeal joint. No periosteal reaction. Infectious Disease was following. Left foot Klebsiella was isolated from both the left and right foot and the gram-negative rods. Methicillin-resistant Staphylococcus aureus was isolated in the past. She seemed to get better. Elevated CE topical care wrapping with compression wraps on the lower extremities. She has chronic venous stasis, chronic lymphedema in both lower extremities. She seemed to be improving clinically. Dr. Heath felt we could change her to oral antibiotics. She has osteomyelitis of the left foot, suspected grown multiple organisms including Providencia, Enterobacter, Klebsiella, and methicillin-resistant Staphylococcus aureus. She has been receiving Zyvox and Levaquin, but plan to switch her to oral, and she will receive I believe Levaquin and doxycycline for total 6-week course. Follow up with Dr. Heath. Follow up with Dr. Almaraz at the wound clinic and discharge her home. cc: Julio C Camilo MD
[2019-06-07] MEDS ORDERED: FLU VACCINE IM ONE (12:04)
--- NOTE | 2019-06-07 14:14 | PROGRESS NOTE ---
DATE: 06/07/2019 SUBJECTIVE: Ms. Laila Olivier has a left arm PICC line. She has severe bilateral lower extremity lymphedema. She has bilateral cellulitis. She has a chronic ulcer involving her right heel and an incision on the plantar aspect of her left foot from recent infection. She has been readmitted with her cellulitis and chronic wounds. She has seen been seen by Dr. Almaraz and Dr. Heath. Her wounds are being treated conservatively and she is receiving IV antibiotics. cc: Pauly Murdock MD
== END 2019-06-07 13:38 | disposition home or self-care (01) | DRG 638 ==
LOC: ED 11:10 → 3N 17:59 → SUATTDRO 17:59
PROVIDERS: ATTEND Emergency Medicine

== ENCOUNTER 2019-06-30 17:24 | Inpatient (IN) ==
[2019-06-30] MEDS ORDERED: ROCEPHIN 1 GM in NS 50 ML IV ONE (18:31)
[2019-06-30] MEDS ORDERED: VANCOMYCIN 1 GM/NS 1 GM/250 ML IVPB IV ONE (18:32)
--- NOTE | 2019-06-30 18:32 | PROVIDER DOCUMENTATION ---
HPI-Fever - General Chief Complaint: Altered Mental Status Stated Complaint: AMS Time Seen by Provider: 06/30/19 17:58 Source: patient, EMS Allergies/Adverse Reactions: Patient Allergies Allergy/AdvReac Type Severity Reaction Status Date / Time tizanidine HCl * Allergy ANAPHYLAXIS Verified 06/30/19 21:12 [From Damaso] Home Medications: Home Medication List Medication Instructions Recorded Confirmed Last Taken Type Allopurinol [Zyloprim] 300 mg PO QAM 09/19/15 05/30/19 05/29/19 History Aspirin 325 mg PO QAM 09/19/15 05/30/19 05/29/19 History Gabapentin [Neurontin] 800 mg PO TID 09/19/15 05/30/19 05/29/19 History Methocarbamol [Robaxin-750] 750 mg PO TID 09/19/15 05/30/19 05/29/19 History Butalbital/Acetaminophen [Bupap 50 1 tab PO Q8H PRN PRN 01/25/17 05/30/19 05/29/19 History mg-300 mg Tablet] Hydrocodone/APAP 10 mg/325 mg 1 each PO Q8H PRN PRN 01/25/17 05/30/19 05/29/19 History [[place]-10] Ropinirole HCl 4 mg PO TID 01/25/17 05/30/19 05/29/19 History Diphenoxylate/Atropine [Lomotil] 1 ea PO 4XDAY PRN PRN 12/27/18 05/30/19 05/24/19 History Glimepiride [Amaryl] 4 mg PO BID 05/09/19 05/30/19 05/29/19 History Metoprolol [Lopressor] 50 mg PO BID #60 tab 05/20/19 05/30/19 05/29/19 Rx Exenatide Microspheres [Bydureon 2 mg SQ DIRECTED 05/25/19 05/30/19 05/22/19 History Pen] Furosemide [Lasix] 80 mg PO DIRECTED 05/25/19 05/30/19 05/24/19 History Sitagliptin Phos/Metformin HCl 2 tab PO QHS 05/30/19 05/30/19 05/29/19 History [Janumet Xr 100-1,000 mg Tablet] Doxycycline 100 mg PO Q12H 37 Days #74 tab 06/06/19 Unknown Rx Levofloxacin [Levaquin] 500 mg PO DAILY 37 Days #37 tab 06/06/19 Unknown Rx Collagenase Clostridium Oint 1 gm TOP DAILY oint 06/07/19 Unknown Rx [Santyl Oint] Docusate Sodium [Colace] 100 mg PO BID 30 Days #60 cap 06/07/19 Unknown Rx Furosemide [Lasix] 40 mg PO BID 30 Days #60 tab 06/07/19 Unknown Rx Lactobacillus Rhamnosus GG 1 ea PO BID 30 Days #60 cap 06/07/19 Unknown Rx [Culturelle] Polyethylene Glycol 3350 [Miralax] 17 gm PO BID 30 Days #1 powder, 06/07/19 Unknown Rx packet - History of Present Illness-Fever Nature of Presenting Problem: Patient is 59 year old white female with history of diabetes with secondary infected diabetic foot ulcers, CAD (S/P CABG), and CVA who presents by EMS with altered mentation and increasing sob since last night. Patient arrives with GCS of 15,hypothermia ,generalized weakness, fingerstick glucose of 147, infected draining diabetic ulcers over both feet with cellulitis over lower extremities. Followed by Dr. Belen Dominique. Review of Systems - Adult - REVIEW OF SYSTEMS - ADULT ROS:: limited per condition Constitutional: reports: see HPI, chills Eyes: reports: no symptoms reported Ears, Nose, Mouth & Throat: reports: no symptoms reported Cardiovascular: reports: see HPI Respiratory: reports: other (rib pain due to fall) Gastrointestinal: denies: abdominal pain, nausea, vomiting Genitourinary: denies: dysuria Musculoskeletal: reports: see HPI Integumentary: reports: other (multiple bruising to trunk and extremities) Endocrine: reports: see HPI Past History - Adult - PAST MEDICAL HISTORY-ADULT Review of Records: reports: Old Records Reviewed, Nursing Assessment Review, Medications Reviewed, Social history reviewed & non-contributory. Major Childhood Illnesses: reports: denies history Cardiovascular: reports: cardiac disease, CAD, HTN Respiratory: reports: denies history Gastrointestinal: reports: denies history Obstetrical/Gynecological: reports: denies history Genitourinary: reports: denies history Musculoskeletal: reports: other (severe diabetic foot ulcers- seen at wound clinic at [place]) Neurological: reports: CVA Psychiatric: reports: denies history Endocrine/Immune: reports: Diabetes Other Conditions: reports: denies history Additional History: gout - PRIOR SURGERIES/PROCEDURES Surgical/Procedure History: reports: CABG, hysterectomy, tonsillectomy - IMMUNIZATION STATUS Childhood Immunizations: See Nurse Assessment Flu Vaccine: See Nurse Assessment - FAMILY HISTORY Family History: reviewed, not pertinent - SOCIAL HISTORY Smoking: quit greater than 1 year Substance Use: denies Alcohol Use Frequency: occasionally Living Situation: family Physical Exam-General - PHYSICAL EXAM-ADULT Initial Vital Signs Reviewed: Yes - CONSTITUTIONAL General Appearance: alert (oriented to person only, answers questions appropriately), obese - EYES Eyes: other (clear) - HEAD, EARS, NOSE, MOUTH & THROAT HENMT: other (clear) - NECK Neck: supple - RESPIRATORY Respiratory: no respiratory distress, no accessory muscle use, decreased breath sounds - CARDIOVASCULAR Cardiovascular: regular rate, rhythm - GASTROINTESTINAL (ABDOMEN) Abdominal Exam: non tender, soft - MUSCULOSKELETAL Extremity: other (deep diabetic foot ulcers with purulent drainage with red tender pretibial induration) - SKIN Integumentary: erythema - NEUROLOGIC Neurologic: other (nonfocal) - PSYCHIATRIC Psych/Mental Status: anxious, depressed affect Progress - PLAN OF CARE/RESULTS Progress/Plan/Lab Results: Vital Signs - 8 hr 06/30/19 20:30 06/30/19 20:45 06/30/19 21:00 Temperature Pulse Rate 69 69 72 Respiratory Rate Blood Pressure O2 Sat by Pulse Oximetry 100 99 100 06/30/19 21:02 06/30/19 21:12 06/30/19 22:00 Temperature 87.4 F L Pulse Rate 82 72 87 Respiratory Rate 16 Blood Pressure 130/83 100/76 O2 Sat by Pulse Oximetry 100 99 99 06/30/19 22:02 06/30/19 23:00 06/30/19 23:02 Temperature Pulse Rate 78 82 82 Respiratory Rate 16 14 22 Blood Pressure 119/78 129/76 O2 Sat by Pulse Oximetry 100 100 99 06/30/19 19:58 Gram Stain - Final Foot - Not Otherwise Specified Laboratory Results - last 24 hr 06/30/19 06/30/19 06/30/19 18:25 18:25 18:41 WBC 7.81 RBC 4.18 L Hgb 11.6 L Hct 37.7 MCV 90.2 MCH 27.8 MCHC 30.8 L RDW Std Deviation 18.8 H Plt Count 130 MPV 11.6 H Immature Gran % (Auto) 0.4 Neut % (Auto) 82.1 H Lymph % (Auto) 10.4 L [place] % (Auto) 6.9 Eos % (Auto) 0.1 Baso % (Auto) 0.1 Immature Gran # (Auto) 0.03 Neut # (Auto) 6.41 Lymph # (Auto) 0.81 L [place] # (Auto) 0.54 Eos # (Auto) 0.01 Baso # (Auto) 0.01 PT INR PTT (Actin FS) Specimen Type ARTERIAL Sample Site R RADIAL pH 7.33 L pCO2 51 H* pO2 123 H HCO3 25.1 Base Excess 0.3 Oxyhemoglobin 95.7 ABG O2 Sat (Calculated) 15.9 ABG O2 Saturation 97.6 ABG Carboxyhemoglobin 1.80 ABG Methemoglobin 0.1 Julio C Test YES A-a O2 Difference 41.0 Total Hemoglobin 11.7 Lactate 1.10 Liter Flow 3.0 Blood Gas Modality CANNULA FiO2 % 32.0 Sodium Potassium Chloride Carbon Dioxide Anion Gap BUN Creatinine Estimated GFR/1.73 m2 BUN/Creatinine Ratio Glucose POC Glucose Calculated Osmolality Calcium Magnesium Total Bilirubin AST ALT Alkaline Phosphatase Creatine Kinase Creatine Kinase Index CK-MB (CK-2) Troponin T Sbc-U-Cugmjkjzojp Pept 776 H Total Protein Albumin Globulin Albumin/Globulin Ratio Plasma Lactate Urine Source Urine Color Urine Turbidity Urine pH Ur Specific [place] Urine Protein Ur Glucose (Stick) Ur Ketones (Stick) Urine Blood Urine Nitrite Urine Bilirubin Urobilinogen Dipstick Urine Leukocytes Urine WBC (Auto) Urine RBC (Auto) U Epithel Cells (Auto) Urine Bacteria (Auto) 06/30/19 06/30/19 06/30/19 18:55 19:06 19:06 WBC RBC Hgb Hct MCV MCH MCHC RDW Std Deviation Plt Count MPV Immature Gran % (Auto) Neut % (Auto) Lymph % (Auto) [place] % (Auto) Eos % (Auto) Baso % (Auto) Immature Gran # (Auto) Neut # (Auto) Lymph # (Auto) [place] # (Auto) Eos # (Auto) Baso # (Auto) PT INR PTT (Actin FS) Specimen Type Sample Site pH pCO2 pO2 HCO3 Base Excess Oxyhemoglobin ABG O2 Sat (Calculated) ABG O2 Saturation ABG Carboxyhemoglobin ABG Methemoglobin Julio C Test A-a O2 Difference Total Hemoglobin Lactate Liter Flow Blood Gas Modality FiO2 % Sodium 146 H Potassium 4.1 Chloride 104 Carbon Dioxide 27 Anion Gap 15 BUN 22 Creatinine 0.5 Estimated GFR/1.73 m2 > 60 BUN/Creatinine Ratio 44 Glucose 133 H POC Glucose Calculated Osmolality 296 Calcium 9.5 Magnesium Total Bilirubin 1.41 H AST 67 H ALT 48 H Alkaline Phosphatase 189 H Creatine Kinase Creatine Kinase Index CK-MB (CK-2) Troponin T < 0.010 Rmu-D-Zxgrinfifqy Pept Total Protein 7.3 Albumin 4.0 Globulin 3.3 Albumin/Globulin Ratio 1.2 Plasma Lactate Urine Source CATH Urine Color YELLOW Urine Turbidity CLEAR Urine pH 6.0 Ur Specific [place] 1.020 Urine Protein 100 A Ur Glucose (Stick) NEGATIVE Ur Ketones (Stick) TRACE A Urine Blood SMALL A Urine Nitrite NEGATIVE Urine Bilirubin NEGATIVE Urobilinogen Dipstick NORMAL Urine Leukocytes NEGATIVE Urine WBC (Auto) 20-40 A Urine RBC (Auto) 10-20 A U Epithel Cells (Auto) <10 Urine Bacteria (Auto) NEGATIVE 06/30/19 06/30/19 06/30/19 19:06 19:06 19:06 WBC RBC Hgb Hct MCV MCH MCHC RDW Std Deviation Plt Count MPV Immature Gran % (Auto) Neut % (Auto) Lymph % (Auto) [place] % (Auto) Eos % (Auto) Baso % (Auto) Immature Gran # (Auto) Neut # (Auto) Lymph # (Auto) [place] # (Auto) Eos # (Auto) Baso # (Auto) PT 15.8 INR 1.24 PTT (Actin FS) 46.0 H Specimen Type Sample Site pH pCO2 pO2 HCO3 Base Excess Oxyhemoglobin ABG O2 Sat (Calculated) ABG O2 Saturation ABG Carboxyhemoglobin ABG Methemoglobin Julio C Test A-a O2 Difference Total Hemoglobin Lactate Liter Flow Blood Gas Modality FiO2 % Sodium Potassium Chloride Carbon Dioxide Anion Gap BUN Creatinine Estimated GFR/1.73 m2 BUN/Creatinine Ratio Glucose POC Glucose Calculated Osmolality Calcium Magnesium 2.1 Total Bilirubin AST ALT Alkaline Phosphatase Creatine Kinase 1172 H Creatine Kinase Index 6.2 H CK-MB (CK-2) 72.85 H Troponin T Vkg-I-Nlkcdhvjuta Pept Total Protein Albumin Globulin Albumin/Globulin Ratio Plasma Lactate 1.4 Urine Source Urine Color Urine Turbidity Urine pH Ur Specific [place] Urine Protein Ur Glucose (Stick) Ur Ketones (Stick) Urine Blood Urine Nitrite Urine Bilirubin Urobilinogen Dipstick Urine Leukocytes Urine WBC (Auto) Urine RBC (Auto) U Epithel Cells (Auto) Urine Bacteria (Auto) 06/30/19 20:17 WBC RBC Hgb Hct MCV MCH MCHC RDW Std Deviation Plt Count MPV Immature Gran % (Auto) Neut % (Auto) Lymph % (Auto) [place] % (Auto) Eos % (Auto) Baso % (Auto) Immature Gran # (Auto) Neut # (Auto) Lymph # (Auto) [place] # (Auto) Eos # (Auto) Baso # (Auto) PT INR PTT (Actin FS) Specimen Type Sample Site pH pCO2 pO2 HCO3 Base Excess Oxyhemoglobin ABG O2 Sat (Calculated) ABG O2 Saturation ABG Carboxyhemoglobin ABG Methemoglobin Julio C Test A-a O2 Difference Total Hemoglobin Lactate Liter Flow Blood Gas Modality FiO2 % Sodium Potassium Chloride Carbon Dioxide Anion Gap BUN Creatinine Estimated GFR/1.73 m2 BUN/Creatinine Ratio Glucose POC Glucose 113 H Calculated Osmolality Calcium Magnesium Total Bilirubin AST ALT Alkaline Phosphatase Creatine Kinase Creatine Kinase Index CK-MB (CK-2) Troponin T Oza-Z-Bsufrbxqxde Pept Total Protein Albumin Globulin Albumin/Globulin Ratio Plasma Lactate Urine Source Urine Color Urine Turbidity Urine pH Ur Specific [place] Urine Protein Ur Glucose (Stick) Ur Ketones (Stick) Urine Blood Urine Nitrite Urine Bilirubin Urobilinogen Dipstick Urine Leukocytes Urine WBC (Auto) Urine RBC (Auto) U Epithel Cells (Auto) Urine Bacteria (Auto) Orders Category Date Time Status Admit - [facility] Routine AdmDCTranf 07/01/19 00:35 Active Activity - Up with Assistance ORDERED Care 07/01/19 00:35 Active Cardiac Monitoring DIRECTED Care 06/30/19 18:24 Active Cardiac Monitoring DIRECTED Care 06/30/19 21:17 Active Core Temperature ORDERED Care 06/30/19 18:30 Active FSBS/Accucheck Result AC + HS Care 07/01/19 00:35 Active [place] Cath Insertion ORDERED Care 06/30/19 18:25 Active Intake and Output-Strict ORDERED Care 07/01/19 00:35 Active Neurological Check ORDERED Care 07/01/19 00:35 Active Vital Signs Order Q2H Care 07/01/19 00:35 Active Warming [place] DIRECTED Care 06/30/19 18:42 Active Z-Document. for Tele Applied ORDERED Care 07/01/19 00:35 Active NPO Diet 07/01/19 00:36 Active CHEST-1 VIEW [RAD] Stat Exams 06/30/19 18:[address] HEAD/C-SPINE W/O CONTRAST [CT] Stat Exams 06/30/19 18:40 Ordered ABG [RESP] Routine Lab 06/30/19 18:41 Completed BASIC METABOLIC PANEL [CHEM] Routine Lab 07/01/19 06:00 Uncollected BLOOD CULTURE [BLDCUL] Stat Lab 06/30/19 19:06 Results BNP [PRO B-NATRIURETIC PEPTIDE] Stat Lab 06/30/19 18:25 Completed CBC WITH DIFF [HEME] Routine Lab 07/01/19 06:00 Uncollected CBC WITH ELECTRONIC DIFF [HEME] Stat Lab 06/30/19 18:25 Completed CK PROFILE [SP CHEM] Stat Lab 06/30/19 19:06 Completed CMP [COMPREHENSIVE METABOLIC PANEL] [CHEM] Stat Lab 06/30/19 19:06 Completed LACTATE, PLASMA [CHEM] Lab 06/30/19 19:06 Completed LACTATE, PLASMA [CHEM] Lab 07/01/19 00:42 Completed LACTATE, PLASMA [CHEM] Lab 07/01/19 01:43 Ordered MAGNESIUM [CHEM] Stat Lab 06/30/19 19:06 Completed PT [PROTIME WITH INR] [COAG] Stat Lab 06/30/19 19:06 Completed PTT [COAG] Stat Lab 06/30/19 19:06 Completed TROPONIN T Stat Lab 06/30/19 19:06 Completed TSH Routine Lab 07/01/19 06:00 Uncollected URINALYSIS W/POSS RFLX CULT [URINALYSIS] Stat Lab 06/30/19 18:55 Completed URINE CULTURE [RM] Routine Lab 06/30/19 18:55 Received WOUND CULTURE INC GRAM STAIN [RM] Routine Lab 06/30/19 19:58 Results CefTRIAXONE [Rocephin] 1 gm Med 06/30/19 18:31 Discontinued 0.9% Sodium Chloride Inj [Ns] 50 ml IV NOW CefTRIAXONE [Rocephin] 1 gm Med 07/01/19 00:35 Active 0.9% Sodium Chloride Inj [Ns] 50 ml IV Q24H Enoxaparin [Lovenox] Med 07/01/19 00:35 Active 40 mg SUBQ Q24H Furosemide [Lasix] Med 06/30/19 20:19 Discontinued 40 mg IV NOW ONE Furosemide [Lasix] Med 07/01/19 00:35 Active 40 mg IV Q12H Insulin Human Regular [Humulin R] Med 07/01/19 07:00 Active See Protocol SUBQ 0700,1100,1600,2100 Ondansetron [Zofran] Med 07/01/19 00:35 Active 4 mg IV Q4H PRN PRN Pharmacy Order [Vancomycin IV Per Pharmacy] Med 07/01/19 00:35 Active 1 each MISC DIRECTED Vancomycin 1 gm/Ns Med 06/30/19 18:32 Discontinued 1 gm in 250 ml IV NOW Oxygen Device Stat Oth 06/30/19 21:17 Completed Pulse Oximetry Urgent Oth 06/30/19 18:25 Completed Telemetry [OM.EQ] Routine Oth 07/01/19 00:35 Active EKG [EKG] Stat Ther 06/30/19 17:53 Ordered Echo Spec/Color Doppler Routine Ther 07/01/19 00:35 Ordered Transfer/Admit Order [TRANSFER] Routine Transfer 06/30/19 22:12 Completed Result Diagrams: 06/30/19 18:25 06/30/19 19:06 - XRAY 1 XRAY Study: Chest XRAY Interpretation: pulmonary edema - CONSULTS/PCP/HOSPITALIST Notification #1 *Consult/PCP/Hospitalist*: Dr. 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 Qualified Code(s): E11.65 - Type 2 diabetes mellitus with hyperglycemia Hypothermia Qualifiers: Encounter type: initial encounter Qualified Code(s): T68.XXXA - Hypothermia, initial encounter Altered mental state Qualifiers: Altered mental status type: unspecified Qualified Code(s): R41.82 - Altered mental status, unspecified Urinary tract infection Qualifiers: Urinary tract infection type: site unspecified Hematuria presence: without hematuria Qualified Code(s): N39.0 - Urinary tract infection, site not specified Disposition: ADMITTED INPATIENT 09 Certified Medical Emergency: Emergent Condition: Stable - Critical Care Note This patient required my direct & personal management of CC.: No Attestation - Physician/ ERIN Attestation Patient care was provided by Advanced Practice Provider:: No The physician spent face to face time with patient:: Yes Advanced Practice Provider documentation review:: Supervising physician onsite and consulted in the evaluation and care of this patient. The physician did have a face to face encounter with the patient.
[2019-06-30 18:57] LABS: ALLEN TEST YES; BE 0.3 mmoll (-3.0-3.0); BLOOD TYPE ARTERIAL; HCO3-(ACT) 25.1 mmoll (20.0-26.0); METHB 0.1 % (0.0-1.5); O2(CT) 15.9 mL/dL (15.0-23.0); O2HB 95.7 % (95.0-99.0); PO2(98.6) 123 mmHg (60-100); SAMPLE BLOOD; SAO2 97.6 % (95.0-100.0); THB 11.7 g/dL (11.5-17.4); pH(98.6) 7.33 (7.35-7.45)
[2019-06-30 18:58] LABS: MODALITY CANNULA
[2019-06-30 19:00] LABS: PCO2(98.6) 51 mmHg (35-45)
--- NOTE | 2019-06-30 19:07 | Diag Imaging Result Doc PS360 ---
CHEST-1 VIEW - 06/30/2019 INDICATION: sob COMPARISON: 06/03/2019 FINDINGS: There is cardiomegaly and pulmonary vascular congestion. There are diffuse bilateral interstitial infiltrates. No pneumothorax or significant pleural effusion. IMPRESSION: Cardiomegaly. Diffuse bilateral interstitial infiltrates compatible with pulmonary edema. Electronically signed by Reed Schroeder 06/30/2019 7:03 PM
[2019-06-30 19:36] LABS: URINE SOURCE CATH
[2019-06-30 19:43] LABS: BASO# 0.01 X1000 (0.0-0.2); BASO% 0.1 % (0.0-0.8); EOS# 0.01 X1000 (0.0-0.7); EOS% 0.1 % (0.0-10.0); HEMATOCRIT 37.7 % (37.0-47.0); HEMOGLOBIN 11.6 g/dL (12.0-16.0); IMM GRAN# 0.03 X1000 (0.0-0.04); IMM GRAN% 0.4 % (0.0-0.5); LYMPH# 0.81 X1000 (1.2-3.4); LYMPH% 10.4 % (20.5-51.1); MCH 27.8 PG (27-31); MCHC 30.8 g/dL (33-37); MCV 90.2 FL (81-99); MONO# 0.54 X1000 (0.11-0.59); MONO% 6.9 % (1.7-9.3); MPV 11.6 FL (7.4-10.4); NEUT# 6.41 X1000 (1.4-6.5); NEUT% 82.1 % (42.2-75.2); PLT 130 X1000 (130-400); RBC 4.18 XMIL (4.2-5.4); RDW 18.8 % (11.5-14.5); WBC 7.81 X1000 (4.8-10.8)
[2019-06-30 19:44] LABS: BILIRUBIN URINE NEGATIVE (NEGATIVE); BLOOD URINE SMALL (NEGATIVE); COLOR YELLOW; GLUCOSE URINE NEGATIVE (NEGATIVE); KETONE URINE TRACE mg/dL (NEGATIVE); LEUKOCYTES URINE NEGATIVE (NEGATIVE); NITRITE URINE NEGATIVE (NEGATIVE); PROTEIN URINE 100 mg/dL (NEGATIVE); TURBIDITY URINE CLEAR (CLEAR); UROBILINOGEN URINE NORMAL (NORMAL)
[2019-06-30 19:45] LABS: UR EPITHELIAL CELLS <10 /HPF (<10); URINE BACTERIA NEGATIVE /HPF; URINE WBC 20-40 /HPF (<10)
[2019-06-30 19:52] LABS: INR 1.24; PROTIME 15.8 Seconds (11.0-16.0)
[2019-06-30 20:14] LABS: AGAP 15; ALB/GLOB RATIO 1.2; ALKALINE PHOSPHATASE 189 U/L (32-104); BUN 22 mg/dL (8-22); CALCIUM 9.5 mg/dL (8.8-10.2); CHLORIDE 104 mmol/L (98-107); COSMO 296; CREATININE 0.5 mg/dL (0.5-0.9); ESTIMATED GFR > 60; GLUCOSE 133 mg/dL (70-104); GOT 67 U/L (10-30); GPT 48 U/L (10-36); POTASSIUM 4.1 mmol/L (3.5-5.1); SODIUM 146 mmol/L (136-145); TCO2 27 mmol/L (25-35); TOTAL BILIRUBIN 1.41 mg/dL (0.20-1.00); TOTAL PROTEIN 7.3 g/dL (6.3-8.3)
[2019-06-30] MEDS ORDERED: LASIX IV ONE (20:19)
[2019-06-30 21:46] LABS: MAGNESIUM 2.1 mg/dL (1.5-2.7)
[2019-06-30 22:09] LABS: CK INDEX 6.2 (0.0-2.5); CK-MB 72.85 ng/mL (0.0-5.0)
--- NOTE | 2019-06-30 23:17 | HISTORY AND PHYSICAL ---
PRIMARY CARE PHYSICIAN: Dr. Belen Dominique. CHIEF COMPLAINT: Altered mental status and shortness of breath. HISTORY OF PRESENTING ILLNESS: A 59-year-old obese female with a history of diabetes mellitus type 2, coronary disease, hypertension, chronic wounds on lower extremity, who had presented to emergency department due to worsening mental status changes and shortness of breath. The patient states that she was getting somewhat confused and she was having more difficulty breathing. The patient is a poor historian. Patient was evaluated in the emergency department and it was noted that the heel ulcer on her right foot were draining. Due to these presenting symptoms, it was thought that she would need admission for further management. At the time of my examination, patient denied any headache, fever, chills, chest pain, but complained of shortness of breath and not feeling well. PAST MEDICAL HISTORY: Include diabetes mellitus type 2, hypertension, hyperlipidemia, gout, restless legs syndrome, coronary artery disease. PAST SURGICAL HISTORY: Hysterectomy, 2 amputations on bilateral feet, CABG, tonsillectomy. ALLERGIES: Zanaflex. CURRENT MEDICATIONS: Allopurinol 300 mg p.o. daily, aspirin 325 mg p.o. daily, Lasix 40 mg p.o. daily, gabapentin 800 mg p.o. daily, glimepiride 4 mg p.o. daily, [place] 10/325 one p.o. q.6 hours, metoprolol 50 mg p.o. daily, Requip 1 mg p.o. daily, Janumet 100/1000 one p.o. daily. SOCIAL HISTORY: She is a former smoker. History of alcohol abuse in the past. Denies any illicit drug use. FAMILY HISTORY: Positive for coronary disease in mother and father. REVIEW OF SYSTEMS: Fourteen point review of system as listed in HPI. Other systems negative. PHYSICAL EXAMINATION: GENERAL: Cooperative, obese female. She is resting more comfortably. She is moderately confused. VITAL SIGNS: Temperature 85.2, pulse 60, respiration 18, blood pressure 94/77. HEENT: Atraumatic, normocephalic. PERRLA. NECK: No masses. CHEST: Bibasilar rales. CARDIOVASCULAR: Regular rate and rhythm. ABDOMEN: Soft. Positive bowel sounds. Obese. EXTREMITIES: Large ulcer on right foot and moderate erythema on bilateral lower extremity. GENITOURINARY: No bladder distention. NEUROLOGIC: She is awake, alert, oriented x2. SKIN: Warm. LABORATORIES AND STUDIES: WBC 7.81, hemoglobin 11.6, hematocrit 37.7, platelets 130,000, pH 7.23, pCO2 51, pO2 123, sodium 143, potassium 4.1, chloride 104, CO2 is 27, BUN is 22, creatinine is 0.5, glucose is 133, proBNP is 776. Chest x-ray shows cardiomegaly and pulmonary edema. ASSESSMENT: A 59-year-old obese female with a history of diabetes mellitus type 2, hypertension, hyperlipidemia and coronary disease who had presented to emergency department with several days history of having confusion and shortness of breath. She was evaluated in the emergency department and she seemed moderately confused and it seemed that her heel decubitus was draining and due to these presenting symptoms, it was thought that she would need admission for further management. 1. Altered mental status multifactorial. 2. Bilateral lower extremity cellulitis. 3. Right heel decubitus wound draining. 4. Diabetes mellitus type 2. 5. Congestive heart failure exacerbation, unspecified. PLAN: 1. We will admit patient to [facility]. 2. We will continue with neuro checks. 3. We will check blood cultures. Start patient on IV antibiotics. 4. Continue patient on a Jack Hugger due to hypothermia. 5. We will check wound culture. 6. We will monitor blood glucose and put patient on sliding scale insulin regimen. 7. We will check echocardiogram if 1 has not been done recently. Continue with gentle diuresis. 8. We will put patient on DVT prophylaxis with Lovenox. 9. We will continue to follow and reassess. Make further recommendation based on patient's clinical course. cc: Regino Harrison MD
[2019-07-01] MEDS: ROCEPHIN 1 GM in NS 50 ML IV SCH ×2 (00:35→23:57)
[2019-07-01] MEDS ORDERED: VANCOMYCIN IV PER PHARMACY MISC SCH (00:35)
[2019-07-01] MEDS ORDERED: ZOFRAN IV PRN (00:35)
[2019-07-01] MEDS ORDERED: LASIX IV SCH (00:35)
[2019-07-01] MEDS ORDERED: VANCOMYCIN 1 GM/NS 1 GM/250 ML IVPB IV ONE (02:00)
[2019-07-01] MEDS: LOVENOX SUBQ SCH ×2 (03:03→23:58)
[2019-07-01] MEDS ORDERED: NS 1,000 ML IV ONE (05:55)
[2019-07-01] MEDS ORDERED: NS 1,000 ML ONE (06:01)
--- NOTE | 2019-07-01 07:38 | EKG Report ---
Test Performed on : 06/30/2019 6:19:12 PM Test Reason : SOB Blood Pressure : / mmHG Vent. Rate : 067 BPM Atrial Rate : 066 BPM P-R Int : 124 ms QRS Dur : 096 ms QT Int : 488 ms P-R-T Axes : -17 059 038 degrees QTc Int : [address] elevation, consider inferior injury or acute infarct ACUTE NM / STEMI Abnormal ECG No previous ECGs available Unconfirmed Result
[2019-07-01 07:48] LABS: BASO# 0.01 X1000 (0.0-0.2); BASO% 0.2 % (0.0-0.8); EOS# 0.04 X1000 (0.0-0.7); EOS% 0.6 % (0.0-10.0); HEMATOCRIT 32.3 % (37.0-47.0); HEMOGLOBIN 9.7 g/dL (12.0-16.0); IMM GRAN# 0.03 X1000 (0.0-0.04); IMM GRAN% 0.5 % (0.0-0.5); LYMPH# 0.81 X1000 (1.2-3.4); LYMPH% 12.7 % (20.5-51.1); MONO# 0.68 X1000 (0.11-0.59); MONO% 10.7 % (1.7-9.3); MPV 11.1 FL (7.4-10.4); NEUT% 75.3 % (42.2-75.2); PLT 152 X1000 (130-400); RBC 3.59 XMIL (4.2-5.4); RDW 18.9 % (11.5-14.5); WBC 6.37 X1000 (4.8-10.8)
--- NOTE | 2019-07-01 08:24 | Diag Imaging Result Doc PS360 ---
EXAM: CT HEAD/C-SPINE W/O CONTRAST 06/30/2019 HISTORY: AMS TECHNIQUE: This exam was performed using automated exposure control, adjustment of mA or kV according to patient size, and/or use of iterative reconstruction technique. COMMENT: There are no previous studies available for comparison. There are calcifications in the vertebral and internal carotid arteries bilaterally. There is extensive ill-defined abnormal lucency in the white matter both hemispheres particularly around the frontal horns and particularly on the right side in the internal and external capsules. There is no evidence of mass effect bleed or abnormal extra-axial fluid collection. The visualized paranasal sinuses are clear. The calvarium is intact. There is hyperostosis frontalis interna. Cervical spine: There are degenerative changes in the anterior atlantoaxial joint and disc space narrowing and posterior osteophyte formation at C5-6 and to a lesser extent at C6-7. No prevertebral soft tissue swelling is present and there is no evidence of facet dislocation or subluxation. There is no evidence of fracture. IMPRESSION: No evidence of intracranial mass or bleed. No evidence of acute bony abnormality in the cervical spine. Extensive chronic ischemic white matter change. In view of these changes, further evaluation with MRI may be desirable to exclude the possibility of an acute ischemic insult. Electronically signed by Rohit Yu 07/01/2019 8:21 AM
[2019-07-01 08:39] LABS: AGAP 17; BUN 22 mg/dL (8-22); CALCIUM 8.6 mg/dL (8.8-10.2); CHLORIDE 108 mmol/L (98-107); COSMO 301; CREATININE 0.7 mg/dL (0.5-0.9); ESTIMATED GFR > 60; GLUCOSE 51 mg/dL (70-104); POTASSIUM 3.2 mmol/L (3.5-5.1); SODIUM 151 mmol/L (136-145); TCO2 26 mmol/L (25-35)
[2019-07-01] MEDS: HUMULIN R SUBQ SCH ×4 (11:12→21:34)
[2019-07-01] MEDS: SANTYL OINT TOP SCH (13:00)
[2019-07-01] MEDS: VANCOMYCIN 2,000 MG in NS 500 ML IV SCH (14:26)
--- NOTE | 2019-07-01 14:26 | PROGRESS NOTE ---
DATE: 07/01/2019 SUBJECTIVE: I have seen and examined Ms. Olivier today. She is actually admitted but currently Fraser in the emergency room. Ms Olivier was recently discharged from the hospital on 06/07/2019 due to bilateral lower extremity cellulitis and a right heel ulcer was evaluated by Infectious Disease and Surgery was sent home on Zyvox and Levaquin. Apparently has not been very compliant came to the hospital this morning due to altered mental status. Upon presentation she was found to have draining large ulcer under the right foot was admitted for further medical care. This morning she refers to be doing a little better. She is just emotional and she said she does not want any amputation if she needs it. I have seen the wound care nurse who had early on evaluated the wounds on Ms Olivier, she thinks there is a tract to the bone on the right side. OBJECTIVE: Her current vitals blood pressure is 120/51, pulse of 101, respiration is 20, temperature is 97.7 degrees.General: Ms. Olivier is a 59-year-old morbidly obese female, she has a BMI of 51.8, she is in bed no distress. Mucosa is pink and moist. Anicteric, acyanotic. Neck: Supple. Chest: Good air entry bilaterally. No crepitations. No rhonchi. Cardiovascular: Regular rate and rhythm. There is an old sternotomy scar on the anterior chest wall. Abdomen: Soft, nontender. Extremities: Bilateral lower extremity chronic edema with erythematous changes. The right lower extremity has both the big and 2nd toes surgically amputated. The left has a big toe amputated. Patient both the feet and the distal part of the legs are all in sterile dressing and I did not take them off. LABORATORY DATA: WBC is 6.37, hemoglobin is 9.7, platelet count of 152,000. Chemistry is also reviewed, unremarkable for most part. So far urine culture is negative, blood cultures are pending. The right foot cultures are also pending. Patient is currently on ceftriaxone and vancomycin. Her previous microbiology data seems to suggest multiple organism have grown in the right foot before including Providencia rettgeri, Enterobacter cloacae has also grown on the left, Klebsiella pneumoniae, Staphylococcus aureus all have grown in the legs before. ASSESSMENT: 1. Altered mental status on presentation improved secondary to global encephalopathy with a negative CAT scan. 2. Bilateral lower extremity stasis dermatitis with superimposed cellulitis. 3. Right heel pressure ulcers with draining concerning for possible osteomyelitis. An x-ray has already been ordered. ID and Surgery will be consulted. 4. Diabetes mellitus. Will continue with insulin regimen. 5. History of congestive heart failure. cc: Manuel Gerard MD MTDD
[2019-07-01] MEDS ORDERED: D50W SYRINGE IV ONE (14:38)
--- NOTE | 2019-07-01 16:27 | ECHO REPORT ---
ORDER DATE: 07/01/2019 INDICATION: Shortness of breath. FINDINGS: 1. The right atrium appears mildly enlarged at 4.6 cm. 2. Mild tricuspid regurgitation. RV systolic pressure is estimated at 35 mmHg but this is a difficult estimations due to poor Doppler. 3. Normal RV size and systolic function. 4. Mild pulmonic insufficiency. 5. Mild left atrial enlargement with dimension of 4.3 cm. 6. No mitral prolapse. No significant mitral stenosis is identified. Trace mitral regurgitation. 7. Normal LV size with an end-diastolic dimension of 4.3 cm. Normal wall thicknesses with a posterior and interventricular septal thickness of 1.1 cm each. Normal LV systolic function. Estimated EF of 60 to 65% with normal wall motion. 8. Aortic valve opens well. There is no evidence of stenosis. No insufficiency. 9. Aorta appears normal in visualized segments. 10. No pericardial effusion identified. cc: MD Regino Pizano MD
[2019-07-01] MEDS: NEURONTIN PO SCH (21:34)
[2019-07-01] MEDS: CULTURELLE PO SCH (21:34)
[2019-07-01] MEDS ORDERED: CALMOSEPTINE OINTMENT TOP PRN (22:13)
[2019-07-02] MEDS: VANCOMYCIN 2,000 MG in NS 500 ML IV SCH ×2 (02:11→15:17)
[2019-07-02 06:09] LABS: HEMATOCRIT 33.4 % (37.0-47.0); HEMOGLOBIN 10.1 g/dL (12.0-16.0); MCH 27.9 PG (27-31); MCHC 30.2 g/dL (33-37); MCV 92.3 FL (81-99); MPV 11.2 FL (7.4-10.4); RBC 3.62 XMIL (4.2-5.4); RDW 20.4 % (11.5-14.5); WBC 7.12 X1000 (4.8-10.8)
[2019-07-02 06:28] LABS: AGAP 11; ALBUMIN 2.9 g/dL (3.5-5.0); BUN 16 mg/dL (8-22); CALCIUM 8.3 mg/dL (8.8-10.2); CHLORIDE 107 mmol/L (98-107); COSMO 290; CREATININE 0.7 mg/dL (0.5-0.9); ESTIMATED GFR > 60; GLUCOSE 93 mg/dL (70-104); PHOSPHORUS 3.4 mg/dL (2.7-4.5); POTASSIUM 2.9 mmol/L (3.5-5.1); SODIUM 145 mmol/L (136-145); TCO2 27 mmol/L (25-35)
[2019-07-02] MEDS: HUMULIN R SUBQ SCH ×4 (07:30→21:47)
--- NOTE | 2019-07-02 07:30 | GENERAL SURGERY CONSULTATION ---
DATE: 07/01/2019 CHIEF COMPLAINT: Altered mental status. REASON FOR CONSULTATION: Foot wounds. HISTORY OF PRESENT ILLNESS: This is a 59-year-old female known to me. She has chronic wounds of bilateral feet. She also has chronic lymphedema and cellulitis of her legs. She came in with several days of worsening mental status, per her family. She was admitted through ed. She has had a chronic right calcaneal wound and developed a subsequent left foot infection that was debrided by Dr. Murdock and I have been following the wounds since that time. She is on Lasix. She has chronic edema. She did smoke in the past and she has poorly-controlled diabetes. Overall, she is, for the most part, noncompliant, mostly due to her social situation. MEDICAL HISTORY: Diabetes, hypertension, hyperlipidemia, chronic edema, chronic neuropathic wounds, and coronary artery disease. SURGICAL HISTORY: Hysterectomy, she has had multiple toe amputations bilaterally, multiple debridements, coronary artery bypass grafting, tonsillectomy. MEDICATIONS: Medication list is extensive. It includes insulin and Lasix. SOCIAL HISTORY: She did smoke in the past. No current tobacco, alcohol, or drugs. She is in a difficult social situation, not much support either financially or from a personnel standpoint. FAMILY HISTORY: Reviewed and negative for cancer. REVIEW OF SYSTEMS: A 10-point review of systems was negative other than what was mentioned in the HPI. PHYSICAL EXAMINATION: Vital Signs: She is afebrile, pulse 97, blood pressure is 98/56, oxygen saturation 100% on 2 L. General: She is chronically ill-appearing, alert, somewhat confused, but in no acute distress. HEENT: There is no scleral icterus. No cervical mass. Cardiovascular: Normal rate. Pulmonary: No increased work of breathing. Abdomen: Soft, obese, nontender. Integument: Warm and dry. Psychiatric: Appropriate affect. Neurologic: Generalized weakness. She does seem somewhat confused. Peripheral Vascular: She has chronic edema bilaterally, some blisters on her right leg, and erythema bilaterally. On musculoskeletal exam, she has a right calcaneal wound. It is clean. I do not appreciate bone in the base. She also has a plantar wound on the left that has some fibrinous tissue but no cellulitis and no gross purulence. LABORATORY DATA: I reviewed her labs. White count is 6, hematocrit is 32. I reviewed her ABG on admission. Creatinine is 0.7, glucose has been as high as 133. Bilirubin, AST, ALT, and alkaline phosphatase are mildly elevated. Troponins are negative. Lactate was 1. She has had a CT of the head and C-spine that shows no acute intracranial process. There were some chronic changes. ASSESSMENT AND PLAN: A 59-year-old female admitted with altered mental status. From a wound standpoint, her edema is worse and she does have some cellulitis. I have recommended Unna boot placement. From a foot wound standpoint, these overall showed some degree of improvement. I would continue enzymatic debridement. I may need to sharply debride her at some point but we will continue Vashe, Santyl, and Unna wraps. I will follow along. cc: Marti Almaraz MD MTDD
[2019-07-02] MEDS: ZYLOPRIM PO SCH (09:35)
[2019-07-02] MEDS: NEURONTIN PO SCH ×2 (09:35→21:46)
[2019-07-02] MEDS: ASPIRIN PO SCH (09:35)
[2019-07-02] MEDS: SANTYL OINT TOP SCH (09:35)
[2019-07-02] MEDS: CULTURELLE PO SCH ×2 (09:35→21:46)
[2019-07-02] MEDS ORDERED: KLOR-CON PO ONE (12:22)
[2019-07-02] MEDS: LASIX PO SCH (13:46)
[2019-07-02] MEDS: REQUIP PO SCH ×2 (13:49→16:22)
[2019-07-02] MEDS: NORCO-5 PO PRN ×2 (16:20→22:52)
--- NOTE | 2019-07-02 18:08 | PROGRESS NOTE ---
DATE: 07/02/2019 SUBJECTIVE: This morning, Ms. Olivier refers to be doing a little better. She looks more alert than days before. OBJECTIVE: Vital signs: Blood pressure is 137/67, pulse of 73, respirations 15, temperature is 98.1 degrees. General: Ms. Olivier is a 59-year-old, female. She is in bed. No distress. Mucosa is pink and moist. Anicteric. Acyanotic. Neck: Supple. Chest: Good air entry bilaterally. There are no crepitations. No rhonchi. Cardiovascular: Regular rate and rhythm. No murmurs. There is an old sternotomy scar on the anterior chest wall from previous open heart surgery. Gastrointestinal: Abdomen is soft, nontender. Bowel sounds present. There is no hepatosplenomegaly. Extremities: There is chronic bilateral lower extremity edema and erythematous changes. The right lower extremity has the big toe and the 2nd toe surgically amputated. The left has the big toe amputated. Both feet are in a sterile dressing. LABORATORY AND DIAGNOSTIC DATA: WBC 7.12, hemoglobin is 10.1, platelet count of 133,000. Chemistry is also reviewed. Potassium is 2.9. The patient's echocardiogram which was done during the hospitalization, shows an ejection fraction of 60 to 65 percent with normal wall motion abnormality. The valves do not have any significant stenosis or regurgitation. Left atrium is enlarged. The right ventricle has normal systolic function. Right ventricular systolic pressure is estimated to be 35. There was not any mention of any diastolic dysfunction, however. The patient's microbiology, the right foot is showing gram-positive cocci from the culture. The left is showing gram-negative and gram-positive. One of the blood cultures is also showing gram- positive. CURRENT MEDICATIONS: Have also all been reviewed. ASSESSMENT/PLAN: 1. Altered mental status on presentation secondary to global encephalopathy. CT scan is negative. We think it is multifactorial in etiology including possible sepsis induced versus medication side effects or both. Ms. Olivier was on [place], gabapentin, Bupap, ropinirole at home. All of this combination could have potentially affected her sensorium to be obtunded at the time of the admission. 2. Hypotension on admission, most likely a combination of infection and medication side effects. Blood pressure has significantly improved. 3. Bilateral lower extremity stasis dermatitis with superimposed cellulitis. The patient is on antimicrobial therapy. 4. Right heel pressure ulcer with suspicion of osteomyelitis of the underlying calcaneal bone. An MRI which was done during her last admission, 05/12/2019, suggested that there was an abnormal signal intensity and enhancement of the posterior lateral calcaneus, and this may represent osteomyelitis. Ms. Olivier is currently on antimicrobial therapy. Her wound cultures are growing multiple organisms. We are going to wait on the ID and sensitivity and make changes to the regimen accordingly. 5. Diabetes mellitus. We will continue with insulin regimen. 6. Bilateral lower extremity swelling, most likely due to chronic venous insufficiency. We will continue with diuretics as needed. 7. History of coronary artery disease, status post coronary artery bypass graft. Currently asymptomatic. Ms Olivier is on aspirin, beta juan r. I have not seen any statin on her medication list. Unsure if she has had any allergy to that before. We will address that with her. From a medical standpoint, I think Ms. Olivier is not hemodynamically stable. We are going to transfer her from the [facility] to the surgical floor. cc: Manuel Gerard MD MTDD
[2019-07-02] MEDS: LOPRESSOR PO SCH (21:46)
[2019-07-02] MEDS: ROCEPHIN 1 GM in NS 50 ML IV SCH (21:47)
[2019-07-02] MEDS: LOVENOX SUBQ SCH (21:47)
[2019-07-03] MEDS: VANCOMYCIN 2,000 MG in NS 500 ML IV SCH (03:04)
[2019-07-03] MEDS: NORCO-5 PO PRN ×3 (05:12→22:10)
[2019-07-03 06:06] LABS: HEMATOCRIT 32.1 % (37.0-47.0); HEMOGLOBIN 9.5 g/dL (12.0-16.0); MCH 27.9 PG (27-31); MCHC 29.6 g/dL (33-37); MCV 94.4 FL (81-99); MPV 12.5 FL (7.4-10.4); RBC 3.4 XMIL (4.2-5.4); RDW 20.2 % (11.5-14.5); WBC 6.32 X1000 (4.8-10.8)
[2019-07-03 06:27] LABS: AGAP 11; BUN 17 mg/dL (8-22); CALCIUM 8.6 mg/dL (8.8-10.2); CHLORIDE 106 mmol/L (98-107); COSMO 294; CREATININE 0.8 mg/dL (0.5-0.9); ESTIMATED GFR > 60; GLUCOSE 103 mg/dL (70-104); MAGNESIUM 2.1 mg/dL (1.5-2.7); PHOSPHORUS 3.6 mg/dL (2.7-4.5); POTASSIUM 3.7 mmol/L (3.5-5.1); SODIUM 147 mmol/L (136-145); TCO2 30 mmol/L (25-35)
[2019-07-03] MEDS: HUMULIN R SUBQ SCH ×4 (06:34→22:11)
[2019-07-03] MEDS: ZYLOPRIM PO SCH (08:10)
[2019-07-03] MEDS: REQUIP PO SCH ×4 (08:10→22:06)
[2019-07-03] MEDS: LOPRESSOR PO SCH ×2 (08:10→22:00)
[2019-07-03] MEDS: LASIX PO SCH (08:10)
[2019-07-03] MEDS: SANTYL OINT TOP SCH (08:10)
[2019-07-03] MEDS: CULTURELLE PO SCH ×2 (08:10→22:00)
[2019-07-03] MEDS: ASPIRIN PO SCH (08:10)
[2019-07-03] MEDS: NEURONTIN PO SCH ×2 (08:13→22:05)
[2019-07-03] MEDS: KEFZOL 2 GM/D5W 2 GM/50 ML IVPB IV SCH ×2 (15:39→22:00)
[2019-07-03] MEDS: SEPTRA DS PO SCH (18:28)
--- NOTE | 2019-07-03 20:40 | PROGRESS NOTE ---
DATE: 07/03/2019 SUBJECTIVE: Today Ms. Olivier refers to be doing a lot better. She was sitting up actually in the chair at the time of the encounter. Ms. Olivier refers that her Soria catheter was removed yesterday. However, she was not able to pass any urine. A bladder scan was done, which showed she was retaining over 838, so this was placed back. OBJECTIVE: Current vitals: Blood pressure is 120/60, pulse 63, respirations 20, temperature 97.7 degrees. General: Ms. Olivier is a 59-year-old morbidly obese female. She is sitting up in a chair in no distress. HEENT: Mucosa is pink and moist. Anicteric. Acyanotic. Neck: Supple. Chest: Good air entry bilaterally. There are no crepitations. No rhonchi. Cardiovascular: Regular rate and rhythm. There is an old sternotomy scar on the anterior chest wall from previous open heart surgery. Abdomen: Soft. Distended but nontender. No hepatosplenomegaly. Extremities: Both have chronic edema with erythematous changes. The right lower extremity has the big toe and the 2nd toe surgically amputated. The left has the big toe amputated. Both feet are in sterile dressings. LABORATORY DATA: WBCs 6.32, hemoglobin 9.5, platelet count of 119. Chemistry is also reviewed, unremarkable except for a sodium of 147. The patient has been advised to increase her oral intake. CURRENT MEDICATIONS: Have all been reviewed. She has been started on cefazolin and Bactrim. Vancomycin and ceftriaxone have been discontinued. MICROBIOLOGY DATA: Blood culture negative. Only 1 was coag-negative Staph, which we think is a contaminant. The left foot has Stenotrophomonas maltophilia and MSSA. The right foot has an MSSA. ASSESSMENT: 1. Altered mental status on presentation secondary to global encephalopathy. CT scan was negative. We think this is multifactorial, including sepsis and medication side effects. The patient was on a lot of sedatives, including [place], gabapentin, BuSpar and ropinirole at home. All these medications were withheld on admission. They have been restarted at a lower dose. Ms. Olivier's mentation has significantly improved. We are going to gradually go up on the doses. 2. Hypotension on admission, presumably a combination of sepsis and medication side effects. Blood pressure has improved. 3. Bilateral lower extremity stasis dermatitis with superimposed cellulitis. 4. Right heel pressure ulcer with suspicion of osteomyelitis of the underlying calcaneal bone. MRI done on 05/12/2019 suggested possible osteomyelitis. The patient's cultures have been positive for methicillin-sensitive Staphylococcus aureus and Stenotrophomonas maltophilia. Antibiotics have been changed accordingly. And Infectious Disease is on board. The patient is also being seen by Wound Care and Surgery. 5. Diabetes mellitus, controlled. 6. History of coronary artery disease, status post coronary artery bypass graft. The patient is asymptomatic. We will continue her on her home medications. 7. Urinary retention. Soria catheter had to be reinserted yesterday. We are going to train the bladder neck tomorrow and hopefully get the catheter removed. I have started Ms. 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 PLAN: Ms. Olivier's disposition is going to depend on the rest of her hospital course. cc: Manuel Gerard MD
--- NOTE | 2019-07-03 21:50 | INFECTIOUS DISEASE PROGRESS NO ---
DATE: 07/03/2019 SUBJECTIVE: The patient has bilateral infected legs. She has cellulitis as well as decubitus ulcers that are infected. The last 2 times cultures were obtained oxacillin sensitive Staph aureus and Stenotrophomonas were isolated. MEDICATIONS: I have changed the patient's antibiotic to a combination of Ancef and Septra. Some of the side effects of the antibiotics, including rash, diarrhea, renal toxicity, hematotoxicity and photosensitivity have been explained to the patient who agrees with treatment. I have also requested to page me when the patient's Unna boot dressings are changed. DISCUSSION: The patient has had bilateral leg edema with cellulitis, infected decubitus ulcers, and osteomyelitis. She has grown many organisms but most recently the 2 that she has grown from her legs are Staph aureus and Stenotrophomonas. The patient's CBC shows a white count of 6320, hemoglobin 9.5, and platelet count 119,000. Creatinine is 0.8. GFR is greater than 60. AST is 67. Urinalysis showed white cells but no bacteria. A patient's urine culture grew yeast. OBJECTIVE: Vital Signs: Temperature is 97.7 degrees, pulse 63, respirations 20, blood pressure 120/60. The patient is 5 feet tall and weighs 276 pounds. General: This is an ill-appearing middle-aged female. She is in no acute distress. Head/eyes/ears/nose/throat: She can hear my spoken words and see near objects. There were no white patches on her tongue. Neck: No meningismus. Lungs: Clear to auscultation. Cardiovascular: Regular heart rate. Abdomen: Soft, nontender. Extremities: Both legs are edematous, and they both have Unna boots on. Neurologic: The patient is awake. She has decrease in her memory as to what happened to her in the last 2 days. The patient does not have a tremor. LAB AND X-RAY: CBC shows a white count of 6320, hemoglobin 9.5, platelet count 119,000 creatinine 0.8. GFR is greater than 60. AST is 67. Urinalysis showed white cells but no bacteria. The patient's urine culture grew yeast. ASSESSMENT AND PLAN: I have put the patient on Ancef and Septra, and I have requested to be paged when the patient has her wound dressing changed tomorrow. Regarding the patient's fungal urinary tract infection, it is asymptomatic and does not require treatment. COMORBIDITIES: The patient is morbidly obese. She also is a diabetic. She has peripheral vascular disease and bilateral lower extremity chronic edema. cc: Viraj Heath MD
[2019-07-03] MEDS: LOVENOX SUBQ SCH (22:00)
[2019-07-03] MEDS: ROBAXIN PO SCH (22:00)
[2019-07-03] MEDS: DITROPAN PO SCH (22:05)
[2019-07-03] MEDS: MELATONIN PO SCH (22:05)
[2019-07-04] MEDS: HUMULIN R SUBQ SCH ×4 (06:24→22:07)
[2019-07-04] MEDS: KEFZOL 2 GM/D5W 2 GM/50 ML IVPB IV SCH ×3 (06:30→22:05)
[2019-07-04] MEDS: SEPTRA DS PO SCH ×2 (06:30→18:17)
[2019-07-04] MEDS: NEURONTIN PO SCH ×2 (10:32→22:00)
[2019-07-04] MEDS: LOPRESSOR PO SCH (10:33)
[2019-07-04] MEDS: LASIX PO SCH (10:33)
[2019-07-04] MEDS: DITROPAN PO SCH ×2 (10:33→22:00)
[2019-07-04] MEDS: CULTURELLE PO SCH ×2 (10:33→22:00)
[2019-07-04] MEDS: ZYLOPRIM PO SCH (10:33)
[2019-07-04] MEDS: ROBAXIN PO SCH ×3 (10:33→22:12)
[2019-07-04] MEDS: ASPIRIN PO SCH (10:33)
[2019-07-04] MEDS: SANTYL OINT TOP SCH (10:34)
[2019-07-04] MEDS: REQUIP PO SCH ×3 (10:34→22:00)
[2019-07-04 12:22] LABS: AGAP 13; ALBUMIN 3.3 g/dL (3.5-5.0); ALKALINE PHOSPHATASE 138 U/L (32-104); BUN 17 mg/dL (8-22); CALCIUM 9.2 mg/dL (8.8-10.2); CHLORIDE 100 mmol/L (98-107); COSMO 280; CREATININE 0.9 mg/dL (0.5-0.9); ESTIMATED GFR > 60; GLUCOSE 114 mg/dL (70-104); GOT 21 U/L (10-30); GPT 24 U/L (10-36); POTASSIUM 4.1 mmol/L (3.5-5.1); SODIUM 139 mmol/L (136-145); TCO2 26 mmol/L (25-35); TOTAL BILIRUBIN 0.39 mg/dL (0.20-1.00); TOTAL PROTEIN 6.7 g/dL (6.3-8.3)
[2019-07-04] MEDS: NORCO-5 PO PRN (15:54)
--- NOTE | 2019-07-04 21:51 | INFECTIOUS DISEASE PROGRESS NO ---
DATE: 07/04/2019 PRESENT ILLNESS: The patient has bilateral leg cellulitis and plantar decubitus ulcers. The patient's cultures most recently taken are oxacillin-susceptible Staphylococcus aureus and Stenotrophomonas. MEDICATIONS: This is day 1 of treatment with Ancef and Septra. OBJECTIVE: Vital signs: Temperature is 98.6 degrees, pulse 57, respirations 20, blood pressure 94/47. Generally this is an obese, middle-aged female. She is in no acute distress. Head, eyes, ears, nose, throat: She can hear my spoken words and see near objects. There are no white patches on her tongue. Neck: No pain with movement. Lungs clear to auscultation. Cardiovascular: Regular heart rate. Abdomen soft and nontender. Extremities: Lorie the wound nurse removed the patient's dressings. Both legs are less swollen and erythematous. The right leg has a decubitus ulcer on the heel. The ulcer has beefy red tissue, and there is no necrotic tissue or purulence. The patient has another decubitus ulcer on the distal plantar area of her foot. That ulcerated area also has beefy red tissue, but no necrotic tissue or purulence. Neurologic: The patient is alert. She can move her extremities. There is no tremor. Today she seems a little bit confused but better than when she was yesterday. LAB AND X-RAY: There is no new lab or radiographic study for today. ASSESSMENT AND PLAN: 1. The patient has infection of both of her legs. I plan on continuing with Ancef and Septra, and Lorie is going to continue following the patient and take care of her wound dressings. 2. Comorbidities: She is morbidly obese. She also is a diabetic and she has peripheral vascular disease and chronic lower extremity edema. cc: Viraj Heath MD
[2019-07-04] MEDS: LOVENOX SUBQ SCH (22:00)
--- NOTE | 2019-07-04 22:04 | PROGRESS NOTE ---
DATE: 07/04/2019 SUBJECTIVE: When I evaluated this patient, she was sitting at the bedside. She is able to tolerate her food, she seems to be better. A couple days ago, her Soria catheter was removed but she was not able to pass any urine. I will try to remove it again tomorrow. I rechecked her liver enzymes today and they were within normal limits, except alkaline phosphatase which has been chronically elevated. I will recheck her CK level tomorrow that was elevated upon admission. OBJECTIVE: Vital Signs: Temperature 98.9 degrees, pulse 50, respiratory rate 16, blood pressure 118/85, oxygen saturation 95% on 2 L of nasal cannula. HEENT: Head normocephalic, no trauma, PERRLA. Neck: Supple. No JVD. No masses. Central trachea. Chest: Clear to auscultation, some crepitus at the bases. Abdomen: Soft, slightly protuberant/distended but nontender. No hepatosplenomegaly. Extremities: She does have chronic edema but they are covered with a new dressing from the wound care nurse, big toe and second toe on the right on the right have been amputated, the left big toe has been amputated as well. LABORATORY: Sodium 139, potassium 4.1, chloride 100, bicarbonate 36, BUN 17, creatinine 0.9. Glucose 114, calcium 9.2, bilirubin 0.39, AST 21, ALT 24, alkaline phosphatase 138, albumin 3.3. ASSESSMENT AND PLAN: 1. Altered mental status on presentation secondary to global encephalopathy. Negative CT scan, probably multifactorial including infection and/or medications. Her answers are slow today. It looks like the patient was on a lot of sedatives including [place], gabapentin, BuSpar, ropinirole. They where withheld on admission, but restarted slowly and a lower dose, she has been improving. 2. Hypotension on admission. Probably a combination of sepsis and medication effect. Blood pressure is better. 3. Bilateral lower extremity stasis dermatitis with superimposed cellulitis. This is chronic. I do believe she is not keeping her lower extremity elevated at home and that is why they get really swollen and get dermatitis and cellulitis. She has been multiple times hospitalized for the same issue. 4. Right heel pressure ulcer with suspicion of osteomyelitis of the underlying calcaneal bone. MRI done on 05/12/2019 suggested possible cellulitis. The patient's culture has been positive for methicillin-sensitive Staphylococcus aureus (MSSA) and Stenotrophomonas maltophilia. Antibiotic has been managed by Infectious Disease Department. 5. History of coronary artery disease status post coronary artery bypass graft (CABG), asymptomatic. 6. Urinary retention. A couple days ago, her Soria catheter had been removed and it has been placed back because of the urinary retention. Apparently, she was retaining more than 800 mL. We will try to remove the catheter again tomorrow after bladder training. cc: Dennis Donato MD
[2019-07-04] MEDS: MELATONIN PO SCH (22:07)
[2019-07-05] MEDS: SEPTRA DS PO SCH ×2 (06:53→18:20)
[2019-07-05] MEDS: KEFZOL 2 GM/D5W 2 GM/50 ML IVPB IV SCH ×3 (06:53→22:00)
[2019-07-05] MEDS: HUMULIN R SUBQ SCH ×4 (07:23→22:03)
[2019-07-05 07:30] LABS: ALB/GLOB RATIO 0.9; ALBUMIN 3.1 g/dL (3.5-5.0); POTASSIUM 3.8 mmol/L (3.5-5.1); TOTAL BILIRUBIN 0.31 mg/dL (0.20-1.00); TOTAL PROTEIN 6.5 g/dL (6.3-8.3)
[2019-07-05] MEDS: ASPIRIN PO SCH (08:25)
[2019-07-05] MEDS: REQUIP PO SCH ×3 (08:25→22:02)
[2019-07-05] MEDS: DITROPAN PO SCH ×2 (08:25→22:01)
[2019-07-05] MEDS: ZYLOPRIM PO SCH (08:25)
[2019-07-05] MEDS: CULTURELLE PO SCH ×2 (08:25→22:01)
[2019-07-05] MEDS: ROBAXIN PO SCH ×3 (08:25→22:01)
[2019-07-05] MEDS: LASIX PO SCH (08:28)
[2019-07-05] MEDS: NEURONTIN PO SCH ×2 (08:31→22:02)
[2019-07-05] MEDS: SANTYL OINT TOP SCH (10:29)
[2019-07-05] MEDS: NORCO-5 PO PRN ×2 (15:43→23:44)
[2019-07-05] MEDS: MELATONIN PO SCH (22:02)
[2019-07-05] MEDS: LOVENOX SUBQ SCH (22:03)
--- NOTE | 2019-07-06 01:44 | PROGRESS NOTE ---
DATE: 07/05/2019 SUBJECTIVE: The patient is resting comfortably in bed. It looks like she has been having episodes of low-grade temperature, but I am not quite sure about those readings. At some point, it was 91.3. Her blood pressure has been up and down. At this moment at the bedside, it has been taken again and is in the 130s. She has been always asking for her pain medication. That probably can contribute to this problem, but she states that she is in pain. OBJECTIVE: Vital Signs: Temperature at the bedside 94.8, pulse 64, respiratory rate 16, blood pressure 134/61, oxygen saturation 95% on room air. HEENT: Head normocephalic, no trauma. PERRLA. Neck: Supple. No JVD. No masses. Central trachea. Chest: Clear to auscultation. Some crepitus at the bases. Abdomen: Soft, protuberant/distended, but nontender. No hepatosplenomegaly. Extremities: She does have chronic edema and has been described as erythema that is covered with a dressing from the wound care nurse. Big toe and 2nd toe on the right have been amputated. The left big toe has been amputated as well. LABORATORY: Sodium 140, potassium 3.8, chloride 100, bicarbonate 27, BUN 18, creatinine 1, glucose 102, calcium 9. CK level 27. AST 17, ALT 20, alkaline phosphatase 143. ASSESSMENT AND PLAN: 1. Altered mental status on presentation secondary to global encephalopathy. Negative CT scan. Probably multifactorial including infection and/or medication. She seems to be better today and answering all my questions. She is completely alert and oriented x3. She is moving all 4 extremities spontaneously, but she does have generalized weakness. 2. Hypotension on admission. She has been having some episodes of hypotension on and off, likely due to medications and also her sepsis. We will try to minimize the pain medication in this patient. 3. Bilateral lower extremity stasis dermatitis with superimposed cellulitis. This is chronic. I do believe she is not keeping her lower extremities elevated at home and that is why they get really swollen. She has been hospitalized multiple times for the same problem. She has been receiving medications, antibiotics for that. She has been placed on cefazolin and Septra. 4. Mild elevation of the creatinine, probably due to Septra. She seems to be eating fine and having good urine output. We will monitor. 5. Right heel pressure ulcer with suspicion of osteomyelitis of the underlying calcaneal bone. MRI done on 05/12/2019, suggested possible cellulitis. Infectious Disease Department on board. 6. History of coronary artery disease, status post coronary artery bypass graft. Asymptomatic. 7. Urinary retention. A few days ago, her Soria catheter was removed and placed back because of the urinary retention. Apparently, she was retaining more than 800 mL. I will try to remove the catheter today again, to see how she does. I held her metoprolol yesterday due to her low blood pressure. Also, I will decrease the frequency of the pain medication from every 6 hours to every 8 hours. 8. Hypothermia. I am not quite sure if those readings are real, but I will continue with the same management for now. Vital signs at this moment are stable. cc: Dennis Donato MD
[2019-07-06] MEDS: KEFZOL 2 GM/D5W 2 GM/50 ML IVPB IV SCH ×3 (05:38→21:59)
[2019-07-06] MEDS: SEPTRA DS PO SCH ×3 (05:38→17:04)
[2019-07-06] MEDS: HUMULIN R SUBQ SCH ×4 (06:18→22:01)
[2019-07-06 07:19] LABS: BASO# 0.01 X1000 (0.0-0.2); BASO% 0.2 % (0.0-0.8); EOS# 0.28 X1000 (0.0-0.7); HEMATOCRIT 31.4 % (37.0-47.0); HEMOGLOBIN 9.2 g/dL (12.0-16.0); IMM GRAN# 0.03 X1000 (0.0-0.04); IMM GRAN% 0.5 % (0.0-0.5); LYMPH# 1.75 X1000 (1.2-3.4); LYMPH% 31.5 % (20.5-51.1); MCH 27.1 PG (27-31); MCHC 29.3 g/dL (33-37); MCV 92.4 FL (81-99); MONO# 0.57 X1000 (0.11-0.59); MONO% 10.3 % (1.7-9.3); MPV 11.8 FL (7.4-10.4); NEUT# 2.92 X1000 (1.4-6.5); NEUT% 52.5 % (42.2-75.2); PLT 110 X1000 (130-400); RDW 19.4 % (11.5-14.5); WBC 5.56 X1000 (4.8-10.8)
[2019-07-06 07:47] LABS: CALCIUM 9.3 mg/dL (8.8-10.2); CREATININE 1.1 mg/dL (0.5-0.9); POTASSIUM 4.1 mmol/L (3.5-5.1)
[2019-07-06] MEDS: LASIX PO SCH (08:55)
[2019-07-06] MEDS: NEURONTIN PO SCH ×2 (08:55→21:59)
[2019-07-06] MEDS: ROBAXIN PO SCH ×3 (08:55→21:59)
[2019-07-06] MEDS: CULTURELLE PO SCH ×2 (08:56→21:59)
[2019-07-06] MEDS: ASPIRIN PO SCH (08:56)
[2019-07-06] MEDS: REQUIP PO SCH ×3 (08:56→21:59)
[2019-07-06] MEDS: DITROPAN PO SCH ×2 (08:57→21:59)
[2019-07-06] MEDS: ZYLOPRIM PO SCH (08:57)
[2019-07-06] MEDS: SANTYL OINT TOP SCH (08:57)
--- NOTE | 2019-07-06 13:19 | PROGRESS NOTE ---
DATE: 07/06/2019 SUBJECTIVE: No big changes compared with yesterday. Her temperature is better today, as well as the blood pressure. I will continue with the same management. Infectious Disease Department on board. OBJECTIVE: Vital Signs: Temperature 97.5 degrees, pulse 66, respiratory rate 16, blood pressure 107/61, oxygen saturation 100% on 2 L nasal cannula. HEENT: Head normocephalic. No trauma. PERRLA. Neck: Supple. No JVD. No masses. Central trachea. Chest: Clear to auscultation. Some crepitus at the bases. Abdomen: Soft, protuberant, nontender. No hepatosplenomegaly. Extremities: She does have chronic edema, and has been described erythema that is covered with a dressing from the Wound Care nurse. Big toe and second toe on the right has been amputated, as well as the left big toe on the left. LABORATORY DATA: WBC 5.5, hemoglobin 9.2, hematocrit 31.4, platelets 110,000. Sodium 140, potassium 4.1, chloride 101, bicarbonate 27, BUN 20, creatinine 1.1, glucose 106, calcium 9.3. ASSESSMENT AND PLAN: 1. Altered mental status on presentation secondary to global encephalopathy due to probably medication and/or infection. She seems to be better. She is answering all of my questions. She is completely alert and oriented x3. She moves all 4 extremities spontaneously. 2. Hypotension on admission, better. Will continue with the same management. Likely due to medication and sepsis. We will try to minimize pain medication on this patient. 3. Bilateral lower extremity stasis dermatitis with superimposed cellulitis. This is chronic. I do not think she is taking care of it at home. She is not keeping her lower extremities elevated, and they get really swollen and infected. Infectious Disease Department on board. Will continue with the same management. 4. Mild elevation of the creatinine, probably due to Septra and furosemide, but she is having good urine output. I will keep an eye on this. 5. History of coronary artery disease, status post coronary artery bypass graft, asymptomatic. 6. Right heel pressure ulcer, suspicious for osteomyelitis. Infectious Disease on board. 7. Urinary retention. Will monitor. I do believe the catheter has been removed. 8. Hypothermia. I am not quite sure if those readings are real. Her temperature is better though. Will monitor. 9. Sepsis due to lower extremity cellulitis. Aware. cc: Dennis Donato MD
[2019-07-06] MEDS: NORCO-5 PO PRN (14:07)
[2019-07-06] MEDS: MELATONIN PO SCH (21:59)
[2019-07-06] MEDS: LOVENOX SUBQ SCH (22:00)
[2019-07-07] MEDS: NORCO-5 PO PRN ×2 (01:08→09:34)
[2019-07-07] MEDS: SEPTRA DS PO SCH (05:50)
[2019-07-07] MEDS: KEFZOL 2 GM/D5W 2 GM/50 ML IVPB IV SCH (05:50)
[2019-07-07] MEDS: HUMULIN R SUBQ SCH ×2 (06:35→11:46)
[2019-07-07 07:26] LABS: BASO# 0.03 X1000 (0.0-0.2); BASO% 0.5 % (0.0-0.8); EOS# 0.41 X1000 (0.0-0.7); EOS% 6.5 % (0.0-10.0); HEMATOCRIT 34.1 % (37.0-47.0); IMM GRAN# 0.08 X1000 (0.0-0.04); IMM GRAN% 1.3 % (0.0-0.5); LYMPH# 2.11 X1000 (1.2-3.4); LYMPH% 33.3 % (20.5-51.1); MCH 27.2 PG (27-31); MCHC 29.3 g/dL (33-37); MCV 92.7 FL (81-99); MONO% 9.5 % (1.7-9.3); NEUT# 3.11 X1000 (1.4-6.5); NEUT% 48.9 % (42.2-75.2); PLT 120 X1000 (130-400); RBC 3.68 XMIL (4.2-5.4); RDW 19.6 % (11.5-14.5); WBC 6.34 X1000 (4.8-10.8)
[2019-07-07 07:52] LABS: ALB/GLOB RATIO 0.9; ALBUMIN 3.4 g/dL (3.5-5.0); CALCIUM 9.6 mg/dL (8.8-10.2); CREATININE 1.1 mg/dL (0.5-0.9); POTASSIUM 3.9 mmol/L (3.5-5.1); TOTAL BILIRUBIN 0.31 mg/dL (0.20-1.00); TOTAL PROTEIN 7.2 g/dL (6.3-8.3)
[2019-07-07] MEDS: NEURONTIN PO SCH (09:28)
[2019-07-07] MEDS: ASPIRIN PO SCH (09:28)
[2019-07-07] MEDS: CULTURELLE PO SCH (09:28)
[2019-07-07] MEDS: LASIX PO SCH (09:29)
[2019-07-07] MEDS: ZYLOPRIM PO SCH (09:29)
[2019-07-07] MEDS: ROBAXIN PO SCH (09:29)
[2019-07-07] MEDS: REQUIP PO SCH (09:29)
[2019-07-07] MEDS: DITROPAN PO SCH (09:29)
[2019-07-07] MEDS: SANTYL OINT TOP SCH (09:37)
[2019-07-07 12:06] VITALS: BP 137/70
--- NOTE | 2019-07-07 14:32 | INFECTIOUS DISEASE PROGRESS NO ---
DATE: 07/07/2019 PRESENT ILLNESS: The patient has bilateral leg cellulitis and bilateral plantar decubitus ulcers. The patient's cultures have grown oxacillin sensitive Staph aureus and Stenotrophomonas. MEDICATIONS: This is the 4th day of treatment with IV Ancef and p.o. Septra. PHYSICAL EXAMINATION: Vital Signs: Temperature is 97.4 degrees, pulse 72, respirations 18, blood pressure is 114/57. General: This is an obese, middle-aged female. She is in no acute distress. Head/eyes/ears/nose/throat: She can hear my spoken words and see near objects. I did not see any white patches on her tongue. Neck: No pain with movement. Lungs: Clear to auscultation. Cardiovascular: Regular heart rate. Abdomen: Soft and nontender. Extremities: Both of the patient's legs are in Unna wraps. Neurologic: The patient is alert. She can move her extremities. There is no tremor. LAB AND X-RAY: CBC shows a white count of 6340, hemoglobin 10, platelet count 120,000. Creatinine is 1.1, GFR is 51, alkaline phosphatase is 155. ASSESSMENT AND PLAN: The patient has cellulitis of her legs. My plan would be to continue her antibiotics at home for 10 more days. I have generated prescriptions from the computer for Keflex 500 mg p.o. every 8 hours and Septra DS 1 tablet every 12 hours both for a total of 10 days. Also I have requested that the patient have an appointment at my office in 10 days so we can see how she is doing. COMORBIDITIES: The patient is obese. She also is a diabetic and she has peripheral vascular disease and chronic lower leg edema. Some of the side effects of the patient's antibiotics, namely Keflex and Septra, including rash, diarrhea and avoiding sunlight, have been explained to the patient who agrees with treatment. cc: Viraj Heath MD
--- NOTE | 2019-07-08 16:52 | DISCHARGE SUMMARY ---
ADMISSION DATE: 06/30/2019 DISCHARGE DATE: 07/07/2019 DISPOSITION: Home. FOLLOWUP: Will be: 1. Dr. Belen Dominique. 2. Dr. Heath. 3. Dr. Almaraz. CONSULTATIONS DURING THIS ADMISSION: 1. Infectious Disease was consulted. Patient was seen by Dr. Heath. 2. Surgery was consulted. Patient was seen by Dr. Almaraz. INVASIVE PROCEDURES DONE DURING THIS ADMISSION: None. IMAGING STUDIES OF SIGNIFICANCE: 1. An initial chest x-ray did show cardiomegaly, diffuse bilateral interstitial infiltrates compatible with pulmonary edema. 2. A CT scan of the head and cervical spine showed no evidence of intracranial mass. No evidence of acute bony abnormality. 3. An echocardiogram did show an ejection fraction of 60% to 65% with normal wall motion. ADMISSION DIAGNOSES: 1. Altered mental status, multifactorial. 2. Bilateral lower extremity cellulitis. 3. Right heel decubitus wound draining. 4. Diabetes mellitus type 2. 5. Congestive heart failure. DIAGNOSES AT THE TIME OF DISCHARGE: 1. Altered mental status on presentation secondary to global encephalopathy. Etiology was multifactorial including sepsis and medication side effects. 2. Hypotension on admission, presumably combination of sepsis and medication side effects. 3. Bilateral lower extremity stasis dermatitis with superimposed cellulitis. 4. Right heel pressure ulcer with osteomyelitis. Culture positive for methicillin-sensitive Staphylococcus aureus and Stenotrophomonas maltophilia. 5. Diabetes mellitus type 2 controlled. 6. History of coronary artery disease, status post coronary artery bypass graft. 7. Urinary retention, improved. 8. Pulmonary edema, most likely due to congestive heart failure with preserved ejection fraction. DISCHARGE MEDICATIONS: 1. Gabapentin 800 mg 3 times per day. 2. Aspirin 325 p.o. yahir a.m. 3. Allopurinol 300 p.o. every a.m. 4. Ropinirole 4 mg 3 times per day. 5. Glimepiride 4 mg b.i.d. 6. Metoprolol 50 mg b.i.d. 7. Lasix 80 mg p.o. daily p.r.n. 8. Janumet 2 tablets p.o. every night at bedtime. 9. Lactobacillus. 10. Bydureon 2 mg as needed. 11. Robaxin 750 three times per day. 12. Bactrim double strength 1 tablet every 12 hours. 13. Oxybutynin 5 mg p.o. b.i.d. 14. Cephalexin 500 p.o. every 8 hours. PRESENTING COMPLAINT: Altered mental status, shortness of breath. HISTORY OF PRESENTING COMPLAINT: Ms. Olivier is a 59-year-old female with a history of diabetes mellitus, hypertension, gout, restless syndrome, and coronary artery disease, who presented to the emergency department because of shortness of breath and altered mental status. Upon presentation, Ms. Olivier was evaluated including multiple imaging studies were done. She was found initially to be hypotensive and hypoxemic with O2 saturation of 91%. She was admitted to the medical floor. She was initially admitted to [facility] for higher level of care. HOSPITAL COURSE: Ms Olivier was admitted, started on IV fluids and the blood pressure improved. She was also started on broad-spectrum IV antibiotics. Her feet were draining. This was cultured. It came back positive for Stenotrophomonas maltophilia and Staphylococcus aureus, which is MSSA. Blood cultures were negative. Urine was unremarkable. Antibiotics were tailored towards this pathogen. Through the hospital course, Ms. Olivier continues to show remarkable improvement. Her mentation completely became improved, and her blood pressure also got better. We think that her presentation was a combination of ongoing infection and medication side effects. Ms. Olivier is on different psychotropic medications including gabapentin Bupap, ropinirole, Fentress, Robaxin, Lomotil, loperamide, all of these could potentially make her very confused. We did go over the medication with her, and we have advised that she follows up with her primary care doctor to address the need for all of them at this time. Ms. Olivier today is medically stable for discharge. I have spoken with Dr. Heath. We will follow her up on an outpatient basis. All the discharge instructions have been discussed with her, and she voiced understanding. TIME SPENT: The time spent for discharge is 38 minutes. cc: MD Belen Gross MD Rodney W. Harney, MD Leroy F. Harris, MD
== END 2019-07-07 13:38 | disposition home health service (06) | DRG 871 ==
LOC: SUPCPDRO → ED 17:24 → SUATTDRO 23:20 → EDIPHOLD 23:20 → 2N 07-01 14:14 → 4N 07-03 09:27
PROVIDERS: ATTEND Internal Medicine

== ENCOUNTER 2019-07-11 12:01 | Inpatient (IN) ==
--- NOTE | 2019-07-11 15:15 | EKG Report ---
Test Performed on : 07/11/2019 1:15:54 PM Test Reason : ED. No order in [place] Blood Pressure : / mmHG Vent. Rate : 048 BPM Atrial Rate : 048 BPM P-R Int : 156 ms QRS Dur : 096 ms QT Int : 576 ms P-R-T Axes : 060 067 060 degrees QTc Int : 514 ms Sinus bradycardia. Possible Left atrial enlargement Junctional ST depression, probably abnormal Prolonged QT Abnormal ECG When compared with ECG of 30-JUN-2019 18:19, (Unconfirmed) Previous ECG has undetermined rhythm, needs review Unconfirmed Result
[2019-07-11 15:18] LABS: BASO# 0.01 X1000 (0.0-0.2); BASO% 0.2 % (0.0-0.8); EOS# 0.14 X1000 (0.0-0.7); EOS% 2.4 % (0.0-10.0); HEMATOCRIT 35.3 % (37.0-47.0); HEMOGLOBIN 10.9 g/dL (12.0-16.0); IMM GRAN# 0.02 X1000 (0.0-0.04); IMM GRAN% 0.3 % (0.0-0.5); LYMPH# 1.03 X1000 (1.2-3.4); LYMPH% 17.9 % (20.5-51.1); MCH 28.2 PG (27-31); MCHC 30.9 g/dL (33-37); MCV 91.2 FL (81-99); MONO# 0.42 X1000 (0.11-0.59); MONO% 7.3 % (1.7-9.3); MPV 10.9 FL (7.4-10.4); NEUT# 4.13 X1000 (1.4-6.5); NEUT% 71.9 % (42.2-75.2); PLT 110 X1000 (130-400); RBC 3.87 XMIL (4.2-5.4); RDW 19.2 % (11.5-14.5); WBC 5.75 X1000 (4.8-10.8)
[2019-07-11 15:21] LABS: INR 1.16
[2019-07-11 15:22] LABS: PTT 46.1 Seconds (22.3-41.8)
[2019-07-11 15:31] LABS: AGAP 12; ALB/GLOB RATIO 1.1; ALBUMIN 3.5 g/dL (3.5-5.0); ALKALINE PHOSPHATASE 171 U/L (32-104); BUN 22 mg/dL (8-22); CALCIUM 9.4 mg/dL (8.8-10.2); CHLORIDE 106 mmol/L (98-107); COSMO 290; CREATININE 0.5 mg/dL (0.5-0.9); ESTIMATED GFR > 60; GLUCOSE 94 mg/dL (70-104); GOT 27 U/L (10-30); GPT 14 U/L (10-36); SODIUM 144 mmol/L (136-145); TCO2 26 mmol/L (25-35); TOTAL BILIRUBIN 0.54 mg/dL (0.20-1.00); TOTAL PROTEIN 6.6 g/dL (6.3-8.3)
--- NOTE | 2019-07-11 15:33 | Diag Imaging Result Doc PS360 ---
EXAM: CHEST-1 VIEW 07/11/2019 HISTORY: possible sepsis TECHNIQUE: AP portable semiupright chest at 1525 COMMENT: The inspiration is suboptimal. There is cardiomegaly. There is increased interstitial markings which are similar in appearance to the previous study of 06/30/2019. IMPRESSION: Cardiomegaly and pulmonary edema. Electronically signed by Rohit Yu 07/11/2019 3:30 PM
[2019-07-11 15:36] LABS: CK PROFILE 182 U/L (24-173)
[2019-07-11 15:51] LABS: CK INDEX 12.7 (0.0-2.5); CK-MB 23.06 ng/mL (0.0-5.0)
--- NOTE | 2019-07-11 20:16 | Diag Imaging Result Doc PS360 ---
EXAM: CT HEAD W/O CONTRAST 07/11/2019 HISTORY: altered mental status TECHNIQUE: This exam was performed using automated exposure control, adjustment of mA or kV according to patient size, and/or use of iterative reconstruction technique. COMMENT: There is calcification of both vertebral arteries. There are calcifications in the internal carotid arteries bilaterally. There is extensive ill-defined decreased attenuation in the periventricular white matter of both hemispheres. Compared to 07/01/2019 there has been no significant change. The calvarium is intact. The visualized paranasal sinuses are clear. IMPRESSION: Chronic ischemic microvascular changes. No evidence of acute intracranial disease. Electronically signed by Rohit Yu 07/11/2019 8:13 PM
[2019-07-11] MEDS ORDERED: ZOSYN 3.375 GM in NS 50 ML IV ONE (20:37)
[2019-07-11] MEDS ORDERED: VANCOMYCIN 1 GM/NS 1 GM/250 ML IVPB IV ONE (20:37)
[2019-07-11 20:40] LABS: URINE SOURCE CATH
[2019-07-11 20:50] LABS: BILIRUBIN URINE NEGATIVE (NEGATIVE); BLOOD URINE NEGATIVE (NEGATIVE); COLOR YELLOW; GLUCOSE URINE NEGATIVE (NEGATIVE); KETONE URINE NEGATIVE (NEGATIVE); LEUKOCYTES URINE NEGATIVE (NEGATIVE); NITRITE URINE NEGATIVE (NEGATIVE); PH URINE 6.5; PROTEIN URINE 30 mg/dL (NEGATIVE); SP GRAVITY URINE 1.016; TURBIDITY URINE CLEAR (CLEAR); UROBILINOGEN URINE NORMAL (NORMAL)
[2019-07-11 20:51] LABS: UR EPITHELIAL CELLS <10 /HPF (<10); URINE BACTERIA NEGATIVE /HPF; URINE RBC <10 /HPF (<10); URINE WBC <10 /HPF (<10)
[2019-07-11 21:00] LABS: UR AMPHETAMINES QUAL NONE DETECTED (NONE DETECT); UR BARBITUATES QUAL PRESUMPTIVE POSITIVE (NONE DETECT); UR BENZODIAZEPIN QUAL NONE DETECTED (NONE DETECT); UR CANNABINOIDS QUAL NONE DETECTED (NONE DETECT); UR COCAINE QUAL NONE DETECTED (NONE DETECT); UR METHADONE QUAL NONE DETECTED (NONE DETECT); UR OPIATES QUAL PRESUMPTIVE POSITIVE (NONE DETECT); UR OXYCODONE QUAL NONE DETECTED (NONE DETECT); UR PCP QUAL NONE DETECTED (NONE DETECT)
[2019-07-12] MEDS: NORCO-10 PO PRN ×3 (01:18→16:56)
[2019-07-12] MEDS: MAXIPIME 1 GM in NS 50 ML IV SCH ×2 (01:19→13:20)
[2019-07-12] MEDS: LOVENOX SUBQ SCH (01:19)
--- NOTE | 2019-07-12 01:51 | HISTORY AND PHYSICAL ---
PRIMARY CARE PHYSICIAN: Patient of Dr. Belen Dominique. REASON FOR ADMISSION: Profound hypothermia and weakness and also confusion. HISTORY OF PRESENT ILLNESS: Ms. Laila Olivier is a 59-year-old woman who was recently discharged from our facility recently for osteomyelitis on 07/07/2019. This was believed to be secondary to MSSA and stenotrophomonas. She was sent home on Bactrim to address primarily the latter pathogen. The patient is an extremely poor historian. From the best of what I can gather, she said she fell out of her chair and was too weak to get up, called her son who helped her get to the chair and felt that the patient was confused and called the ambulance to bring her in. On arrival here, she had she had a temperature of 92.3 degrees, pulse was 72, respiratory was 17, blood pressure was 107/65 with 94% on room air. This was somewhat disconcerting to the ER staff, so she has been placed under a Jack Hugger for now to raise her temperature. Two hours later, it is just barely 95. The patient herself says she does not have any acute symptoms other than feeling weak for the last couple of days. She does admit that sometimes she does not have clarity of thought. She denies any focal neurological complaints. No cardiorespiratory complaints. No GI or complaints. Denies any lower extremity pain, fever or chills. REVIEW OF SYSTEMS: Twelve system review was done. Positive findings per HPI. ALLERGIES: Tizanidine. HOME MEDICATION: Patient is on Janumet 100/1000 mg 2 tablets at bedtime, Amaryl 4 mg b.i.d., aspirin 325 mg daily, Bydureon pen 2 mg as required weekly, furosemide 80 mg p.r.n., Lomotil 1 tablet 4 times a day p.r.n., [place] 10 mg q.8 p.r.n., Robaxin 750 mg t.i.d., Requip 4 mg t.i.d., allopurinol 200 mg q.a.m., Culturelle 1 b.i.d., oxybutynin 5 mg b.i.d., metoprolol 50 mg b.i.d., and Santyl ointment. SOCIAL HISTORY: She stopped smoking 12 years ago. No alcohol use or drug use. Lives alone and states she can carry out ADLs. FAMILY HISTORY: Positive for coronary artery disease in both parents. SURGICAL HISTORY: Hysterectomy, 2 amputations of both feet, CABG, and tonsillectomy. PAST MEDICAL HISTORY: History includes type 2 diabetes, hypertension, gout, restless leg syndrome, coronary artery disease, and hypertension, hyperlipidemia. LABORATORY WORK: White count 5000, hemoglobin and hematocrit 10 and 35, platelets 110,000 with normal differential. BUN 22, creatinine 0.5, glucose 110. AST, ALT are normal. Alkaline phosphatase is 171 with a total CPK of 182. Troponin is 0.016, PT 15, PTT 46. Opiates positive and barbiturates positive in urine, protein 30. Chest film, cardiomegaly with pulmonary edema and head CT microvascular changes noted. PHYSICAL EXAMINATION: VITAL SIGNS: Per HPI. GENERAL: She is an obese middle-aged woman who is older than stated age. She is alert and oriented to person, place, and time with the aid of cues. HEENT: Head is normocephalic, atraumatic. Eyes, CHRISTIAN, EOMI. She is anicteric and not pale. ENT, oropharyngeal exam is grossly normal. No central cyanosis. NECK: Supple, but short and thick. No visual JVD noted or thyromegaly noted. CHEST: Decreased entry in the bases. CARDIOVASCULAR: First and 2nd heart sounds heard. No gallops, rubs. Rhythm is regular. ABDOMEN: Patient has truncal obesity with no focal areas of tenderness. Bowel sounds are hypoactive. No mass or organomegaly appreciated. RECTAL: Exam was deferred. EXTREMITIES: Patient has chronic hyperemic changes of the lower 2/3 of both legs. They are shriveled. SKIN: Somewhat shriveled. The skin on the right side appears to be slightly more hyperemic and acute than on the left and slightly warmer than on the left. Patient denies no tenderness. No fluctuance noted. No induration appreciated. There is a 2 x 3 cm ulcer of the right heel which has a clean base. No exudation noted. Distal pulse volumes slightly diminished in the lower extremities compared to upper extremities. Rhythm is regular. No clubbing or peripheral cyanosis. The patient has trace edema in both lower extremities. NEUROLOGICAL: No asterixis or myoclonus appreciated. Skin see above but otherwise grossly normal elsewhere. MUSCULOSKELETAL: Exam is grossly normal. ASSESSMENT: 1. Hypothermia, etiology yet to be determined. We will order TSH. We will also consider discontinuing any central acting medication if unnecessary as indirectly may affect hypothalamus. 2. Probable acute on chronic cellulitis of the right lower extremity. We will start patient on vancomycin and Maxipime. 3. Osteomyelitis of the right heel. Continue with Bactrim. 4. Type 2 diabetes. Continue sliding scale. 5. Probable toxic encephalopathy from medications. We will hold all and/or decrease doses of any unnecessary medication. 6. Restless legs syndrome. Prefer that patient stay on Neurontin as it is a better drug than dopaminergic agonist such as Requip which can cause augmentation and even worsening of restless legs syndrome. We will recommend doing iron studies also and replace iron as this may improve. Reason why I bring this up is because patient has some chronic edema from both of these medications more so from Requip the dose that she is taking. Hopefully, if she can get wean herself off Requip her edema will improve and recurrent cellulitis may also improve. cc: MD Suzanne Bello MD MTDD
[2019-07-12 08:18] LABS: BASO# 0.02 X1000 (0.0-0.2); BASO% 0.2 % (0.0-0.8); EOS# 0.36 X1000 (0.0-0.7); EOS% 4.2 % (0.0-10.0); HEMATOCRIT 37.2 % (37.0-47.0); HEMOGLOBIN 11.2 g/dL (12.0-16.0); IMM GRAN# 0.02 X1000 (0.0-0.04); IMM GRAN% 0.2 % (0.0-0.5); LYMPH# 1.24 X1000 (1.2-3.4); LYMPH% 14.5 % (20.5-51.1); MCH 27.9 PG (27-31); MCHC 30.1 g/dL (33-37); MCV 92.8 FL (81-99); MPV 10.6 FL (7.4-10.4); NEUT# 6.29 X1000 (1.4-6.5); NEUT% 73.9 % (42.2-75.2); PLT 139 X1000 (130-400); RBC 4.01 XMIL (4.2-5.4); RDW 20.2 % (11.5-14.5); WBC 8.53 X1000 (4.8-10.8)
[2019-07-12 08:42] LABS: AGAP 13; BUN 20 mg/dL (8-22); CALCIUM 9.5 mg/dL (8.8-10.2); CHLORIDE 104 mmol/L (98-107); COSMO 287; CREATININE 0.8 mg/dL (0.5-0.9); ESTIMATED GFR > 60; GLUCOSE 89 mg/dL (70-104); MAGNESIUM 2.2 mg/dL (1.5-2.7); POTASSIUM 4.1 mmol/L (3.5-5.1); SODIUM 143 mmol/L (136-145); TCO2 26 mmol/L (25-35)
[2019-07-12] MEDS: CULTURELLE PO SCH ×2 (08:56→21:00)
[2019-07-12] MEDS: SANTYL OINT TOP SCH (08:56)
[2019-07-12] MEDS: REQUIP PO SCH ×3 (08:56→16:56)
[2019-07-12] MEDS: SEPTRA DS PO SCH ×2 (08:57→20:59)
[2019-07-12] MEDS: HUMALOG SUBQ SCH ×4 (08:57→21:05)
[2019-07-12] MEDS: ZYLOPRIM PO SCH (08:57)
[2019-07-12] MEDS ORDERED: ASPIRIN PO SCH (09:00)
[2019-07-12] MEDS ORDERED: LOPRESSOR PO SCH (09:00)
[2019-07-12] MEDS ORDERED: NS 1,000 ML IV ONE (11:48)
[2019-07-12] MEDS ORDERED: EXENATIDE MICROSPHERES 2 MG SQ SCH (12:15)
[2019-07-12] MEDS: ROBAXIN PO SCH ×2 (14:49→21:01)
[2019-07-12] MEDS: NS 1,000 ML IV SCH ×2 (14:49→21:03)
[2019-07-12] MEDS: NEURONTIN PO SCH ×2 (14:49→21:00)
[2019-07-12] MEDS ORDERED: IMODIUM LIQUID PO ONE (15:24)
[2019-07-12] MEDS ORDERED: CALMOSEPTINE OINTMENT TOP PRN (15:25)
[2019-07-12] MEDS ORDERED: IMODIUM PO ONE (16:58)
[2019-07-12] MEDS: DITROPAN PO SCH (21:00)
[2019-07-12] MEDS ORDERED: JANUVIA PO SCH (21:00)
--- NOTE | 2019-07-12 22:39 | PROGRESS NOTE ---
DATE: 07/12/2019 SUBJECTIVE: Patient reports feeling a little bit warm, even though her core temperature is 93.5. Reports more reddening and some blistering in both lower extremities. OBJECTIVE: Vital Signs: Temperature 93.1 rectal, heart rate 57, respiratory rate 18, blood pressure 86/43, O2 saturation 100% on room air. General: This is an extremely morbidly obese, 59- year-old, female, lying in bed in no acute distress. Cardiovascular: S1, S2 heard. No murmurs, gallops, or rubs. Regular rate and rhythm. Respiratory: Clear bilaterally to auscultation. No work of breathing or using accessory muscles. Abdomen: Soft, nontender to palpation. Bowel sounds present. No organomegaly. Extremities: No clubbing or cyanosis. Marked edema, erythema, and pain in both lower extremities up to both knees. There is some blistering around. Neurological: Patient is alert and oriented x3. Moves 4 extremities. LABORATORY DATA: Reviewed. ASSESSMENT AND PLAN: 1. Chronic cellulitis of the right lower extremity. Patient is on vancomycin and cefepime. White cell count is okay, but clinically she said that infection is getting worse, so we will continue with both medications and consult Dr. Viraj Heath, Infectious Disease. 2. Osteomyelitis of right heel, with antibiotics as above. 3. Diabetes mellitus type 2. We will continue with sliding scale insulin, and Accu-Cheks before meals and also at bedtime. 4. Hypothermia/low blood pressure. Note, this patient is becoming septic. We will treat accordingly. cc: Favio Gamble MD MTDD
[2019-07-12] MEDS: GLUCOPHAGE XR PO SCH ×2 (23:05→23:06)
[2019-07-13] MEDS: MAXIPIME 1 GM in NS 50 ML IV SCH (00:30)
[2019-07-13] MEDS: LOVENOX SUBQ SCH (01:10)
[2019-07-13] MEDS: NORCO-10 PO PRN ×2 (01:10→10:30)
[2019-07-13] MEDS: NS 1,000 ML IV SCH ×4 (02:40→15:43)
[2019-07-13] MEDS: HUMALOG SUBQ SCH ×2 (06:29→12:08)
[2019-07-13] MEDS: GLUCOPHAGE XR PO SCH (06:31)
[2019-07-13 08:08] LABS: BASO# 0.01 X1000 (0.0-0.2); BASO% 0.2 % (0.0-0.8); EOS# 0.48 X1000 (0.0-0.7); EOS% 8.8 % (0.0-10.0); HEMATOCRIT 34.6 % (37.0-47.0); HEMOGLOBIN 10.1 g/dL (12.0-16.0); IMM GRAN# 0.02 X1000 (0.0-0.04); IMM GRAN% 0.4 % (0.0-0.5); LYMPH# 2.18 X1000 (1.2-3.4); LYMPH% 39.8 % (20.5-51.1); MCH 27.3 PG (27-31); MCHC 29.2 g/dL (33-37); MCV 93.5 FL (81-99); MONO# 0.32 X1000 (0.11-0.59); MONO% 5.8 % (1.7-9.3); MPV 10.5 FL (7.4-10.4); NEUT# 2.47 X1000 (1.4-6.5); PLT 111 X1000 (130-400); RDW 19.9 % (11.5-14.5); WBC 5.48 X1000 (4.8-10.8)
[2019-07-13 08:33] LABS: POTASSIUM 4.4 mmol/L (3.5-5.1)
[2019-07-13] MEDS: SANTYL OINT TOP SCH (09:08)
[2019-07-13 09:25] LABS: FREE T4 0.89 ng/dL (0.93-1.70)
--- NOTE | 2019-07-13 09:26 | Diag Imaging Result Doc PS360 ---
EXAM: CHEST-PORTABLE 07/13/2019 HISTORY: dyspnea TECHNIQUE: Erect AP portable at 0906 COMMENT: There is cardiomegaly. Compared to 07/11/2019 the opacity in the mid right lung field has diminished. The inspiration is slightly less optimal. IMPRESSION: Cardiomegaly. Electronically signed by Rohit Yu 07/13/2019 9:24 AM
[2019-07-13 09:32] LABS: TSH 7.08 uIUmL (0.27-4.20)
[2019-07-13] MEDS: NEURONTIN PO SCH ×3 (10:33→21:07)
[2019-07-13] MEDS: ROBAXIN PO SCH ×2 (10:34→14:31)
[2019-07-13] MEDS: ZYLOPRIM PO SCH (10:34)
[2019-07-13] MEDS: CULTURELLE PO SCH ×2 (10:34→21:07)
[2019-07-13] MEDS: REQUIP PO SCH ×3 (10:34→18:24)
[2019-07-13] MEDS: ZOFRAN IV PRN ×2 (10:35→21:07)
--- NOTE | 2019-07-13 11:29 | Diag Imaging Result Doc PS360 ---
EXAM: KUB ABDOMEN 07/13/2019 HISTORY: abd pain TECHNIQUE: KUB COMMENT: There is stool present in the right colon and rectum. The stomach is not distended. There is no evidence of small bowel dilatation. IMPRESSION: Constipation. Electronically signed by Rohit Yu 07/13/2019 11:26 AM
[2019-07-13] MEDS: ASPIRIN PO SCH (12:26)
[2019-07-13] MEDS: LACTULOSE PO SCH ×3 (12:26→21:10)
[2019-07-13] MEDS: DITROPAN PO SCH (12:26)
[2019-07-13] MEDS: DULCOLAX PR SCH ×3 (12:34→18:24)
[2019-07-13] MEDS: MAXIPIME 2 GM/NS 2 GM/100 ML IVPB IV SCH (14:31)
[2019-07-13] MEDS ORDERED: VANCOMYCIN IV PER PHARMACY MISC SCH (14:45)
--- NOTE | 2019-07-13 16:04 | INFECTIOUS DISEASE PROGRESS NO ---
DATE: 07/13/2019 PRESENT ILLNESS: The patient was admitted to the hospital with profound hypothermia, weakness, and an altered mental status. Prior to this she had been treated and is continued to be treated for bilateral leg cellulitis and with bilateral plantar decubitus ulcers. The patient's cultures have previously grown an oxacillin sensitive Staph aureus and Stenotrophomonas. The patient had been receiving at home IV Ancef and p.o. Septra. The patient is saying that she is beginning to have looser stools and possibly this could be the beginning of a Clostridium difficile diarrhea. MEDICATIONS: As mentioned above, the patient at home was receiving IV Ancef and p.o. Septra. PHYSICAL EXAMINATION: Vital Signs: Temperature initially was 92. It has gotten up to 94.4, pulse 56, respirations 18, blood pressure is 100/49. General: This is a morbidly obese, middle-aged female. Head/eyes/ears/nose/throat: She can hear my spoken words and see near objects. She seems to be a poor historian as regarding her medical history. Neck: No meningismus. Lungs: Clear to auscultation. Cardiovascular: Heart rate is regular. Abdomen: Soft and nontender. Extremities: Both legs are erythematous and scaling and the right leg does have some superficial ulcerated areas. The patient has a right plantar ulcer. It is circular. To me it appears that it is smaller than when I last saw it. Also, the tissue in the ulcer is beefy red in color. There is no surrounding erythema. The patient's left plantar foot ulcer appears to have closed. There is no drainage coming from the patient's left foot. Neurologic: The patient is awake she can move her extremities. There is no tremor. Her memory as regarding her medical history is poor. LAB AND X-RAY STUDIES: The CBC shows a white count of 5480, hemoglobin 10.1, the platelet count is 111,000. Creatinine is 1.0. GFR is 57. The patient's urinalysis patient is negative for white cells or bacteria. The patient's drug screen is positive for opiates and barbiturates. The Patient is on cefepime and Septra. The cefepime dose was 1 gram every 12 hours. I have increased it to 2 grams IV every 12 hours. The blood cultures are negative. Chest x-ray showed cardiomegaly. CT scan of the head showed chronic ischemic microvascular changes. The patient's right plantar ulcer previously has grown oxacillin sensitive Staph aureus and Stenotrophomonas has been isolated from the patient's leg and in an area between the knee and ankle. There is some erythema and also superficially open wounds that are draining seropurulent fluid. COMORBIDITIES: The patient has diabetes mellitus, restless leg syndrome, coronary artery disease, hyperlipidemia, gout and hypertension. ASSESSMENT AND PLAN: The patient has leg cellulitis. She was admitted to the hospital with hypothermia, weakness and confusion, the exact etiology of which is uncertain to me. The patient does have leg cellulitis. I have increased the dose of cefepime to 2 grams IV every 12 hours. The patient previously has grown oxacillin sensitive Staph aureus and Stenotrophomonas from her plantar ulcer. cc: Viraj Heath MD
[2019-07-13] MEDS ORDERED: VANCOMYCIN 2,500 MG in NS 500 ML IV ONE (16:30)
--- NOTE | 2019-07-13 19:31 | PROGRESS NOTE ---
DATE: 07/13/2019 INTERVAL HISTORY: The patient awake and cooperative, does not really appear confused anymore. Still some moderate low blood sugar overnight 68, but has been pretty reasonable the rest of the day. Still hypothermic, although improved from admission. Still mildly bradycardic, but appears to be sinus bradycardia on the monitor. Blood pressure remains low normal to mildly hypotensive but again fairly stable. Patient complaining only of pain in her foot and back. No other acute events. REVIEW OF SYSTEMS: Twelve point review of systems except as per interval history. LABS: WBC 5.4, hemoglobin 10.1, hematocrit 34.6, platelets 111,000. Sodium 145, potassium 4.4, bicarb 23, BUN 22, creatinine 1.0, glucose 68 last night, 93 to 178 today. TSH 7.0, free T4 0.89. VITALS: Temperature 92 degrees at 94.4, pulse 54 to 62, blood pressure 93/68, O2 saturation 100% on room air. PHYSICAL EXAMINATION: General: No acute distress. Vital signs: As above. Morbidly obese. HEENT: Normocephalic, atraumatic. Moist mucous membranes. Cardiovascular: Slightly bradycardic but regular. No murmurs noted. Pulmonary: Clear to auscultation within the limits of body habitus. Abdomen: Soft, nontender. Bowel sounds positive. Obese. Extremities: Peripheral pulses decreased, but present. Significant non-brawny edema and mild pitting edema bilateral lower extremities. Both lower legs are erythematous, right greater than left. Deep ulcer on right heel, but little to no surrounding erythema. No drainage noted. Neurologic: Moving all extremities. No clear focal deficits. Psychiatric: Asleep but easily arousable. Oriented x3, cooperative, fairly normal mood and affect. ASSESSMENT AND PLAN: 1. Acute on chronic cellulitis of bilateral lower extremities right greater than left, osteomyelitis of right heel, chronic venous stasis dermatitis. Patient is on cefepime and Bactrim. Change Bactrim to vancomycin. ID consulted, recommendations pending. Legs do not look that bad. The patient with no white count. I doubt that infection is the cause of her hemodynamic issues, but change Bactrim to vancomycin as noted for better methicillin-resistant Staphylococcus aureus coverage. In the patient's past cultures, most of her staph has been methicillin-sensitive Staphylococcus aureus, but she has had methicillin-resistant Staphylococcus aureus once or twice. Blood cultures no growth to date. Abdominal x-ray showing only constipation. Chest x-ray showing cardiomegaly, but no sign of infection. Urinalysis unremarkable. 2. Hypothermia, bradycardia, hypotension. On appropriate antibiotics and without fever or white count. Lactate within normal limits. Doubt infection as the cause, although I have antibiotics adjusted as above. Checked thyroid, which does suggest hypothyroidism, but given only mildly elevated TSH and free T4 just barely below the lower limit of normal, difficult to imagine that is the cause either. We will go and start on some Synthroid anyway. Labs do not really suggest adrenal insufficiency, but we will go ahead and check a cortisol in the morning anyway. Monitor closely. Discussed with nursing and they tried to keep a heating blanket on the patient, but she has been refusing to comply. She is refusing to use it. 3. Diabetes mellitus. Some hypoglycemia last night, but none so far today. Low-dose sliding scale has been ordered, but patient has not received any today. To avoid potentially provoking further hypoglycemia, we will go ahead and discontinue the insulin for now. Monitor sugars and we will restart sliding scale if significant elevation develops. 4. Encephalopathy. Essentially resolved.
[2019-07-14] MEDS: NS 1,000 ML IV SCH ×4 (01:02→18:04)
[2019-07-14] MEDS: DULCOLAX PR SCH ×2 (01:02→05:17)
[2019-07-14] MEDS: MAXIPIME 2 GM/NS 2 GM/100 ML IVPB IV SCH ×2 (01:02→11:54)
[2019-07-14] MEDS: LOVENOX SUBQ SCH (05:17)
[2019-07-14] MEDS: LACTULOSE PO SCH ×4 (05:33→20:22)
[2019-07-14] MEDS: NORCO-10 PO PRN ×2 (05:33→15:11)
[2019-07-14 07:47] LABS: BASO# 0.01 X1000 (0.0-0.2); BASO% 0.1 % (0.0-0.8); EOS# 0.25 X1000 (0.0-0.7); EOS% 2.2 % (0.0-10.0); HEMATOCRIT 33.1 % (37.0-47.0); HEMOGLOBIN 9.6 g/dL (12.0-16.0); IMM GRAN# 0.02 X1000 (0.0-0.04); IMM GRAN% 0.2 % (0.0-0.5); LYMPH# 0.97 X1000 (1.2-3.4); LYMPH% 8.7 % (20.5-51.1); MCH 27.5 PG (27-31); MCV 94.8 FL (81-99); MONO% 4.5 % (1.7-9.3); MPV 11.5 FL (7.4-10.4); NEUT# 9.37 X1000 (1.4-6.5); NEUT% 84.3 % (42.2-75.2); PLT 88 X1000 (130-400); RBC 3.49 XMIL (4.2-5.4); RDW 19.8 % (11.5-14.5); WBC 11.12 X1000 (4.8-10.8)
[2019-07-14 08:02] LABS: CALCIUM 8.7 mg/dL (8.8-10.2); POTASSIUM 4.2 mmol/L (3.5-5.1)
[2019-07-14] MEDS: ASPIRIN PO SCH (09:55)
[2019-07-14] MEDS: SANTYL OINT TOP SCH (09:56)
[2019-07-14] MEDS: ZYLOPRIM PO SCH (09:56)
[2019-07-14] MEDS: CULTURELLE PO SCH ×2 (09:56→20:20)
[2019-07-14] MEDS: NEURONTIN PO SCH ×3 (09:56→20:20)
[2019-07-14] MEDS: REQUIP PO SCH ×3 (09:56→17:55)
--- NOTE | 2019-07-14 13:51 | PROGRESS NOTE ---
DATE: 07/14/2019 SUBJECTIVE: The patient reports feeling fine. Denies any chest pain. Reports just some small intermittent pain in both lower extremities. OBJECTIVE: Vital Signs: Temperature 91.5 degrees, heart rate 60, respiratory rate 12, blood pressure 101/60, and O2 saturation 96% on room air. General: On examination, this is a morbidly obese 59-year-old female lying in bed, in no acute distress. Cardiovascular: S1, S2 heard. No murmurs, gallops, or rubs. Regular rate and rhythm. Respiratory: Clear bilaterally to auscultation. No work of breathing or using accessory muscles. Abdomen: Soft, nontender to palpation. Bowel sounds present. No organomegaly. Extremities: Significant edema and erythema in both lower extremities, right greater than left. Deep ulcer of the right heel, no surrounding erythema. No drainage noted. Neurological: Patient is alert, awake, oriented x3. Moves 4 extremities. LABORATORY DATA: Repeated. ASSESSMENT AND PLAN: 1. Acute on chronic cellulitis of bilateral lower extremities, right greater than the left. Osteomyelitis of the right of the right heel and chronic venous stasis dermatitis. The patient is on cefepime as per Dr. Heath. He has increased the dose to 2 grams IV every 12 hours. We will continue with the same management. 2. Hypothermia, bradycardia, hypotension. The patient is on antibiotics as above. The white cell count is a little bit elevated today. We will continue to monitor this patient closely. 3. Diabetes mellitus type 2. We will continue with sliding scale insulin. Accu-Chek before meals and also at bedtime. 4. Encephalopathy, resolved. 5. Disposition we will continue to monitor this patient closely.- cc: Favio Gamble MD
[2019-07-14] MEDS: SYNTHROID PO SCH (15:17)
[2019-07-14] MEDS: VANCOMYCIN 2,000 MG in NS 500 ML IV SCH (17:56)
--- NOTE | 2019-07-14 19:47 | INFECTIOUS DISEASE PROGRESS NO ---
DATE: 07/14/2019 PRESENT ILLNESS: Ms. Olivier is being treated for bilateral lower extremity cellulitis with plantar ulcers bilaterally that have grown oxacillin-sensitive Staphylococcus aureus and Stenotrophomonas on last admission. We are awaiting the culture from this admission. MEDICATIONS: She is currently receiving Maxipime 2 g IV every 12 hours and IV vancomycin per pharmacy dosing. PHYSICAL EXAMINATION: Vital Signs: Temperature is 91.5 degrees, pulse rate 65, respiratory rate 14, blood pressure 101/60, O2 saturation is 96% on room air. General: This is a morbidly obese, chronically ill-appearing, middle-aged female. She is sitting up in the bed, currently in no acute distress. HEENT: Atraumatic, normocephalic. Oral mucous membranes are pink and moist. Conjunctivae are pink. Neck: Supple. Trachea is midline. Cardiovascular: Heart rate is regular. S1, S2 noted. Respiratory: Lung sounds have scattered mild rales bilaterally, diminished in mid and bases. No work of breathing is noted. Abdomen: Soft, obese, and nontender. Bowel sounds are active. Integumentary: Skin is warm and dry with some erythema to bilateral calves as well as dressings to the feet bilaterally, which were not removed at this time. There are some areas of scaling and abrasions to the calves as well. Neurologic: She is awake, alert, oriented, and able to move around in the bed with some assistance. Generalized weakness is noted. LABORATORY AND X-RAY: Today, her white count is 11.12, hemoglobin 9.6, platelet count 88,000. Creatinine is 1 with a GFR of 57. Blood cultures have shown no growth after 48 hours. The right leg routine culture has shown no growth on the preliminary report. ASSESSMENT AND PLAN: Ms. Olivier is being treated for bilateral lower extremity cellulitis and plantar ulcers. She is currently receiving broad-spectrum coverage using vancomycin and cefepime, which we will continue. Hopefully, tomorrow we will have the results of the culture to her right lower extremity. There is a mild leukocytosis today, which we will also follow. These plans have been discussed with and recommended by Dr. Heath. COMORBIDITIES: For Ms. Olivier, include morbid obesity, diabetes mellitus, coronary artery disease, gout, and restless leg syndrome. Dictated by RADHA West for Viraj Heath MD cc: Viraj Heath MD [facility]
[2019-07-15] MEDS: NORCO-10 PO PRN ×3 (00:17→17:44)
[2019-07-15] MEDS: MAXIPIME 2 GM/NS 2 GM/100 ML IVPB IV SCH ×2 (00:18→12:54)
[2019-07-15] MEDS: NS 1,000 ML IV SCH ×3 (01:30→17:40)
[2019-07-15] MEDS: LOVENOX SUBQ SCH (06:56)
[2019-07-15] MEDS: SYNTHROID PO SCH (06:56)
[2019-07-15 08:29] LABS: BASO# 0.01 X1000 (0.0-0.2); BASO% 0.1 % (0.0-0.8); EOS% 3.4 % (0.0-10.0); HEMATOCRIT 33.5 % (37.0-47.0); HEMOGLOBIN 9.6 g/dL (12.0-16.0); LYMPH# 1.05 X1000 (1.2-3.4); LYMPH% 11.9 % (20.5-51.1); MCH 27.6 PG (27-31); MCHC 28.7 g/dL (33-37); MCV 96.3 FL (81-99); MONO# 0.34 X1000 (0.11-0.59); MONO% 3.8 % (1.7-9.3); MPV 11.2 FL (7.4-10.4); NEUT# 7.15 X1000 (1.4-6.5); NEUT% 80.8 % (42.2-75.2); PLT 73 X1000 (130-400); RBC 3.48 XMIL (4.2-5.4); WBC 8.85 X1000 (4.8-10.8)
[2019-07-15 08:39] LABS: AGAP 12; BUN 17 mg/dL (8-22); CALCIUM 9.2 mg/dL (8.8-10.2); CHLORIDE 108 mmol/L (98-107); COSMO 284; CREATININE 0.8 mg/dL (0.5-0.9); ESTIMATED GFR > 60; GLUCOSE 85 mg/dL (70-104); POTASSIUM 4.6 mmol/L (3.5-5.1); SODIUM 142 mmol/L (136-145); TCO2 22 mmol/L (25-35)
[2019-07-15] MEDS: NEURONTIN PO SCH ×3 (09:42→21:12)
[2019-07-15] MEDS: ZYLOPRIM PO SCH (09:42)
[2019-07-15] MEDS: ASPIRIN PO SCH (09:42)
[2019-07-15] MEDS: REQUIP PO SCH ×3 (09:42→17:38)
[2019-07-15] MEDS: CULTURELLE PO SCH ×2 (09:42→21:12)
[2019-07-15] MEDS: LACTULOSE PO SCH ×2 (09:43→21:12)
[2019-07-15] MEDS: SANTYL OINT TOP SCH (09:47)
[2019-07-15] MEDS: TYLENOL PO PRN ×2 (13:04→22:34)
[2019-07-15] MEDS: VANCOMYCIN 2,000 MG in NS 500 ML IV SCH (17:35)
[2019-07-15] MEDS: LASIX IV SCH (23:49)
[2019-07-16] MEDS: MAXIPIME 2 GM/NS 2 GM/100 ML IVPB IV SCH ×2 (00:38→12:00)
[2019-07-16] MEDS: NORCO-10 PO PRN ×3 (01:43→22:42)
--- NOTE | 2019-07-16 04:11 | PROGRESS NOTE ---
DATE: 07/15/2019 SUBJECTIVE: The patient has no major complaints. OBJECTIVE: Blood pressure 110/54, heart rate 78, respiratory rate of 20, temperature is afebrile Cardiovascular: Regular rate and rhythm. Pulmonary: Bilateral breath sounds, clear to auscultation. GI was soft, nontender, nondistended. Bowel sounds are positive. Lower extremities had diffuse erythema and swelling. LABORATORY DATA: White count 8, hemoglobin and hematocrit 9 and 33, platelets of 73,000. Basic was normal. ASSESSMENT AND PLAN: 1. Bilateral lower extremity cellulitis with chronic venous stasis. The patient is on cefepime which was started per Dr. Heath on 07/13/2019, so this is day 2. Vancomycin is day 2. 2. Chronic venous stasis. We will probably lower her intravenous fluids and follow clinically. 3. Hypothermia, bradycardia and hypotension may be related to sepsis. We will continue to monitor. 4. Encephalopathy is stable. 5. Disposition pending her clinical status. She may require long-term care. 6. Type 2 diabetes. We will continue to monitor her blood sugars and follow closely. cc: Shine Selby MD [facility]
[2019-07-16] MEDS: HUMULIN R SUBQ SCH ×4 (06:02→21:57)
[2019-07-16] MEDS: SYNTHROID PO SCH (06:29)
[2019-07-16] MEDS: LOVENOX SUBQ SCH (06:29)
[2019-07-16] MEDS: ASPIRIN PO SCH (08:38)
[2019-07-16] MEDS: CULTURELLE PO SCH ×2 (08:38→21:57)
[2019-07-16] MEDS: NEURONTIN PO SCH ×3 (08:38→21:57)
[2019-07-16] MEDS: LACTULOSE PO SCH ×2 (08:38→21:58)
[2019-07-16] MEDS: REQUIP PO SCH ×3 (08:38→22:42)
[2019-07-16] MEDS: ZYLOPRIM PO SCH (08:38)
[2019-07-16] MEDS: TYLENOL PO PRN (08:49)
[2019-07-16 09:13] LABS: BASO# 0.01 X1000 (0.0-0.2); BASO% 0.2 % (0.0-0.8); EOS# 0.28 X1000 (0.0-0.7); EOS% 4.2 % (0.0-10.0); HEMATOCRIT 32.7 % (37.0-47.0); HEMOGLOBIN 9.4 g/dL (12.0-16.0); IMM GRAN# 0.02 X1000 (0.0-0.04); IMM GRAN% 0.3 % (0.0-0.5); LYMPH# 1.16 X1000 (1.2-3.4); LYMPH% 17.5 % (20.5-51.1); MCH 27.5 PG (27-31); MCHC 28.7 g/dL (33-37); MCV 95.6 FL (81-99); MONO# 0.38 X1000 (0.11-0.59); MONO% 5.7 % (1.7-9.3); MPV 11.9 FL (7.4-10.4); NEUT# 4.78 X1000 (1.4-6.5); NEUT% 72.1 % (42.2-75.2); PLT 79 X1000 (130-400); RBC 3.42 XMIL (4.2-5.4); WBC 6.63 X1000 (4.8-10.8)
[2019-07-16 09:44] LABS: AGAP 14; BUN 18 mg/dL (8-22); CALCIUM 9.5 mg/dL (8.8-10.2); CHLORIDE 107 mmol/L (98-107); COSMO 286; CREATININE 0.9 mg/dL (0.5-0.9); ESTIMATED GFR > 60; GLUCOSE 115 mg/dL (70-104); POTASSIUM 4.1 mmol/L (3.5-5.1); SODIUM 142 mmol/L (136-145); TCO2 21 mmol/L (25-35)
--- NOTE | 2019-07-16 11:42 | Extremity Venous Study ---
PROCEDURE NAME: Venous U/S Bilateral Legs - 07/12/2019 INDICATIONS FOR STUDY: The patient has chronic cellulitis. DESCRIPTION OF STUDY/FINDINGS: Bilateral lower extremity venous images accomplished. The common femoral, superficial femoral, deep femoral, popliteal, posterior tibial, and peroneal veins are identified. The Doppler is used to evaluate the veins for spontaneity, phasicity, respiratory excursion, distal augmentation. The study is somewhat limited due to the patient's size. All veins appear compressible. No reflux is identified. INTERPRETATION: No evidence of superficial or deep venous thrombosis in either lower extremity in the veins identified. cc: MD Suzanne Rai MD
[2019-07-16] MEDS: SANTYL OINT TOP SCH (12:14)
[2019-07-16] MEDS: LASIX IV SCH (12:16)
[2019-07-16] MEDS: DIFLUCAN PO SCH (14:25)
--- NOTE | 2019-07-16 18:23 | PROGRESS NOTE ---
DATE: 07/16/2019 SUBJECTIVE: The patient has no major complaints. She did not sleep very well last night. OBJECTIVE: Vital signs: Blood pressure is 130/58, heart rate 83, respiratory rate 15, temperature 93.2 degrees. She has been pretty much in the 92 to 93 range since she was admitted. In fact when she was first here, she was 86. Reportedly, these are rectal temperatures. Cardiovascular: Regular rate and rhythm. Pulmonary: Bilateral breath sounds diminished at bases. Gastrointestinal: Soft, nontender, nondistended. Bowel sounds are positive. Neurological: Nonfocal. Extremities: On leg exam, she has bilateral, kind of pinkish discoloration with some superficial ulcerations. LABORATORY DATA: White count 6, hemoglobin and hematocrit 9 and 32, platelets of 79,000, which is a drop. BMP normal. PROBLEM LIST: 1. Cellulitis bilaterally with chronic venous stasis. He is on vancomycin and cefepime. I think we put the patient on fluconazole today because they had a culture with yeast which is I think with skin probably a contaminant, but we are going to treat and see how she does. 2. Chronic venous stasis. We will stop her fluids. Continue Lasix. 3. Hypothermia. I do not know if there is a central issue here. She did have a head CT, but I would hard pin this on sepsis since it has been going on for days. She obviously has some sort of thermal regulation problem. We may need to do an MRI to see how things go. I am not entirely sure what is initiating this. cc: Shine Selby MD
--- NOTE | 2019-07-16 19:02 | INFECTIOUS DISEASE PROGRESS NO ---
DATE: 07/16/2019 SUBJECTIVE: The patient is being treated for bilateral leg cellulitis. The patient also has plantar ulcers. In the past, we have isolated oxacillin sensitive Staphylococcus aureus and Stenotrophomonas from cultures from the patient's leg. Most recently a culture was obtained, and it is growing a yeast, which has not yet been identified. MEDICATIONS: The patient is on a combination of vancomycin and cefepime now for 3 days. OBJECTIVE: Vital Signs: Temperature is 93 degrees, pulse 73, respirations 15, blood pressure 132/76. General: This is an obese chronically ill-appearing middle-aged female. Currently she is lying down and sleeping. Head/eyes/ears/nose/throat: No drainage is noted from the nose or ears. Neck: No stiffness to passive movement. Lungs: Clear to auscultation. Cardiovascular: Heart rate is regular. Abdomen: Soft and nontender. Extremities: Both legs are erythematous. The foot of both legs has dressings around them. Neurologic: The patient is sleeping. She did not respond to verbal stimuli. LAB AND X-RAY: A culture from the right leg grew yeast which is going to be identified by the microbiology section at [facility]. CBC shows a white blood cell count of 6630, hemoglobin 9.4, platelet count 79,000, creatinine is 0.9, GFR is greater than 60. The patient's right leg grew yeast. ASSESSMENT AND PLAN: The patient is being treated for cellulitis of the legs with plantar ulcers. As mentioned earlier, I have started the patient on fluconazole because of the finding of yeast from the most recent culture from the patient's right leg. Plan to continue with vancomycin and cefepime. The dose of fluconazole I am going to give the patient for her yeast infected leg is fluconazole 400 mg p.o. daily. COMORBIDITIES: The patient has morbid obesity, diabetes mellitus, coronary artery disease, gout, restless legs syndrome. cc: Viraj Heath MD
[2019-07-17] MEDS: MAXIPIME 2 GM/NS 2 GM/100 ML IVPB IV SCH ×3 (00:24→23:40)
[2019-07-17] MEDS: SYNTHROID PO SCH (06:48)
[2019-07-17] MEDS: NORCO-10 PO PRN ×2 (06:48→22:57)
[2019-07-17] MEDS: LOVENOX SUBQ SCH (06:48)
[2019-07-17] MEDS: HUMULIN R SUBQ SCH ×4 (06:49→22:21)
[2019-07-17 07:29] LABS: BASO# 0.01 X1000 (0.0-0.2); BASO% 0.2 % (0.0-0.8); EOS# 0.34 X1000 (0.0-0.7); EOS% 5.6 % (0.0-10.0); HEMATOCRIT 34.2 % (37.0-47.0); HEMOGLOBIN 9.8 g/dL (12.0-16.0); IMM GRAN# 0.05 X1000 (0.0-0.04); IMM GRAN% 0.8 % (0.0-0.5); LYMPH# 1.38 X1000 (1.2-3.4); LYMPH% 22.5 % (20.5-51.1); MCH 26.9 PG (27-31); MCHC 28.7 g/dL (33-37); MONO# 0.41 X1000 (0.11-0.59); MONO% 6.7 % (1.7-9.3); MPV 11.5 FL (7.4-10.4); NEUT# 3.93 X1000 (1.4-6.5); NEUT% 64.2 % (42.2-75.2); PLT 98 X1000 (130-400); RBC 3.64 XMIL (4.2-5.4); RDW 20.3 % (11.5-14.5); WBC 6.12 X1000 (4.8-10.8)
[2019-07-17 07:47] LABS: AGAP 12; BUN 20 mg/dL (8-22); CALCIUM 9.8 mg/dL (8.8-10.2); CHLORIDE 106 mmol/L (98-107); COSMO 288; CREATININE 0.8 mg/dL (0.5-0.9); ESTIMATED GFR > 60; GLUCOSE 80 mg/dL (70-104); SODIUM 144 mmol/L (136-145); TCO2 26 mmol/L (25-35)
[2019-07-17] MEDS ORDERED: LASIX IV SCH (09:00)
[2019-07-17] MEDS: NEURONTIN PO SCH ×3 (10:03→22:44)
[2019-07-17] MEDS: LACTULOSE PO SCH ×2 (10:03→23:39)
[2019-07-17] MEDS: CULTURELLE PO SCH ×2 (10:03→22:44)
[2019-07-17] MEDS: REQUIP PO SCH ×3 (10:03→18:08)
[2019-07-17] MEDS: ZYLOPRIM PO SCH (10:03)
[2019-07-17] MEDS: ASPIRIN PO SCH (10:04)
[2019-07-17] MEDS: SANTYL OINT TOP SCH (10:06)
[2019-07-17] MEDS: DIFLUCAN PO SCH (10:08)
--- NOTE | 2019-07-17 14:12 | PROVIDER DOCUMENTATION ---
This chart was entered by Rosina Parks Scribe, acting as scribe for Griselda Bray MD. HPI-General Adult - General Source: patient, family - History of Present Illness -Gen Adult Nature of Presenting Problems: Patient is a 59 y/o female presenting to the ED today c/o low temperature, lower extremity swelling, and lethargy. Patient reports she was discharged from the hospital on 07/07 after being treated for cellulitis and sepsis. Son reports that patient had been improving, however when he went to check on her today, her temperature was low and her legs were swollen and red. Patient c/o body aches. Patient denies cough. Patient states she has been taking Bactrim and Vancomycin. Denies all other signs/symptoms. Location of Pain/Injury: reports: lower extremity (bilateral), generalized Quality of Pain: reports: aching Onset/Duration: reports: 24 hours ago Timing: reports: still present, getting worse Context/Activities at Onset: reports: other (recent hospital admission) Modifying Factors: improves with: nothing Associated Symptoms: reports: other (low temperature) Similar Symptoms Previously?: Yes Recently seen or treated by another doctor?: Yes (discharged from hospital admission on 07/07) <Griselda Bray - Last Filed: 07/11/19 16:19> <Ravi Orellana - Last Filed: 07/11/19 21:49> - General Chief Complaint: Altered Mental Status Stated Complaint: LETHARGIC Time Seen by Provider: 07/11/19 12:24 Allergies/Adverse Reactions: Patient Allergies Allergy/AdvReac Type Severity Reaction Status Date / Time tizanidine HCl * Allergy ANAPHYLAXIS Verified 07/11/19 12:59 [From [facility]] Home Medications: Home Medication List Medication Instructions Recorded Confirmed Last Taken Type Allopurinol [Zyloprim] 300 mg PO QAM 09/19/15 07/11/19 05/29/19 History Aspirin 325 mg PO QAM 09/19/15 07/11/19 05/29/19 History Gabapentin [Neurontin] 800 mg PO TID 09/19/15 07/11/19 05/29/19 History Hydrocodone/APAP 10 mg/325 mg 1 each PO Q8H PRN PRN 01/25/17 07/11/19 05/29/19 History [[place]-10] Ropinirole HCl 4 mg PO TID 01/25/17 07/11/19 05/29/19 History Glimepiride [Amaryl] 4 mg PO BID 05/09/19 07/11/19 05/29/19 History Metoprolol [Lopressor] 50 mg PO BID #60 tab 05/20/19 07/11/19 05/29/19 Rx Furosemide [Lasix] 80 mg PO DAILY PRN PRN 05/25/19 07/11/19 05/24/19 History Sitagliptin Phos/Metformin HCl 2 tab PO QHS 05/30/19 07/11/19 05/29/19 History [Janumet Xr 100-1,000 mg Tablet] Collagenase Clostridium Oint 1 gm TOP DAILY oint 06/07/19 07/11/19 Unknown Rx [Santyl Oint] Lactobacillus Rhamnosus GG 1 ea PO BID 30 Days #60 cap 06/07/19 07/11/19 Unknown Rx [Culturelle] Diphenoxylate/Atropine [Lomotil] 1 ea PO 4XDAY 07/02/19 07/11/19 Unknown History Exenatide Microspheres [Bydureon 2 mg SQ ORDERED 07/02/19 07/11/19 Unknown History Pen] Methocarbamol [Robaxin-750] 750 mg PO TID 07/02/19 07/11/19 Unknown History Oxybutynin [Ditropan] 5 mg PO BID #60 tab 07/07/19 07/11/19 Unknown Rx Review of Systems - Adult - REVIEW OF SYSTEMS - ADULT Constitutional: reports: other (low temperature). denies: chills, fever Eyes: reports: no symptoms reported Ears, Nose, Mouth & Throat: reports: no symptoms reported Cardiovascular: denies: chest pain Respiratory: denies: cough, shortness of breath Gastrointestinal: reports: no symptoms reported Genitourinary: reports: no symptoms reported Musculoskeletal: reports: no symptoms reported Integumentary: reports: other (redness and swelling in bilateral lower extremities). denies: hives, itching, rash Neurological: reports: no symptoms reported Psychiatric: reports: no symptoms reported Endocrine: reports: no symptoms reported Hematologic/Lymphatic: reports: no symptoms reported Allergic/Immunologic: reports: no symptoms reported <Griselda Bray - Last Filed: 07/11/19 16:19> Past History - Adult - PAST MEDICAL HISTORY-ADULT Major Childhood Illnesses: reports: denies history Cardiovascular: reports: cardiac disease, CAD, HTN Respiratory: reports: denies history Gastrointestinal: reports: denies history Obstetrical/Gynecological: reports: denies history Genitourinary: reports: denies history Musculoskeletal: reports: other (severe diabetic foot ulcers- seen at wound clinic at [facility]) Neurological: reports: CVA Psychiatric: reports: denies history Endocrine/Immune: reports: Diabetes Other Conditions: reports: denies history Additional History: gout - PRIOR SURGERIES/PROCEDURES Surgical/Procedure History: reports: CABG, hysterectomy, tonsillectomy - IMMUNIZATION STATUS Childhood Immunizations: See Nurse Assessment Flu Vaccine: See Nurse Assessment - FAMILY HISTORY Family History: reviewed, not pertinent <Griselda Bray - Last Filed: 07/11/19 16:19> - PAST MEDICAL HISTORY-ADULT Review of Records: reports: Old Records Reviewed, Nursing Assessment Review, Medications Reviewed, Social history reviewed & non-contributory. <Ravi Orellana - Last Filed: 07/11/19 21:49> Physical Exam-General - PHYSICAL EXAM-ADULT Initial Vital Signs Reviewed: Yes (low temperature) - CONSTITUTIONAL General Appearance: no apparent distress, lethargic - EYES Eyes: PERRL/EOMI - HEAD, EARS, NOSE, MOUTH & THROAT HENMT: normocephalic/atraumatic, moist mucous membranes, normal ENT inspection - NECK Neck: non-tender, full range of motion, supple - RESPIRATORY Respiratory: chest non-tender, no respiratory distress, no accessory muscle use - CARDIOVASCULAR Cardiovascular: normal peripheral pulses, bradycardia - GASTROINTESTINAL (ABDOMEN) Abdominal Exam: non tender, soft - MUSCULOSKELETAL Back Exam: normal inspection, no CVA tenderness, no vertebral tenderness Extremity: normal range of motion, normal gait, other (erythema and edema in bilateral lower extremities) - SKIN Integumentary: normal turgor, erythema (in bilateral lower extremities, skin is cool to touch) - NEUROLOGIC Neurologic: grossly normal - PSYCHIATRIC Psych/Mental Status: normal mood/affect, normal thought content, normal thought process, oriented x 3 <Griselda Bray - Last Filed: 07/11/19 16:19> Progress - PLAN OF CARE/RESULTS Progress/Plan/Lab Results: Vital Signs - 8 hr 07/11/19 12:14 Temperature 86.8 F L Pulse Rate 48 L Respiratory Rate 14 Blood Pressure 158/70 O2 Sat by Pulse Oximetry 100 Result Diagrams: 07/11/19 14:55 07/11/19 14:55 - EKG 1 Time of EKG reading by physician:: 13:15 EKG Read and Signed by:: Griselda Bray EKG Interpretation (*Must complete 3 of following elements*): Abnormal Rate: 48 Rhythm: Sinus bradycardia [place]: normal ST Wave: depressed (junctional) Comments: prolonged QT interval, possible left atrial enlargement - XRAY 1 XRAY Study: Chest Impression: See EMR Report (EXAM: CHEST-1 VIEW 07/11/2019 HISTORY: possible sepsis TECHNIQUE: AP portable semiupright chest at 1525 COMMENT: The inspiration is suboptimal. There is cardiomegaly. There is increased interstitial markings which are similar in appearance to the previous study of 06/30/2019. IMPRESSION: Cardiomegaly and pulmonary edema. Electronically signed by Rohit Yu 07/11/2019 3:30 PM 07/11/19 1530 Interpreting Physician: Rohit Yu MD Dictated Date/Time: 07/11/19 1530 cc: Griselda Bray MD; Belen Dominique) <Griselda Bray - Last Filed: 07/11/19 16:19> - PLAN OF CARE/RESULTS Progress/Plan/Lab Results: Vital Signs - 8 hr 07/11/19 14:00 07/11/19 14:02 07/11/19 14:30 Temperature Pulse Rate 49 L 47 L 53 L Respiratory Rate 24 11 L 13 Blood Pressure 118/56 O2 Sat by Pulse Oximetry 97 07/11/19 15:00 07/11/19 15:13 07/11/19 15:30 Temperature 86.7 F L Pulse Rate 56 L 52 L Respiratory Rate 20 13 Blood Pressure O2 Sat by Pulse Oximetry 97 07/11/19 16:00 07/11/19 16:30 07/11/19 17:00 Temperature Pulse Rate 60 57 L 59 L Respiratory Rate 23 17 18 Blood Pressure O2 Sat by Pulse Oximetry 07/11/19 17:30 07/11/19 18:00 07/11/19 18:30 Temperature Pulse Rate 63 68 70 Respiratory Rate 15 15 14 Blood Pressure O2 Sat by Pulse Oximetry 07/11/19 19:00 07/11/19 19:11 07/11/19 19:22 Temperature 92.3 F L Pulse Rate 73 72 Respiratory Rate 27 H 17 Blood Pressure 107/65 O2 Sat by Pulse Oximetry 94 L Laboratory Results - last 24 hr 07/11/19 07/11/19 07/11/19 12:32 14:55 14:55 WBC 5.75 RBC 3.87 L Hgb 10.9 L Hct 35.3 L MCV 91.2 MCH 28.2 MCHC 30.9 L RDW Std Deviation 19.2 H Plt Count 110 L MPV 10.9 H Immature Gran % (Auto) 0.3 Neut % (Auto) 71.9 Lymph % (Auto) 17.9 L [place] % (Auto) 7.3 Eos % (Auto) 2.4 Baso % (Auto) 0.2 Immature Gran # (Auto) 0.02 Neut # (Auto) 4.13 Lymph # (Auto) 1.03 L [place] # (Auto) 0.42 Eos # (Auto) 0.14 Baso # (Auto) 0.01 PT INR PTT ([place] FS) Sodium 144 Potassium 4.0 Chloride 106 Carbon Dioxide 26 Anion Gap 12 BUN 22 Creatinine 0.5 Estimated GFR/1.73 m2 > 60 BUN/Creatinine Ratio 44 Glucose 94 POC Glucose 110 H Calculated Osmolality 290 Calcium 9.4 Total Bilirubin 0.54 AST 27 ALT 14 Alkaline Phosphatase 171 H Creatine Kinase 182 H Creatine Kinase Index 12.7 H CK-MB (CK-2) 23.06 H Troponin T Total Protein 6.6 Albumin 3.5 Globulin 3.1 Albumin/Globulin Ratio 1.1 Plasma Lactate Urine Source Urine Color Urine Turbidity Urine pH Ur Specific [place] Urine Protein Ur Glucose (Stick) Ur Ketones (Stick) Urine Blood Urine Nitrite Urine Bilirubin Urobilinogen Dipstick Urine Leukocytes Urine WBC (Auto) Urine RBC (Auto) U Epithel Cells (Auto) Urine Bacteria (Auto) Urine Opiates Screen Ur Oxycodone Screen Ur Methadone, Qual Ur Barbiturates Screen Ur Phencyclidine Scrn Ur Amphetamines Screen U Benzodiazepines Scrn Urine Cocaine Screen U Cannabinoids Screen 07/11/19 07/11/19 07/11/19 14:55 14:55 14:55 WBC RBC Hgb Hct MCV MCH MCHC RDW Std Deviation Plt Count MPV Immature Gran % (Auto) Neut % (Auto) Lymph % (Auto) [place] % (Auto) Eos % (Auto) Baso % (Auto) Immature Gran # (Auto) Neut # (Auto) Lymph # (Auto) [place] # (Auto) Eos # (Auto) Baso # (Auto) PT 15.0 INR 1.16 PTT ([place] FS) 46.1 H Sodium Potassium Chloride Carbon Dioxide Anion Gap BUN Creatinine Estimated GFR/1.73 m2 BUN/Creatinine Ratio Glucose POC Glucose Calculated Osmolality Calcium Total Bilirubin AST ALT Alkaline Phosphatase Creatine Kinase Creatine Kinase Index CK-MB (CK-2) Troponin T 0.016 Total Protein Albumin Globulin Albumin/Globulin Ratio Plasma Lactate 0.6 Urine Source Urine Color Urine Turbidity Urine pH Ur Specific [place] Urine Protein Ur Glucose (Stick) Ur Ketones (Stick) Urine Blood Urine Nitrite Urine Bilirubin Urobilinogen Dipstick Urine Leukocytes Urine WBC (Auto) Urine RBC (Auto) U Epithel Cells (Auto) Urine Bacteria (Auto) Urine Opiates Screen Ur Oxycodone Screen Ur Methadone, Qual Ur Barbiturates Screen Ur Phencyclidine Scrn Ur Amphetamines Screen U Benzodiazepines Scrn Urine Cocaine Screen U Cannabinoids Screen 07/11/19 07/11/19 07/11/19 19:30 20:32 20:32 WBC RBC Hgb Hct MCV MCH MCHC RDW Std Deviation Plt Count MPV Immature Gran % (Auto) Neut % (Auto) Lymph % (Auto) [place] % (Auto) Eos % (Auto) Baso % (Auto) Immature Gran # (Auto) Neut # (Auto) Lymph # (Auto) [place] # (Auto) Eos # (Auto) Baso # (Auto) PT INR PTT ([place] FS) Sodium Potassium Chloride Carbon Dioxide Anion Gap BUN Creatinine Estimated GFR/1.73 m2 BUN/Creatinine Ratio Glucose POC Glucose Calculated Osmolality Calcium Total Bilirubin AST ALT Alkaline Phosphatase Creatine Kinase Creatine Kinase Index CK-MB (CK-2) Troponin T Total Protein Albumin Globulin Albumin/Globulin Ratio Plasma Lactate 0.8 Urine Source CATH Urine Color YELLOW Urine Turbidity CLEAR Urine pH 6.5 Ur Specific [place] 1.016 Urine Protein 30 A Ur Glucose (Stick) NEGATIVE Ur Ketones (Stick) NEGATIVE Urine Blood NEGATIVE Urine Nitrite NEGATIVE Urine Bilirubin NEGATIVE Urobilinogen Dipstick NORMAL Urine Leukocytes NEGATIVE Urine WBC (Auto) <10 Urine RBC (Auto) <10 U Epithel Cells (Auto) <10 Urine Bacteria (Auto) NEGATIVE Urine Opiates Screen PRESUMPTIVE POSITIVE A Ur Oxycodone Screen NONE DETECTED Ur Methadone, Qual NONE DETECTED Ur Barbiturates Screen PRESUMPTIVE POSITIVE A Ur Phencyclidine Scrn NONE DETECTED Ur Amphetamines Screen NONE DETECTED U Benzodiazepines Scrn NONE DETECTED Urine Cocaine Screen NONE DETECTED U Cannabinoids Screen NONE DETECTED Orders Category Date Time Status Cardiac Monitoring DIRECTED Care 07/11/19 14:26 Active IV Insertion ORDERED Care 07/11/19 14:26 Completed Notify MD of + Sepsis Screen NOW Care 07/11/19 14:26 Active Notify Physician As Ordered Care 07/11/19 14:26 Active CHEST-1 VIEW [RAD] Stat Exams 07/11/19 14:[address] HEAD W/O CONTRAST [CT] Stat Exams 07/11/19 18:00 Completed BLOOD CULTURE [BLDCUL] Stat Lab 07/11/19 15:00 Results CBC WITH DIFF [HEME] Stat Lab 07/11/19 14:55 Completed CK PROFILE [SP CHEM] Stat Lab 07/11/19 14:55 Completed COMPREHENSIVE METABOLIC PANEL [CHEM] Stat Lab 07/11/19 14:55 Completed LACTATE, PLASMA [CHEM] Lab 07/11/19 14:55 Completed LACTATE, PLASMA [CHEM] Lab 07/11/19 19:30 Completed LACTATE, PLASMA [CHEM] Lab 07/11/19 20:30 Uncollected PROTIME WITH INR [COAG] Stat Lab 07/11/19 14:55 Completed PTT [COAG] Stat Lab 07/11/19 14:55 Completed TROPONIN T Stat Lab 07/11/19 14:55 Completed URINALYSIS W/POSS RFLX CULT [URINALYSIS] Stat Lab 07/11/19 20:32 Completed URINE DRUG SCREEN Stat Lab 07/11/19 20:32 Completed Piperacillin/Tazobactam [Zosyn] 3.375 gm Med 07/11/19 20:37 Discontinued 0.9% Sodium Chloride Inj [Ns] 50 ml IV NOW Vancomycin 1 gm/Ns Med 07/11/19 20:37 Discontinued 1 gm in 250 ml IV NOW Oxygen Device Stat Oth 07/11/19 14:26 Completed EKG [EKG] Stat Ther 07/11/19 13:15 Draft Pt signed out to me by Dr. Bray, pt is still hypothermic, recently discharged for LE cellulitis, will cover with abx and admit Result Diagrams: 07/11/19 14:55 07/11/19 14:55 <Ravi Orellana - Last Filed: 07/11/19 21:49> Departure - Departure Certified Medical Emergency: Emergent - Critical Care Note This patient required my direct & personal management of CC.: No <Griselda Bray - Last Filed: 07/11/19 16:19> - Departure Date of Disposition Decision: 07/11/19 Time of Disposition Decision: 21:48 <Ravi Orellana - Last Filed: 07/11/19 21:49> - Departure DIAGNOSIS: Cellulitis of right lower extremity Hypothermia Qualifiers: Encounter type: initial encounter Qualified Code(s): T68.XXXA - Hypothermia, initial encounter Disposition: ADMITTED INPATIENT 09 Condition: Stable Referrals and Follow-Ups: Belen Dominique [Primary Care Provider] - Work Excuses: Return to School/Parent Work Attestation - Physician/ ERIN Attestation Patient care was provided by Advanced Practice Provider:: No The physician spent face to face time with patient:: Yes Advanced Practice Provider documentation review:: Supervising physician onsite and consulted in the evaluation and care of this patient. The physician did have a face to face encounter with the patient. <Griselda Bray - Last Filed: 07/11/19 16:19> This chart was documented by the indicated scribe, (Rosina Parks, Iván) and accurately reflects the services I performed and decisions made by me, Griselda Bray MD, as attested by the provider's signature.
[2019-07-17] MEDS: VANCOMYCIN 1,500 MG in NS 250 ML IV SCH (15:07)
--- NOTE | 2019-07-17 17:07 | PROGRESS NOTE ---
DATE: 07/17/2019 SUBJECTIVE: Patient has no major complaints. OBJECTIVE: Vital Signs: Blood pressure 121/74, heart rate 87, respiratory rate 18, temperature 95 degrees, 97% on room air. Cardiovascular: Regular rate and rhythm. Pulmonary: Bilateral breath sounds clear to auscultation. Gastrointestinal: Abdomen soft, nontender, nondistended. Bowel sounds are positive. LABORATORY DATA: White count is 6, hemoglobin and hematocrit 9 and 34, platelets of 98,000. Basic was normal. PROBLEM LIST: 1. Cellulitis. We will continue antibiotics. She is on vancomycin and cefepime per Infectious Disease. They are recommending continue. I am not sure at what point we will be able to convert. We will discuss with Dr. Heath. 2. Venous stasis. We will continue supportive treatment. She is on Lasix. 3. Hypothermia seems to be stable. DISPOSITION: Pending her clinical status really some of these changes I think are a bit at her baseline. She is requesting more pain medication as well. DISPOSITION: Hopefully home in the next couple days at the discretion of Dr. Heath, ID. cc: Shine Selby MD
[2019-07-18] MEDS: NORCO-10 PO PRN ×2 (06:26→14:57)
[2019-07-18] MEDS: SYNTHROID PO SCH (06:26)
[2019-07-18] MEDS: LOVENOX SUBQ SCH (06:28)
[2019-07-18] MEDS: HUMULIN R SUBQ SCH ×4 (06:29→22:20)
[2019-07-18 07:49] LABS: BASO# 0.02 X1000 (0.0-0.2); BASO% 0.3 % (0.0-0.8); EOS# 0.41 X1000 (0.0-0.7); EOS% 5.8 % (0.0-10.0); HEMATOCRIT 36.9 % (37.0-47.0); HEMOGLOBIN 10.8 g/dL (12.0-16.0); IMM GRAN# 0.04 X1000 (0.0-0.04); IMM GRAN% 0.6 % (0.0-0.5); LYMPH# 1.29 X1000 (1.2-3.4); LYMPH% 18.4 % (20.5-51.1); MCH 27.3 PG (27-31); MCHC 29.3 g/dL (33-37); MCV 93.2 FL (81-99); MONO# 0.56 X1000 (0.11-0.59); MPV 10.6 FL (7.4-10.4); NEUT# 4.69 X1000 (1.4-6.5); NEUT% 66.9 % (42.2-75.2); PLT 111 X1000 (130-400); RBC 3.96 XMIL (4.2-5.4); RDW 19.7 % (11.5-14.5); WBC 7.01 X1000 (4.8-10.8)
[2019-07-18 07:57] LABS: AGAP 9; BUN 23 mg/dL (8-22); CALCIUM 10.1 mg/dL (8.8-10.2); CHLORIDE 103 mmol/L (98-107); COSMO 290; CREATININE 0.7 mg/dL (0.5-0.9); ESTIMATED GFR > 60; GLUCOSE 91 mg/dL (70-104); POTASSIUM 4.1 mmol/L (3.5-5.1); SODIUM 144 mmol/L (136-145); TCO2 32 mmol/L (25-35)
[2019-07-18] MEDS: REQUIP PO SCH ×3 (10:20→22:18)
[2019-07-18] MEDS: SANTYL OINT TOP SCH (10:20)
[2019-07-18] MEDS: ASPIRIN PO SCH (10:25)
[2019-07-18] MEDS: LACTULOSE PO SCH ×2 (10:25→22:20)
[2019-07-18] MEDS: CULTURELLE PO SCH ×2 (10:25→22:20)
[2019-07-18] MEDS: NEURONTIN PO SCH ×3 (10:25→22:20)
[2019-07-18] MEDS: ZYLOPRIM PO SCH (10:26)
[2019-07-18] MEDS: DIFLUCAN PO SCH (10:26)
[2019-07-18] MEDS: LASIX PO SCH (10:26)
[2019-07-18] MEDS: MAXIPIME 2 GM/NS 2 GM/100 ML IVPB IV SCH ×2 (14:48→23:31)
--- NOTE | 2019-07-18 18:22 | INFECTIOUS DISEASE PROGRESS NO ---
DATE: 07/18/2019 PRESENT ILLNESS: Ms. Olivier has bilateral lower extremity cellulitis with plantar ulcers. She has grown oxacillin-sensitive Staphylococcus aureus and Stenotrophomonas from her feet, and most recently Natalia albicans from her right leg. MEDICATIONS: She is receiving cefepime 2 g IV every 12 hours, fluconazole 400 mg by mouth daily and vancomycin IV per pharmacy dosing. PHYSICAL EXAMINATION: Vital Signs: Last documented temperature is 95 degrees, pulse rate 82, respiratory rate 18, blood pressure 161/72, O2 saturation 100% on room air. General: This is a morbidly obese, chronically ill-appearing, middle-aged female. She is lying in bed, currently in no acute distress. HEENT: Atraumatic, normocephalic. Oral mucous membranes are pink and moist. Conjunctivae are pink. Neck: Supple. Trachea is midline. Cardiovascular: Heart rate is regular. S1, S2 noted. Respiratory: Lung sounds are clear to auscultation bilaterally. No work of breathing is noted. Abdomen: Soft, obese and nontender. Bowel sounds are active. Extremities: Show erythema to her bilateral calves with areas of mild eschar and generalized lower extremity pitting edema. Her feet have plantar ulcers bilaterally which have beefy red wound beds. Neurologic: She is awake, alert and oriented. Moving around in the bed independently. LABORATORY AND X-RAY: Today her white count is 7.01, hemoglobin 10.8, platelet count 111,000. Creatinine is 0.7, estimated GFR is greater than 60. Her right leg most recently has grown Natalia albicans. Blood cultures have shown no growth on this admission. On last admission at the 1st of the month her feet grew oxacillin-sensitive Staphylococcus aureus and Stenotrophomonas maltophilia. No imaging reports today. ASSESSMENT AND PLAN: Ms. Olivier has bilateral lower extremity cellulitis and plantar ulcers. The ulcers to her feet are looking slightly pan cleaner. She is feeling better today. For now, we will continue fluconazole, vancomycin and cefepime as ordered. She is leaning towards wanting to go home on Sunday. Since she was readmitted quickly after her last admission, we will plan on keeping her over the weekend and will recheck blood work on Sunday to include hepatic enzymes due to the administration of high-dose fluconazole. These plans have been discussed with and recommended by Dr. Heath. COMORBIDITIES: For Ms. Olivier include morbid obesity, diabetes mellitus, coronary artery disease, gout and restless leg syndrome. Dictated by RADHA West for Viraj Heath MD cc: Viraj Heath MD [facility]
[2019-07-18] MEDS: FIORICET PO PRN (18:32)
[2019-07-18] MEDS: ROBAXIN PO PRN (18:35)
[2019-07-18] MEDS: OXY IR PO PRN (22:19)
[2019-07-19] MEDS: ROBAXIN PO PRN ×2 (00:41→08:47)
[2019-07-19] MEDS: FIORICET PO PRN ×2 (00:41→19:38)
[2019-07-19] MEDS: VANCOMYCIN 1,500 MG in NS 250 ML IV SCH (00:42)
[2019-07-19] MEDS: OXY IR PO PRN (03:02)
[2019-07-19] MEDS: SYNTHROID PO SCH (06:11)
[2019-07-19] MEDS: LOVENOX SUBQ SCH (06:12)
[2019-07-19] MEDS: HUMULIN R SUBQ SCH ×4 (06:12→20:12)
[2019-07-19] MEDS: DIFLUCAN PO SCH (08:41)
[2019-07-19] MEDS: REQUIP PO SCH ×3 (08:41→16:29)
[2019-07-19] MEDS: ASPIRIN PO SCH (08:41)
[2019-07-19] MEDS: LASIX PO SCH (08:41)
[2019-07-19] MEDS: ZYLOPRIM PO SCH (08:41)
[2019-07-19] MEDS: CULTURELLE PO SCH ×2 (08:41→20:11)
[2019-07-19] MEDS: LACTULOSE PO SCH ×2 (08:42→20:11)
[2019-07-19] MEDS: SANTYL OINT TOP SCH (08:43)
[2019-07-19] MEDS: NEURONTIN PO SCH ×3 (10:22→20:11)
[2019-07-19] MEDS: BENADRYL IV PRN ×2 (11:39→18:00)
[2019-07-19] MEDS: MAXIPIME 2 GM/NS 2 GM/100 ML IVPB IV SCH (12:41)
[2019-07-19] MEDS: NORCO-10 PO PRN ×2 (15:21→21:56)
--- NOTE | 2019-07-19 23:23 | PROGRESS NOTE ---
DATE: 07/19/2019 SUBJECTIVE: The patient has no major complaints, except she wants her pain medication frequently. OBJECTIVE: Blood pressure 148/83, heart rate of 76, respiratory rate of 19, temperature of 97.7 degrees.Cardiovascular: Regular rate and rhythm. Pulmonary: Bilateral breath sounds, clear to auscultation. GI: Soft, nontender, nondistended. Bowel sounds are positive. LABORATORY DATA: I do not have any new data today. ASSESSMENT AND PLAN: 1. Cellulitis. We will continue empiric antibiotic. She is on vancomycin and cefepime per Dr. Heath, at least for another couple days, and we will re-evaluate. 2. Chronic venous stasis. We will continue supportive treatment. She is on diuretics. 3. Hypothermia. That is actually resolving. I think she just takes a lot of pain medications. 4. Disposition pending Infectious Disease input. We will continue to follow closely. cc: Shine Selby MD
[2019-07-20] MEDS: MAXIPIME 2 GM/NS 2 GM/100 ML IVPB IV SCH ×2 (00:15→12:52)
[2019-07-20] MEDS: BENADRYL IV PRN ×3 (00:17→15:10)
[2019-07-20] MEDS: SYNTHROID PO SCH (06:00)
[2019-07-20] MEDS: NORCO-10 PO PRN ×2 (06:00→14:15)
[2019-07-20] MEDS: LOVENOX SUBQ SCH (06:00)
[2019-07-20] MEDS: HUMULIN R SUBQ SCH ×4 (06:01→21:02)
[2019-07-20] MEDS: NEURONTIN PO SCH ×3 (08:07→21:29)
[2019-07-20] MEDS: ZYLOPRIM PO SCH (08:29)
[2019-07-20] MEDS: ASPIRIN PO SCH (08:29)
[2019-07-20] MEDS: LASIX PO SCH (08:30)
[2019-07-20] MEDS: LACTULOSE PO SCH ×2 (08:30→21:29)
[2019-07-20] MEDS: DIFLUCAN PO SCH (08:30)
[2019-07-20] MEDS: CULTURELLE PO SCH ×2 (08:30→21:29)
[2019-07-20] MEDS: SANTYL OINT TOP SCH (08:30)
[2019-07-20] MEDS: REQUIP PO SCH ×3 (08:30→16:15)
[2019-07-20] MEDS: ROBAXIN PO PRN (08:37)
[2019-07-20] MEDS: VANCOMYCIN 1,500 MG in NS 250 ML IV SCH (13:34)
[2019-07-20] MEDS: TUMS PO PRN ×2 (13:59→21:54)
[2019-07-20] MEDS ORDERED: RELISTOR SUBQ ONE (15:35)
--- NOTE | 2019-07-20 17:12 | Diag Imaging Result Doc PS360 ---
EXAM: ABDOMEN FLAT/UPRIGHT INDICATION: pain TECHNIQUE: 2 views COMPARISON: 07/13/2019 FINDINGS: There is abundant stool in the colon suggesting constipation. There is no obstructive bowel pattern. There is no definite large volume free abdominal gas. Otherwise, the abdomen is essentially stable. IMPRESSION: Suggestion of constipation. Electronically signed by Gasper Méndez 07/20/2019 5:09 PM
--- NOTE | 2019-07-20 17:14 | PROGRESS NOTE ---
DATE: 07/20/2019 SUBJECTIVE: The patient has no major complaints but she is refusing medications including her lactulose and some of her other medications. OBJECTIVE: Blood pressure is 153/72, heart rate 76, respiratory rate 18, temperature was 98.2 degrees.Cardiovascular: Regular rate and rhythm. Pulmonary: Bilateral breath sounds clear to auscultation. GI: Soft, nontender, nondistended. Bowel sounds are positive. LABORATORY DATA: I do not have any new data today. PROBLEM LIST: 1. Bilateral lower extremity cellulitis, she is on vancomycin and cefepime per Dr. Heath through tomorrow, vanc is 3 days, cefepime has been since the so almost a week and high-dose Diflucan too because I think 1 of the cultures grew out Natalia albicans interestingly enough. In any case, will reevaluate tomorrow per ID and decide about discharge capability. 2. Chronic venous stasis. We will continue treatment and follow. 3. Hypothermia, which is resolving. DISPOSITION: Pending clinical data. Will continue to follow. I really hope we can work on getting this patient out tomorrow. She is also severely constipated so we will continue to follow closely. cc: Shine Selby MD
[2019-07-21] MEDS: NORCO-10 PO PRN ×4 (00:23→20:51)
[2019-07-21] MEDS: ROBAXIN PO PRN (00:25)
[2019-07-21] MEDS: MAXIPIME 2 GM/NS 2 GM/100 ML IVPB IV SCH ×2 (00:25→12:39)
[2019-07-21] MEDS: HUMULIN R SUBQ SCH ×4 (06:23→20:53)
[2019-07-21] MEDS: SYNTHROID PO SCH (06:24)
[2019-07-21] MEDS: LOVENOX SUBQ SCH (06:24)
[2019-07-21 07:42] LABS: BASO# 0.02 X1000 (0.0-0.2); BASO% 0.4 % (0.0-0.8); EOS# 0.44 X1000 (0.0-0.7); EOS% 7.9 % (0.0-10.0); HEMATOCRIT 37.4 % (37.0-47.0); IMM GRAN# 0.06 X1000 (0.0-0.04); IMM GRAN% 1.1 % (0.0-0.5); LYMPH# 1.93 X1000 (1.2-3.4); LYMPH% 34.5 % (20.5-51.1); MCH 27.6 PG (27-31); MCHC 29.4 g/dL (33-37); MONO# 0.39 X1000 (0.11-0.59); MPV 11.2 FL (7.4-10.4); NEUT# 2.76 X1000 (1.4-6.5); NEUT% 49.1 % (42.2-75.2); PLT 95 X1000 (130-400); RBC 3.98 XMIL (4.2-5.4); RDW 19.6 % (11.5-14.5)
[2019-07-21 07:53] LABS: AGAP 13; ALB/GLOB RATIO 0.9; ALBUMIN 3.5 g/dL (3.5-5.0); ALKALINE PHOSPHATASE 239 U/L (32-104); BUN 20 mg/dL (8-22); CHLORIDE 103 mmol/L (98-107); COSMO 292; CREATININE 0.7 mg/dL (0.5-0.9); ESTIMATED GFR > 60; GLUCOSE 112 mg/dL (70-104); GOT 38 U/L (10-30); GPT 28 U/L (10-36); POTASSIUM 4.3 mmol/L (3.5-5.1); SODIUM 145 mmol/L (136-145); TCO2 29 mmol/L (25-35); TOTAL BILIRUBIN 0.31 mg/dL (0.20-1.00); TOTAL PROTEIN 7.5 g/dL (6.3-8.3)
[2019-07-21] MEDS: DIFLUCAN PO SCH (08:13)
[2019-07-21] MEDS: CULTURELLE PO SCH ×2 (08:13→20:52)
[2019-07-21] MEDS: REQUIP PO SCH ×3 (08:13→20:52)
[2019-07-21] MEDS: ASPIRIN PO SCH (08:14)
[2019-07-21] MEDS: ZYLOPRIM PO SCH (08:14)
[2019-07-21] MEDS: LACTULOSE PO SCH ×2 (08:15→20:53)
[2019-07-21] MEDS: LASIX PO SCH (08:16)
[2019-07-21] MEDS: NEURONTIN PO SCH ×3 (08:19→20:51)
[2019-07-21] MEDS: SANTYL OINT TOP SCH (14:29)
[2019-07-21] MEDS: TUMS PO PRN (14:53)
[2019-07-21] MEDS: LOTRIMIN 1% CREAM TOP SCH (16:49)
[2019-07-21] MEDS ORDERED: BLISTEX MEDICATED BERRY LIP BALM TOP ONE (16:50)
[2019-07-21] MEDS: FIORICET PO PRN (16:57)
--- NOTE | 2019-07-21 17:10 | INFECTIOUS DISEASE PROGRESS NO ---
DATE: 07/21/2019 PRESENT ILLNESS: Ms. Olivier has Bilateral lower extremity cellulitis and plantar ulcers. These have grown an oxacillin-sensitive Staphylococcus aureus, Stenotrophomonas, and Natalia albicans. She also has intertriginous areas with a candidal rash. MEDICATIONS: She has been receiving IV vancomycin per pharmacy dosing, cefepime 2 g IV every 12 hours and p.o. fluconazole 400 mg daily. PHYSICAL EXAMINATION: Vital Signs: Temperature is 95.2, pulse rate 98, respiratory rate 14, blood pressure 154/80, O2 saturation is 95% on room air. General: This is a morbidly obese, chronically ill-appearing, middle-aged female. She is lying in bed, currently in no acute distress. HEENT: Atraumatic, normocephalic. Oral mucous membranes are pink and moist. Conjunctivae are pink. Neck: Supple. Trachea is midline. Cardiovascular: Heart rate is irregular. Respiratory: Lung sounds are bilaterally clear to auscultation. Diminished in the bases. No work of breathing is noted. Abdomen: Soft, obese and nontender. Bowel sounds are active. Integumentary: Skin is warm and dry. There is erythema to bilateral calves with mild areas of eschar noted. The plantar wounds look clean and are morris. She has some redness noted today to the intertriginous groin and breast areas. LABORATORY AND X-RAY: Today her white today her white count is 5.6, hemoglobin 11, platelet count 95,000. Creatinine is 0.7, estimated GFR is greater than 60. Total bilirubin 0.31. AST 38, ALT 28, alkaline phosphatase 239. Abdominal x-ray today shows constipation. ASSESSMENT AND PLAN: Ms Olivier is being treated for bilateral lower extremity cellulitis and plantar ulcers. She has been treated for these chronically by Dr. Almaraz at the wound care clinic. The wounds to her feet are looking better and are clean and morris. The redness and eschar remains to her bilateral calves. There is excessive edema and I have discussed with her the importance of keeping her lower extremities elevated as often as possible. At this point, the plan is to send her home tomorrow. We will send her out on oral fluconazole and Bactrim. Prescriptions for these have been put on the front of the chart. I have discussed the fact that the use of fluconazole with [place] can increase the sedative properties of the pain medication. Dr. Heath wants the patient to have the pain medication every 12 hours and she agrees to this. I have also discussed this with Dr. Spring. We will have the patient follow up with Dr. Almaraz. These plans have been discussed with and recommended by Dr. Heath. COMORBIDITIES: For Ms. Olivier include morbid obesity, diabetes mellitus, coronary artery disease, gout and restless legs syndrome. Dictated by RADHA West for Viraj Heath MD cc: Viraj Heath MD MTDD
--- NOTE | 2019-07-21 20:26 | PROGRESS NOTE ---
DATE: 07/21/2019 SUBJECTIVE: The patient has no complaints. She has not refused medicines today. OBJECTIVE: Vital signs: Blood pressure is 154/80 with a heart rate of 98, respirations are 16, temperature was 95 degrees, with O2 saturation 95 to 97 percent on room air. Cardiovascular: Regular rate and rhythm. S1 and S2 appreciated. Pulmonary: Breath sounds are clear with no increased work of breathing noted. Gastrointestinal: Abdomen is soft, nontender, and nondistended with bowel sounds in all 4 quadrants. LABS: WBC is 5.6 with hemoglobin 11, hematocrit 37.4, and platelets of 95,000. Sodium 145, potassium 4.3, BUN 20, creatinine 0.7, with a glucose ranging from 112 to 218. PROBLEM LIST: 1. Bilateral lower extremity cellulitis. We will continue antibiotics as per Dr. Heath. 2. Chronic venous stasis. Continue diuretics. 3. Hypothermia. DISPOSITION: Plan is to discharge the patient in the morning with home health at [facility]. Antibiotics will be per Dr. Heath with the plan of sending her home on oral fluconazole and Bactrim. Her Haywood will be decreased to 10 mg b.i.d. on discharge. FOLLOWUP: Dr. Viraj Heath, and Dr. Paul [facility]. Dictated by RADHA Nogueira for Dennis Donato MD cc: RADHA Nogueira MD
[2019-07-22] MEDS: FIORICET PO PRN (00:14)
[2019-07-22] MEDS: MAXIPIME 2 GM/NS 2 GM/100 ML IVPB IV SCH (00:15)
[2019-07-22] MEDS: LOTRIMIN 1% CREAM TOP SCH ×2 (00:15→08:18)
[2019-07-22] MEDS: VANCOMYCIN 1,500 MG in NS 250 ML IV SCH (00:17)
[2019-07-22 04:25] VITALS: BP 141/74
[2019-07-22] MEDS: SYNTHROID PO SCH ×2 (05:49→08:18)
[2019-07-22] MEDS: LOVENOX SUBQ SCH (05:49)
[2019-07-22] MEDS: NORCO-10 PO PRN (05:49)
[2019-07-22] MEDS: HUMULIN R SUBQ SCH (06:35)
[2019-07-22] MEDS: REQUIP PO SCH (08:17)
[2019-07-22] MEDS: DIFLUCAN PO SCH (08:17)
[2019-07-22] MEDS: CULTURELLE PO SCH (08:17)
[2019-07-22] MEDS: ZYLOPRIM PO SCH (08:17)
[2019-07-22] MEDS: ASPIRIN PO SCH (08:17)
[2019-07-22] MEDS: LASIX PO SCH (08:18)
[2019-07-22] MEDS: NEURONTIN PO SCH (08:18)
[2019-07-22] MEDS: LACTULOSE PO SCH (08:18)
[2019-07-22] MEDS: SANTYL OINT TOP SCH (08:18)
--- NOTE | 2019-07-22 20:46 | DISCHARGE SUMMARY ---
ADMISSION DATE: 07/11/2019 DISCHARGE DATE: 07/22/2019 DISCHARGE DIAGNOSES: 1. Bilateral lower extremity cellulitis and plantar ulcers. 2. Type 2 diabetes. 3. Encephalopathy, resolved. 4. Osteomyelitis, recently treated due to osteomyelitis secondary to Methicillin sensitive Staphylococcus aureus and Stenotrophomonas. 5. Morbid obesity with a body mass index of 52.4. 6. History of coronary artery disease, status post CABG. 7. Hypothermia. 8. Episodes of hypotension, resolved. PROCEDURES PERFORMED: 1. Chest x-ray dated 07/11/2019--Impression: Cardiomegaly and pulmonary edema. 2. Head CT scan dated 07/11/2019--Impression: Chronic ischemic microvascular changes. No evidence of acute intracranial disease. 3. Extremity venous study ultrasound dated 07/12/2019--No evidence of superficial or DVT in either lower extremity. 4. Chest x-ray dated 07/13/2019--Impression: Cardiomegaly. 5. Abdomen x-ray dated 07/13/2019--Impression: Constipation. 6. Abdomen x-ray dated 07/20/2019--Suggestion of constipation. HOSPITAL COURSE: A 59-year-old female recently discharged from our facility for osteomyelitis on 07/07/2019 secondary to Methicillin sensitive staphylococcus aureus and Stenotrophomonas. She was sent home with antibiotics. She came back and she is a poor historian and she has been multiple times admitted before for the same, she was brought because she was confused. She had a hypothermia, but the rest of the vital signs were okay, and I do remember that this patient has some episodes of hypothermia in previous hospitalizations as well. As per the patient herself, she said that she did not have any acute symptoms other than feeling weak for the last couple days before admission. She was admitted on 07/11/2019. She admitted that sometimes she does not have any clarity of thought. She denies any focal neurological complaints. No cardiac respiratory complaints. No GI or genitourinary complaints. She was admitted due to not only the hypothermia, but the cellulitis at the level of the right lower extremity. Also we did some studies like head CT scan, chest x-ray, abdomen x-ray and venous Doppler ultrasound to rule out DVT, but it was negative. The patient was improving on a daily basis. Her blood glucose has been stable, and I do believe she does not follow a diet at home. She will be discharged home today. She will follow up with Dr. Marti Almaraz as an outpatient as well as her primary care doctor. She will need to call for an appointment. OBJECTIVE: Vital Signs: Temperature 95.2 degrees, pulse 18, blood pressure 141/74, oxygen saturation 98 on room air. HEENT: Head normocephalic, no trauma. PERRLA. Neck: Supple. No JVD. No masses. Central trachea. Chest: Clear to auscultation. Decreased at the bases. Abdomen: Soft, protuberant, nontender, nondistended. No hepatosplenomegaly. Extremities: She does have bilateral lower extremity redness mostly at the level of the legs at their graft with a dressing. Neurological: Alert and oriented x3. No focal deficits. LABORATORY: Glucose 138. Laboratory from yesterday, WBC 5.6, hemoglobin 11, hematocrit 37.4, platelets 95,000. Sodium 145, potassium 4.3, chloride 103, bicarbonate 29, BUN 20, creatinine 0.9, glucose 112, calcium 10. DISCHARGE MEDICATIONS: Allopurinol 300 mg p.o. q.a.m., aspirin 81 mg p.o. daily, Fioricet 1 tablet p.o. every 4 hours as needed for migraines, calcium carbonate 500 mg p.o. after meals plus at bedtime as needed, Lotrimin 1% cream twice a day, Santyl ointment daily, exenatide 2 mg subcutaneous as ordered, fluconazole 400 mg p.o. daily, Lasix 440 mg p.o. daily as needed, gabapentin 800 mg p.o. t.i.d., Amaryl 4 mg p.o. b.i.d., Bryan 10 every 12 hours as needed, Culturelle twice a day p.o., lactulose 30 mL p.o. b.i.d. that she can titrate down if she having more than 2 or 3 bowel movements, Synthroid 50 mcg p.o. daily, Robaxin 750 mg p.o. t.i.d., Ditropan 5 mg p.o. b.i.d., ropinirole 4 mg p.o. t.i.d., Janumet XR 100/1,000 mg tablet 2 tablets p.o. at bedtime, and Bactrim 1 tablet p.o. every 12 hours. Time discharging this patient was 35 minutes. cc: Dennis Donato MD MTDD
== END 2019-07-22 11:24 | disposition home health service (06) | DRG 603 ==
LOC: SUPCPDRO → ED 12:01 → 3N 23:23 → SUATTDRO 23:23
PROVIDERS: ATTEND Internal Medicine

== ENCOUNTER 2019-07-28 00:11 | Inpatient (IN) ==
--- NOTE | 2019-07-28 00:35 | EKG Report ---
Test Performed on : 07/28/2019 00:23:18 AM Test Reason : weakness Blood Pressure : / mmHG Vent. Rate : 057 BPM Atrial Rate : 057 BPM P-R Int : 168 ms QRS Dur : 098 ms QT Int : 564 ms P-R-T Axes : 069 064 073 degrees QTc Int : 548 ms Sinus bradycardia. with premature supraventricular complexes. Prolonged QT Abnormal ECG When compared with ECG of 11-JUL-2019 13:15, (Unconfirmed) premature supraventricular complexes. are now present Unconfirmed Result
[2019-07-28] MEDS ORDERED: SODIUM CHLORIDE IV ONE (01:15)
[2019-07-28] MEDS ORDERED: DEXTROSE IV ONE (01:15)
[2019-07-28] MEDS ORDERED: D50W SYRINGE IV ONE (01:23)
[2019-07-28 01:28] LABS: URINE SOURCE CATH
[2019-07-28 01:34] LABS: BILIRUBIN URINE NEGATIVE (NEGATIVE); BLOOD URINE NEGATIVE (NEGATIVE); COLOR YELLOW; GLUCOSE URINE NEGATIVE (NEGATIVE); KETONE URINE NEGATIVE (NEGATIVE); LEUKOCYTES URINE NEGATIVE (NEGATIVE); NITRITE URINE NEGATIVE (NEGATIVE); PROTEIN URINE 100 mg/dL (NEGATIVE); SP GRAVITY URINE 1.034; TURBIDITY URINE CLEAR (CLEAR); UROBILINOGEN URINE NORMAL (NORMAL)
[2019-07-28 01:35] LABS: UR EPITHELIAL CELLS <10 /HPF (<10); URINE BACTERIA NEGATIVE /HPF; URINE RBC <10 /HPF (<10); URINE WBC <10 /HPF (<10)
[2019-07-28] MEDS ORDERED: VANCOMYCIN 1 GM/NS 1 GM/250 ML IVPB IV ONE (01:43)
[2019-07-28] MEDS ORDERED: ZOSYN 4.5 GM in NS 100 ML IV ONE (01:43)
[2019-07-28] MEDS ORDERED: LEVOPHED 8 MG in D5 1/2 NS 250 ML IV SCH (01:45)
[2019-07-28 01:46] LABS: BASO# 0.01 X1000 (0.0-0.2); BASO% 0.2 % (0.0-0.8); EOS# 0.17 X1000 (0.0-0.7); EOS% 2.7 % (0.0-10.0); HEMATOCRIT 30.7 % (37.0-47.0); HEMOGLOBIN 9.2 g/dL (12.0-16.0); IMM GRAN# 0.02 X1000 (0.0-0.04); IMM GRAN% 0.3 % (0.0-0.5); LYMPH# 1.49 X1000 (1.2-3.4); LYMPH% 24.1 % (20.5-51.1); MCH 27.7 PG (27-31); MCV 92.5 FL (81-99); MONO# 0.35 X1000 (0.11-0.59); MONO% 5.7 % (1.7-9.3); MPV 12.4 FL (7.4-10.4); NEUT# 4.15 X1000 (1.4-6.5); PLT 93 X1000 (130-400); RBC 3.32 XMIL (4.2-5.4); RDW 20.2 % (11.5-14.5); WBC 6.19 X1000 (4.8-10.8)
[2019-07-28 01:51] LABS: INR 1.09; PROTIME 14.3 Seconds (11.0-16.0)
[2019-07-28 01:52] LABS: PTT 43.2 Seconds (22.3-41.8)
[2019-07-28 02:02] LABS: AGAP 11; ALB/GLOB RATIO 1.1; ALBUMIN 3.3 g/dL (3.5-5.0); ALKALINE PHOSPHATASE 210 U/L (32-104); BUN 20 mg/dL (8-22); CHLORIDE 107 mmol/L (98-107); CK PROFILE 103 U/L (24-173); COSMO 289; CREATININE 0.9 mg/dL (0.5-0.9); ESTIMATED GFR > 60; GOT 37 U/L (10-30); GPT 33 U/L (10-36); POTASSIUM 3.4 mmol/L (3.5-5.1); SODIUM 146 mmol/L (136-145); TCO2 28 mmol/L (25-35); TOTAL BILIRUBIN 0.23 mg/dL (0.20-1.00); TOTAL PROTEIN 6.2 g/dL (6.3-8.3)
[2019-07-28 02:20] LABS: GLUCOSE 30 mg/dL (70-104)
[2019-07-28 02:51] LABS: UR AMPHETAMINES QUAL NONE DETECTED (NONE DETECT); UR BARBITUATES QUAL PRESUMPTIVE POSITIVE (NONE DETECT); UR BENZODIAZEPIN QUAL NONE DETECTED (NONE DETECT); UR CANNABINOIDS QUAL NONE DETECTED (NONE DETECT); UR COCAINE QUAL NONE DETECTED (NONE DETECT); UR METHADONE QUAL NONE DETECTED (NONE DETECT); UR OPIATES QUAL PRESUMPTIVE POSITIVE (NONE DETECT); UR OXYCODONE QUAL NONE DETECTED (NONE DETECT); UR PCP QUAL NONE DETECTED (NONE DETECT)
--- NOTE | 2019-07-28 05:00 | HISTORY AND PHYSICAL ---
ADDENDUM: Patient of Belen Dominique MD. The patient was brought in today because she was confused, lethargic, and also had incidental hypoglycemia. The patient was discharged less than a week ago for similar presentation of hypothermia and hypotension. She was treated for lower extremity cellulitis and sent home. She comes back again with complaints of hypotension, hypoglycemia, and hypothermia. Currently, she was given some D50 because her blood sugar was 20 on arrival. She was continued on d5 NS and started on Levophed drip, which has brought her systolic blood pressure into the 150s. It is hoped that we will taper off this. Her TSH last time was in normal limits, which ruled out a myxedema coma. A cortisol level will be ordered also. I surmise that the patient's hypoglycemia could be due to the fact that she takes sulfonylurea. She is on exenatide. She also takes DPP-4 inhibitor along with metformin all contributing to hypoglycemia which in turn can lead to hypothermia. Hypertension could be due to the fact she is on super high doses of Requip, which can also cause leg swelling. She is also taking high doses of Robaxin. I recommend modification or discontinuation of some or all of these medications prior to discharge. In the interim, the patient's exam showed she had expiratory wheezes. She is very lethargic, which could mean that she may have aspirated. We will order Zosyn for this, and add on Zyvox for possible MRSA infection. Consult ID. The patient has decubiti in her heels and in her sacrum. These will need to be cultured, and followed up by ID and General Surgery. Very conservative control of patient's blood sugars. I would recommend low sliding scale, and probably start sliding once blood sugar is only greater than 200. cc: MD Belen Ulloa MD [facility]
[2019-07-28 05:18] LABS: ALLEN TEST YES; BLOOD TYPE ARTERIAL; HCO3-(ACT) 26.5 mmoll (20.0-26.0); O2(CT) 12.8 mL/dL (15.0-23.0); O2HB 97.2 % (95.0-99.0); PO2(98.6) 190 mmHg (60-100); SAMPLE BLOOD; SAO2 97.8 % (95.0-100.0); pH(98.6) 7.33 (7.35-7.45)
[2019-07-28 05:20] LABS: MODALITY NRB; PCO2(98.6) 54 mmHg (35-45)
[2019-07-28] MEDS ORDERED: POTASSIUM CHLORIDE 20 MEQ/SWI 20 MEQ/100 ML IVPB IV ONE (06:35)
[2019-07-28] MEDS ORDERED: TUMS PO PRN (06:55)
[2019-07-28] MEDS: ZYVOX 600 MG/D5W 600 MG/300 ML IVPB IV SCH ×2 (07:27→18:19)
[2019-07-28] MEDS: SYNTHROID PO SCH (07:38)
--- NOTE | 2019-07-28 07:39 | Diag Imaging Result Doc PS360 ---
EXAM: CHEST-PORTABLE INDICATION: PNEUMONIA RULE OUT TECHNIQUE: One view COMPARISON: 07/13/2019 FINDINGS: There is suggestion of mild left basilar atelectasis versus mild infiltrate. The lungs are grossly clear by plain radiograph, otherwise. There is no discrete pleural fluid collection or pneumothorax. There is stable cardiomegaly and median sternotomy wires. IMPRESSION: Mild left basilar atelectasis and/or infiltrate. Electronically signed by Gasper Méndez 07/28/2019 7:37 AM
--- NOTE | 2019-07-28 08:44 | Diag Imaging Result Doc PS360 ---
EXAM: CT THORAX W/CONTRAST 07/28/2019 HISTORY: R/O Poss. PNA,Hypoxia,Rhonchi,Wheezing TECHNIQUE: This exam was performed using automated exposure control, adjustment of mA or kV according to patient size, and/or use of iterative reconstruction technique. COMMENT: There are no previous studies available for comparison. There is extensive calcification of the thoracic aorta and brachiocephalic arteries. There is no evidence of aneurysm or dissection. There is extensive coronary calcification. There has been previous sternotomy. There is no evidence of significant adenopathy. There are no abnormal fluid collections. There are postsurgical changes in the left humeral head. There are spondylotic changes in the thoracic spine. There are multiple rib fractures on the right including the third rib posterior fourth rib posterior lateral fifth rib posterior lateral sixth rib and anterior seventh rib. Some of these fractures may be subacute. The majority are apparently acute however. On the left side there are fractures of the anterior seventh rib and apparent old fractures of the fourth, fifth and sixth ribs. There is no evidence of pneumothorax. There are coarse patchy opacities in both lower lobes particularly the left lower lobe. IMPRESSION: 1. Bibasilar bronchopneumonia. 2. Multiple old and new rib fractures. Electronically signed by Rohit Yu 07/28/2019 8:41 AM
[2019-07-28] MEDS: CULTURELLE PO SCH ×2 (08:54→20:53)
[2019-07-28] MEDS: D5 NS 1,000 ML IV SCH ×2 (08:54→18:19)
[2019-07-28] MEDS: ASPIRIN PO SCH (08:55)
[2019-07-28] MEDS: ZOSYN 3.375 GM in NS 50 ML IV SCH ×3 (08:55→20:17)
[2019-07-28] MEDS: DITROPAN PO SCH ×2 (08:55→20:53)
[2019-07-28] MEDS: ZYLOPRIM PO SCH (08:55)
[2019-07-28] MEDS: LOVENOX SUBQ SCH (09:33)
[2019-07-28 10:13] LABS: ALLEN TEST YES; BE 2.4 mmoll (-3.0-3.0); BLOOD TYPE ARTERIAL; HCO3-(ACT) 26.8 mmoll (20.0-26.0); METHB 0.2 % (0.0-1.5); O2(CT) 12.8 mL/dL (15.0-23.0); O2HB 95.1 % (95.0-99.0); PCO2(98.6) 42 mmHg (35-45); PO2(98.6) 84 mmHg (60-100); SAMPLE BLOOD; SAO2 96.3 % (95.0-100.0); THB 9.5 g/dL (11.5-17.4); pH(98.6) 7.42 (7.35-7.45)
[2019-07-28 10:15] LABS: MODALITY CANNULA
[2019-07-28] MEDS: DUONEB (A & A) INH SCH ×3 (11:14→21:57)
--- NOTE | 2019-07-28 12:52 | HISTORY AND PHYSICAL ---
PRIMARY CARE PROVIDER: Dr. Belen Dominique. DATE AND TIME: 07/28/2019 at 0445. CHIEF COMPLAINT: Altered mental status. HISTORY OF PRESENT ILLNESS: Ms. Olivier is a 59-year-old female who was just recently discharged from our facility on 07/22/2019. During this visit, she did present with similar symptoms of encephalopathy, hypothermia, and hypotension. She was treated during this admission for bilateral lower extremity cellulitis and plantar ulcers, as well as she does have a history of osteomyelitis in her right heel in the past, though this is not a current infection. She was evaluated by Dr. Almaraz with surgery who has been following these wounds for quite some time from what I understand, and she was followed by Dr. Heath with infectious disease. She was discharged home with antibiotics of fluconazole and Bactrim. She was noted to have cultures that did have a growth of oxacillin-sensitive Staphylococcus aureus, Stenotrophomonas, and Natalia albicans. Her son, who was present at bedside, did state that over the past 2 days that she has become progressively more confused. This did become much worse just prior to her arrival. She was noted that she could not ambulate. She was fatigued. She was having slurred speech. Her fingerstick blood sugar, oxygen saturation, and blood pressure were low upon EMS arrival to her house. She was noted to have systolic blood pressure in the 70s, oxygen saturations that were in the 80s, and glucose levels that were in the 20 to 30 range. Upon evaluation in the ER, they did give 1 amp of D-50, though after this the patient's fingerstick blood sugar did continue to drop. They did ultimately place her on a D-5 normal saline infusion, and this has had a positive response on her fingerstick blood sugars. They are improving at this time. She was also placed with vasopressor of Levophed. This has improved her blood pressure also. Actually, it is systolically with 150s at this time. We are going to titrate this back down some. She was noted to be hypothermic as well. She has since had a warming blanket placed on. Upon my initial examination in the room, the patient did seem that she was still drowsy though was arousable, and once awoken, she was able to answer questions appropriately, though by the end of my examination, the patient's mentation had greatly improved. She was sitting in bed, was awake and alert. She is alert oriented to person, place, time, and situation except for what happened just prior to her arrival. She was following commands. She did not seem as drowsy. Given this, I did initially place her n.p.o., though I have changed this to n.p.o. except for ice chips, and as long as her mentation continues like this, we may perform a swallowing screen. She can likely have her diabetic diet initiated. The patient has recently been treated for bilateral lower extremity cellulitis, though I do not feel at this time, when reading back from the physical examination notes of her bilateral lower extremities, that this has actually worsened. The patient's wounds do appear to be healing well, though she does have crackles and rhonchi noted throughout bilateral lung sounds. We were concerned that given her confusion and hypoxia that she may have aspirated. Given this, we did perform a CT thorax with contrast, which did note that the patient had bibasilar bronchopneumonia noted. Her son did mention to me that she did fall a couple days ago as well and did have some pain on her right side. There was noted to be some multiple old and new rib fractures present as well. There was no evidence of pneumothorax. We have placed the patient with antibiotic coverage of Zyvox and Zosyn given possible aspiration pneumonia. Blood cultures and sputum culture have been ordered. She will be placed in the ICU for close monitoring. REVIEW OF SYSTEMS: The patient denies any headache, though has been reporting some dizziness. She denies any chest pain. She is really not reporting any shortness of breath, though had reported a cough. Other than the pain she reported in her side where she fell, she denied any abdominal pain. She denied any nausea, vomiting. She reports that the day of her discharge from the hospital and the day after, she did have diarrhea. This has subsided and she has not had any further episodes. She denies any hematochezia or melena. She denies any dysuria. They have reported her urine has been dark, though this is just in the last day or 2. She reports that her urine was previously yellow and clear. She does have chronic swelling in her bilateral lower extremities with recent cellulitis and wounds. Though other than this, she does not report any new symptoms. PAST MEDICAL HISTORY: 1. Diabetes mellitus type 2. 2. Hypertension. 3. Gout. 4. Restless legs syndrome. 5. Coronary artery disease. 6. Hypertension. 7. Hyperlipidemia. 8. Chronic lymphedema and cellulitis of bilateral lower extremities. 9. Neuropathic wounds. PAST SURGICAL HISTORY: 1. Hysterectomy. 2. She has had the great toe of her right foot amputated, and she has had the 1st and 2nd toes of her left foot amputated. She has had a coronary artery bypass graft. 3. Tonsillectomy. 4. Left arm surgery. 5. Surgery on her left foot for varicose vein. SOCIAL HISTORY: The patient is a former smoker. She quit smoking 12 years ago. There is no known alcohol or illicit drug use. I think she did previously live alone before her most recent admission, though at this time I do think her son has been staying with her. FAMILY HISTORY: Positive for coronary artery disease in both parents. ALLERGIES: Patient has allergies to tizanidine. HOME MEDICATIONS: 1. Allopurinol 300 mg p.o. every a.m. 2. Aspirin 81 mg p.o. daily. 3. Fioricet 1 tablet p.o. every 4 hours p.r.n. as directed. 4. Tums 500 mg p.o. after meals and at bedtime p.r.n. 5. Lotrimin 1% cream 1 gram topical b.i.d. 6. Santyl ointment 1 gram topical daily. 7. Bydureon 2 mg subcutaneously as directed. 8. Fluconazole 4 mg p.o. daily. 9. Lasix 40 mg p.o. daily p.r.n. 10. Gabapentin 80 mg p.o. t.i.d. 11. Amaryl 4 mg p.o. b.i.d. 12. Check 10 mg p.o. every 12 hours p.r.n. for pain. 13. Culturelle 1 capsule p.o. b.i.d. 14. Lactulose 30 mL p.o. b.i.d. 15. Synthroid 50 mcg p.o. daily. 16. Robaxin 750 mg p.o. t.i.d. 17. Ditropan 5 mg p.o. b.i.d. 18. Ropinirole 4 mg p.o. t.i.d. 19. Janumet extended release 100 to 1000 mg tablet 2 tablets p.o. every night at bedtime. 20. Bactrim Double Strength tablet 1 p.o. every 12 hours. DIAGNOSTIC DATA: White blood cell count is 6190, hemoglobin 9.2, hematocrit 30.7, platelet count is 93,000. PT 14.3, INR 1.09, PTT is 43.2. Sodium 146, potassium 3.4, chloride 107, serum bicarbonate is 28, BUN 20, creatinine 0.9 with a GFR greater than 60. Glucose initially was 30, though this has since improved with the last fingerstick of 188. Calcium 9, magnesium 2.3. Total bilirubin is 0.23, AST 37, ALT 33, alkaline phosphatase is 210. CK 103, troponin 0.012. TSH is 3.45. Cortisol level is 13.5. Arterial blood gases were obtained on non-rebreather at 100% FiO2, and pH was 7.33, pCO2 was 54, PO2 was 190, HCO3 was 26.5, and O2 saturation was 97.8. At the time these were drawn, the patient's mentation had just recently improved remarkably. Given this, we did not do any acute changes to her respiratory orders based off her ABGs. We did order a repeat later on, which did show improvement from this with a pH of 7.42, pCO2 of 42, PO2 of 84, HCO3 of 26.8, and O2 saturation of 96.3. This was on FiO2 of 32%per nasal cannula. Urinalysis was obtained via catheter and was positive for protein. It was negative for glucose, ketones, blood, nitrites, leukocytes, white blood cells, or bacteria. Urine drug screen was positive for opiates and barbiturates, though is otherwise negative. EKG showed sinus bradycardia, premature ventricular complexes at a rate of 57 with a QTc of 548. We initially performed for a chest x-ray and did ultimately did perform a CT thorax without contrast, which did show a bibasilar bronchopneumonia and multiple old and new rib fractures. There was no pneumothorax identified. Please see full CT report for all details findings. PHYSICAL EXAMINATION: VITAL SIGNS: Temperature 94 degrees, heart rate 82, respirations 18, blood pressure is 140/79, oxygen saturation is 99% per nonrebreather at 15 liters. GENERAL: Ms. Olivier is a pleasant 59-year-old female. She was still somewhat drowsy upon my initial arrival in the room, but though by the time my examination was completed the patient was sitting up in bed. She was alert and oriented to person, place, time, and situation. She was answering questions appropriately and following commands. Her mentation has remarkably improved, and her speech is clear and understandable. Given this, we did not perform a head CT. We do feel like her encephalopathy was related to her hypoglycemia, as well as hypoxia due to some respiratory compromise, which was likely hypoglycemically induced. HEENT: Head is atraumatic, normocephalic. Pupils are equal, round, reactive to light, were 3 mm bilaterally and brisk. Oral mucosa was slightly dry. Oropharynx was clear. NECK: Supple. Trachea midline. CARDIOVASCULAR: Patient has S1 and S2 present. No murmurs, gallops, rubs appreciated with a regular rate and rhythm. PULMONARY: Patient has symmetrical chest expansion bilaterally, though lung sounds did have rhonchi, wheezing, and crackles in bilateral bases. ABDOMEN: Soft, does appear to be distended. The patient has a protuberant abdomen noted. She does not report any tenderness upon palpation except for on her right side, which given her CT report is likely related to her rib fractures. Bowel sounds were present in all 4 quadrants, were normoactive. GENITOURINARY: The patient had a Soria catheter in place at this time, and her urine was dark rani in color. EXTREMITIES: No cyanosis noted. The patient does have swelling with trace to 1+ pitting edema noted in bilateral lower extremities, though this appears to be at her baseline. She does have erythema noted, though the patient does have a history of chronic lymphedema and cellulitis. She also does have an approximately half-dollar size wound noted to her right heel, though this does not appear to have any purulent drainage noted. This does appear to be healing at this time. She also does have a wound noted to the lateral plantar surface of her left foot as well. She has had reported toe amputations as mentioned above. Dorsalis pedal pulses were 1+ bilaterally, though radial pulses were 2+ bilaterally. The patient is able to move all extremities. INTEGUMENTARY: The patient's skin is pink, warm, and dry except for above- mentioned abnormalities in her extremities exam. NEUROLOGICAL: Patient at this time is awake and alert, is oriented to person, place, time, and situation. She is sitting up in bed. She is able to follow commands and answer questions appropriately. She is able move all extremities. At this time, there is not appear to be any focal neurological deficits noted. ASSESSMENT AND PLAN: 1. Bibasilar bronchopneumonia. There is a suspicion for possible aspiration pneumonia given her history of present illness and presentation. Given this, we did place her on antibiotic coverage of Zosyn and Zyvox. We have obtained blood cultures, sputum culture. We will continue with aggressive pulmonary toilet with incentive spirometry, frequent encouragement to turn, cough, and deep breathing, scheduled DuoNeb treatments. Aspiration precautions have been implemented. We will continue to monitor her respiratory status closely. Her ABGs have improved, and since that time she has been able to be weaned off of her nonrebreather down to a nasal cannula. 2. Bilateral lower extremity cellulitis and bilateral extremity heel wounds. We will continue with antibiotics as mentioned above. They did obtain wound cultures in the ER. We have consulted Dr. Almaraz with surgery who has been following the patient's lower extremity wounds and Dr. Heath with infectious disease who has previously been following the patient as well. We will await their evaluation and further recommendations for management. We did place a wound nurse consult as well for assistance with wound management. 3. Possible sepsis. We will continue to monitor this closely, though the patient's hypoglycemia has improved, her hypotension has improved as well, and her hypothermia has improved. She was initially placed on Levophed drip, though this has since been titrated down to a very low dose. I do not think she will require this much longer. She is on D-5 NS drip at this time given her hypoglycemia. We will continue to monitor this closely. We will continue treatment as mentioned above in number 1 and 2. 4. Hypothermia. This is improving since correction of her hypoglycemia. She does have a warming blanket on at this time, and she does have continuous temperature probe in place. 5. Hypoglycemia. This is improved since being given D-50. She has been since placed on D-5 normal saline drip. We will do every 1 hour fingerstick blood sugars until she has maintained adequate glucose levels. We will hold her diabetic medications at this time. 6. Hypertension. This could be related to numbers 4 and 5. This has improved with administration of a Levophed drip. This has been titrated down to a low dose. Hopefully, she will not be requiring this much longer. We will continue to monitor this closely. 7. History of coronary artery disease, status post coronary artery bypass graft. 8. Deep vein thrombosis prophylaxis. We provided with sequential compression devices at this time. The patient's platelet count was low at 93,000. We will place her with sequential compression devices and continue to monitor. She will be placed in the Intensive Care Unit for close monitoring. We will do a series of cardiac enzymes given that her troponin was slightly elevated. The patient is denying any chest pain at this time. We have continued her aspirin given her history of coronary artery disease and coronary artery bypass grafting. She will be nothing by mouth, though if her mentation maintains and keeps improving as it is at this time and if she does pass a swallowing screen, we will place her on a diabetic diet. Her potassium was very slightly low, though we did go ahead and order her to have potassium chloride 20 mEq IV. Further orders and recommendations pending hospital course, diagnostic studies, and physician evaluation. Dictated by RADHA Anaya for Suzanne Hurtado MD cc: Suzanne Hurtado MD [facility]
--- NOTE | 2019-07-28 15:34 | INFECTIOUS DISEASE PROGRESS NO ---
DATE: 07/28/2019 PRESENT ILLNESS: The patient was readmitted to the hospital with a bibasilar pneumonia. She also has bilateral leg cellulitis, and her drug screen is positive for opiates and barbiturates. MEDICATIONS: The patient's medications she was taking at home included allopurinol, fluconazole, Lasix, Neurontin, glimepiride, hydrocodone, Synthroid, Robaxin, Ditropan, and Septra. PHYSICAL EXAMINATION: Vital Signs: Temperature is 97.8 degrees, pulse 83, respirations 20, blood pressure is 103/51. The patient is 5 feet tall, weighs 269 pounds. General: This is a morbidly obese, middle-aged female. She is very lethargic. Head, Eyes, Ears, Nose, and Throat: No drainage noted from the nose or ears. She did not respond to verbal stimuli. Neck: There was no stiffness when I moved her neck. Lungs: Clear to auscultation. Cardiovascular: Regular heart rate. Abdomen: Soft and not tender. Extremities: Both legs were edematous and erythematous. The left foot had a smaller plantar ulcer that did not go as deep as the one in the right foot. The ulcer bed was made up of devitalized tissue. The plantar ulcer on the right foot was larger, and it had some pinkish colored tissue that also may be devitalized. Neurologic: The patient did not respond to verbal stimuli. There was no tremor. LABORATORY AND X-RAY: CBC shows a white count of 6190, hemoglobin is 9.2, platelet count is 93,000. Arterial blood gases show a pH of 7.42, a PO2 of 84, and a pCO2 of 42. Creatinine is 0.9, GFR is greater than 60. CK is 73. Alkaline phosphatase is 210. Urinalysis was negative for white cells and bacteria. Blood cultures and cultures from both of the plantar ulcers are pending. CT scan of the chest shows bibasilar pneumonia and old and new rib fractures. ASSESSMENT AND PLAN: The patient appears to have a pneumonia. It may be aspiration in nature. She also has bilateral leg cellulitis. I agree with treating the patient with Zyvox and Zosyn pending culture results. COMORBIDITIES: The patient is morbidly obese. She has bilateral leg edema and erythema, and also the patient is a diabetic. The patient's rib fractures would seem to make breathing more difficult and could perpetuate the bibasilar pneumonia. cc: Viraj Heath MD
[2019-07-28] MEDS: SANTYL OINT TOP SCH (16:02)
[2019-07-28] MEDS: NORCO-10 PO PRN (18:41)
--- NOTE | 2019-07-28 20:31 | GENERAL SURGERY CONSULTATION ---
DATE: 07/28/2019 HISTORY OF PRESENT ILLNESS: This is a 59-year-old female known well by me. She has had numerous admissions I follow for chronic wounds of her lower extremities. She has also multiple medical issues. She was admitted with hypoglycemia, altered mental status, and found to have pneumonia and was treated according to sepsis protocol and admitted to the hospital. She is, for the most part noncompliant, mostly related to social situation and lack of support. We have been treating the wounds with Santyl and Vashe, but it is appears that she has not been able to do this. MEDICAL HISTORY: Is extensive and includes diabetes, chronic venous insufficiency with diabetic ulcerations. SURGICAL HISTORY: Numerous toe amputations and foot debridements. SOCIAL HISTORY: She did smoke in the past. I do not believe she smokes now. OBJECTIVE: Vital signs: She is afebrile. Pulse in the 80s, blood pressure is low 100s to 1 teens. Oxygen saturations is high 90s on nasal cannula. General: She is chronically ill- appearing, somewhat somnolent, but easily arousable. Cardiovascular: Normal rate. Pulmonary: No increased work of breathing. Abdomen: Obese. Extremities: Lower extremities are well perfused. She has chronic edema with erythema of her bilateral of calves. Her right calcaneal wound is dry with leathery type changes, possibly some purulence. No cellulitis. No crepitus. Her left plantar wound, again, has a eschar over it, dry, leathery type with no necrosis, no purulence, but her feet are well perfused. LABORATORIES: I reviewed her labs. White count 6, hematocrit 30. I reviewed her ABG. PH is normal. Creatinine is 0.9. Glucose was 30 on arrival. Albumin is 3.3. Lactate was 1. She had a CT of the chest that shows bronchopneumonia bilaterally with rib fractures. ASSESSMENT AND PLAN: This is a 59-year-old female with multiple issues, chronic lower extremity foot wounds. I have talked with Lorie and examine the patient with her. We will continue Vashe and Santyl to her lower extremity feet. They are quite dry and desiccated. We will treat this with wet-to-dry dressings. She may need debridement once her more acute medical issues are stabilized. We will follow along. I agree with broad-spectrum antibiotics and offloading of her feet. We also have been doing the Unna wraps and we will need to re-implement this at some point. Otherwise, we will just keep her legs elevated. cc: Marti Almaraz MD
[2019-07-29] MEDS: ZOSYN 3.375 GM in NS 50 ML IV SCH ×4 (02:50→21:50)
[2019-07-29] MEDS: DUONEB (A & A) INH SCH ×5 (03:28→23:45)
[2019-07-29] MEDS: TYLENOL PO PRN (03:58)
[2019-07-29] MEDS: D5 NS 1,000 ML IV SCH ×2 (04:10→15:24)
[2019-07-29] MEDS: ZYVOX 600 MG/D5W 600 MG/300 ML IVPB IV SCH ×3 (05:30→18:50)
[2019-07-29] MEDS: SYNTHROID PO SCH (06:28)
[2019-07-29] MEDS: ZYLOPRIM PO SCH (08:00)
[2019-07-29] MEDS: NORCO-10 PO PRN ×3 (08:00→19:51)
[2019-07-29] MEDS: DITROPAN PO SCH ×2 (08:00→21:49)
[2019-07-29] MEDS: CULTURELLE PO SCH ×2 (08:00→21:50)
[2019-07-29] MEDS: ASPIRIN PO SCH (08:01)
[2019-07-29] MEDS: SANTYL OINT TOP SCH (08:07)
[2019-07-29] MEDS: LOVENOX SUBQ SCH (08:16)
[2019-07-29 08:37] LABS: BASO# 0.01 X1000 (0.0-0.2); BASO% 0.1 % (0.0-0.8); EOS# 0.15 X1000 (0.0-0.7); EOS% 2.2 % (0.0-10.0); HEMATOCRIT 30.5 % (37.0-47.0); IMM GRAN# 0.02 X1000 (0.0-0.04); IMM GRAN% 0.3 % (0.0-0.5); LYMPH# 1.54 X1000 (1.2-3.4); LYMPH% 22.7 % (20.5-51.1); MCH 27.5 PG (27-31); MCHC 29.5 g/dL (33-37); MCV 93.3 FL (81-99); MONO# 0.44 X1000 (0.11-0.59); MONO% 6.5 % (1.7-9.3); MPV 11.3 FL (7.4-10.4); NEUT# 4.63 X1000 (1.4-6.5); NEUT% 68.2 % (42.2-75.2); PLT 107 X1000 (130-400); RBC 3.27 XMIL (4.2-5.4); RDW 20.7 % (11.5-14.5); WBC 6.79 X1000 (4.8-10.8)
[2019-07-29 08:53] LABS: ALBUMIN 3.2 g/dL (3.5-5.0); CALCIUM 8.8 mg/dL (8.8-10.2); PHOSPHORUS 4.2 mg/dL (2.7-4.5); POTASSIUM 3.6 mmol/L (3.5-5.1)
--- NOTE | 2019-07-29 09:14 | PROGRESS NOTE ---
DATE: 07/29/2019 SUBJECTIVE: Patient reports feeling fine. She is definitely more awake and alert according to nursing staff. We have stop vasopressors yesterday afternoon. No acute issues noted as per nursing staff overnight. OBJECTIVE: Vital Signs: Temperature 97 degrees, heart rate 73, respiratory rate 18, blood pressure 125/61, O2 saturation 99% on 2 L nasal cannula. General: This is a chronically ill appearing. 59-year-old, female who lying in bed, in no acute distress. HEENT: Head is normocephalic, atraumatic. Mucous membranes dry. Neck: No JVD noted. No carotid bruits. No lymphadenopathy. No thyromegaly. Cardiovascular: S1, S2 heard. No murmurs, gallops, or rubs. Regular rate and rhythm. Respiratory: Some wheezing and rhonchi noted in both pulmonary bases. Patient is not using any accessory muscles or having work of breathing. Abdomen: Soft. A little bit distended. Nontender to palpation. Bowel sounds present. No organomegaly. Extremity: No clubbing or cyanosis, but there is there is 1+ pitting edema with chronic lymphedema and cellulitis. There is a wound noted on the lateral plantar surface of the left foot as well. Toe amputations noted. Neurological: Patient is alert and oriented 3. Moves all 4 extremities. LABORATORY DATA: Those are pending at the time of my dictation. ASSESSMENT/PLAN: 1. Acute respiratory failure secondary to bibasilar pneumonia. Patient is on Zyvox and Zosyn. Sputum culture and blood culture has been ordered but those are pending yet. We will continue with DuoNeb, incentive spirometry. 2. Bilateral lower extremity cellulitis and bilateral extremity heel wounds. Dr. Heath with infectious disease has been consulted and he agrees with current antibiotic management. Also, general surgery has been consulted. They think that this patient may need debridement of those wounds in the near future. At this point we will continue with current management. 3. Hypothermia. Resolved. 4. Hypoglycemia much better. She has been on D50 but not on that anymore. Patient has been restarted on diabetic diet. 5. Hypertension. The patient has been hypotensive. At this point the blood pressure is much better in the range of 110. We are not going to restart any blood pressure medication. 6. Deep vein thrombosis prophylaxis. We will continue with Lovenox. DISPOSITION: I think this patient is getting better. We will transfer her to a regular room today. cc: Favio Gamble MD
--- NOTE | 2019-07-29 13:12 | INFECTIOUS DISEASE PROGRESS NO ---
DATE: 07/29/2019 PRESENT ILLNESS: The patient has a bibasilar pneumonia, leg cellulitis, and plantar foot ulcers. MEDICATIONS: The patient is taking a combination of Zyvox and Zosyn. PHYSICAL EXAMINATION: Vital Signs: Temperature is 97.2 degrees, pulse 81, respirations 18, blood pressure is 114/63. General: This is an obese, middle-aged female. She is in no acute distress. HEENT: She can hear my spoken words and see near objects. She does not have any white patches in her mouth. Neck: No pain with movement. Lungs: Clear to auscultation. Cardiovascular: Heart rate is regular. Abdomen: Soft and nontender. Extremities: Both legs are edematous and erythematous, and both have plantar ulcers. Neurologic: The patient is alert. She can move her extremities. There is no tremor. She talks in a coherent fashion. IMAGING AND LABORATORY DATA: There is no new radiographic study. The patient's CBC shows a white count of 6700, hemoglobin 9, platelet count 107,000. Creatinine is 1. GFR is 57. Blood and left foot cultures are pending. Right foot culture is growing a gram-negative nunu and a gram-positive coccus. ASSESSMENT AND PLAN: The patient has pneumonia, bilateral leg cellulitis, and infected plantar decubitus ulcers. My plan is to continue the current antibiotics pending culture results. COMORBIDITIES: The patient has morbid obesity, with an associated bilateral leg edema and erythema. She also is a diabetic. She had, on CT scan, finding of rib fractures, which could make breathing more difficult, and could perpetuate the bibasilar pneumonia. cc: Viraj Heath MD
[2019-07-29] MEDS: REQUIP PO SCH ×2 (13:15→21:49)
--- NOTE | 2019-07-29 19:14 | GENERAL SURGERY PROGRESS NOTE ---
DATE: 07/29/2019 SUBJECTIVE: Seems more alert, more conversant. OBJECTIVE: Vital Signs: No fevers. Pulse 70s to 80s, blood pressure one-teens. General: She is alert. Cardiovascular: Normal rate. Stable bilateral lower extremity edema. Extremities: Dressings are clean on her feet. Her toes are well perfused. LABORATORY DATA: White count 6, hematocrit 30. Creatinine is 1.0. Glucose has fluctuated. It is still dropping into the lows. ASSESSMENT AND PLAN: This is a 59-year-old female admitted with hyperglycemia, altered mental status, and pneumonia. She has chronic wounds of her bilateral feet. I do not see any obvious signs of infection on her feet, although she is growing out multiple organisms from these wounds. There is no cellulitis. There is chronic edema. We will continue Santyl lavage to her wounds, offloading and treatment of her other medical issues. Prior to discharge, she may benefit from excisional debridement. We will follow her along. cc: Marti Almaraz MD
[2019-07-30] MEDS: ZOSYN 3.375 GM in NS 50 ML IV SCH ×4 (02:32→20:44)
[2019-07-30] MEDS: D5 NS 1,000 ML IV SCH ×3 (02:33→18:26)
[2019-07-30] MEDS: NORCO-10 PO PRN ×3 (02:55→20:42)
[2019-07-30] MEDS: DUONEB (A & A) INH SCH ×4 (03:19→21:00)
[2019-07-30] MEDS: ZYVOX 600 MG/D5W 600 MG/300 ML IVPB IV SCH ×3 (05:55→18:00)
[2019-07-30] MEDS: SYNTHROID PO SCH ×2 (05:55→06:48)
[2019-07-30 07:01] LABS: BASO# 0.02 X1000 (0.0-0.2); BASO% 0.3 % (0.0-0.8); EOS# 0.18 X1000 (0.0-0.7); HEMATOCRIT 30.7 % (37.0-47.0); HEMOGLOBIN 8.9 g/dL (12.0-16.0); IMM GRAN# 0.03 X1000 (0.0-0.04); IMM GRAN% 0.5 % (0.0-0.5); LYMPH# 1.34 X1000 (1.2-3.4); MCH 27.6 PG (27-31); MONO# 0.44 X1000 (0.11-0.59); MONO% 7.2 % (1.7-9.3); MPV 11.4 FL (7.4-10.4); NEUT# 4.08 X1000 (1.4-6.5); PLT 121 X1000 (130-400); RBC 3.23 XMIL (4.2-5.4); WBC 6.09 X1000 (4.8-10.8)
[2019-07-30 07:26] LABS: AGAP 12; ALBUMIN 3.1 g/dL (3.5-5.0); BUN 14 mg/dL (8-22); CALCIUM 8.9 mg/dL (8.8-10.2); CHLORIDE 106 mmol/L (98-107); COSMO 287; CREATININE 0.9 mg/dL (0.5-0.9); ESTIMATED GFR > 60; GLUCOSE 125 mg/dL (70-104); PHOSPHORUS 3.6 mg/dL (2.7-4.5); POTASSIUM 4.3 mmol/L (3.5-5.1); SODIUM 143 mmol/L (136-145); TCO2 25 mmol/L (25-35)
[2019-07-30 07:29] LABS: ANISOCYTOSIS OCCASIONAL; EOS 2 % (1-10); LYMPHS 18 % (21-51); MICROCYTOSIS OCCASIONAL; MONO 4 % (1-9); NRBC 1 % (0-0); SEGS 76 % (42-75)
[2019-07-30] MEDS: ZYLOPRIM PO SCH (09:09)
[2019-07-30] MEDS: DITROPAN PO SCH ×2 (09:09→20:43)
[2019-07-30] MEDS: REQUIP PO SCH ×3 (09:09→20:43)
[2019-07-30] MEDS: ASPIRIN PO SCH (09:09)
[2019-07-30] MEDS: CULTURELLE PO SCH ×2 (09:09→20:43)
[2019-07-30] MEDS: LOVENOX SUBQ SCH (09:11)
[2019-07-30] MEDS: SANTYL OINT TOP SCH (10:20)
--- NOTE | 2019-07-30 10:23 | INFECTIOUS DISEASE PROGRESS NO ---
DATE: 07/30/2019 PRESENT ILLNESS: The patient has a bibasilar pneumonia, leg cellulitis, and plantar foot ulcers. MEDICATIONS: This is day 2 of treatment with Zyvox and Zosyn. PHYSICAL EXAMINATION: Vital Signs: Temperature is 97.7 degrees, pulse 77, respirations 22, blood pressure 137/68. General: This is an obese, middle-aged female. She is in no acute distress. Head, Eyes, Ears, Nose, and Throat: She can hear my spoken words and see near objects. I do not see any white patches in her mouth. Neck: No pain with movement. Lungs: Clear to auscultation. Cardiovascular: Heart rate is regular. Abdomen: Soft and nontender. Extremities: Both legs remain erythematous and edematous. Both foot ulcers to me look like they are getting smaller. Neurologic: The patient is alert. She can move her extremities. There is no tremor. LABORATORY AND RADIOLOGY: There is no new radiographic study. The patient's creatinine is 0.9. GFR is greater than 60. Blood cultures thus far are negative. The plantar ulcer from the right foot is growing a gram-positive coccus and a gram-negative nunu. The plantar ulcer from the left foot is growing a gram-positive coccus. ASSESSMENT AND PLAN: The patient has pneumonia, bilateral leg cellulitis, and infected plantar decubitus ulcers. My plan is to continue the current antibiotics pending culture results. COMORBIDITIES: Morbid obesity, bilateral leg edema, diabetes mellitus, and rib fractures which could predispose the patient to getting pneumonia. cc: Viraj Heath MD
--- NOTE | 2019-07-30 12:21 | PROGRESS NOTE ---
DATE: 07/30/2019 SUBJECTIVE: Patient reports feeling fine. Continues to be awake and alert. No acute issues noted as per nursing staff overnight. OBJECTIVE: Vital Signs: Temperature 97.7 degrees, heart rate 81, respiratory rate 20, blood pressure 109/92, O2 saturation 99% on room air. General Examination: This is a chronically ill- appearing, 59-year-old, female lying in bed, in no acute distress. HEENT: Head is normocephalic and atraumatic. Mucous membranes dry. Neck: No JVD noted. No carotid bruits. No lymphadenopathy. No thyromegaly. Cardiovascular Examination: S1 and S2 heard. No murmurs, gallops, or rubs. Regular rate and rhythm. Respiratory Examination: Minimal wheezing and rhonchi noted in both pulmonary bases. Definitely better in comparing with admission. Patient is not using any accessory muscles or having work of breathing. Abdomen: Soft. A little bit distended but nontender to palpation. Bowel sounds present. No organomegaly. Extremities: There is 1 to 2+ pitting edema with chronic lymphedema and cellulitis of both lower extremities. There is also a wound noted on the lateral plantar surface of the left foot as well. Toe amputations noted. Neurological Examination: The patient is alert and oriented x3. Moves 4 extremities. Laboratory Data: White cell count 6.09, hemoglobin 8.9, hematocrit 30.7, platelets 121,000. BMP remarkable for glucose 125. Hemoglobin A1c is pending at the time of my dictation. ASSESSMENT AND PLAN: 1. Acute respiratory failure secondary to bibasilar pneumonia. The patient is on Zyvox and Zosyn. Urine culture and blood culture continue to be pending. We will continue with DuoNeb as well and incentive spirometry. Dr. Heath from infectious disease is following this patient. I agree with the treatment mentioned above. 2. Bilateral lower extremity cellulitis and bilateral extremity heel wounds. The patient has been seen by surgery and they recommend excisional debridement whenever this patient is more stable. I think this patient is getting much better so from tomorrow, the patient will be able to undergo any procedure that she may need from a medical standpoint. 3. Hypothermia, resolved. 4. Hypoglycemia, resolved. Patient is eating a diabetic diet. 5. Hypertension. Blood pressure is under control. We do not need to restart any blood pressure medications yet. 6. Disposition. We will continue to monitor this patient closely. cc: Favio Gamble MD
[2019-07-31] MEDS: TYLENOL PO PRN (01:34)
[2019-07-31] MEDS: NORCO-10 PO PRN ×3 (02:14→17:54)
[2019-07-31] MEDS: DUONEB (A & A) INH SCH ×4 (03:46→22:46)
[2019-07-31] MEDS: ZOSYN 3.375 GM in NS 50 ML IV SCH ×2 (03:57→09:53)
[2019-07-31] MEDS: ZYVOX 600 MG/D5W 600 MG/300 ML IVPB IV SCH (06:35)
[2019-07-31] MEDS: D5 NS 1,000 ML IV SCH ×2 (06:35→09:55)
[2019-07-31] MEDS: SYNTHROID PO SCH (06:35)
[2019-07-31 06:58] LABS: BASO# 0.02 X1000 (0.0-0.2); BASO% 0.3 % (0.0-0.8); EOS# 0.24 X1000 (0.0-0.7); EOS% 3.6 % (0.0-10.0); HEMATOCRIT 30.6 % (37.0-47.0); HEMOGLOBIN 8.9 g/dL (12.0-16.0); IMM GRAN# 0.02 X1000 (0.0-0.04); IMM GRAN% 0.3 % (0.0-0.5); LYMPH# 1.48 X1000 (1.2-3.4); LYMPH% 22.4 % (20.5-51.1); MCH 27.4 PG (27-31); MCHC 29.1 g/dL (33-37); MCV 94.2 FL (81-99); MONO# 0.42 X1000 (0.11-0.59); MONO% 6.3 % (1.7-9.3); MPV 11.2 FL (7.4-10.4); NEUT# 4.44 X1000 (1.4-6.5); NEUT% 67.1 % (42.2-75.2); PLT 152 X1000 (130-400); RBC 3.25 XMIL (4.2-5.4); RDW 20.4 % (11.5-14.5); WBC 6.62 X1000 (4.8-10.8)
[2019-07-31 07:27] LABS: AGAP 14; BUN 14 mg/dL (8-22); CALCIUM 9.4 mg/dL (8.8-10.2); CHLORIDE 106 mmol/L (98-107); COSMO 282; CREATININE 0.8 mg/dL (0.5-0.9); ESTIMATED GFR > 60; GLUCOSE 110 mg/dL (70-104); PHOSPHORUS 3.9 mg/dL (2.7-4.5); POTASSIUM 4.5 mmol/L (3.5-5.1); SODIUM 141 mmol/L (136-145); TCO2 21 mmol/L (25-35)
[2019-07-31] MEDS: ASPIRIN PO SCH (09:52)
[2019-07-31] MEDS: REQUIP PO SCH ×3 (09:52→21:51)
[2019-07-31] MEDS: CULTURELLE PO SCH ×2 (09:53→21:50)
[2019-07-31] MEDS: DITROPAN PO SCH ×2 (09:53→21:50)
[2019-07-31] MEDS: ZYLOPRIM PO SCH (09:53)
[2019-07-31] MEDS: LOVENOX SUBQ SCH (09:53)
[2019-07-31] MEDS: SANTYL OINT TOP SCH (09:54)
[2019-07-31] MEDS: ZOFRAN IV PRN ×2 (10:04→17:54)
--- NOTE | 2019-07-31 14:55 | PROGRESS NOTE ---
DATE: 07/31/2019 SUBJECTIVE: Patient reports feeling fine. Continues to be alert and awake. No acute issues noted as per nursing staff overnight. OBJECTIVE: Vital Signs: Temperature 98.4 degrees, heart rate 81, respiratory rate 16, blood pressure 118/70, O2 saturation 94% on room air. General Examination: This is a chronically ill appearing and morbidly obese, 59-year-old female, lying in bed in no acute distress. Cardiovascular exam: S1, S2 heard. No murmurs, gallops, or rubs. Regular rate and rhythm. Respiratory exam: Mild wheezing and rhonchi noted in both pulmonary bases, definitely better in comparing with a couple days. The patient is not using any accessory muscles or having work of breathing. Abdomen: Soft. A little bit distended. Nontender to palpation. Bowel sounds present. No organomegaly. Extremities: There is 1+ to 2+ pedal edema with chronic lymphedema and cellulitis of both lower extremities. There is also wound noted in the lateral plantar surface of the left as well. Toe amputation is noted. Neurological exam: Patient is alert and oriented x3. Moves 4 extremities. LABORATORY DATA: Reviewed and hemoglobin A1c 6.0. ASSESSMENT AND PLAN: 1. Acute respiratory failure secondary to bibasilar pneumonia. We will continue with Zosyn and Zyvox. Urine culture and blood cultures are pending. We will continue with DuoNeb every 4 hours as scheduled. Incentive spirometry. Infectious Disease is following this patient for recommendation. 2. Bilateral lower extremity cellulitis and bilateral extremity heel wounds. The patient is stable. General Surgery has evaluated this patient and mentioned that this patient will need excisional debridement once he is medically stable. I think this patient is stable to undergo any procedure that surgery wants to proceed with. 3. Hypothyroidism and hypoglycemia. She has been on D5. Considering her excellent A1c, I prefer to change her diet to regular and stop D5 normal saline. 4. Hypertension. Blood pressure is under control. We will continue with the same management. We will need to restart any blood pressure medication she has. 5. Disposition: We will continue to monitor this patient closely. cc: Favio Gamble MD
[2019-07-31] MEDS: MERREM 2 GM in NS 100 ML IV SCH ×2 (15:35→23:09)
--- NOTE | 2019-07-31 15:37 | INFECTIOUS DISEASE PROGRESS NO ---
DATE: 07/31/2019 PRESENT ILLNESS: Ms. Olivier is being treated for a bibasilar pneumonia, lower extremity cellulitis, and plantar foot ulcers. The cultures today of her feet have grown out an oxacillin- sensitive Staphylococcus aureus bilaterally and a right foot Pseudomonas aeruginosa, which is multidrug resistant. MEDICATIONS: She has been receiving Zyvox 600 mg IV every 12 hours and Zosyn 3.375 grams IV every 6 hours. PHYSICAL EXAMINATION: Vital Signs: Temperature is 94.8 degrees, pulse rate 81, respiratory rate 16, blood pressure 118/76, and O2 saturation is 92% on room air. General: This is a chronically ill-appearing, middle-aged, morbidly obese female. She is sitting up in bed currently in no acute distress. HEENT: Atraumatic, normocephalic. Oral mucous membranes are pink and dry. Conjunctivae are pale. Neck: Supple. Trachea is midline. Cardiovascular: Heart rate and rhythm are regular. Normal sinus rhythm on the monitor. Respiratory: Lung sounds are clear in the upper lobes with scattered rales and diminished in the bases. No work of breathing is noted. Abdomen: Soft, obese, and nontender. Bowel sounds are active. Integumentary: Skin is warm and dry with erythema noted to her bilateral calves with some areas of eschar. There are bilateral dressings to the feet, which were not removed at this time. Neurologic: She is awake, alert, and oriented with generalized weakness noted in the bed. She is occasionally tearful when talking about her multiple admissions to the hospital. LABORATORY AND X-RAY: Today her white count is 6.62, hemoglobin 8.9, platelet count 152,000. Creatinine is 0.8, estimated GFR is greater than 60. Her right foot has grown oxacillin-sensitive Staphylococcus aureus and a Pseudomonas aeruginosa, which is multidrug resistant. Her left foot has also grown an oxacillin-sensitive Staphylococcus aureus. Blood cultures have shown no growth on this admission. No imaging reports today; however, her previous chest CT did show bibasilar bronchopneumonia and multiple old and new rib fractures. ASSESSMENT AND PLAN: Ms. Olivier is being treated for pneumonia in a patient with multiple old and new rib fractures. She also has lower extremity cellulitis and plantar foot ulcers which have grown a multidrug resistant Pseudomonas and oxacillin-sensitive Staphylococcus aureus. For now, our plan is to discontinue the Zyvox and Zosyn as ordered, and instead cover her with meropenem 2 grams IV every 8 hours, which will cover the oxacillin sensitive Staphylococcus and hopefully the multidrug resistant Pseudomonas. I have called down to the microbiology lab and asked them to test against Azactam, as well as meropenem, on the Pseudomonas. These plans have been discussed with and recommended by Dr. Heath. COMORBIDITIES: The comorbidities for Ms. Olivier include morbid obesity, chronic lower extremity edema, diabetes mellitus, and rib fractures. Dictated by RADHA West for Viraj Heath MD cc: Viraj Heath MD MTDD
[2019-07-31] MEDS: NEURONTIN PO SCH ×2 (15:39→16:52)
--- NOTE | 2019-07-31 16:51 | PROVIDER DOCUMENTATION ---
This chart was entered by Yani Méndez Scribe, acting as scribe for Lolis Oconnell MD. HPI-General Adult - General Chief Complaint: Altered Mental Status Stated Complaint: ams Time Seen by Provider: 07/28/19 00:34 Source: patient, RN/MD Allergies/Adverse Reactions: Patient Allergies Allergy/AdvReac Type Severity Reaction Status Date / Time tizanidine HCl * Allergy ANAPHYLAXIS Verified 07/11/19 12:59 [From [facility]] Home Medications: Home Medication List Medication Instructions Recorded Confirmed Last Taken Type Allopurinol [Zyloprim] 300 mg PO QAM 09/19/15 07/28/19 05/29/19 History Gabapentin [Neurontin] 800 mg PO TID 09/19/15 07/28/19 05/29/19 History Ropinirole HCl 4 mg PO TID 01/25/17 07/28/19 05/29/19 History Glimepiride [Amaryl] 4 mg PO BID 05/09/19 07/28/19 05/29/19 History Sitagliptin Phos/Metformin HCl 2 tab PO QHS 05/30/19 07/28/19 05/29/19 History [Janumet Xr 100-1,000 mg Tablet] Collagenase Clostridium Oint 1 gm TOP DAILY oint 06/07/19 07/28/19 Unknown Rx [Santyl Oint] Lactobacillus Rhamnosus GG 1 ea PO BID 30 Days #60 cap 06/07/19 07/28/19 Unknown Rx [Culturelle] Exenatide Microspheres [Bydureon 2 mg SQ ORDERED 07/02/19 07/28/19 Unknown History Pen] Methocarbamol [Robaxin-750] 750 mg PO TID 07/02/19 07/28/19 Unknown History Oxybutynin [Ditropan] 5 mg PO BID #60 tab 07/07/19 07/28/19 Unknown Rx Butalbital/APAP/Caffeine [Fioricet] 1 ea PO Q4H PRN PRN 07/17/19 07/28/19 2 Weeks Ago History ~07/03/19 Fluconazole 400 mg PO DAILY 14 Days #28 tab 07/21/19 07/28/19 Unknown Rx Sulfamethoxazole/Trimethoprim 1 ea PO Q12H 14 Days #28 tab 07/21/19 07/28/19 Unknown Rx [Bactrim Ds Tablet] Aspirin 81 mg PO DAILY chewtab 07/22/19 07/28/19 Unknown Rx Calcium Carbonate Chew [Tums] 500 mg PO PC + HS PRN PRN tab.chew 07/22/19 07/28/19 Unknown Rx Clotrimazole 1% Cream [Lotrimin 1% 1 gm TOP BID tube 07/22/19 07/28/19 Unknown Rx Cream] Furosemide [Lasix] 40 mg PO DAILY PRN PRN #0 07/22/19 07/28/19 05/24/19 Rx Hydrocodone/APAP 10 mg/325 mg 1 ea PO Q12H PRN PRN #20 tab 07/22/19 07/28/19 Unknown Rx [[place]-10] Lactulose 30 ml PO BID #1200 ml 07/22/19 07/28/19 Unknown Rx Levothyroxine [Synthroid] 50 microgm PO DAILY@0700 #90 tab 07/22/19 07/28/19 Unknown Rx - History of Present Illness -Gen Adult Nature of Presenting Problems: pt is a 59 yowf presenting to er w/family and rn w/cc ams. pt son sts pt's speech has been slurred, can't ambulate and fatigued for 2-3days. pt was admitted to hospital on 07/13 for bilat LE cellulitis and d/c last week. no abd pain, no hx copd and no home o2. Location of Pain/Injury: reports: lower extremity (cellulitis since 2017) Pain Radiation: reports: no radiation Severity: reports: mild Onset/Duration: reports: 2 days ago, 3 days ago Timing: reports: still present Context/Activities at Onset: reports: none Modifying Factors: improves with: nothing Associated Symptoms: reports: fatigue, trouble walking, other (ams) Similar Symptoms Previously?: Yes Recently seen or treated by another doctor?: Yes Review of Systems - Adult - REVIEW OF SYSTEMS - ADULT Constitutional: reports: see HPI, other (ams). denies: chills, fever, fatique Eyes: reports: no symptoms reported Ears, Nose, Mouth & Throat: reports: no symptoms reported Cardiovascular: reports: no symptoms reported Respiratory: reports: no symptoms reported Gastrointestinal: reports: no symptoms reported Genitourinary: reports: no symptoms reported Musculoskeletal: reports: see HPI, other (bilat LE cellulitis). denies: back pain, muscle aches, neck pain Integumentary: reports: no symptoms reported Neurological: reports: no symptoms reported Psychiatric: reports: no symptoms reported Endocrine: reports: no symptoms reported Hematologic/Lymphatic: reports: no symptoms reported Allergic/Immunologic: reports: no symptoms reported All Other Systems: Reviewed and Negative Past History - Adult - PAST MEDICAL HISTORY-ADULT Review of Records: reports: Nursing Assessment Review, Medications Reviewed, Social history reviewed & non-contributory. Major Childhood Illnesses: reports: denies history Cardiovascular: reports: cardiac disease, CAD, HTN Respiratory: reports: denies history Gastrointestinal: reports: denies history Obstetrical/Gynecological: reports: denies history Genitourinary: reports: denies history Musculoskeletal: reports: other (severe diabetic foot ulcers- seen at wound clinic at [place]) Neurological: reports: CVA Psychiatric: reports: denies history Endocrine/Immune: reports: Diabetes Other Conditions: reports: denies history Additional History: gout - PRIOR SURGERIES/PROCEDURES Surgical/Procedure History: reports: CABG, hysterectomy, tonsillectomy - IMMUNIZATION STATUS Childhood Immunizations: See Nurse Assessment Flu Vaccine: See Nurse Assessment - FAMILY HISTORY Family History: reviewed, not pertinent - SOCIAL HISTORY Smoking: non-smoker Substance Use: none/never Physical Exam-General - PHYSICAL EXAM-ADULT Initial Vital Signs Reviewed: Yes - CONSTITUTIONAL General Appearance: mild distress, obese, slow to respond, obtunded. negative: cachetic, lethargic, combative - EYES Eyes: PERRL/EOMI, pink conjunctivae - HEAD, EARS, NOSE, MOUTH & THROAT HENMT: normocephalic/atraumatic, moist mucous membranes, normal ENT inspection - NECK Neck: non-tender, full range of motion, supple, normal inspection - RESPIRATORY Respiratory: chest non-tender, lungs clear, normal breath sounds - CARDIOVASCULAR Cardiovascular: normal peripheral pulses, regular rate, rhythm - GASTROINTESTINAL (ABDOMEN) Abdominal Exam: normal bowel sounds, non tender, soft - MUSCULOSKELETAL Back Exam: normal inspection Extremity: normal range of motion, non-tender, other (bilat CHRONIC LE CELLULITIS). negative: normal inspection, calf tenderness, pulse deficit, slow capillary refill - SKIN Integumentary: normal color, normal turgor, warm/dry - NEUROLOGIC Neurologic: grossly normal, no motor/sensory deficits - PSYCHIATRIC Psych/Mental Status: normal mood/affect, normal thought content, normal thought process, oriented x 3 Progress - PLAN OF CARE/RESULTS Progress/Plan/Lab Results: Orders Category Date Time Status EKG [EKG] Stat Ther 07/28/19 00:18 Draft Result Diagrams: 07/31/19 06:25 07/31/19 06:25 - REASSESSMENT Reassessment #1 Time Reassessed: 01:05 Status: worsening (pt fsbs was checked and is 20.) - EKG 1 Time of EKG reading by physician:: 00:23 EKG Read and Signed by:: Lolis Oconnell EKG Interpretation (*Must complete 3 of following elements*): Abnormal Rate: 57 Rhythm: Sinus bradycarida w/PSCs [place]: normal QRS: other (prolonged qt) NH Interval: normal ST Wave: normal - CONSULTS/PCP/HOSPITALIST Notification #1 *Consult/PCP/Hospitalist*: d/w Dr Hurtado Consult Disposition: Admit Departure - Departure Date of Disposition Decision: 07/28/19 Time of Disposition Decision: 08:35 DIAGNOSIS: Altered mental state, Hypothermia, Hypotension, Hypoglycemia Disposition: ADMITTED INPATIENT 09 Certified Medical Emergency: Emergent Condition: Serious - Critical Care Note This patient required my direct & personal management of CC.: Yes Total Time (mins): 40 Critical Care Statement: This patient required my direct personal management to treat or rule out processes, the absence of which, could potentiallly result in sudden, clinically significant life or limb threatening deterioration. Attestation - Physician/ ERIN Attestation Patient care was provided by Advanced Practice Provider:: No The physician spent face to face time with patient:: Yes Advanced Practice Provider documentation review:: Supervising physician onsite and consulted in the evaluation and care of this patient. The physician did have a face to face encounter with the patient. This chart was documented by the indicated scribe, (Yani Méndez Scribe) and accurately reflects the services I performed and decisions made by me, Lolis Oconnell MD, as attested by the provider's signature.
[2019-08-01] MEDS: ULTRAM PO PRN (00:51)
[2019-08-01] MEDS: DUONEB (A & A) INH SCH ×4 (03:22→22:55)
[2019-08-01] MEDS: SYNTHROID PO SCH (06:36)
[2019-08-01] MEDS: MERREM 2 GM in NS 100 ML IV SCH ×3 (06:36→22:22)
[2019-08-01] MEDS: NORCO-10 PO PRN ×3 (06:37→22:32)
[2019-08-01 06:57] LABS: BASO# 0.02 X1000 (0.0-0.2); BASO% 0.3 % (0.0-0.8); EOS# 0.24 X1000 (0.0-0.7); EOS% 4.2 % (0.0-10.0); HEMATOCRIT 30.5 % (37.0-47.0); HEMOGLOBIN 8.9 g/dL (12.0-16.0); IMM GRAN# 0.02 X1000 (0.0-0.04); IMM GRAN% 0.3 % (0.0-0.5); LYMPH# 1.38 X1000 (1.2-3.4); LYMPH% 24.1 % (20.5-51.1); MCH 27.7 PG (27-31); MCHC 29.2 g/dL (33-37); MONO# 0.43 X1000 (0.11-0.59); MONO% 7.5 % (1.7-9.3); NEUT# 3.64 X1000 (1.4-6.5); NEUT% 63.6 % (42.2-75.2); PLT 171 X1000 (130-400); RBC 3.21 XMIL (4.2-5.4); RDW 20.5 % (11.5-14.5); WBC 5.73 X1000 (4.8-10.8)
[2019-08-01 07:22] LABS: AGAP 13; BUN 14 mg/dL (8-22); CHLORIDE 104 mmol/L (98-107); COSMO 279; CREATININE 0.8 mg/dL (0.5-0.9); ESTIMATED GFR > 60; GLUCOSE 119 mg/dL (70-104); POTASSIUM 4.4 mmol/L (3.5-5.1); SODIUM 139 mmol/L (136-145); TCO2 22 mmol/L (25-35)
[2019-08-01 07:23] LABS: AGAP 13; BUN 13 mg/dL (8-22); CALCIUM 9.2 mg/dL (8.8-10.2); CHLORIDE 102 mmol/L (98-107); COSMO 275; CREATININE 0.8 mg/dL (0.5-0.9); ESTIMATED GFR > 60; GLUCOSE 121 mg/dL (70-104); POTASSIUM 4.3 mmol/L (3.5-5.1); SODIUM 137 mmol/L (136-145); TCO2 22 mmol/L (25-35)
[2019-08-01] MEDS: NEURONTIN PO SCH ×3 (09:11→18:00)
[2019-08-01] MEDS: ASPIRIN PO SCH (09:11)
[2019-08-01] MEDS: ZYLOPRIM PO SCH (09:11)
[2019-08-01] MEDS: CULTURELLE PO SCH ×2 (09:11→22:23)
[2019-08-01] MEDS: REQUIP PO SCH ×3 (09:11→22:23)
[2019-08-01] MEDS: DITROPAN PO SCH ×2 (09:11→22:23)
[2019-08-01] MEDS: LOVENOX SUBQ SCH (09:12)
[2019-08-01] MEDS: SANTYL OINT TOP SCH (09:12)
--- NOTE | 2019-08-01 11:21 | INFECTIOUS DISEASE PROGRESS NO ---
DATE: 08/01/2019 PRESENT ILLNESS: Ms. Olivier has bibasilar pneumonia, lower extremity cellulitis, and plantar foot ulcers bilaterally. Both feet have grown an oxacillin-sensitive Staphylococcus aureus and the right foot has also grown a Pseudomonas aeruginosa. MEDICATIONS: Today is day 1 of meropenem 2 grams IV every 8 hours. PHYSICAL EXAMINATION: Vital Signs: Temperature is 97.3 degrees, pulse rate 82, respiratory rate 20, blood pressure 144/69, and O2 saturation is 96% on 3 liters nasal cannula. General: This is a morbidly obese, chronically ill-appearing, middle-aged female. She is sitting up in bed, currently in no acute distress. HEENT: Atraumatic, normocephalic. Oral mucous membranes are pink and moist. Conjunctivae are pale. Neck: Supple. Trachea is midline. Respiratory: Lung sounds are clear in the upper lobes, diminished in the bases, with mild rales noted to the left base. No work of breathing is noted. Cardiovascular: Heart rate and rhythm are regular. Normal sinus rhythm on the monitor. Abdomen: Soft. Obese. Nontender to palpation. Bowel sounds are active. Integumentary: Skin is warm and dry with bilateral calf erythema noted. Foot dressings were removed, and the plantar ulcers bilaterally are both looking better with more clean pink/white wound beds. Neurologic: She is awake, alert, oriented and has generalized weakness noted bilaterally. LABORATORY AND X-RAY: Today her white count is 5.73, hemoglobin 8.9, platelet count 171,000. Creatinine 0.8, estimated GFR is greater than 60. Her left and right feet have both grown oxacillin-sensitive Staphylococcus aureus, and the right foot has grown Pseudomonas aeruginosa. No new imaging reports today. ASSESSMENT AND PLAN: Ms. Olivier has pneumonia, as well as bilateral lower extremity cellulitis and plantar foot ulcers. Today is day 1 of meropenem, which we will continue. She does have rib fractures, which she states are from an assumed fall at home, since she did have altered mental status. The meropenem will cover her pneumonia, as well as the oxacillin- sensitive Staphylococcus aureus. We have asked the microbiology lab to check the susceptibilities to Azactam and meropenem. These plans have been discussed with and recommended by Dr. Heath. COMORBIDITIES: For Ms. Olivier include morbid obesity, chronic lower extremity edema, diabetes mellitus, and rib fractures. Dictated by RADHA West for Viraj Heath MD cc: Viraj Heath MD [facility]
--- NOTE | 2019-08-01 14:11 | PROGRESS NOTE ---
DATE: 08/01/2019 SUBJECTIVE: Patient reports feeling fine. Continues to complain of pain in the right chest wall. No other issues noted as per nursing staff overnight. OBJECTIVE: Vital Signs: Temperature 97.7 degrees, heart rate 99, respiratory rate 20, blood pressure 140/95, O2 saturation 92% on 2 L nasal cannula. General: This is a chronically ill- appearing, morbidly obese, 59-year-old female lying in bed, in no acute distress. Cardiovascular: S1, S2 heard. No murmurs, gallops, or rubs. Regular rate and rhythm. Respiratory: Mild wheezing and rhonchi noted in both pulmonary bases. Definitely better in comparing with a couple days ago. There is exquisite tenderness to palpation to the right chest wall. Patient is not using any accessory muscles or having work of breathing. Abdomen: Soft, a little bit distended. Nontender to palpation. Bowel sounds present. No organomegaly. Extremity: There is 2+ pedal edema with chronic lymphedema and cellulitis in both lower extremities. There is also wound noted in the lateral plantar surface of the left as well. Toe amputation noted. Neurological: Patient is alert and oriented x3. Moves 4 extremities. LABORATORY DATA: Reviewed. ASSESSMENT AND PLAN: 1. Acute respiratory failure secondary to bibasilar pneumonia. We will continue with Zosyn and Zyvox. Urine culture showed Staphylococcus areas in one culture and Pseudomonas and Staphylococcus in the other culture as well. At this point, Dr. Heath with Infectious Disease has decided to change antibiotics to meropenem. We will continue to monitor this patient closely. General Surgery mentioned that this patient may need to have excisional debridement once he is medically stable. Now, he is medically stable for the last couple of days. We will see when they decide to do that surgery. As we mentioned before, medically stable. 2. Hypothyroidism and hypoglycemia. The patient has an excellent diabetic control. We have the stopped D5 normal saline. We have started a regular diet. 3. Hypertension. Blood pressure is under control. We will continue with same management. We do not need to restart any blood pressure medications yet. 4. Multiple rib fractures. Patient had the CT of the chest done 4 days ago. Multiple rib fractures noted. Some of them looks subacute apparently, but at this point, we will continue with pain medication. DISPOSITION: We will continue to monitor this patient closely. cc: Favio Gamble MD MTDD
[2019-08-02] MEDS: ULTRAM PO PRN ×2 (01:36→08:51)
[2019-08-02] MEDS: DUONEB (A & A) INH SCH ×4 (04:06→21:47)
[2019-08-02] MEDS: SYNTHROID PO SCH ×2 (05:51→06:30)
[2019-08-02] MEDS: NORCO-10 PO PRN ×3 (06:51→21:33)
[2019-08-02 07:10] LABS: AGAP 13; ALBUMIN 3.2 g/dL (3.5-5.0); BUN 13 mg/dL (8-22); CALCIUM 9.3 mg/dL (8.8-10.2); CHLORIDE 103 mmol/L (98-107); COSMO 281; CREATININE 0.7 mg/dL (0.5-0.9); ESTIMATED GFR > 60; GLUCOSE 99 mg/dL (70-104); PHOSPHORUS 4.6 mg/dL (2.7-4.5); POTASSIUM 4.3 mmol/L (3.5-5.1); SODIUM 141 mmol/L (136-145); TCO2 25 mmol/L (25-35)
[2019-08-02 07:16] LABS: BASO# 0.01 X1000 (0.0-0.2); BASO% 0.2 % (0.0-0.8); EOS# 0.24 X1000 (0.0-0.7); EOS% 4.5 % (0.0-10.0); HEMATOCRIT 29.6 % (37.0-47.0); HEMOGLOBIN 8.6 g/dL (12.0-16.0); IMM GRAN# 0.02 X1000 (0.0-0.04); IMM GRAN% 0.4 % (0.0-0.5); LYMPH# 1.25 X1000 (1.2-3.4); LYMPH% 23.6 % (20.5-51.1); MCH 27.7 PG (27-31); MCHC 29.1 g/dL (33-37); MCV 95.5 FL (81-99); MONO# 0.47 X1000 (0.11-0.59); MONO% 8.9 % (1.7-9.3); MPV 10.4 FL (7.4-10.4); NEUT% 62.4 % (42.2-75.2); PLT 195 X1000 (130-400); RDW 20.4 % (11.5-14.5); WBC 5.29 X1000 (4.8-10.8)
[2019-08-02] MEDS: ZYLOPRIM PO SCH (08:23)
[2019-08-02] MEDS: SANTYL OINT TOP SCH (08:24)
[2019-08-02] MEDS: MERREM 2 GM in NS 100 ML IV SCH ×3 (08:48→21:32)
[2019-08-02] MEDS: ASPIRIN PO SCH (08:51)
[2019-08-02] MEDS: NEURONTIN PO SCH ×3 (08:51→18:00)
[2019-08-02] MEDS: CULTURELLE PO SCH ×2 (08:51→21:33)
[2019-08-02] MEDS: DITROPAN PO SCH ×2 (08:51→21:33)
[2019-08-02] MEDS: REQUIP PO SCH ×3 (08:51→21:33)
[2019-08-02] MEDS: LOVENOX SUBQ SCH (08:53)
--- NOTE | 2019-08-02 13:11 | PROGRESS NOTE ---
DATE: 08/02/2019 SUBJECTIVE: Patient reports feeling fine. Mild right chest wall noted but no other complaints at this time. OBJECTIVE: Vital Signs: Temperature 98.0 degrees, heart rate 80, respiratory rate 18, blood pressure 122/56, O2 saturation 96% 2 L nasal cannula. General: This is a morbidly obese, chronically ill-looking, 59-year-old female lying in bed, in no acute distress. Cardiovascular: S1, S2 heard. No murmurs, gallops, or rubs. Regular rate and rhythm. Respiratory: Mild wheezing and rhonchi noted in both pulmonary bases. Patient is not using any accessory muscles or having work of breathing. There is exquisite tenderness to palpation in the right chest wall. Patient not using any accessory muscles or having work of breathing. Mild wheezing and rhonchi noted in both pulmonary bases. There is also exquisite tenderness to palpation in the right chest wall. Patient is not using any accessory muscles or having work of breathing. Abdomen: Soft, a little bit distended. Nontender to palpation. Bowel sounds present. No organomegaly. Extremities: There is 2+ pitting edema with chronic lymphedema and cellulitis in both lower extremities. There is also one noted in the lateral plantar surface of the left as well. There is also toes amputation noted. Neurological: Patient is alert and oriented x3. Moves 4 extremities. LABORATORY DATA: Reviewed. ASSESSMENT AND PLAN: 1. Acute respiratory failure secondary to bilateral pneumonia. We will continue with Zyvox and Zosyn. Dr. Heath of Infectious Disease is directing antibiotics because of minimal micro organism growing in the wound. Patient is receiving meropenem 2 g IV q. 8 hours. He thinks that this patient is improving. We will continue with the same management. General Surgery mentioned that this patient may need excisional debridement when she is medically stable. I think she is stable for last couple days. At this point, we will continue to monitor this patient. 2. Hypothyroidism and hypoglycemia. The patient has an excellent diabetic control. She has been requiring at admission D5 normal saline but that has been stopped and will continue with regular diet. 3. Hypertension. Blood pressure is under control. We will continue with same management. 4. Multiple rib fractures. Aware. We will continue with pain medication. 5. Disposition. We will continue to monitor this patient closely. cc: Favio Gamble MD
[2019-08-03] MEDS: DUONEB (A & A) INH SCH ×4 (03:33→22:10)
[2019-08-03] MEDS: NORCO-10 PO PRN ×3 (03:54→16:35)
[2019-08-03] MEDS: SYNTHROID PO SCH (06:09)
[2019-08-03] MEDS: MERREM 2 GM in NS 100 ML IV SCH ×2 (06:55→14:34)
[2019-08-03 07:13] LABS: BASO# 0.02 X1000 (0.0-0.2); BASO% 0.4 % (0.0-0.8); EOS# 0.23 X1000 (0.0-0.7); EOS% 4.6 % (0.0-10.0); HEMOGLOBIN 8.8 g/dL (12.0-16.0); IMM GRAN# 0.03 X1000 (0.0-0.04); IMM GRAN% 0.6 % (0.0-0.5); LYMPH# 1.47 X1000 (1.2-3.4); LYMPH% 29.6 % (20.5-51.1); MCH 27.8 PG (27-31); MCHC 29.3 g/dL (33-37); MCV 94.9 FL (81-99); MONO# 0.48 X1000 (0.11-0.59); MONO% 9.7 % (1.7-9.3); NEUT# 2.73 X1000 (1.4-6.5); NEUT% 55.1 % (42.2-75.2); PLT 201 X1000 (130-400); RBC 3.16 XMIL (4.2-5.4); RDW 20.4 % (11.5-14.5); WBC 4.96 X1000 (4.8-10.8)
[2019-08-03 08:05] LABS: AGAP 12; ALBUMIN 3.2 g/dL (3.5-5.0); BUN 12 mg/dL (8-22); CALCIUM 9.6 mg/dL (8.8-10.2); CHLORIDE 100 mmol/L (98-107); COSMO 278; CREATININE 0.7 mg/dL (0.5-0.9); ESTIMATED GFR > 60; GLUCOSE 108 mg/dL (70-104); POTASSIUM 4.1 mmol/L (3.5-5.1); SODIUM 139 mmol/L (136-145); TCO2 27 mmol/L (25-35)
[2019-08-03] MEDS: ASPIRIN PO SCH (10:00)
[2019-08-03] MEDS: CULTURELLE PO SCH ×2 (10:00→21:11)
[2019-08-03] MEDS: NEURONTIN PO SCH ×3 (10:00→17:35)
[2019-08-03] MEDS: ZYLOPRIM PO SCH (10:00)
[2019-08-03] MEDS: DITROPAN PO SCH ×2 (10:00→21:11)
[2019-08-03] MEDS: REQUIP PO SCH ×3 (10:00→21:11)
[2019-08-03] MEDS: LOVENOX SUBQ SCH (10:03)
[2019-08-03] MEDS: SANTYL OINT TOP SCH (11:01)
--- NOTE | 2019-08-03 12:07 | PROGRESS NOTE ---
DATE: 08/03/2019 SUBJECTIVE: Patient reports feeling fine. Mild right chest wall pain, but no other complaints noted. OBJECTIVE: Vital Signs: Temperature 97.7 degrees, heart rate 66, respiratory rate 17, blood pressure 161/80, O2 saturation 96% on 2 L nasal cannula. General: This is a chronically ill- appearing, morbidly obese, 59-year-old female who is lying in bed. No acute distress. Cardiovascular: S1, S2 heard. No murmurs, gallops, or rubs. Regular rate and rhythm. Respiratory: Very minimal wheezing and rhonchi noted in both pulmonary bases. Patient not using any accessory muscles or having work of breathing. There is still exquisite tenderness to palpation in the right chest wall. Abdomen: Soft, a little bit distended. Nontender to palpation. Bowel sounds present. No organomegaly. Extremities: 2+ pitting edema with chronic lymphedema and cellulitis in both lower extremities. There are also wounds noted in the lateral plantar surface on the left as well. There are also toe amputations noted. Neurological: Patient is alert and oriented x3. Moves 4 extremities. LABORATORY DATA: Reviewed. ASSESSMENT AND PLAN: 1. Acute respiratory failure secondary to bilateral pneumonia. Patient is receiving meropenem 2 g IV q.[address] Heath from Infectious Disease, considering also many microorganism in the wound culture. At this point, we will continue with the same management. General Surgery, Dr. Almaraz, mentioned that this patient may need excisional debridement when she is medically stable. I think she is at this point, so we will see what he has to say tomorrow. 2. Hypothyroidism and hypoglycemia, resolved. 3. Diabetes mellitus type 2. Very well controlled with hemoglobin A1c of 6.0. We will continue with the current management. 4. Hypertension. Blood pressure is under control. We will continue with the same medication. 5. Multiple rib fractures. Aware. We will continue with pain medications. 6. Disposition. I have talked with this patient, and she said that she is okay to going to rehab but not wanting to go to [facility]. So at this point, we are going to consult licensed social worker for rehab placement. cc: Favio Gamble MD
[2019-08-04] MEDS: MERREM 2 GM in NS 100 ML IV SCH ×3 (00:01→22:01)
[2019-08-04] MEDS: ULTRAM PO PRN ×3 (00:27→23:14)
[2019-08-04] MEDS: DUONEB (A & A) INH SCH ×4 (03:40→21:36)
[2019-08-04] MEDS: NORCO-10 PO PRN ×4 (04:13→22:01)
--- NOTE | 2019-08-04 07:28 | Diag Imaging Result Doc PS360 ---
EXAM: CHEST-PORTABLE HISTORY: pneumonia TECHNIQUE: Single view COMPARISON: 07/28/2019 FINDINGS: Poor inspiratory effort. There are sternal wires and cardiomegaly. Mild pulmonary edema on the current exam. No pleural effusions identified. IMPRESSION: Mild interval worsening Electronically signed by Spencer Kirk 08/04/2019 7:26 AM
[2019-08-04 07:40] LABS: BASO# 0.02 X1000 (0.0-0.2); BASO% 0.4 % (0.0-0.8); EOS# 0.19 X1000 (0.0-0.7); EOS% 3.5 % (0.0-10.0); HEMOGLOBIN 9.2 g/dL (12.0-16.0); IMM GRAN# 0.07 X1000 (0.0-0.04); IMM GRAN% 1.3 % (0.0-0.5); LYMPH# 1.73 X1000 (1.2-3.4); LYMPH% 32.2 % (20.5-51.1); MCH 28.2 PG (27-31); MCHC 29.7 g/dL (33-37); MCV 95.1 FL (81-99); MONO# 0.58 X1000 (0.11-0.59); MONO% 10.8 % (1.7-9.3); MPV 9.5 FL (7.4-10.4); NEUT# 2.78 X1000 (1.4-6.5); NEUT% 51.8 % (42.2-75.2); PLT 214 X1000 (130-400); RBC 3.26 XMIL (4.2-5.4); RDW 20.6 % (11.5-14.5); WBC 5.37 X1000 (4.8-10.8)
[2019-08-04 08:07] LABS: AGAP 10; ALBUMIN 3.2 g/dL (3.5-5.0); BUN 12 mg/dL (8-22); CALCIUM 9.2 mg/dL (8.8-10.2); CHLORIDE 98 mmol/L (98-107); COSMO 278; CREATININE 0.6 mg/dL (0.5-0.9); ESTIMATED GFR > 60; GLUCOSE 108 mg/dL (70-104); PHOSPHORUS 3.4 mg/dL (2.7-4.5); POTASSIUM 3.9 mmol/L (3.5-5.1); SODIUM 139 mmol/L (136-145); TCO2 31 mmol/L (25-35)
[2019-08-04] MEDS: NEURONTIN PO SCH ×3 (10:22→17:31)
[2019-08-04] MEDS: REQUIP PO SCH ×3 (10:22→22:02)
[2019-08-04] MEDS: ASPIRIN PO SCH (10:22)
[2019-08-04] MEDS: DITROPAN PO SCH ×2 (10:23→22:01)
[2019-08-04] MEDS: ZYLOPRIM PO SCH (10:23)
[2019-08-04] MEDS: CULTURELLE PO SCH ×2 (10:23→22:01)
[2019-08-04] MEDS: SANTYL OINT TOP SCH (10:25)
[2019-08-04] MEDS: LOVENOX SUBQ SCH (10:26)
[2019-08-04] MEDS: SYNTHROID PO SCH (10:58)
[2019-08-04] MEDS: LASIX IV SCH ×2 (11:00→22:01)
--- NOTE | 2019-08-04 12:58 | PROGRESS NOTE ---
DATE: 08/04/2019 SUBJECTIVE: The patient reports very mild shortness of breath. She also has some mild right chest wall pain. No other complaints noted. OBJECTIVE: Vital Signs: Temperature 97.7 degrees, heart rate 92, respiratory rate 15, blood pressure 141/64, and O2 saturation 94% on 2 liters nasal cannula. General: This is a chronically ill-appearing, morbidly obese 59-year-old female lying in bed, in no acute distress. Cardiovascular: S1, S2 heard. No murmurs, gallops, or rubs. Regular rate and rhythm. Respiratory: Minimal wheezing and rhonchi noted in both pulmonary bases. Patient not using any accessory muscles or having work of breathing. Chest: There is still some exquisite tenderness to palpation in the right chest wall. Abdomen: Soft, a little bit distended, but nontender to palpation. Bowel sounds present. No organomegaly. Extremities: There is 2+ pitting edema with chronic lymphedema. Edema and cellulitis in both lower extremities. There are also some wounds noted in the lateral plantar surface of the left as well, and there are also toe amputations noted. Neurological: Patient is alert and oriented x3. Moves 4 extremities. LABORATORY DATA: On review, hemoglobin is 9.2 today. Normal BMP. ASSESSMENT AND PLAN: 1. Acute respiratory failure secondary to bilateral pneumonia. Patient continues to receive meropenem 2 gram intravenously every 8 hours. That medication is being given to her, according to Dr. Heath from infectious disease, not only for pneumonia but also for the many microorganism found in the would culture. At this point, we have contacted Dr. Almaraz from general surgery who will let us know about this possible excisional debridement that this patient needs. We will continue to monitor. 2. Hypothyroidism and hypoglycemia, resolved. 3. Diabetes mellitus type 2. We will continue with sliding scale insulin, but hemoglobin A1c is 6, which means excellent good glucose control. 4. Multiple rib fractures, aware. We will continue with pain medications. 5. Disposition. The patient has been here many times. I would say that in the last 2 to 3 months, she has been at home for probably only a few days. I have recommended to go to rehab facility. She is going to think about it, but she does not want to go back to [facility]. cc: Favio Gamble MD
--- NOTE | 2019-08-04 14:26 | INFECTIOUS DISEASE PROGRESS NO ---
DATE: 08/03/2019 PRESENT ILLNESS: The patient has bilateral leg cellulitis with infected plantar foot ulcers. The ulcers have grown oxacillin sensitive Staph aureus from the left foot and oxacillin sensitive Staph aureus and Pseudomonas from the right foot. The patient has bilateral pulmonary venous congestion. Whether this is pneumonia or is secondary to congestive heart failure with pulmonary edema is uncertain. MEDICATIONS: This is day 4 of treatment with meropenem. PHYSICAL EXAMINATION: Vital Signs: Temperature earlier was 100, now it is 98, pulse 93, respirations 16, blood pressure 124/56. General: This is an obese, middle-aged female. She is in no acute distress. Head/eyes/ears/nose/throat: She can hear my spoken words and see near objects. I did not see any white patches in her mouth. Neck: No pain with movement. Lungs: Clear to auscultation. Cardiovascular: Heart rate is regular. Abdomen: Soft and nontender. Extremities: Both legs are erythematous distally, and both feet have plantar ulcers that are remaining about the same size. They have devitalized tissue, but no purulence and no necrotic tissue. Also, there is no odor to the wounds. LAB AND X-RAY: Chest x-ray shows pulmonary edema. The CBC shows a white count of 5370, hemoglobin 9.2, and platelet count 214,000. Creatinine is 0.6. GFR is greater than 60. The right foot ulcer has grown oxacillin sensitive Staph aureus and Pseudomonas. The left foot ulcer has grown oxacillin sensitive Staph aureus. ASSESSMENT AND PLAN: Patient has pneumonia versus pulmonary venous congestion. I have ordered for a procalcitonin level to be obtained, and hopefully this will determine if the patient does indeed have pneumonia or it is all pulmonary venous congestion. As regarding the patient's leg cellulitis and plantar ulcer infections, we will continue with meropenem, and also the meropenem will be treating pneumonia if it is present. Dr. Almaraz may be seeing the patient today for more debridement of the patient's plantar ulcers. COMORBIDITIES: Morbid obesity, chronic lower extremity edema, diabetes mellitus and rib fractures. cc: Viraj Heath MD
--- NOTE | 2019-08-04 21:17 | GENERAL SURGERY PROGRESS NOTE ---
DATE: 08/04/2019 SUBJECTIVE: She clinically has shown some improvement. No fevers. No tachycardia. OBJECTIVE: Vital signs: Blood pressure 122/59. Neurologic: From a neurologic standpoint, she is more alert. I do not see any focal deficits grossly. Cardiovascular: Normal rate and regular rhythm. Extremities: In the feet, there is chronic venous insufficiency with thickening of the skin bilaterally with skin discoloration. She has a right calcaneal wound in the left plantar wound that are granulating with no cellulitis, no purulence, no exposed bone. LABORATORY DATA: White count is normal at 5, hematocrit is 31, creatinine 0.6. ASSESSMENT AND PLAN: A 59-year-old female with chronic foot wound bilaterally. They are clean. They actually look much better since she has been here with enzymatic debridement. I would recommend continuing this. Fortunately, her feet wounds look much better while she is inpatient, and she is nonmobile and nonambulatory, but when she goes home, she ambulates on her feet. She lives by herself, and they get much worse. I have recommended rehab. She has been resistant to this, but I have stressed the importance and the probability that she will progress to amputation if she does not take this seriously. She understands this and seems to have agreed to rehab. We will follow along but continue Santyl and Vashe dressings. No plans for surgical debridement. cc: Marti Almaraz MD
[2019-08-05] MEDS: NORCO-10 PO PRN ×4 (03:12→20:57)
[2019-08-05] MEDS: MERREM 2 GM in NS 100 ML IV SCH ×2 (03:12→15:01)
[2019-08-05] MEDS: DUONEB (A & A) INH SCH ×4 (03:15→22:56)
[2019-08-05] MEDS: SYNTHROID PO SCH (06:15)
[2019-08-05] MEDS: ULTRAM PO PRN ×2 (06:17→17:59)
[2019-08-05 07:19] LABS: BASO# 0.03 X1000 (0.0-0.2); BASO% 0.5 % (0.0-0.8); EOS# 0.34 X1000 (0.0-0.7); EOS% 6.1 % (0.0-10.0); HEMATOCRIT 31.7 % (37.0-47.0); HEMOGLOBIN 9.3 g/dL (12.0-16.0); IMM GRAN# 0.09 X1000 (0.0-0.04); IMM GRAN% 1.6 % (0.0-0.5); LYMPH% 30.4 % (20.5-51.1); MCH 28.3 PG (27-31); MCHC 29.3 g/dL (33-37); MCV 96.4 FL (81-99); MONO# 0.71 X1000 (0.11-0.59); MONO% 12.7 % (1.7-9.3); MPV 9.4 FL (7.4-10.4); NEUT# 2.72 X1000 (1.4-6.5); NEUT% 48.7 % (42.2-75.2); PLT 216 X1000 (130-400); RBC 3.29 XMIL (4.2-5.4); RDW 20.6 % (11.5-14.5); WBC 5.59 X1000 (4.8-10.8)
[2019-08-05] MEDS: REQUIP PO SCH ×3 (08:25→20:57)
[2019-08-05] MEDS: LOVENOX SUBQ SCH (08:25)
[2019-08-05] MEDS: ZYLOPRIM PO SCH (08:25)
[2019-08-05] MEDS: LASIX IV SCH ×2 (08:25→20:57)
[2019-08-05] MEDS: NEURONTIN PO SCH ×3 (08:26→17:58)
[2019-08-05] MEDS: CULTURELLE PO SCH ×2 (08:26→20:57)
[2019-08-05] MEDS: ASPIRIN PO SCH (08:26)
[2019-08-05] MEDS: DITROPAN PO SCH ×2 (08:26→20:57)
[2019-08-05 08:36] LABS: AGAP 9; ALBUMIN 3.3 g/dL (3.5-5.0); BUN 13 mg/dL (8-22); CALCIUM 9.1 mg/dL (8.8-10.2); CHLORIDE 97 mmol/L (98-107); COSMO 285; CREATININE 0.7 mg/dL (0.5-0.9); ESTIMATED GFR > 60; GLUCOSE 94 mg/dL (70-104); PHOSPHORUS 3.5 mg/dL (2.7-4.5); SODIUM 143 mmol/L (136-145); TCO2 37 mmol/L (25-35)
--- NOTE | 2019-08-05 10:23 | PROGRESS NOTE ---
DATE: 08/05/2019 SUBJECTIVE: Patient reports feeling less short of breath. Continues to report mild right chest wall pain, but no other complaints noted. OBJECTIVE: Vital Signs: Temperature 97.6 degrees, heart rate 92, respiratory rate 16, blood pressure 124/66, and O2 saturation 98% on 3 L nasal cannula. General: This is a chronically ill- appearing, morbidly obese, 59-year-old female lying in bed in no acute distress. Cardiovascular: S1, S2 heard. No murmurs, gallops, or rubs. Regular rate and rhythm. Respiratory: Minimal wheezing and rhonchi is noted in both pulmonary bases. Patient not using any accessory muscles or having work of breathing. In the chest, there is still some exquisite tenderness to palpation in the right chest wall. Abdomen: Soft, a little bit distended but nontender to palpation. Bowel sounds present. No organomegaly. Extremities: 2+ pitting edema with chronic lymphedema, edema, and cellulitis of both lower extremities. There are also some wounds noted in the lateral plantar surface of the left, and some toe amputations as well. Neurological: Patient alert and oriented x3. Moves 4 extremities. LABORATORY DATA: Pending at the time of my dictation. ASSESSMENT AND PLAN: 1. Acute respiratory failure secondary to bilateral pneumonia. We will continue with meropenem 2 g IV every 8 hours. Today is day six of this medication. Dr. Heath managing antibiotics. We will follow recommendations from surgical standpoint. 2. Chronic bilateral lower extremity cellulitis. Although, initially there was a plan for excisional debridement for this patient, Dr. Almaraz thinks that we need to do any debridement at this point. The patient is improving. We will continue with current wound care. 3. Multiple rib fractures. Aware. We will continue with pain medication. 4. Diabetes mellitus type 2, well controlled with hemoglobin A1c of 6. We will continue with sliding scale insulin. 5. Hypothyroidism and hypoglycemia. We will continue with current management. Hypoglycemia is resolved. 6. Disposition. The patient finally accepted to go to rehab facility. We will start looking for a bed. She is medically stable at this point. cc: Favio Gamble MD
[2019-08-05] MEDS: SANTYL OINT TOP SCH (14:04)
--- NOTE | 2019-08-05 20:01 | INFECTIOUS DISEASE PROGRESS NO ---
DATE: 08/05/2019 PRESENT ILLNESS: The patient has a Staph aureus and Pseudomonas pneumonias infection of both legs with a resulting cellulitis also the patient has bilateral plantar ulcers with the same infection in with the same organisms as mentioned above. The patient also may have pneumonia versus congestive heart failure. MEDICATIONS: This is the 5th day of treatment with meropenem. PHYSICAL EXAMINATION: Vital Signs: Temperature is 97.9 degrees, pulse 84, respirations 20, blood pressure 126/56. General: This is an obese, middle-aged female. She is in no acute distress. Head/eyes/ears/nose/throat: She can hear my spoken words and see near objects. She does not have any white coating of her tongue. Neck: No stiffness. Lungs: Clear to auscultation. Cardiovascular: Heart rate is regular. Abdomen: Soft and nontender. Extremities: Both legs are edematous and erythematous and both feet have a dressing around them. Neurologic: Patient is alert. She can move her extremities. There is no tremor. LAB AND X-RAY: CBC shows a white count of 5590, hemoglobin 9.3, platelet count 216,000, creatinine is 0.7, GFR is greater than 60. There is no new radiographic study. ASSESSMENT AND PLAN: The patient has bilateral leg cellulitis and she also has pneumonia versus pulmonary venous congestion. For now, I am going to continue meropenem for her cellulitis and possible pneumonia. The procalcitonin level was ordered but is not yet back. COMORBIDITIES: The patient is obese. She has diabetes mellitus and lower extremity edema, which is chronic. She has also had rib fractures. cc: Viraj Heath MD
[2019-08-06] MEDS: MERREM 2 GM in NS 100 ML IV SCH ×4 (00:36→19:19)
[2019-08-06] MEDS: NORCO-10 PO PRN ×5 (01:08→20:36)
[2019-08-06] MEDS: DUONEB (A & A) INH SCH ×4 (03:58→22:55)
[2019-08-06] MEDS: SYNTHROID PO SCH ×2 (05:54→06:00)
--- NOTE | 2019-08-06 10:28 | PROGRESS NOTE ---
DATE: 08/06/2019 SUBJECTIVE: Patient reports feeling fine. No shortness of breath. OBJECTIVE: Vital Signs: Temperature 97.9 degrees, heart rate 52, respiratory rate 18, blood pressure 116/59, O2 saturation 94% on 2 L nasal cannula. General: This is a chronically ill- appearing, morbidly obese, 69-year-old female lying in bed, in no acute distress. Cardiovascular: S1 and S2 heard. No murmurs, gallops, or rubs. Regular rate and rhythm. Respiratory: Exam minimal rhonchi noted in both pulmonary bases. Patient not using any accessory muscles or having work of breathing. Still some tenderness to palpation in the chest wall. Abdomen: Soft, a little bit distended but nontender to palpation. Bowel sounds present. No organomegaly. Extremities: There is still some pitting edema with chronic lymphedema and cellulitis of both lower extremities. There is also some wounds noted in the lateral plantar surface of the left and some toe amputations as well. Neurological: Patient alert oriented x3. Moves 4 extremities. LABORATORY DATA: Reviewed. ASSESSMENT: 1. Acute respiratory failure secondary to bilateral pneumonia. We will continue with meropenem 2 g IV q.8 hours. Clinically, patient is feeling better. No short of breath. Today is day #7. Antibiotics will continue following recommendations from Dr. Heath. 2. Chronic bilateral lower extremity cellulitis. The cellulitis is multi-microbial so Dr. Heath has placed her on meropenem. From a surgical standpoint, she does not need to have any surgical intervention. We will continue with wound care. 3. Multiple rib fractures. We will continue with pain medication. 4. Diabetes mellitus type 2. Excellent control with hemoglobin A1c of 6.0. We will continue with the same management. 5. Hypothyroidism. 6. Hyperglycemia resolved. 7. Disposition. Patient has refused to go to rehab. She prefers to go home with home health. We have placed consult for social media coordinator to get [facility]. As soon as we set up antibiotics and PICC line then we will let her go most likely at the end of the day today or tomorrow morning. cc: Favio Gamble MD
[2019-08-06 10:35] LABS: INR 1.02; PROTIME 13.5 Seconds (11.0-16.0)
[2019-08-06 10:38] LABS: BASO# 0.09 X1000 (0.0-0.2); BASO% 1.4 % (0.0-0.8); EOS# 0.39 X1000 (0.0-0.7); EOS% 6.1 % (0.0-10.0); HEMATOCRIT 35.5 % (37.0-47.0); HEMOGLOBIN 10.6 g/dL (12.0-16.0); IMM GRAN# 0.16 X1000 (0.0-0.04); IMM GRAN% 2.5 % (0.0-0.5); LYMPH# 1.76 X1000 (1.2-3.4); LYMPH% 27.4 % (20.5-51.1); MCH 28.5 PG (27-31); MCHC 29.9 g/dL (33-37); MCV 95.4 FL (81-99); MONO# 0.54 X1000 (0.11-0.59); MONO% 8.4 % (1.7-9.3); MPV 9.3 FL (7.4-10.4); NEUT# 3.48 X1000 (1.4-6.5); NEUT% 54.2 % (42.2-75.2); PLT 270 X1000 (130-400); RBC 3.72 XMIL (4.2-5.4); RDW 20.5 % (11.5-14.5); WBC 6.42 X1000 (4.8-10.8)
[2019-08-06 10:55] LABS: AGAP 11; BUN 13 mg/dL (8-22); CALCIUM 9.5 mg/dL (8.8-10.2); CHLORIDE 95 mmol/L (98-107); COSMO 282; CREATININE 0.6 mg/dL (0.5-0.9); ESTIMATED GFR > 60; GLUCOSE 117 mg/dL (70-104); POTASSIUM 3.7 mmol/L (3.5-5.1); SODIUM 141 mmol/L (136-145); TCO2 35 mmol/L (25-35)
[2019-08-06 11:22] LABS: BANDS 2 % (0-1); LYMPHS 30 % (21-51); SEGS 64 % (42-75)
[2019-08-06] MEDS: DITROPAN PO SCH ×2 (11:28→20:35)
[2019-08-06] MEDS: ASPIRIN PO SCH (11:28)
[2019-08-06] MEDS: REQUIP PO SCH ×3 (11:28→20:36)
[2019-08-06] MEDS: ZYLOPRIM PO SCH (11:28)
[2019-08-06] MEDS: CULTURELLE PO SCH ×2 (11:28→20:35)
[2019-08-06] MEDS: LASIX IV SCH ×2 (11:29→20:35)
[2019-08-06] MEDS: LOVENOX SUBQ SCH (11:29)
[2019-08-06] MEDS: NEURONTIN PO SCH ×3 (11:29→16:31)
[2019-08-06] MEDS ORDERED: NS 250 ML ONE (12:40)
[2019-08-06] MEDS: ULTRAM PO PRN (13:17)
[2019-08-06] MEDS: ZOFRAN IV PRN (13:18)
[2019-08-06] MEDS: SANTYL OINT TOP SCH (16:37)
--- NOTE | 2019-08-06 20:31 | INFECTIOUS DISEASE PROGRESS NO ---
DATE: 08/06/2019 Ms. Olivier is to be discharged home today or tomorrow. She is having a PICC line inserted at this time. We have been treating her with meropenem for an oxacillin-sensitive Staph aureus and a Pseudomonas, which have grown to her lower extremities with cellulitis and bilateral plantar ulcers. Her procalcitonin came back at less than 0.10, making it very unlikely that there is a pneumonia at this point. We have gone ahead and put in orders for meropenem to be administered every 8 hours at home with [facility] to help her with home IV antibiotics. We plan to do this for a total of 2 weeks, and then we will see her back in our office in 2 weeks. These plans have been discussed with and recommended by Dr. Heath. Dictated by RADHA West for Viraj Heath MD cc: Viraj Heath MD MTDD
[2019-08-07] MEDS: NORCO-10 PO PRN ×2 (00:48→07:34)
[2019-08-07] MEDS: MERREM 2 GM in NS 100 ML IV SCH ×3 (00:51→09:10)
[2019-08-07] MEDS: ULTRAM PO PRN ×2 (01:46→09:48)
[2019-08-07] MEDS: DUONEB (A & A) INH SCH ×2 (03:45→10:18)
[2019-08-07 06:06] VITALS: BP 115/56
[2019-08-07] MEDS: SYNTHROID PO SCH (06:28)
[2019-08-07 07:29] LABS: BASO# 0.05 X1000 (0.0-0.2); BASO% 0.9 % (0.0-0.8); EOS# 0.29 X1000 (0.0-0.7); HEMATOCRIT 33.4 % (37.0-47.0); HEMOGLOBIN 9.8 g/dL (12.0-16.0); IMM GRAN# 0.11 X1000 (0.0-0.04); IMM GRAN% 1.9 % (0.0-0.5); LYMPH% 30.9 % (20.5-51.1); MCH 28.4 PG (27-31); MCHC 29.3 g/dL (33-37); MCV 96.8 FL (81-99); MONO# 0.81 X1000 (0.11-0.59); MONO% 13.9 % (1.7-9.3); MPV 9.7 FL (7.4-10.4); NEUT# 2.77 X1000 (1.4-6.5); NEUT% 47.4 % (42.2-75.2); PLT 233 X1000 (130-400); RBC 3.45 XMIL (4.2-5.4); RDW 20.6 % (11.5-14.5); WBC 5.83 X1000 (4.8-10.8)
[2019-08-07 07:46] LABS: ESTIMATED GFR > 60
[2019-08-07 07:50] LABS: AGAP 5; BUN 17 mg/dL (8-22); CALCIUM 9.4 mg/dL (8.8-10.2); CHLORIDE 96 mmol/L (98-107); COSMO 287; CREATININE 0.7 mg/dL (0.5-0.9); GLUCOSE 109 mg/dL (70-104); POTASSIUM 3.7 mmol/L (3.5-5.1); SODIUM 143 mmol/L (136-145); TCO2 42 mmol/L (25-35)
[2019-08-07] MEDS: LOVENOX SUBQ SCH (09:10)
[2019-08-07] MEDS: REQUIP PO SCH (09:11)
[2019-08-07] MEDS: NEURONTIN PO SCH ×2 (09:11→14:02)
[2019-08-07] MEDS: CULTURELLE PO SCH (09:11)
[2019-08-07] MEDS: ZYLOPRIM PO SCH (09:11)
[2019-08-07] MEDS: DITROPAN PO SCH (09:11)
[2019-08-07] MEDS: ASPIRIN PO SCH (09:11)
[2019-08-07] MEDS: SANTYL OINT TOP SCH (09:12)
[2019-08-07] MEDS: LASIX IV SCH (09:12)
--- NOTE | 2019-08-08 08:38 | DISCHARGE SUMMARY ---
ADMISSION DATE: 07/28/2019 DISCHARGE DATE: 08/07/2019 CONSULTATIONS: 1. Dr. Almaraz with General Surgery. 2. Dr. Viraj Heath with Infectious Disease. PERTINENT PROCEDURES: Chest CT: Bibasilar bronchopneumonia, multiple rib fractures. DISCHARGE DIAGNOSES: 1. Acute respiratory failure secondary to bilateral pneumonia. The patient has been on meropenem 2 g IV q.8 hours. Clinically, the patient has improved in. This will be day 8 on antibiotics. She has been followed by Dr. Heath with Infectious Disease. She is currently having a PICC line inserted and will be discharged home on meropenem for an oxacillin sensitive Staph aureus and a Pseudomonas which have grown for her lower extremity cellulitis and bilateral plantar ulcer. [facility] on will be providing her home IV antibiotics. She will get these for a total of 2 weeks and will follow up with Dr. Heath at that time. 2. Chronic bilateral lower extremity cellulitis. 3. Multiple rib fractures. Continue pain regimen. 4. Diabetes mellitus type 2. Hemoglobin A1c is 6. Continue home regimen, diabetic diet. 5. Hypothyroidism. 6. Hypoglycemia, resolved. DISPOSITION: The patient refused rehab. She prefers to go home with home health and IV antibiotics. HOSPITAL COURSE: Briefly, Ms. Olivier is a 59-year-old female with numerous admissions for chronic wounds to her lower extremities, multiple other medical issues, admitted for hypoglycemia, altered mental status, found to have pneumonia, was treated per the septic protocol and admitted to the hospital. Per Dr. Almaraz's report for the most part she is noncompliant secondary to lack of social situation and support. They had been treating her wounds with Santyl and Vashe but it appeared that she had not been able to do this. Her wound cultures grew out a Pseudomonas. The patient has been strongly encouraged to go to rehab as we will get her legs cleaned up and looking well in the hospital and she returns home and get worse and she will have to re-return to the hospital. Her pneumonia has appeared to resolve over the course of her hospital treatment. She is receiving a PICC line today and will go home with 2 weeks of antibiotics with meropenem and after that point, she will follow up with Dr. Heath in the office as well as continue to follow up with Dr. Almaraz for wound care. VITAL SIGNS: At time of discharge, temperature is 97.9 degrees, heart rate 86, respirations 17, blood pressure 115/56, O2 saturation is 94% on room air. DISCHARGE DIET: Diabetic. DISCHARGE MEDICATIONS: 1. Cefepime IV per Dr. Heath, who will be provided by [facility] 2. Amaryl 4 mg p.o. b.i.d. 3. Bydureon 10, 2 mg subcutaneously as directed. 4. Fioricet 1 each p.o. q. 4 hours p.r.n. 5. Neurontin 800 mg p.o. t.i.d. 6. Robaxin 750 mg p.o. t.i.d. 7. Requip 4 mg p.o. t.i.d. 8. Allopurinol 300 mg p.o. q.a.m. 9. Janumet XR 1 tablet p.o. at bedtime. 10. Aspirin 81 mg p.o. daily. 11. Culturelle 1 inch p.o. b.i.d. 12. Ditropan 5 mg p.o. b.i.d. 13. Lactulose 30 mL p.o. b.i.d. 14. Lasix 40 mg p.o. daily. 15. Lotrimin cream 1 g p.o. b.i.d. 16. Putnam 10 one tab p.o. q. 12 hours p.r.n. 17. Santyl ointment 1 g topical daily. 18. Synthroid 50 mcg p.o. daily. 19. Tums 500 mg p.o. a.c., hour of sleep, p.r.n. FOLLOWUP: Ms. Olivier is being discharged home with [facility] for her IV antibiotics. She is to follow up with Dr. Heath in 2 weeks as well as continue wound care per Dr. Almaraz's instructions as well as follow up with her primary care provider, Dr. Belen Dominique. She is to follow her diabetic diet, take all medications as prescribed. She can return to the ED or call 911 for any worsening of symptoms. Dictated by RADHA Dockery for Favio Gamble MD Addendum: Patient seen and examined by myself. Agree with RADHA note. It reflects my assessment and plan. Patient is being discharged in stable condition and will be followed up by wound care clinic. cc: MD Marti Guardado MD Leroy F. Harris, MD Faye Wilson, MD MTDD
== END 2019-08-07 13:57 | disposition home health service (06) | DRG 177 ==
LOC: SUPCPDRO → ED 00:11 → SUATTDRO 05:19 → EDIPHOLD 05:19 → ICU 07:43 → 4N 07-29 16:49
PROVIDERS: ATTEND Internal Medicine